=== PATIENT | male | born 1940 | race Caucasian/White ===

== ENCOUNTER 2016-11-25 11:37 | Inpatient (IN) | payer MEDICARE, OTHER ==
[2016-11-25 11:37] VITALS: BMI 35.2
--- NOTE | 2016-11-25 13:35 | ED PDOC ---
Lower Extremity Pain/Injury Time Seen by Provider: 11/25/16 13:25 Chief Complaint (Nursing): Lower Extremity Problem/Injury Chief Complaint (Provider): Bilateral Leg Eccymosis History Per: Patient History/Exam Limitations: no limitations ([employer]metry[employer] Video Administrative Office Manager assisted with communication) Onset/Duration Of Symptoms: Days (x3) Current Symptoms Are (Timing): Still Present Additional Complaint(s): Heber Woodson is a 76 year old male, with a past medical history inclusive of CAD (s/p coronary stent and pacemaker placement), CHF, atrial fibrillation, HTN , hypercholesterolemia and type II diabetes, who presents to the ED on 11/25/16 for the evaluation of black/blue discoloration/bruising which he has noted to his b/l lower extremities. [employer] Video Administrative Office Manager service used to facilitate communication. Patient reports having injured the affected extremities a couple of years ago and, though he does not remember exactly how he had done so, he has experienced increasing pain/discoloration within them over the past 3 days; prompting ED visit. Patient also reports having noted an open sore to his left anterior jacobs, but denies any serosanguinous drainage. Further denies fever, chills, chest pain, shortness of breath, back pain, calf pain, groin pain or paresthesias/numbness with ambulation. PMD: Prem Billings Past Medical History Reviewed: Historical Data, Nursing Documentation, Vital Signs Vital Signs: Last Vital Signs Temp 98.8 F 11/25/16 11:49 Pulse 72 11/25/16 11:49 Resp 18 11/25/16 12:26 BP 130/61 11/25/16 11:49 Pulse Ox 97 11/25/16 11:49 - Medical History PMH: Arthritis, Atrial Fibrillation, CAD, Cardia Arrhythmia, CHF, Depression, Diabetes (type II), HTN, Hypercholesterolemia, Pneumonia Denies: HIV, Chronic Kidney Disease - Surgical History Surgical History: Coronary Stent, Hernia Repair (ventral), Pacemaker - Family History Family History: States: Unknown Family Hx - Social History Ex-Smoker (has not smoked in the last 12 months): Yes Alcohol: None Drugs: Denies - Home Medications Home Medications: Ambulatory Orders Medication Instructions Recorded Sertraline [Zoloft] 50 mg PO DAILY #0 tab 01/17/16 Calcium Carbonate/Vitamin D3 1 tab PO QPM 04/20/16 [Calcium 600 + Vit D Tablet] Multivitamin [One Daily] 1 tab PO DAILY 04/20/16 Nitroglycerin [Nitrostat] 0.4 mg SL Q5MIN PRN 04/20/16 Potassium Chloride [Klor-Con M20] 20 meq PO QPM 04/20/16 Spironolactone [Aldactone] 25 mg PO DAILY 04/20/16 Zolpidem [Ambien] 5 mg PO HS PRN 04/20/16 predniSONE [predniSONE Tab] 10 mg PO DAILY 04/20/16 Risperidone [Risperdal] 2 mg PO HS 08/06/16 Aspirin [Ecotrin] 81 mg PO DAILY 11/25/16 Atorvastatin [Lipitor] 20 mg PO HS 11/25/16 Gabapentin [Neurontin] 300 mg PO TID 11/25/16 Hydroxychloroquine Sulfate 200 mg PO BID 11/25/16 [Plaquenil] Omeprazole [Prilosec] 20 mg PO DAILY 11/25/16 Rivaroxaban [Xarelto] 20 mg PO QPM 11/25/16 Sitagliptin Phosphate [Januvia] 100 mg PO DAILY 11/25/16 glyBURIDE [Micronase] 2.5 mg PO DAILY 11/25/16 - Allergies Allergies/Adverse Reactions: Allergies Allergy/AdvReac Type Severity Reaction Status Date / Time morphine Allergy RASH Verified 01/12/16 03:53 Review of Systems ROS Statement: Except As Marked, All Systems Reviewed And Found Negative Constitutional: Negative for: Fever, Chills Cardiovascular: Negative for: Chest Pain Respiratory: Negative for: Shortness of Breath Musculoskeletal: Positive for: Leg Pain (bilateral; denies groin/calf pain). Negative for: Back Pain Skin: Positive for: Other (skin discoloration of b/l lower extremities w/"open sore" on left jacobs; no discharge) Neurological: Negative for: Numbness (no numbness/paresthesias w/ambulation) Physical Exam - Reviewed Nursing Documentation Reviewed: Yes Vital Signs Reviewed: Yes - Physical Exam Appears: Positive for: Non-toxic, No Acute Distress Head Exam: Positive for: ATRAUMATIC, NORMOCEPHALIC Skin: Positive for: Normal Color, Warm, Dry Eye Exam: Positive for: Normal appearance Neck: Positive for: Normal, Painless ROM, Supple Cardiovascular/Chest: Positive for: Regular Rate, Rhythm. Negative for: Murmur Respiratory: Positive for: Normal Breath Sounds. Negative for: Respiratory Distress Pulses-Dorsalis Pedis (L): 2+ Pulses-Dorsalis Pedis (R): 2+ Pulses-Femoral (L): 2+ Pulses-Femoral (R): 2+ Pulses-Post. Tibialis (L): 2+ Pulses-Post. Tibialis (R): 2+ Gastrointestinal/Abdominal: Positive for: Normal Exam, Soft. Negative for: Tenderness Back: Positive for: Normal Inspection Extremity: Positive for: Normal ROM, Capillary Refill (<2 seconds), Other ( ecchymosis noted to b/l lower extremities w/many varicose veins; old/healing scab noted to left anterior jacobs, no notable drainage). Negative for: Tenderness (groin nontender b/l), Calf Tenderness, Deformity, Swelling Neurologic/Psych: Positive for: Alert, Oriented. Negative for: Motor/Sensory Deficits - Laboratory Results Result Diagrams: 11/25/16 14:10 11/25/16 14:10 - ECG O2 Sat by Pulse Oximetry: 97 (RA) Pulse Ox Interpretation: Normal - CT Scan/US US Other Rad Studies (CT/US): Radiology Report Reviewed (b/l DVT) - Progress ED Course And Treament: Pt will get US to r/o DVT and basic labs to assess coags. pt stable at this time. no SOB, no CP. 17:04. Pt with prolonged ED wait-due to signidicant wait in US. PT made aware and sawmill supervisor made of delay. Medical Decision Making Medical Decision Makin:25 Initial Impression: b/l leg ecchymosis Initial Plan: * Duplex LE Vein, Bilat * Labs * PTT * PT * Reevaluation 18:29 Pt with b/l DVT Pt will be admitted under MD lucía for vascular surgery consult and LMWH, considering pt is currently on blood thinners, pacemaker Scribe Attestation: Documented by Lizzy Harper, acting as a scribe for Janeth Li PA-C. Provider Scribe Attestation: All medical record entries made by the Scribe were at my direction and personally dictated by me. I have reviewed the chart and agree that the record accurately reflects my personal performance of the history, physical exam, medical decision making, and the department course for this patient. I have also personally directed, reviewed, and agree with the discharge instructions and disposition. ED OBSERVATION Date of observation admission: 11/25/16 Time of observation admission: 17:06 - Observation admission statement Patient is being placed in observation because:: US results - Goals of Observation Goals of observation are:: pt will be admitted for b/l DVT Disposition - Clinical Impression Clinical Impression: Deep vein thrombosis (DVT) - Patient ED Disposition Is Patient to be Admitted: Yes - Disposition Disposition Time: 18:31 Condition: FAIR - Pt Status Changed To: Hospital Disposition Of: Inpatient - Admit Certification Admit to Inpatient:: After my assessment, the patient will require hospitalization for at least two midnights. This is because of the severity of symptoms shown, intensity of services needed, and/or the medical risk in this patient being treated as an outpatient. - POA Present On Arrival: Deep Vein Thrombosis / PE
[2016-11-25 14:26] LABS: BASO % 0.3 % (0.0-2.0); EOS # 0.1 K/uL (0.0-0.7); EOS % 0.9 % (0.0-4.0); HEMATOCRIT 38.2 % (35.0-51.0); LYMPH # 0.8 K/uL (1.0-4.3); LYMPH % 6.3 % (20.0-40.0); MEAN CELL VOLUME 86.7 fl (80.0-94.0); MEAN CORPUSCULAR HEMOGLOBIN 28.5 pg (27.0-31.0); MEAN CORPUSCULAR HGB CONC 32.9 g/dL (33.0-37.0); MEAN PLATELET VOLUME 8.1 fl (7.2-11.7); MONO % 7.5 % (0.0-10.0); NEUT # 10.9 K/uL (1.8-7.0); NRBC % 0.1 % (0.0-0.0); PLATELET COUNT 174 K/uL (130-400); RED CELL DISTRIBUTION WIDTH 15.2 % (11.5-14.5); WHITE BLOOD COUNT 12.8 K/uL (4.8-10.8)
[2016-11-25 14:33] LABS: ALB/GLOB RATIO 1.1 (1.0-2.1); ALKALINE PHOSPHATASE 50 U/L (38-126); ALT/SGPT 39 U/L (21-72); AST/SGOT 31 U/L (17-59); BILIRUBIN,TOTAL 0.9 mg/dl (0.2-1.3); BLOOD UREA NITROGEN 25 mg/dl (9-20); CALCIUM 9.3 mg/dL (8.4-10.2); CARBON DIOXIDE 25 mmol/L (22-30); CHLORIDE 106 mmol/L (98-107); GFR AFRICAN-AMERICAN > 60; GLUCOSE,RANDOM 135 mg/dL (75-110); POTASSIUM 4.8 MMOL/L (3.6-5.0); SODIUM 143 mmol/l (132-148); TOTAL PROTEIN 6.5 G/DL (6.3-8.2)
[2016-11-25 14:42] LABS: PARTIAL THROMBOPLASTIN TIME 29.3 SECONDS (23.3-32.5)
[2016-11-25 16:06] LABS: NEUTROPHIL 87 % (42-75); TOTAL CELLS COUNTED 100
[2016-11-25 16:07] LABS: LARGE PLATELETS PRESENT
--- NOTE | 2016-11-25 18:22 | US ---
PROCEDURE: All bilateral lower extremity duplex venous sonography. HISTORY: brusing to LE COMPARISON: 08/06/2016. Summary of findings on the comparison examination: Negative examination left lower extremity for deep vein thrombosis. TECHNIQUE: Real-time ultrasound scan of the veins with color flow, spectral waveform analysis and compression FINDINGS: Right lower extremity: Evidence of extensive deep vein thrombosis extending from the popliteal vein to the common femoral veins. Calf veins are not visualized. Left lower extremity: Focal thrombus confined to the left popliteal vein, finding not seen previously. Compressibility without flow and the left posterior tibial vein IMPRESSION: 1. Right lower extremity: Extensive acute deep vein thrombosis. 2. Left lower extremity: Evidence of focal deep vein thrombosis left popliteal vein.
[2016-11-25] MEDS ORDERED: Dextrose 50% SYRINGE Inj (50 ml) IV PRN (19:31)
[2016-11-25] MEDS ORDERED: Glucagon Recombinant 1 mg Inj IM PRN (19:31)
--- NOTE | 2016-11-25 19:47 | CP.PCM.HP ---
<Sandra Esquivel - Last Filed: 11/25/16 20:31> History of Present Illness - History of Present Illness History of Present Illness: 76yo M nonsmoker with signifcant PMHx DM, HTN, CAD (Stent, pacemaker), HLD, Afib (on xarelto), CHF (01/13/16 ECHO LVEF 30%), CKD, lupus admitted for b/l DVT. c/o RLE pain and swelling x3 days. Denies SOB, h/o DVT. Denies h/o cancer, prolonged sedentary lifestyle, recent flight or surgery. Has been on xarelto x1 year. Has been compliant with medications. Stopped taking plaquenil and has continued taking prednisone. Medications: reviewed Social Hx: denies smoking, EtOH, Drugs Allergies: morphine PMD: Ezekiel ED course: VSS CBC, mild leukocytosis CMP, coags venous duplex-b/l DVT Present on Admission - Present on Admission Any Indicators Present on Admission: No Review of Systems - Constitutional Constitutional: absent: Chills, Fatigue - EENT Eyes: absent: Change in Vision, Other Visual Disturbances - Cardiovascular Cardiovascular: absent: Chest Pain, Dyspnea - Respiratory Respiratory: absent: Cough, Dyspnea - Gastrointestinal Gastrointestinal: absent: Abdominal Pain, Diarrhea, Nausea, Vomiting - Genitourinary Genitourinary: absent: Dysuria, Hematuria Past Patient History - Infectious Disease Hx of Infectious Diseases: None - Past Medical History & Family History Past Medical History?: Yes - Past Social History Alcohol: None Drugs: Denies - CARDIAC Hx Atrial Fibrillation: Yes Hx Cardia Arrhythmia: Yes Hx Congestive Heart Failure: Yes Hx Hypercholesterolemia: Yes Hx Hypertension: Yes Hx Pacemaker: Yes - PULMONARY Hx Pneumonia: Yes - NEUROLOGICAL Hx Neurological Disorder: Yes Other/Comment: Cerebral aneurysm - HEENT Hx HEENT Problems: No - RENAL Hx Chronic Kidney Disease: No - ENDOCRINE/METABOLIC Hx Diabetes Mellitus Type 2: Yes - HEMATOLOGICAL/ONCOLOGICAL Hx Human Immunodeficiency Virus (HIV): No - INTEGUMENTARY Hx Dermatological Problems: Yes Other/Comment: Red rashes on bilateral groin - MUSCULOSKELETAL/RHEUMATOLOGICAL Hx Arthritis: Yes - GASTROINTESTINAL Hx Gastrointestinal Disorders: No - GENITOURINARY/GYNECOLOGICAL Hx Genitourinary Disorders: No - PSYCHIATRIC Hx Depression: Yes - SURGICAL HISTORY Hx Coronary Stent: Yes - ANESTHESIA Hx Anesthesia: Yes Hx Anesthesia Reactions: No Hx Malignant Hyperthermia: No Meds Allergies/Adverse Reactions: Allergies Allergy/AdvReac Type Severity Reaction Status Date / Time morphine Allergy RASH Verified 01/12/16 03:53 Physical Exam - Constitutional Appears: Well, No Acute Distress - Head Exam Head Exam: ATRAUMATIC, NORMOCEPHALIC - Eye Exam Eye Exam: Normal appearance - Neck Exam Neck exam: Positive for: Normal Inspection - Respiratory Exam Respiratory Exam: Clear to Auscultation Bilateral - Cardiovascular Exam Cardiovascular Exam: REGULAR RHYTHM - GI/Abdominal Exam GI & Abdominal Exam: Normal Bowel Sounds, Soft - Extremities Exam Extremities exam: Positive for: normal capillary refill, tenderness, pedal pulses present. Negative for: pedal edema - Neurological Exam Neurological exam: Alert, Oriented x3 - Skin Skin Exam: Dry, Warm Results - Vital Signs Recent Vital Signs: Last Vital Signs Temp 98.8 F 11/25/16 11:49 Pulse 72 11/25/16 11:49 Resp 18 11/25/16 12:26 BP 130/61 11/25/16 11:49 Pulse Ox 97 11/25/16 18:31 - Labs Result Diagrams: 11/25/16 14:10 11/25/16 14:10 Assessment & Plan - Assessment and Plan (Free Text) Assessment: 76yo M nonsmoker with signifcant PMHx DM, HTN, CAD (Stent, pacemaker), HLD, Afib (on xarelto), CHF (01/13/16 ECHO LVEF 30%), CKD, lupus admitted for b/l DVT. b/l DVT -venous duplex: left popliteal DVT, right popliteal to common femoral DVT -therapeautic lovenox 110mg BID -repeat coags in AM -stop xarelto -consider starting coumadin -c/s cardio CHF -01/13/16 ECHO LVEF 30% -c/w spironolactone Afib -pacemaker -stop Xarelto -start lovenox HLD -statin CKD3 -monitor renal fx -CrCl 77 DM -SSI -c/w januvia, glyburide -accuchecks lupus -c/w prednisone -held d/t pt not taking reflux -Protonix DVT ppx -lovenox Decision To Admit - Pt Status Changed To: Hospital Disposition Of: Inpatient - Admit Certification Admit to Inpatient:: After my assessment, the patient will require hospitalization for at least two midnights. This is because of the severity of symptoms shown, intensity of services needed, and/or the medical risk in this patient being treated as an outpatient. - . Bed Request Type: Telemetry Admitting Physician: Prasanth Nye <Prasanth Nye - Last Filed: 11/26/16 06:50> Results - Vital Signs Recent Vital Signs: Last Vital Signs Temp 97.6 F 11/26/16 04:58 Pulse 67 11/26/16 04:58 Resp 20 11/26/16 04:58 BP 147/78 11/26/16 04:58 Pulse Ox 94 L 11/26/16 04:58 - Labs Result Diagrams: 11/26/16 05:40 11/25/16 14:10 Labs: Laboratory Results - last 24 hr 11/25/16 11/26/16 11/26/16 21:58 05:32 05:40 WBC 10.6 RBC 4.54 Hgb 12.9 Hct 39.1 MCV 86.2 MCH 28.5 MCHC 33.0 RDW 15.1 H Plt Count 166 MPV 8.7 Neut % (Auto) 75.5 H Lymph % (Auto) 13.4 L [place] % (Auto) 9.4 Eos % (Auto) 1.3 Baso % (Auto) 0.4 Neut # 8.0 H Lymph # 1.4 [place] # 1.0 H Eos # 0.1 Baso # 0.0 POC Glucose (mg/dL) 148 H 111 H Attending/Attestation - Attestation I have personally seen and examined this patient.: Yes I have fully participated in the care of the patient.: Yes I have reviewed all pertinent clinical information: Yes
[2016-11-25] MEDS: Insulin Regular 100 units/ml SC SCH (22:30)
[2016-11-26] MEDS: Enoxaparin 120 mg Syringe SC SCH ×3 (00:05→21:15)
[2016-11-26 06:42] LABS: BASO % 0.4 % (0.0-2.0); EOS # 0.1 K/uL (0.0-0.7); EOS % 1.3 % (0.0-4.0); HEMATOCRIT 39.1 % (35.0-51.0); LYMPH # 1.4 K/uL (1.0-4.3); LYMPH % 13.4 % (20.0-40.0); MEAN CELL VOLUME 86.2 fl (80.0-94.0); MEAN CORPUSCULAR HEMOGLOBIN 28.5 pg (27.0-31.0); MEAN PLATELET VOLUME 8.7 fl (7.2-11.7); MONO % 9.4 % (0.0-10.0); NEUT % 75.5 % (50.0-75.0); RED CELL DISTRIBUTION WIDTH 15.1 % (11.5-14.5); WHITE BLOOD COUNT 10.6 K/uL (4.8-10.8)
[2016-11-26 06:52] LABS: PARTIAL THROMBOPLASTIN TIME 32.9 SECONDS (23.3-32.5)
[2016-11-26 06:56] LABS: BLOOD UREA NITROGEN 24 mg/dl (9-20); CALCIUM 9.2 mg/dL (8.4-10.2); CARBON DIOXIDE 27 mmol/L (22-30); CHLORIDE 105 mmol/L (98-107); GFR AFRICAN-AMERICAN > 60; GLUCOSE,RANDOM 107 mg/dL (75-110); POTASSIUM 4.2 MMOL/L (3.6-5.0); SODIUM 144 mmol/l (132-148)
--- NOTE | 2016-11-26 07:56 | CP.PCM.PN ---
<Davon Craven - Last Filed: 11/26/16 10:48> Subjective - Date & Time of Evaluation Date of Evaluation: 11/26/16 Time of Evaluation: 07:56 - Subjective Subjective: pt seen and examined at bedside this morning with Dr. Billings. No acute events overnight. Pt lying in bed comfortably, NAD. Complaining of right thigh pain but no other complaints. No new medical complaints. Denies CP/SOB/palpitations, N/V/D/C, numbness/tingling. Objective - Vital Signs/Intake and Output Vital Signs (last 24 hours): Temp Pulse Resp BP Pulse Ox 97.6 F 67 20 147/78 94 L 11/26/16 04:58 11/26/16 04:58 11/26/16 04:58 11/26/16 04:58 11/26/16 04:58 - Medications Medications: Current Medications Aspirin (Ecotrin) 81 mg PO DAILY [facility] Atorvastatin Calcium (Lipitor) 20 mg PO HS [facility] Last Admin: 11/26/16 00:06 Dose: 20 mg Dextrose (Glutose 15) 0 gm PO ONCE PRN; Protocol PRN Reason: Hypoglycemia Protocol Dextrose (Dextrose 50% Inj) 0 ml IV STAT PRN; Protocol PRN Reason: Hyglycemia Protocol Enoxaparin Sodium (Lovenox) 110 mg SC Q12 [facility] PRN Reason: Protocol Last Admin: 11/26/16 00:05 Dose: 110 mg Gabapentin (Neurontin) 300 mg PO TID [facility] Glucagon (Glucagen Diagnostic Kit) 0 mg IM STAT PRN; Protocol PRN Reason: Hypoglycemia Protocol Glyburide (Micronase) 2.5 mg PO DAILY [facility] Home Med (Calcium Carbonate/Vitamin D3 [Calcium 600 + Vit D Tablet]) 1 tab PO QPM [facility] Insulin Human Regular (Humulin R) 0 units SC ACHS [facility] PRN Reason: Protocol Last Admin: 11/25/16 22:30 Dose: Not Given Multivitamins/Minerals (Therapeutic-M Tab) 1 tab PO DAILY [facility] Pantoprazole Sodium (Protonix Ec Tab) 40 mg PO DAILY [facility] Potassium Chloride (K-Dur 20 Meq Er Tab) 20 meq PO QPM [facility] Prednisone (Prednisone Tab) 10 mg PO DAILY [facility] Risperidone (Risperdal Tab) 2 mg PO HS [facility] Last Admin: 11/26/16 00:06 Dose: 2 mg Sertraline HCl (Zoloft) 50 mg PO DAILY [facility] Sitagliptin Phosphate (Januvia) 100 mg PO DAILY [facility] Spironolactone (Aldactone) 25 mg PO DAILY [facility] Zolpidem Tartrate (Ambien) 5 mg PO HS PRN PRN Reason: Insomnia Last Admin: 11/26/16 00:09 Dose: 5 mg - Labs Labs: 11/26/16 05:40 11/26/16 05:40 PT 12.7 SECONDS (9.6-11.2) H 11/26/16 05:40 INR 1.22 (0.92-1.08) H 11/26/16 05:40 APTT 32.9 SECONDS (23.3-32.5) H 11/26/16 05:40 - Constitutional Appears: Non-toxic, No Acute Distress - Eye Exam Eye Exam: EOMI Pupil Exam: PERRL - Respiratory Exam Respiratory Exam: Clear to Ausculation Bilateral, NORMAL BREATHING PATTERN. absent: Rales, Rhonchi, Wheezes - Cardiovascular Exam Cardiovascular Exam: Irregular Rhythm. absent: Tachycardia, Diastolic murmur, JVD, Murmur - Extremities Exam Extremities Exam: Calf Tenderness, Tenderness (mild tenderness around calves as well as right thigh). absent: Normal Inspection (bilateral eccyhmosises around both LEs, no erythema), Pedal Edema - Neurological Exam Neurological Exam: Alert, Awake, Oriented x3 Assessment and Plan (1) Deep vein thrombosis (DVT) Assessment & Plan: Venous Duplex: -RLE: Extensive acute deep vein thrombosis -LLE: evidence of focal deep vein thrombosis in left popliteal vein Therapeutic Lovenox: 110mg BID Held Xarelto Cardiology consult appreciated Heme/Onc consult with Dr. Froylan Farias appreciated: -Cardiolipin AB (IG): pending -Cardiolipin ABS: pending -Lupus Anticoagulant: pending -MTHFR DNA Mutation: pending -Prothrombin: pending -non-contrast Head CT: pending -goal is to decide whether or not to bridge the patient and start Warfarin or is a candidate for IVC filter. Status: c (2) DM type 2 (diabetes mellitus, type 2) Assessment & Plan: accuchecks insulin sliding scale continue with Januvia and Glyburide Status: h (3) DVT prophylaxis Assessment & Plan: therapeutic Lovenox 110mg BID Status: c (4) CKD (chronic kidney disease) stage 3, GFR 30-59 ml/min Assessment & Plan: monitor RFs CrCl: 77 Status: h (5) Systolic CHF, chronic Assessment & Plan: Echo on 01/13/2016 showed LVEF of 30% continue with Spironolactone Status: h (6) A-fib Assessment & Plan: Pacemaker Xarelto held Therapeutic Lovenox 110 mg BID started Status: h (7) Hyperlipemia Assessment & Plan: statin therapy Status: h (8) Lupus Assessment & Plan: continue with Prednisone held d/t as pt is not taking it Status: h <Prem Billings - Last Filed: 12/01/16 07:16> Objective - Vital Signs/Intake and Output Vital Signs (last 24 hours): Temp Pulse Resp BP Pulse Ox 97.6 F 66 20 133/69 97 11/29/16 13:03 11/29/16 13:03 11/29/16 13:03 11/29/16 13:03 11/29/16 13:03 - Labs Labs: 11/29/16 04:30 11/29/16 04:30 PT 28.0 SECONDS (9.6-11.2) H 11/29/16 09:55 INR 2.69 (0.92-1.08) H 11/29/16 09:55 APTT 32.9 SECONDS (23.3-32.5) H 11/26/16 05:40 Attending/Attestation - Attestation I have personally seen and examined this patient.: Yes I have fully participated in the care of the patient.: Yes I have reviewed all pertinent clinical information, including history, physical exam and plan: Yes
[2016-11-26] MEDS: Multivitamin With Minerals Tab PO SCH (08:26)
[2016-11-26] MEDS: Insulin Regular 100 units/ml SC SCH ×4 (08:26→21:35)
[2016-11-26] MEDS: Pantoprazole 40 mg EC Tab PO SCH (08:26)
--- NOTE | 2016-11-26 10:53 | CT ---
PROCEDURE: CT HEAD WITHOUT CONTRAST. HISTORY: ? intracranial hemorrhage COMPARISON: Comparison made with CT scan and MRI of the brain dated 07/31/2015 and 03/01/2012 respectively. TECHNIQUE: Axial computed tomography images were obtained through the head/brain without intravenous contrast. Radiation dose: Total exam DLP = 882.7mGy-cm. This CT exam was performed using one or more of the following dose reduction techniques: Automated exposure control, adjustment of the mA and/or kV according to patient size, and/or use of iterative reconstruction technique. FINDINGS: HEMORRHAGE: No intracranial hemorrhage. BRAIN: Re- demonstrated is a rounded metallic density (representing embolization coils) in the region of previously noted anterior communicating artery aneurysm (seen on prior MRI brain although unchanged in appearance from prior CT scan. The metallic coils resultant significant streak and beam hardening artifact resulting in marked obscuration of surrounding anatomy. Mild chronic periventricular white matter ischemic changes as well as multiple scattered chronic bilateral basal nuclei lacunar type infarcts are present. Dense vascular calcification. Moderate generalized volume loss VENTRICLES: As mentioned above, there is moderate generalized volume loss with enlargement of the ventricles and sulci however no obstructive hydrocephalus. CALVARIUM: No acute calvarial fractures PARANASAL SINUSES: Minimal mucosal thickening seen within several ethmoid air cells MASTOID AIR CELLS: Unremarkable as visualized. No inflammatory changes. OTHER FINDINGS: None. IMPRESSION: No acute intracranial hemorrhage. Re- demonstrated is a rounded metallic density representing embolization coils) in the region of previously noted anterior communicating artery aneurysm (seen on prior MRI brain although unchanged in appearance from prior CT scan. The metallic coils resultant significant streak and beam hardening artifact resulting in marked obscuration of surrounding anatomy. Mild chronic periventricular white matter ischemic changes as well as multiple scattered chronic bilateral basal nuclei lacunar type infarcts are present. Moderate generalized volume loss.
--- NOTE | 2016-11-26 10:54 | CP.PCM.CON ---
History of Present Illness - History of Present Illness History of Present Illness: THE PATIENT IS A 76 YEAR OLD MALE WHO COMPLAINED OF RIGHT LEG PAIN FOR THREE DAYS [employer] AND CAME TO THE ER YESTERDAY AND WAS FOUND TO HAVE BILATERAL LE DVT AND WAS ADMITTED. HE HAS A HISTORY OF SSS WITH A DUAL CHAMBER PACEMAKER, INTERMITTENT ATRIAL FIBRILLATION, HYPERTENSION, HYPERLIPIDEMIA, SLE WITH LUPUS NEPHRITIS, TYPE 2 DM, GERDS AND DEPESSION.. HE ALSO HAD A CEREBRAL VASCULAR ANEURYSM REPAIR. AN ECHOCARDIOGRAM DONE IN 2016 SHOWED A LVEF OF 30%. HE WAS TREATED WITH LOVENOX FOR HIS DVT AND HEMATOLOGY WAS ASKED TO SEE HIM FOR ANTICOAGULATION TREATMENT. CARDIOLOGY WAS ASKED TO SEE HIM AND FOLLOW HIM ON THIS ADMISSION. HE DENIES KNOWN CAD, CHEST PAIN, PALPITATIONS OR SOB. Past Patient History - Infectious Disease Hx of Infectious Diseases: None - Past Medical History & Family History Past Medical History?: Yes - Past Social History Smoking Status: Never Smoked - CARDIAC Hx Atrial Fibrillation: Yes Hx Cardia Arrhythmia: Yes Hx Congestive Heart Failure: Yes Hx Hypercholesterolemia: Yes Hx Hypertension: Yes Hx Pacemaker: Yes - PULMONARY Hx Pneumonia: Yes - NEUROLOGICAL Hx Neurological Disorder: Yes - HEENT Hx HEENT Problems: No - RENAL Hx Chronic Kidney Disease: No - ENDOCRINE/METABOLIC Hx Diabetes Mellitus Type 2: Yes - HEMATOLOGICAL/ONCOLOGICAL Hx Human Immunodeficiency Virus (HIV): No - INTEGUMENTARY Hx Dermatological Problems: Yes - MUSCULOSKELETAL/RHEUMATOLOGICAL Hx Arthritis: Yes Hx Falls: No - GASTROINTESTINAL Hx Gastrointestinal Disorders: No - GENITOURINARY/GYNECOLOGICAL Hx Genitourinary Disorders: No - PSYCHIATRIC Hx Depression: Yes - SURGICAL HISTORY Hx Coronary Stent: Yes - ANESTHESIA Hx Anesthesia: Yes Hx Anesthesia Reactions: No Hx Malignant Hyperthermia: No Meds Allergies/Adverse Reactions: Allergies Allergy/AdvReac Type Severity Reaction Status Date / Time morphine Allergy RASH Verified 01/12/16 03:53 - Medications Medications: Current Medications Aspirin (Ecotrin) 81 mg PO DAILY [facility] Last Admin: 11/26/16 08:27 Dose: 81 mg Atorvastatin Calcium (Lipitor) 20 mg PO HS [facility] Last Admin: 11/26/16 00:06 Dose: 20 mg Dextrose (Glutose 15) 0 gm PO ONCE PRN; Protocol PRN Reason: Hypoglycemia Protocol Dextrose (Dextrose 50% Inj) 0 ml IV STAT PRN; Protocol PRN Reason: Hyglycemia Protocol Enoxaparin Sodium (Lovenox) 110 mg SC Q12 [facility] PRN Reason: Protocol Last Admin: 11/26/16 08:28 Dose: 110 mg Gabapentin (Neurontin) 300 mg PO TID [facility] Last Admin: 11/26/16 08:27 Dose: 300 mg Glucagon (Glucagen Diagnostic Kit) 0 mg IM STAT PRN; Protocol PRN Reason: Hypoglycemia Protocol Glyburide (Micronase) 2.5 mg PO DAILY [facility] Last Admin: 11/26/16 08:27 Dose: 2.5 mg Home Med (Calcium Carbonate/Vitamin D3 [Calcium 600 + Vit D Tablet]) 1 tab PO QPM [facility] Insulin Human Regular (Humulin R) 0 units SC ACHS [facility] PRN Reason: Protocol Last Admin: 11/26/16 08:26 Dose: Not Given Multivitamins/Minerals (Therapeutic-M Tab) 1 tab PO DAILY [facility] Last Admin: 11/26/16 08:26 Dose: 1 tab Pantoprazole Sodium (Protonix Ec Tab) 40 mg PO DAILY [facility] Last Admin: 11/26/16 08:26 Dose: 40 mg Potassium Chloride (K-Dur 20 Meq Er Tab) 20 meq PO QPM [facility] Prednisone (Prednisone Tab) 10 mg PO DAILY [facility] Last Admin: 11/26/16 08:27 Dose: 10 mg Risperidone (Risperdal Tab) 2 mg PO HS [facility] Last Admin: 11/26/16 00:06 Dose: 2 mg Sertraline HCl (Zoloft) 50 mg PO DAILY [facility] Last Admin: 11/26/16 08:27 Dose: 50 mg Sitagliptin Phosphate (Januvia) 100 mg PO DAILY [facility] Last Admin: 11/26/16 08:27 Dose: 100 mg Spironolactone (Aldactone) 25 mg PO DAILY [facility] Last Admin: 11/26/16 08:27 Dose: 25 mg Warfarin Sodium (Coumadin) 7.5 mg PO QD5 [facility] PRN Reason: Protocol Stop: 11/26/16 17:01 Zolpidem Tartrate (Ambien) 5 mg PO HS PRN PRN Reason: Insomnia Last Admin: 11/26/16 00:09 Dose: 5 mg Physical Exam - Respiratory Exam Respiratory Exam: Clear to Auscultation Bilateral - Cardiovascular Exam Cardiovascular Exam: REGULAR RHYTHM, +S1, +S2 - Extremities Exam Additional comments: BILATERAL CALF TENDERNESS AND BILATERAL LEG ECCHYMOSIS AND VV - Additional Findings Additional findings: EKG AV SEQUENTIAL PACING LE VENOUS DOPPLER STUDIES SHOW BILAT LE DVT Results - Vital Signs Recent Vital Signs: Last Vital Signs Temp 97.5 F L 11/26/16 08:00 Pulse 66 11/26/16 09:00 Resp 20 11/26/16 08:00 BP 145/75 11/26/16 08:00 Pulse Ox 98 11/26/16 08:00 - Labs Result Diagrams: 11/26/16 05:40 11/26/16 05:40 Labs: Laboratory Results - last 24 hr 11/25/16 11/26/16 11/26/16 21:58 05:32 05:40 WBC 10.6 RBC 4.54 Hgb 12.9 Hct 39.1 MCV 86.2 MCH 28.5 MCHC 33.0 RDW 15.1 H Plt Count 166 MPV 8.7 Neut % (Auto) 75.5 H Lymph % (Auto) 13.4 L Dade % (Auto) 9.4 Eos % (Auto) 1.3 Baso % (Auto) 0.4 Neut # 8.0 H Lymph # 1.4 Dade # 1.0 H Eos # 0.1 Baso # 0.0 PT 12.7 H INR 1.22 H APTT 32.9 H Sodium 144 Potassium 4.2 Chloride 105 Carbon Dioxide 27 Anion Gap 16 BUN 24 H Creatinine 1.1 Est GFR ( Amer) > 60 Est GFR (Non-Af Amer) > 60 POC Glucose (mg/dL) 148 H 111 H Random Glucose 107 Calcium 9.2 Assessment & Plan - Assessment and Plan (Free Text) Assessment: BILATERAL LE DVT SSS WIDTH DUAL CHAMBER PACEMAKER AND INTERMITTENT ATRIAL FIBRILLATION HYPERTENSION HYPERLIPIDEMIA SLE WITH LUPUS NEPHRITIS TYPE 2 DM GERDS Plan: THE PATIENT HAS ALREADY BEEN STARTED ON LOVENOX PATIENT DISCUSSED WITH HEMATOLOGY AND WILL PROBABLY BE STARTED ON WARFARIN XARELTO DID NOT PREVENT THE DVT CONTINUE ASPIRIN, ATORVASTATIN, GLYBURIDE AND SPIRONOLACTONE
--- NOTE | 2016-11-26 11:46 | CP.PCM.CON ---
History of Present Illness - History of Present Illness History of Present Illness: This is a 76 yrs old male who has a past h/o CAD, with stent placed, atrial fibrillation , DM2, CRD and lupus.. He was on xarelto for the A Fib, He was doing well until 3 days ago when he noticed a swelling on his left jacobs, which looks like a a injury but he does not remember when he got it. There was a fair amount of ecchymosis on both the lower extremities, no other site of bleeding. He was brought to the ER where a venous ultrasound showed focal DVT in the right calf and sveral vessels involved with the DVT on the left lower extremity. He claims he has been very regular with the xarelto which he takes every night.. There was no immobilization, or illness. He also c/o headache since admission, and worried that it may be a bleed. Past Patient History - Infectious Disease Hx of Infectious Diseases: None - Past Medical History & Family History Past Medical History?: Yes - Past Social History Smoking Status: Never Smoked - CARDIAC Hx Atrial Fibrillation: Yes Hx Cardia Arrhythmia: Yes Hx Congestive Heart Failure: Yes Hx Hypercholesterolemia: Yes Hx Hypertension: Yes Hx Pacemaker: Yes - PULMONARY Hx Pneumonia: Yes - NEUROLOGICAL Hx Neurological Disorder: Yes - HEENT Hx HEENT Problems: No - RENAL Hx Chronic Kidney Disease: No - ENDOCRINE/METABOLIC Hx Diabetes Mellitus Type 2: Yes - HEMATOLOGICAL/ONCOLOGICAL Hx Human Immunodeficiency Virus (HIV): No - INTEGUMENTARY Hx Dermatological Problems: Yes - MUSCULOSKELETAL/RHEUMATOLOGICAL Hx Arthritis: Yes Hx Falls: No - GASTROINTESTINAL Hx Gastrointestinal Disorders: No - GENITOURINARY/GYNECOLOGICAL Hx Genitourinary Disorders: No - PSYCHIATRIC Hx Depression: Yes - SURGICAL HISTORY Hx Coronary Stent: Yes - ANESTHESIA Hx Anesthesia: Yes Hx Anesthesia Reactions: No Hx Malignant Hyperthermia: No Meds Allergies/Adverse Reactions: Allergies Allergy/AdvReac Type Severity Reaction Status Date / Time morphine Allergy RASH Verified 01/12/16 03:53 - Medications Medications: Current Medications Aspirin (Ecotrin) 81 mg PO DAILY [facility] Last Admin: 11/26/16 08:27 Dose: 81 mg Atorvastatin Calcium (Lipitor) 20 mg PO HS [facility] Last Admin: 11/26/16 00:06 Dose: 20 mg Dextrose (Glutose 15) 0 gm PO ONCE PRN; Protocol PRN Reason: Hypoglycemia Protocol Dextrose (Dextrose 50% Inj) 0 ml IV STAT PRN; Protocol PRN Reason: Hyglycemia Protocol Enoxaparin Sodium (Lovenox) 110 mg SC Q12 [facility] PRN Reason: Protocol Last Admin: 11/26/16 08:28 Dose: 110 mg Gabapentin (Neurontin) 300 mg PO TID [facility] Last Admin: 11/26/16 08:27 Dose: 300 mg Glucagon (Glucagen Diagnostic Kit) 0 mg IM STAT PRN; Protocol PRN Reason: Hypoglycemia Protocol Glyburide (Micronase) 2.5 mg PO DAILY [facility] Last Admin: 11/26/16 08:27 Dose: 2.5 mg Home Med (Calcium Carbonate/Vitamin D3 [Calcium 600 + Vit D Tablet]) 1 tab PO QPM [facility] Insulin Human Regular (Humulin R) 0 units SC ACHS [facility] PRN Reason: Protocol Last Admin: 11/26/16 08:26 Dose: Not Given Multivitamins/Minerals (Therapeutic-M Tab) 1 tab PO DAILY [facility] Last Admin: 11/26/16 08:26 Dose: 1 tab Pantoprazole Sodium (Protonix Ec Tab) 40 mg PO DAILY [facility] Last Admin: 11/26/16 08:26 Dose: 40 mg Potassium Chloride (K-Dur 20 Meq Er Tab) 20 meq PO QPM [facility] Prednisone (Prednisone Tab) 10 mg PO DAILY [facility] Last Admin: 11/26/16 08:27 Dose: 10 mg Risperidone (Risperdal Tab) 2 mg PO HS [facility] Last Admin: 11/26/16 00:06 Dose: 2 mg Sertraline HCl (Zoloft) 50 mg PO DAILY [facility] Last Admin: 11/26/16 08:27 Dose: 50 mg Sitagliptin Phosphate (Januvia) 100 mg PO DAILY [facility] Last Admin: 11/26/16 08:27 Dose: 100 mg Spironolactone (Aldactone) 25 mg PO DAILY [facility] Last Admin: 11/26/16 08:27 Dose: 25 mg Warfarin Sodium (Coumadin) 7.5 mg PO QD5 [facility] PRN Reason: Protocol Stop: 11/26/16 17:01 Zolpidem Tartrate (Ambien) 5 mg PO HS PRN PRN Reason: Insomnia Last Admin: 11/26/16 00:09 Dose: 5 mg Physical Exam - Additional Findings Additional findings: Physical Exam; alert well oriented in no acute distress neck; Supple, no adenopathy Chest; Clear, no rales or rhonchi Heart; Grade 1/6 systolic murmur Abd; Soft, no ecchymosis , no mass no h/s megaly Extremities; a fair amount of ecchymosis is present on both lower extremity, with an injury on the left jacobs with hematoma formation. Results - Vital Signs Recent Vital Signs: Last Vital Signs Temp 97.5 F L 11/26/16 08:00 Pulse 66 11/26/16 09:00 Resp 20 11/26/16 08:00 BP 145/75 11/26/16 08:00 Pulse Ox 98 11/26/16 08:00 - Labs Result Diagrams: 11/26/16 05:40 11/26/16 05:40 Labs: Laboratory Results - last 24 hr 11/25/16 11/26/16 11/26/16 21:58 05:32 05:40 WBC 10.6 RBC 4.54 Hgb 12.9 Hct 39.1 MCV 86.2 MCH 28.5 MCHC 33.0 RDW 15.1 H Plt Count 166 MPV 8.7 Neut % (Auto) 75.5 H Lymph % (Auto) 13.4 L Barron % (Auto) 9.4 Eos % (Auto) 1.3 Baso % (Auto) 0.4 Neut # 8.0 H Lymph # 1.4 [place]ron # 1.0 H Eos # 0.1 Baso # 0.0 PT 12.7 H INR 1.22 H APTT 32.9 H Sodium 144 Potassium 4.2 Chloride 105 Carbon Dioxide 27 Anion Gap 16 BUN 24 H Creatinine 1.1 Est GFR ( Amer) > 60 Est GFR (Non-Af Amer) > 60 POC Glucose (mg/dL) 148 H 111 H Random Glucose 107 Calcium 9.2 11/26/16 11/26/16 09:45 11:02 WBC RBC Hgb Hct MCV MCH MCHC RDW Plt Count MPV Neut % (Auto) Lymph % (Auto) Barron % (Auto) Eos % (Auto) Baso % (Auto) Neut # Lymph # Barron # Eos # Baso # PT 12.0 H INR 1.15 H APTT Sodium Potassium Chloride Carbon Dioxide Anion Gap BUN Creatinine Est GFR ( Amer) Est GFR (Non-Af Amer) POC Glucose (mg/dL) 203 H Random Glucose Calcium Assessment & Plan - Assessment and Plan (Free Text) Assessment: Impression DVT both lower exttremities while on xarelto. Possible hypercoagulable state secondary to lupus anticoagulant or cardiolipin antibody which responds better to coumadin Plan: Plan; I suggest we start him on coumadin, since he failed Xarelto. Have ordered work up for hypercoagulable state. - Date & Time Date: 11/26/16 Time: 11:57
[2016-11-26] MEDS ORDERED: Potassium Chloride 20 mEq ER Tab PO SCH (18:00)
[2016-11-26] MEDS ORDERED: Patient's Own Med (Calcium Carbonate/Vitamin D3 [Calcium 600 + Vit D Tablet] 1 TAB) PO SCH (18:00)
--- NOTE | 2016-11-26 18:08 | CARD ---
APPROVED REPORT EKG Measurement Heart [id number] MS 170P [id number] <Conclusion> Atrial-paced rhythm Nonspecific intraventricular block Anterolateral infarct, age undetermined Abnormal ECG
[2016-11-27 06:27] LABS: BLOOD UREA NITROGEN 30 mg/dl (9-20); CALCIUM 9.4 mg/dL (8.4-10.2); CARBON DIOXIDE 26 mmol/L (22-30); CHLORIDE 106 mmol/L (98-107); GFR AFRICAN-AMERICAN > 60; GLUCOSE,RANDOM 143 mg/dL (75-110); POTASSIUM 4.1 MMOL/L (3.6-5.0); SODIUM 146 mmol/l (132-148)
[2016-11-27] MEDS: Insulin Regular 100 units/ml SC SCH ×4 (06:44→21:25)
--- NOTE | 2016-11-27 07:31 | CP.PCM.PN ---
Subjective - Date & Time of Evaluation Date of Evaluation: 11/27/16 Time of Evaluation: 07:30 - Subjective Subjective: Pt sleeping upon entering room, multiple times. Easily arousable to verbal stimuli. Pt states he is feeling well, and only c/o right leg pain, decreased from yesterday. Slept well. Denies difficulty with urinating or BM. Denies CP , SOB, N/V. Objective - Vital Signs/Intake and Output Vital Signs (last 24 hours): Temp Pulse Resp BP Pulse Ox 97.9 F 59 L 20 125/66 97 11/27/16 04:53 11/27/16 04:53 11/27/16 04:53 11/27/16 04:53 11/27/16 04:53 - Medications Medications: Current Medications Aspirin (Ecotrin) 81 mg PO DAILY [facility] Last Admin: 11/26/16 08:27 Dose: 81 mg Atorvastatin Calcium (Lipitor) 20 mg PO HS [facility] Last Admin: 11/26/16 21:15 Dose: 20 mg Dextrose (Glutose 15) 0 gm PO ONCE PRN; Protocol PRN Reason: Hypoglycemia Protocol Dextrose (Dextrose 50% Inj) 0 ml IV STAT PRN; Protocol PRN Reason: Hyglycemia Protocol Enoxaparin Sodium (Lovenox) 110 mg SC Q12 [facility] PRN Reason: Protocol Last Admin: 11/26/16 21:15 Dose: 110 mg Gabapentin (Neurontin) 300 mg PO TID [facility] Last Admin: 11/26/16 16:30 Dose: 300 mg Glucagon (Glucagen Diagnostic Kit) 0 mg IM STAT PRN; Protocol PRN Reason: Hypoglycemia Protocol Glyburide (Micronase) 2.5 mg PO DAILY [facility] Last Admin: 11/26/16 08:27 Dose: 2.5 mg Home Med (Calcium Carbonate/Vitamin D3 [Calcium 600 + Vit D Tablet]) 1 tab PO QPM [facility] Insulin Human Regular (Humulin R) 0 units SC ACHS [facility] PRN Reason: Protocol Last Admin: 11/27/16 06:44 Dose: 1 units Multivitamins/Minerals (Therapeutic-M Tab) 1 tab PO DAILY [facility] Last Admin: 11/26/16 08:26 Dose: 1 tab Pantoprazole Sodium (Protonix Ec Tab) 40 mg PO DAILY [facility] Last Admin: 11/26/16 08:26 Dose: 40 mg Potassium Chloride (K-Dur 20 Meq Er Tab) 20 meq PO QPM [facility] Prednisone (Prednisone Tab) 10 mg PO DAILY [facility] Last Admin: 11/26/16 08:27 Dose: 10 mg Risperidone (Risperdal Tab) 2 mg PO HS [facility] Last Admin: 11/26/16 21:16 Dose: 2 mg Sertraline HCl (Zoloft) 50 mg PO DAILY [facility] Last Admin: 11/26/16 08:27 Dose: 50 mg Sitagliptin Phosphate (Januvia) 100 mg PO DAILY [facility] Last Admin: 11/26/16 08:27 Dose: 100 mg Spironolactone (Aldactone) 25 mg PO DAILY [facility] Last Admin: 11/26/16 08:27 Dose: 25 mg Zolpidem Tartrate (Ambien) 5 mg PO HS PRN PRN Reason: Insomnia Last Admin: 11/26/16 00:09 Dose: 5 mg - Labs Labs: 11/26/16 05:40 11/27/16 05:53 PT 11.9 SECONDS (9.6-11.2) H 11/27/16 05:53 INR 1.14 (0.92-1.08) H 11/27/16 05:53 APTT 32.9 SECONDS (23.3-32.5) H 11/26/16 05:40 - Constitutional Appears: Non-toxic, No Acute Distress - Head Exam Head Exam: NORMAL INSPECTION - Eye Exam Eye Exam: Normal appearance - ENT Exam ENT Exam: Mucous Membranes Moist - Respiratory Exam Respiratory Exam: Clear to Ausculation Bilateral, NORMAL BREATHING PATTERN. absent: Rhonchi, Wheezes, Respiratory Distress - Cardiovascular Exam Cardiovascular Exam: Irregular Rhythm (rate controlled) - GI/Abdominal Exam GI & Abdominal Exam: Soft, Normal Bowel Sounds. absent: Tenderness - Extremities Exam Extremities Exam: Tenderness (anterior b/l LE, with ecchymoses b/l). absent: Calf Tenderness - Back Exam Back Exam: NORMAL INSPECTION - Neurological Exam Neurological Exam: Alert, Awake Assessment and Plan - Assessment and Plan (Free Text) Assessment: 1. Deep vein thrombosis (DVT) -Venous Duplex: -RLE: Extensive acute deep vein thrombosis -LLE: evidence of focal deep vein thrombosis in left popliteal vein -Therapeutic Lovenox: 110mg BID -home med xarelto held, as pt reported taking it daily and it failed to prevent DVT -Cardiology consult appreciated -Heme/Onc consult with Dr. 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 -started bridging with warfarin at 7.5mg -INR today 1.14 2. Systolic CHF, chronic -Echo on 01/13/2016 showed LVEF of 30% -continue with Spironolactone 3. A-fib -Pacemaker -Xarelto held -currently on therapeutic lovenox and started warfarin 11/26/16 4. DM type 2 (diabetes mellitus, type 2) -controlled -accuchecks -insulin sliding scale -continue with Januvia and Glyburide 5.CKD (chronic kidney disease) stage 3, GFR 30-59 ml/min -monitor 6. Hyperlipemia -c/w statin therapy 7. Lupus -continue with Prednisone -home med also plaquenil, but pt reports not taking it due to eye irritation
[2016-11-27] MEDS: Enoxaparin 120 mg Syringe SC SCH ×2 (09:09→21:23)
[2016-11-27] MEDS: Pantoprazole 40 mg EC Tab PO SCH (09:09)
[2016-11-27] MEDS: Multivitamin With Minerals Tab PO SCH (09:10)
[2016-11-27] MEDS ORDERED: Alum-Mag Hydrox-Simethicone Susp (30 mL) PO ONE (12:37)
--- NOTE | 2016-11-27 15:18 | CP.PCM.PN ---
Subjective - Date & Time of Evaluation Date of Evaluation: 11/27/16 Time of Evaluation: 14:00 - Subjective Subjective: NO COMPLAINTS TODAY Objective - Vital Signs/Intake and Output Vital Signs (last 24 hours): Temp Pulse Resp BP Pulse Ox 97.9 F 66 20 114/68 95 11/27/16 11:58 11/27/16 11:58 11/27/16 11:58 11/27/16 11:58 11/27/16 11:58 - Medications Medications: Current Medications Aspirin (Ecotrin) 81 mg PO DAILY [facility] Last Admin: 11/27/16 09:09 Dose: 81 mg Atorvastatin Calcium (Lipitor) 20 mg PO HS [facility] Last Admin: 11/26/16 21:15 Dose: 20 mg Dextrose (Glutose 15) 0 gm PO ONCE PRN; Protocol PRN Reason: Hypoglycemia Protocol Dextrose (Dextrose 50% Inj) 0 ml IV STAT PRN; Protocol PRN Reason: Hyglycemia Protocol Enoxaparin Sodium (Lovenox) 110 mg SC Q12 [facility] PRN Reason: Protocol Last Admin: 11/27/16 09:09 Dose: 110 mg Gabapentin (Neurontin) 300 mg PO TID [facility] Last Admin: 11/27/16 09:09 Dose: 300 mg Glucagon (Glucagen Diagnostic Kit) 0 mg IM STAT PRN; Protocol PRN Reason: Hypoglycemia Protocol Glyburide (Micronase) 2.5 mg PO DAILY [facility] Last Admin: 11/27/16 09:10 Dose: 2.5 mg Home Med (Calcium Carbonate/Vitamin D3 [Calcium 600 + Vit D Tablet]) 1 tab PO QPM [facility] Insulin Human Regular (Humulin R) 0 units SC ACHS [facility] PRN Reason: Protocol Last Admin: 11/27/16 11:37 Dose: 2 units Multivitamins/Minerals (Therapeutic-M Tab) 1 tab PO DAILY [facility] Last Admin: 11/27/16 09:10 Dose: 1 tab Pantoprazole Sodium (Protonix Ec Tab) 40 mg PO DAILY [facility] Last Admin: 11/27/16 09:09 Dose: 40 mg Potassium Chloride (K-Dur 20 Meq Er Tab) 20 meq PO QPM [facility] Prednisone (Prednisone Tab) 10 mg PO DAILY [facility] Last Admin: 11/27/16 09:09 Dose: 10 mg Risperidone (Risperdal Tab) 2 mg PO HS [facility] Last Admin: 11/26/16 21:16 Dose: 2 mg Sertraline HCl (Zoloft) 50 mg PO DAILY [facility] Last Admin: 11/27/16 09:09 Dose: 50 mg Sitagliptin Phosphate (Januvia) 100 mg PO DAILY [facility] Last Admin: 11/27/16 09:10 Dose: 100 mg Spironolactone (Aldactone) 25 mg PO DAILY [facility] Last Admin: 11/27/16 09:09 Dose: 25 mg Warfarin Sodium (Coumadin) 7.5 mg PO QD5 [facility] PRN Reason: Protocol Stop: 11/27/16 17:01 Zolpidem Tartrate (Ambien) 5 mg PO PRN PRN Reason: Insomnia Last Admin: 11/26/16 00:09 Dose: 5 mg - Labs Labs: 11/26/16 05:40 11/27/16 05:53 PT 11.9 SECONDS (9.6-11.2) H 11/27/16 05:53 INR 1.14 (0.92-1.08) H 11/27/16 05:53 APTT 32.9 SECONDS (23.3-32.5) H 11/26/16 05:40 - Respiratory Exam Respiratory Exam: Clear to Ausculation Bilateral - Cardiovascular Exam Cardiovascular Exam: REGULAR RHYTHM, +S1, +S2 - Additional Findings Additional findings: FINNISH RUBBER PACED RHYTHM INR 1.14 Assessment and Plan - Assessment and Plan (Free Text) Plan: COUMADIN WAS STARTED YESTERDAY AND LOVENOX WILL CONTINUE UNTIL INR IS THERAPEUTIC CONTINUE ASPIRIN, ATORVASTATIN, SPIRONOLACTONE, ACTONE AND DM MEDS
[2016-11-28] MEDS: Insulin Regular 100 units/ml SC SCH ×4 (06:47→21:38)
[2016-11-28 07:26] LABS: BLOOD UREA NITROGEN 35 mg/dl (9-20); CALCIUM 9.5 mg/dL (8.4-10.2); CARBON DIOXIDE 26 mmol/L (22-30); CHLORIDE 107 mmol/L (98-107); GFR AFRICAN-AMERICAN > 60; GLUCOSE,RANDOM 112 mg/dL (75-110); POTASSIUM 4.4 MMOL/L (3.6-5.0); SODIUM 145 mmol/l (132-148)
[2016-11-28] MEDS: Pantoprazole 40 mg EC Tab PO SCH (08:44)
[2016-11-28] MEDS: Multivitamin With Minerals Tab PO SCH (08:44)
[2016-11-28] MEDS: Enoxaparin 120 mg Syringe SC SCH ×2 (08:45→21:37)
--- NOTE | 2016-11-28 10:10 | CP.PCM.PN ---
Subjective - Date & Time of Evaluation Date of Evaluation: 11/28/16 Time of Evaluation: 10:10 - Subjective Subjective: pt seen and examined at bedside this morning. No acute events overnight. Lying in bed comfortably, NAD. Reports right anterior jacobs pain around area of bruising and scabbing. Reports the pain is improving and denies any calf pain. No new medical complaints. Denies fever/chills, headaches, CP/SOB/Palpitations, N/V/D/C, calf pain. Objective - Vital Signs/Intake and Output Vital Signs (last 24 hours): Temp Pulse Resp BP Pulse Ox 97.5 F L 64 18 120/75 96 11/28/16 08:00 11/28/16 08:00 11/28/16 08:00 11/28/16 08:00 11/28/16 08:00 - Medications Medications: Current Medications Aspirin (Ecotrin) 81 mg PO DAILY [facility] Last Admin: 11/28/16 08:45 Dose: 81 mg Atorvastatin Calcium (Lipitor) 20 mg PO HS [facility] Last Admin: 11/27/16 21:23 Dose: 20 mg Dextrose (Glutose 15) 0 gm PO ONCE PRN; Protocol PRN Reason: Hypoglycemia Protocol Dextrose (Dextrose 50% Inj) 0 ml IV STAT PRN; Protocol PRN Reason: Hyglycemia Protocol Enoxaparin Sodium (Lovenox) 110 mg SC Q12 [facility] PRN Reason: Protocol Last Admin: 11/28/16 08:45 Dose: 110 mg Gabapentin (Neurontin) 300 mg PO TID [facility] Last Admin: 11/28/16 08:44 Dose: 300 mg Glucagon (Glucagen Diagnostic Kit) 0 mg IM STAT PRN; Protocol PRN Reason: Hypoglycemia Protocol Glyburide (Micronase) 2.5 mg PO DAILY [facility] Last Admin: 11/28/16 08:45 Dose: 2.5 mg Home Med (Calcium Carbonate/Vitamin D3 [Calcium 600 + Vit D Tablet]) 1 tab PO QPM [facility] Insulin Human Regular (Humulin R) 0 units SC ACHS [facility] PRN Reason: Protocol Last Admin: 11/28/16 06:47 Dose: Not Given Multivitamins/Minerals (Therapeutic-M Tab) 1 tab PO DAILY [facility] Last Admin: 11/28/16 08:44 Dose: 1 tab Pantoprazole Sodium (Protonix Ec Tab) 40 mg PO DAILY [facility] Last Admin: 11/28/16 08:44 Dose: 40 mg Potassium Chloride (K-Dur 20 Meq Er Tab) 20 meq PO QPM [facility] Prednisone (Prednisone Tab) 10 mg PO DAILY [facility] Last Admin: 11/28/16 08:46 Dose: 10 mg Risperidone (Risperdal Tab) 2 mg PO HS [facility] Last Admin: 11/27/16 21:23 Dose: 2 mg Sertraline HCl (Zoloft) 50 mg PO DAILY [facility] Last Admin: 11/28/16 08:46 Dose: 50 mg Sitagliptin Phosphate (Januvia) 100 mg PO DAILY [facility] Last Admin: 11/28/16 08:45 Dose: 100 mg Spironolactone (Aldactone) 25 mg PO DAILY [facility] Last Admin: 11/28/16 08:45 Dose: 25 mg Zolpidem Tartrate (Ambien) 5 mg PO HS PRN PRN Reason: Insomnia Last Admin: 11/26/16 00:09 Dose: 5 mg - Labs Labs: 11/26/16 05:40 11/28/16 05:50 PT 16.7 SECONDS (9.6-11.2) H 11/28/16 05:50 INR 1.61 (0.92-1.08) H 11/28/16 05:50 APTT 32.9 SECONDS (23.3-32.5) H 11/26/16 05:40 - Constitutional Appears: Non-toxic, No Acute Distress - Eye Exam Eye Exam: EOMI Pupil Exam: PERRL - Respiratory Exam Respiratory Exam: Clear to Ausculation Bilateral, NORMAL BREATHING PATTERN. absent: Rales, Rhonchi, Wheezes - Cardiovascular Exam Cardiovascular Exam: REGULAR RHYTHM, RRR, +S1, +S2. absent: Tachycardia, JVD, Rubs, Murmur - GI/Abdominal Exam GI & Abdominal Exam: Soft, Normal Bowel Sounds. absent: Tenderness - Extremities Exam Extremities Exam: Full ROM, Tenderness (anterior RLE tenderness around ecchymosis and scab, likely secondary to trauma. ). absent: Calf Tenderness, Normal Inspection (b/l ecchymosis in LEs.), Pedal Edema - Neurological Exam Neurological Exam: Alert, Awake, Oriented x3 - Psychiatric Exam Psychiatric exam: Normal Affect, Normal Mood - Skin Skin Exam: Dry, Normal Color, Warm Assessment and Plan (1) Deep vein thrombosis (DVT) Assessment & Plan: -Venous Duplex: -RLE: Extensive acute deep vein thrombosis -LLE: evidence of focal deep vein thrombosis in left popliteal vein -Therapeutic Lovenox: 110mg BID -home med xarelto held, as pt reported taking it daily and it failed to prevent DVT -Cardiology consult appreciated -Heme/Onc consult with Dr. 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 -started bridging with warfarin at 7.5mg -INR today 1.61 Status: Acute (2) Systolic CHF, chronic Assessment & Plan: -Echo on 01/13/2016 showed LVEF of 30% -continue with Spironolactone Status: Chronic (3) A-fib Assessment & Plan: -Pacemaker -Xarelto held -currently on therapeutic lovenox and started warfarin 11/26/16 Status: Chronic (4) DM type 2 (diabetes mellitus, type 2) Assessment & Plan: -controlled -accuchecks -insulin sliding scale -continue with Januvia and Glyburide Status: Chronic (5) CKD (chronic kidney disease) stage 3, GFR 30-59 ml/min Assessment & Plan: monitor BUN/Cr 11/28: 35/1.3 Status: Chronic (6) Hyperlipemia Assessment & Plan: controlled c/w home medications (Lipitor 20mg) Status: Chronic (7) Lupus Assessment & Plan: -continue with Prednisone -home med also plaquenil, but pt reports not taking it due to eye irritation Status: Chronic (8) DVT prophylaxis Assessment & Plan: currently undergoing anticoagulation therapy and bridging Therapeutic Lovenox 110 mg BID Warfarin 7.5 mg Aspirin 81mg Status: Acute
[2016-11-29 07:48] LABS: BASO % 0.3 % (0.0-2.0); EOS # 0.2 K/uL (0.0-0.7); EOS % 1.4 % (0.0-4.0); HEMATOCRIT 40.7 % (35.0-51.0); LYMPH # 1.7 K/uL (1.0-4.3); MEAN CELL VOLUME 86.8 fl (80.0-94.0); MEAN CORPUSCULAR HEMOGLOBIN 28.9 pg (27.0-31.0); MEAN CORPUSCULAR HGB CONC 33.2 g/dL (33.0-37.0); MEAN PLATELET VOLUME 8.6 fl (7.2-11.7); MONO # 1.2 K/uL (0.0-0.8); NEUT # 8.5 K/uL (1.8-7.0); NEUT % 73.3 % (50.0-75.0); RED CELL DISTRIBUTION WIDTH 14.9 % (11.5-14.5); WHITE BLOOD COUNT 11.6 K/uL (4.8-10.8)
[2016-11-29 07:49] LABS: CALCIUM 9.1 mg/dL (8.4-10.2); POTASSIUM 4.4 MMOL/L (3.6-5.0)
[2016-11-29 08:09] VITALS: RESP 20; O2SAT 97
[2016-11-29] MEDS: Multivitamin With Minerals Tab PO SCH (08:48)
[2016-11-29] MEDS: Pantoprazole 40 mg EC Tab PO SCH (08:48)
[2016-11-29] MEDS: Insulin Regular 100 units/ml SC SCH ×2 (08:49→12:54)
--- NOTE | 2016-11-29 09:24 | CP.PCM.PN ---
Subjective - Date & Time of Evaluation Date of Evaluation: 11/29/16 Time of Evaluation: 08:00 - Subjective Subjective: NO COMPLAINTS LESS THIGH PAIN Objective - Vital Signs/Intake and Output Vital Signs (last 24 hours): Temp Pulse Resp BP Pulse Ox 97.5 F L 61 20 141/80 97 11/29/16 08:08 11/29/16 08:08 11/29/16 08:08 11/29/16 08:08 11/29/16 08:08 - Medications Medications: Current Medications Acetaminophen (Tylenol 325mg Tab) 650 mg PO Q4 PRN PRN Reason: Pain, moderate (4-7) Aspirin (Ecotrin) 81 mg PO DAILY [facility] Last Admin: 11/29/16 08:49 Dose: 81 mg Atorvastatin Calcium (Lipitor) 20 mg PO HS [facility] Last Admin: 11/28/16 21:37 Dose: 20 mg Dextrose (Glutose 15) 0 gm PO ONCE PRN; Protocol PRN Reason: Hypoglycemia Protocol Dextrose (Dextrose 50% Inj) 0 ml IV STAT PRN; Protocol PRN Reason: Hyglycemia Protocol Gabapentin (Neurontin) 300 mg PO TID [facility] Last Admin: 11/29/16 08:48 Dose: 300 mg Glucagon (Glucagen Diagnostic Kit) 0 mg IM STAT PRN; Protocol PRN Reason: Hypoglycemia Protocol Glyburide (Micronase) 2.5 mg PO DAILY [facility] Last Admin: 11/29/16 08:47 Dose: 2.5 mg Home Med (Calcium Carbonate/Vitamin D3 [Calcium 600 + Vit D Tablet]) 1 tab PO QPM [facility] Insulin Human Regular (Humulin R) 0 units SC ACHS [facility] PRN Reason: Protocol Last Admin: 11/29/16 08:49 Dose: Not Given Multivitamins/Minerals (Therapeutic-M Tab) 1 tab PO DAILY [facility] Last Admin: 11/29/16 08:48 Dose: 1 tab Pantoprazole Sodium (Protonix Ec Tab) 40 mg PO DAILY [facility] Last Admin: 11/29/16 08:48 Dose: 40 mg Potassium Chloride (K-Dur 20 Meq Er Tab) 20 meq PO QPM [facility] Prednisone (Prednisone Tab) 10 mg PO DAILY [facility] Last Admin: 11/29/16 08:47 Dose: 10 mg Risperidone (Risperdal Tab) 2 mg PO HS [facility] Last Admin: 11/28/16 21:57 Dose: 2 mg Sertraline HCl (Zoloft) 50 mg PO DAILY [facility] Last Admin: 11/29/16 08:47 Dose: 50 mg Sitagliptin Phosphate (Januvia) 100 mg PO DAILY [facility] Last Admin: 11/29/16 08:48 Dose: 100 mg Spironolactone (Aldactone) 25 mg PO DAILY [facility] Last Admin: 11/29/16 08:46 Dose: 25 mg Warfarin Sodium (Coumadin) 7.5 mg PO QD5 [facility] PRN Reason: Protocol Stop: 11/29/16 17:01 Zolpidem Tartrate (Ambien) 5 mg PO PRN PRN Reason: Insomnia Last Admin: 11/28/16 21:37 Dose: 5 mg - Labs Labs: 11/29/16 04:30 11/29/16 04:30 PT 27.7 SECONDS (9.6-11.2) H D 11/29/16 04:30 INR 2.66 (0.92-1.08) H D 11/29/16 04:30 APTT 32.9 SECONDS (23.3-32.5) H 11/26/16 05:40 - Additional Findings Additional findings: INR 1.6 11/28 INR 2.6 TODAY Assessment and Plan - Assessment and Plan (Free Text) Assessment: SSS WITH ATRIAL FIBRILLATION AND DUAL CHAMBER PACEMAKER HYPERTENSION HYPERLIPIDEMIA BILATERAL LE DVT Plan: LOVENOX DISCONTINUED CONTINUE WARFARIN PER INR CONTINUE ASPIRIN, SPIRONOLACTONE AND ATORVASTATIN THE PATIENT IS CLEAR FOR DISCHARGE FROM THE [facility] HE FOLLOWS WITH HIS [facility] [employer]
--- NOTE | 2016-11-29 09:49 | CP.PCM.PN ---
Subjective - Date & Time of Evaluation Date of Evaluation: 11/29/16 Time of Evaluation: 09:49 Objective - Vital Signs/Intake and Output Vital Signs (last 24 hours): Temp Pulse Resp BP Pulse Ox 97.5 F L 61 20 141/80 97 11/29/16 08:08 11/29/16 08:08 11/29/16 08:08 11/29/16 08:08 11/29/16 08:08 - Medications Medications: Current Medications Acetaminophen (Tylenol 325mg Tab) 650 mg PO Q4 PRN PRN Reason: Pain, moderate (4-7) Aspirin (Ecotrin) 81 mg PO DAILY [facility] Last Admin: 11/29/16 08:49 Dose: 81 mg Atorvastatin Calcium (Lipitor) 20 mg PO HS [facility] Last Admin: 11/28/16 21:37 Dose: 20 mg Dextrose (Glutose 15) 0 gm PO ONCE PRN; Protocol PRN Reason: Hypoglycemia Protocol Dextrose (Dextrose 50% Inj) 0 ml IV STAT PRN; Protocol PRN Reason: Hyglycemia Protocol Gabapentin (Neurontin) 300 mg PO TID [facility] Last Admin: 11/29/16 08:48 Dose: 300 mg Glucagon (Glucagen Diagnostic Kit) 0 mg IM STAT PRN; Protocol PRN Reason: Hypoglycemia Protocol Glyburide (Micronase) 2.5 mg PO DAILY [facility] Last Admin: 11/29/16 08:47 Dose: 2.5 mg Home Med (Calcium Carbonate/Vitamin D3 [Calcium 600 + Vit D Tablet]) 1 tab PO QPM [facility] Insulin Human Regular (Humulin R) 0 units SC ACHS [facility] PRN Reason: Protocol Last Admin: 11/29/16 08:49 Dose: Not Given Multivitamins/Minerals (Therapeutic-M Tab) 1 tab PO DAILY [facility] Last Admin: 11/29/16 08:48 Dose: 1 tab Pantoprazole Sodium (Protonix Ec Tab) 40 mg PO DAILY [facility] Last Admin: 11/29/16 08:48 Dose: 40 mg Potassium Chloride (K-Dur 20 Meq Er Tab) 20 meq PO QPM [facility] Prednisone (Prednisone Tab) 10 mg PO DAILY [facility] Last Admin: 11/29/16 08:47 Dose: 10 mg Risperidone (Risperdal Tab) 2 mg PO HS [facility] Last Admin: 11/28/16 21:57 Dose: 2 mg Sertraline HCl (Zoloft) 50 mg PO DAILY [facility] Last Admin: 11/29/16 08:47 Dose: 50 mg Sitagliptin Phosphate (Januvia) 100 mg PO DAILY [facility] Last Admin: 11/29/16 08:48 Dose: 100 mg Spironolactone (Aldactone) 25 mg PO DAILY [facility] Last Admin: 11/29/16 08:46 Dose: 25 mg Warfarin Sodium (Coumadin) 7.5 mg PO QD5 [facility] PRN Reason: Protocol Stop: 11/29/16 17:01 Zolpidem Tartrate (Ambien) 5 mg PO HS PRN PRN Reason: Insomnia Last Admin: 11/28/16 21:37 Dose: 5 mg - Labs Labs: 11/29/16 04:30 11/29/16 04:30 PT 27.7 SECONDS (9.6-11.2) H D 11/29/16 04:30 INR 2.66 (0.92-1.08) H D 11/29/16 04:30 APTT 32.9 SECONDS (23.3-32.5) H 11/26/16 05:40 Assessment and Plan (1) Deep vein thrombosis (DVT) Status: Acute (2) Systolic CHF, chronic Status: Chronic (3) A-fib Status: Chronic (4) DM type 2 (diabetes mellitus, type 2) Status: Chronic (5) CKD (chronic kidney disease) stage 3, GFR 30-59 ml/min Status: Chronic (6) Hyperlipemia Status: Chronic (7) Lupus Status: Chronic (8) DVT prophylaxis Status: Acute
--- NOTE | 2016-11-29 11:19 | CP.PCM.PN ---
Subjective - Date & Time of Evaluation Date of Evaluation: 11/29/16 Time of Evaluation: 11:06 - Subjective Subjective: Pt is feeling better. His ecchymosis is getting better, and he is on the therapeutic dose of coumadin. 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 It is not clear if this is from the pancreas or the kidney. I feel he should have a PET scan as an outpatient to r/o a malignant process which may be making him hypercoagulable. Objective - Vital Signs/Intake and Output Vital Signs (last 24 hours): Temp Pulse Resp BP Pulse Ox 97.5 F L 61 20 141/80 97 11/29/16 09:00 11/29/16 09:00 11/29/16 09:00 11/29/16 09:00 11/29/16 09:00 - Medications Medications: Current Medications Acetaminophen (Tylenol 325mg Tab) 650 mg PO Q4 PRN PRN Reason: Pain, moderate (4-7) Aspirin (Ecotrin) 81 mg PO DAILY [facility] Last Admin: 11/29/16 08:49 Dose: 81 mg Atorvastatin Calcium (Lipitor) 20 mg PO HS [facility] Last Admin: 11/28/16 21:37 Dose: 20 mg Dextrose (Glutose 15) 0 gm PO ONCE PRN; Protocol PRN Reason: Hypoglycemia Protocol Dextrose (Dextrose 50% Inj) 0 ml IV STAT PRN; Protocol PRN Reason: Hyglycemia Protocol Gabapentin (Neurontin) 300 mg PO TID [facility] Last Admin: 11/29/16 08:48 Dose: 300 mg Glucagon (Glucagen Diagnostic Kit) 0 mg IM STAT PRN; Protocol PRN Reason: Hypoglycemia Protocol Glyburide (Micronase) 2.5 mg PO DAILY [facility] Last Admin: 11/29/16 08:47 Dose: 2.5 mg Home Med (Calcium Carbonate/Vitamin D3 [Calcium 600 + Vit D Tablet]) 1 tab PO QPM [facility] Insulin Human Regular (Humulin R) 0 units SC ACHS [facility] PRN Reason: Protocol Last Admin: 11/29/16 08:49 Dose: Not Given Multivitamins/Minerals (Therapeutic-M Tab) 1 tab PO DAILY [facility] Last Admin: 11/29/16 08:48 Dose: 1 tab Pantoprazole Sodium (Protonix Ec Tab) 40 mg PO DAILY [facility] Last Admin: 11/29/16 08:48 Dose: 40 mg Potassium Chloride (K-Dur 20 Meq Er Tab) 20 meq PO QPM [facility] Prednisone (Prednisone Tab) 10 mg PO DAILY [facility] Last Admin: 11/29/16 08:47 Dose: 10 mg Risperidone (Risperdal Tab) 2 mg PO HS [facility] Last Admin: 11/28/16 21:57 Dose: 2 mg Sertraline HCl (Zoloft) 50 mg PO DAILY [facility] Last Admin: 11/29/16 08:47 Dose: 50 mg Sitagliptin Phosphate (Januvia) 100 mg PO DAILY [facility] Last Admin: 11/29/16 08:48 Dose: 100 mg Spironolactone (Aldactone) 25 mg PO DAILY [facility] Last Admin: 11/29/16 08:46 Dose: 25 mg Warfarin Sodium (Coumadin) 7.5 mg PO QD5 [facility] PRN Reason: Protocol Stop: 11/29/16 17:01 Zolpidem Tartrate (Ambien) 5 mg PO HS PRN PRN Reason: Insomnia Last Admin: 11/28/16 21:37 Dose: 5 mg - Labs Labs: 11/29/16 04:30 11/29/16 04:30 PT 28.0 SECONDS (9.6-11.2) H 11/29/16 09:55 INR 2.69 (0.92-1.08) H 11/29/16 09:55 APTT 32.9 SECONDS (23.3-32.5) H 11/26/16 05:40
--- NOTE | 2016-11-29 11:56 | CP.PCM.DIS ---
<Davon Craven - Last Filed: 11/29/16 13:07> Provider - Provider Date of Admission: 11/25/16 17:06 Attending physician: Prem Billings MD Time Spent in preparation of Discharge (in minutes): 35 Diagnosis - Discharge Diagnosis (1) Deep vein thrombosis (DVT) Status: c Comment: given therapeutic lovenox, started on Warfarin 7.5mg, after three doses reached theraputic INR of 2.69. Lovenox stopped, given script for Warfarin 7.5 and f/u INR and hem/onc. Hospital Course - Lab Results Lab Results: Most Recent Lab Values WBC 11.6 K/uL (4.8-10.8) H 11/29/16 04:30 RBC 4.69 Mil/uL (4.40-5.90) 11/29/16 04:30 Hgb 13.5 g/dL (12.0-18.0) 11/29/16 04:30 Hct 40.7 % (35.0-51.0) 11/29/16 04:30 MCV 86.8 fl (80.0-94.0) 11/29/16 04:30 MCH 28.9 pg (27.0-31.0) 11/29/16 04:30 MCHC 33.2 g/dL (33.0-37.0) 11/29/16 04:30 RDW 14.9 % (11.5-14.5) H 11/29/16 04:30 Plt Count 171 K/uL (130-400) 11/29/16 04:30 MPV 8.6 fl (7.2-11.7) 11/29/16 04:30 Neut % (Auto) 73.3 % (50.0-75.0) 11/29/16 04:30 Lymph % (Auto) 15.0 % (20.0-40.0) L 11/29/16 04:30 [place] % (Auto) 10.0 % (0.0-10.0) 11/29/16 04:30 Eos % (Auto) 1.4 % (0.0-4.0) 11/29/16 04:30 Baso % (Auto) 0.3 % (0.0-2.0) 11/29/16 04:30 Neut # 8.5 K/uL (1.8-7.0) H 11/29/16 04:30 Lymph # 1.7 K/uL (1.0-4.3) 11/29/16 04:30 [place] # 1.2 K/uL (0.0-0.8) H 11/29/16 04:30 Eos # 0.2 K/uL (0.0-0.7) 11/29/16 04:30 Baso # 0.0 K/uL (0.0-0.2) 11/29/16 04:30 Neutrophils % (Manual) 87 % (42-75) H 11/25/16 14:10 Lymphocytes % (Manual) 6 % (20-50) L 11/25/16 14:10 Monocytes % (Manual) 7 % (0-10) 11/25/16 14:10 Platelet Estimate Normal (NORMAL) 11/25/16 14:10 Large Platelets Present 11/25/16 14:10 Hypochromasia (manual) Slight 11/25/16 14:10 Poikilocytosis (manual Slight 11/25/16 14:10 Anisocytosis (manual) Slight 11/25/16 14:10 Microcytosis (manual) Slight 11/25/16 14:10 Tear Drop Cells Slight 11/25/16 14:10 Ovalocytes Slight 11/25/16 14:10 PT 28.0 SECONDS (9.6-11.2) H 11/29/16 09:55 INR 2.69 (0.92-1.08) H 11/29/16 09:55 APTT 32.9 SECONDS (23.3-32.5) H 11/26/16 05:40 Sodium 144 mmol/l (132-148) 11/29/16 04:30 Potassium 4.4 MMOL/L (3.6-5.0) 11/29/16 04:30 Chloride 104 mmol/L (98-107) 11/29/16 04:30 Carbon Dioxide 27 mmol/L (22-30) 11/29/16 04:30 Anion Gap 17 (10-20) 11/29/16 04:30 BUN 47 mg/dl (9-20) H 11/29/16 04:30 Creatinine 1.5 mg/dL (0.8-1.5) 11/29/16 04:30 Est GFR ( Amer) 55 11/29/16 04:30 Est GFR (Non-Af Amer) 45 11/29/16 04:30 POC Glucose (mg/dL) 155 mg/dL (65-110) H 11/29/16 11:24 Random Glucose 122 mg/dL (75-110) H 11/29/16 04:30 Calcium 9.1 mg/dL (8.4-10.2) 11/29/16 04:30 Total Bilirubin 0.9 mg/dl (0.2-1.3) 11/25/16 14:10 AST 31 U/L (17-59) 11/25/16 14:10 ALT 39 U/L (21-72) 11/25/16 14:10 Alkaline Phosphatase 50 U/L (38-126) 11/25/16 14:10 Total Protein 6.5 G/DL (6.3-8.2) 11/25/16 14:10 Albumin 3.4 g/dL (3.5-5.0) L 11/25/16 14:10 Globulin 3.2 gm/dL (2.2-3.9) 11/25/16 14:10 Albumin/Globulin Ratio 1.1 (1.0-2.1) 11/25/16 14:10 - Hospital Course Hospital Course: 76yo male with a PMHx remarkable for DM, HTN, CAD (Stent, pacemaker), HLD, Afib (on xarelto), CHF (01/13/16 ECHO LVEF 30%), CKD, lupus was admitted for b/l DVT. He had a venous duplex done which showed a left popliteal DVT as well as a right popliteal to common femoral DVT. He was started on theraputic Lovenox. During his stay, Heme/Onc with Dr. Froylan Farias and Cardiology Dr. Hidalgo was done. They stopped the pt's rivoxaban and started Warfarin 7.5mg daily. He had three doses and on the third day he reached therapeutic INR of 2.69. He was cleared by cardiology and heme/onc. Dr. Froylan Farias recommended continuing 7.5mg Warfarin, with f/u INR in two days as well as PET scan for a possible renal or pancreatic mass. After an uneventful hospital stay, he was discharged in stable condition. Prescriptions: Warfarin 7.5mg F/U INR in 2 days F/U with either Dr. Froylan Farias or Dr. Billings in 2-3 days Discharge Exam - Head Exam Head Exam: ATRAUMATIC, NORMAL INSPECTION - Eye Exam Eye Exam: EOMI Pupil Exam: PERRL - ENT Exam ENT Exam: Mucous Membranes Moist - Respiratory Exam Respiratory Exam: Clear to PA & Lateral, NORMAL BREATHING PATTERN, UNREMARKABLE - Cardiovascular Exam Cardiovascular Exam: REGULAR RHYTHM, RRR, +S1, +S2. absent: Bradycardia, Tachycardia, JVD - GI/Abdominal Exam GI & Abdominal Exam: Normal Bowel Sounds, Unremarkable - Extremities Exam Extremities exam: tenderness (anterior jacobs pain, improving. Ecchymosis resolving ) - Neurological Exam Neurological exam: Alert, CN II-XII Intact, Oriented x3 - Skin Skin Exam: Dry, Intact, Warm Discharge Plan - Discharge Medications Prescriptions: Warfarin [Coumadin] 7.5 mg PO QD5 #5 tab - Follow Up Plan Condition: STABLE Disposition: HOME/ ROUTINE Instructions: Warfarin (By mouth), Deep Venous Thrombosis (DC), Deep Venous Thrombosis (GEN) Additional Instructions: Discontinue Xarelto. New blood thinner is Warfarin (Coumadin), which needs close follow up with frequent blood tests, to make sure the blood level is normal. Need to have bloodwork done to check level in 2 days. Follow up with specialist (enrober), Dr. Clara Farias after repeat bloodwork has been done.for determination of continuing dose of blood thinner follow up with [facility] Cardiology Please call to make your appointment. this was all discussed with the Patient and his son who has agreed to follow the current instruction plans Referrals: Tawanna Farias MD [Staff Provider] - Prem Billings MD [Staff Provider] - <Prem Billings - Last Filed: 12/01/16 07:24> Provider - Provider Date of Admission: 11/25/16 17:06 Attending physician: Prem Billings MD Hospital Course - Lab Results Lab Results: Most Recent Lab Values WBC 11.6 K/uL (4.8-10.8) H 11/29/16 04:30 RBC 4.69 Mil/uL (4.40-5.90) 11/29/16 04:30 Hgb 13.5 g/dL (12.0-18.0) 11/29/16 04:30 Hct 40.7 % (35.0-51.0) 11/29/16 04:30 MCV 86.8 fl (80.0-94.0) 11/29/16 04:30 MCH 28.9 pg (27.0-31.0) 11/29/16 04:30 MCHC 33.2 g/dL (33.0-37.0) 11/29/16 04:30 RDW 14.9 % (11.5-14.5) H 11/29/16 04:30 Plt Count 171 K/uL (130-400) 11/29/16 04:30 MPV 8.6 fl (7.2-11.7) 11/29/16 04:30 Neut % (Auto) 73.3 % (50.0-75.0) 11/29/16 04:30 Lymph % (Auto) 15.0 % (20.0-40.0) L 11/29/16 04:30 [place] % (Auto) 10.0 % (0.0-10.0) 11/29/16 04:30 Eos % (Auto) 1.4 % (0.0-4.0) 11/29/16 04:30 Baso % (Auto) 0.3 % (0.0-2.0) 11/29/16 04:30 Neut # 8.5 K/uL (1.8-7.0) H 11/29/16 04:30 Lymph # 1.7 K/uL (1.0-4.3) 11/29/16 04:30 [place] # 1.2 K/uL (0.0-0.8) H 11/29/16 04:30 Eos # 0.2 K/uL (0.0-0.7) 11/29/16 04:30 Baso # 0.0 K/uL (0.0-0.2) 11/29/16 04:30 Neutrophils % (Manual) 87 % (42-75) H 11/25/16 14:10 Lymphocytes % (Manual) 6 % (20-50) L 11/25/16 14:10 Monocytes % (Manual) 7 % (0-10) 11/25/16 14:10 Platelet Estimate Normal (NORMAL) 11/25/16 14:10 Large Platelets Present 11/25/16 14:10 Hypochromasia (manual) Slight 11/25/16 14:10 Poikilocytosis (manual Slight 11/25/16 14:10 Anisocytosis (manual) Slight 11/25/16 14:10 Microcytosis (manual) Slight 11/25/16 14:10 Tear Drop Cells Slight 11/25/16 14:10 Ovalocytes Slight 11/25/16 14:10 PT 28.0 SECONDS (9.6-11.2) H 11/29/16 09:55 INR 2.69 (0.92-1.08) H 11/29/16 09:55 APTT 32.9 SECONDS (23.3-32.5) H 11/26/16 05:40 Lupus Anticoagulant see note 11/26/16 11:01 LA PTT Screen 52 sec (<=40) H 11/26/16 11:01 dRVVT Mixing Study 41 sec (<=45) 11/26/16 11:01 dRVVT Mix Interpret Not indicated 11/26/16 11:01 Hexagonal Phase Confirm Negative (Negative) 11/26/16 11:01 Factor V see note (()) 11/26/16 05:40 Sodium 144 mmol/l (132-148) 11/29/16 04:30 Potassium 4.4 MMOL/L (3.6-5.0) 11/29/16 04:30 Chloride 104 mmol/L (98-107) 11/29/16 04:30 Carbon Dioxide 27 mmol/L (22-30) 11/29/16 04:30 Anion Gap 17 (10-20) 11/29/16 04:30 BUN 47 mg/dl (9-20) H 11/29/16 04:30 Creatinine 1.5 mg/dL (0.8-1.5) 11/29/16 04:30 Est GFR ( Amer) 55 11/29/16 04:30 Est GFR (Non-Af Amer) 45 11/29/16 04:30 POC Glucose (mg/dL) 155 mg/dL (65-110) H 11/29/16 11:24 Random Glucose 122 mg/dL (75-110) H 11/29/16 04:30 Calcium 9.1 mg/dL (8.4-10.2) 11/29/16 04:30 Total Bilirubin 0.9 mg/dl (0.2-1.3) 11/25/16 14:10 AST 31 U/L (17-59) 11/25/16 14:10 ALT 39 U/L (21-72) 11/25/16 14:10 Alkaline Phosphatase 50 U/L (38-126) 11/25/16 14:10 Total Protein 6.5 G/DL (6.3-8.2) 11/25/16 14:10 Albumin 3.4 g/dL (3.5-5.0) L 11/25/16 14:10 Globulin 3.2 gm/dL (2.2-3.9) 11/25/16 14:10 Albumin/Globulin Ratio 1.1 (1.0-2.1) 11/25/16 14:10 Anti-Cardiolipin IgG Ab <14 GPL (<=14) 11/26/16 11:01 Anti-Cardiolipin IgA Ab <11 APL (<=11) 11/26/16 11:01 Anti-Cardiolipin IgM Ab <12 MPL (<=12) 11/26/16 11:01 Prothrombin Mut Interp see note (()) H 11/26/16 11:01 Prothrombin Gene Mutate see note (()) H 11/26/16 11:01 Prothromb Gene Review see note (()) 11/26/16 11:01 Attending/Attestation - Attestation I have personally seen and examined this patient.: Yes I have fully participated in the care of the patient.: Yes I have reviewed all pertinent clinical information, including history, physical exam and plan: Yes
[2016-11-29 13:04] VITALS: BP 133/69; PULSE 66; TEMP 97.6
[2016-11-29 13:32] LABS: CARDIOLIPIN AB (IGA) <11 APL (<=11)
== END 2016-11-29 13:20 | disposition home or self-care (01) | DRG 300 ==
LOC: H.ER 11:37 → H.EROBSV 17:06 → OBSVTOIN 17:06 → H.ERHOLD 18:45 → H.TEL 21:57
PROVIDERS: ADMIT Family Medicine; ATTEND Family Medicine
DX: I82.433 Acute embolism and thrombosis of popliteal vein, bilateral (principal); I13.0 Hypertensive heart and chronic kidney disease with heart failure and stage 1 through stage 4 chronic kidney disease, or unspecified chronic kidney disease; I82.411 Acute embolism and thrombosis of right femoral vein; M32.14 Glomerular disease in systemic lupus erythematosus; E11.22 Type 2 diabetes mellitus with diabetic chronic kidney disease; N18.3 Chronic kidney disease, stage 3 (moderate); I50.22 Chronic systolic (congestive) heart failure; K21.9 Gastro-esophageal reflux disease without esophagitis; I48.91 Unspecified atrial fibrillation; Z79.01 Long term (current) use of anticoagulants; I25.10 Atherosclerotic heart disease of native coronary artery without angina pectoris; Z95.5 Presence of coronary angioplasty implant and graft; Z95.0 Presence of cardiac pacemaker; E78.00 Pure hypercholesterolemia, unspecified; E78.5 Hyperlipidemia, unspecified; F32.9 Major depressive disorder, single episode, unspecified; Z88.5 Allergy status to narcotic agent

== ENCOUNTER 2017-01-28 14:30 | Emergency (ER) | payer MEDICARE, OTHER ==
[2017-01-28 14:32] VITALS: BMI 35.2
--- NOTE | 2017-01-28 15:20 | ED PDOC ---
Upper Extremity Pain/Injury Time Seen by Provider: 01/28/17 14:57 Chief Complaint (Nursing): Weakness/Neurological Deficit Chief Complaint (Provider): Weakness/Neurological Deficit History Per: Family (patient's son) History/Exam Limitations: no limitations Onset/Duration Of Symptoms: Days (a few days prior to arrival ) Additional Complaint(s): Heber Woodson, 76 year old male presents to the ED on 01/28/17 for numbness in the tips of his third and fourth digits on his left hand. The patient's son states that this has been occurring for a few days prior to arrival. Of note, the patient's son reports that the patient had blood work done in this hospital the morning of arrival. Past Medical History Reviewed: Historical Data, Nursing Documentation, Vital Signs Vital Signs: Last Vital Signs Temp 99.2 F 01/28/17 14:39 Pulse 78 01/28/17 14:39 Resp 18 01/28/17 14:39 BP 142/72 01/28/17 14:39 Pulse Ox 94 L 01/28/17 14:39 - Medical History PMH: Arthritis, Atrial Fibrillation, CAD, Cardia Arrhythmia, CHF, Depression, Diabetes (type II), HTN, Hypercholesterolemia, Pneumonia Denies: HIV, Chronic Kidney Disease - Surgical History Surgical History: Coronary Stent, Hernia Repair (ventral), Pacemaker - Family History Family History: States: Unknown Family Hx - Home Medications Home Medications: Ambulatory Orders Medication Instructions Recorded Sertraline [Zoloft] 50 mg PO DAILY #0 tab 01/17/16 Calcium Carbonate/Vitamin D3 1 tab PO QPM 04/20/16 [Calcium 600 + Vit D Tablet] Multivitamin [One Daily] 1 tab PO DAILY 04/20/16 Nitroglycerin [Nitrostat] 0.4 mg SL Q5MIN PRN 04/20/16 Potassium Chloride [Klor-Con M20] 20 meq PO QPM 04/20/16 Spironolactone [Aldactone] 25 mg PO DAILY 04/20/16 Zolpidem [Ambien] 5 mg PO HS PRN 04/20/16 predniSONE [predniSONE Tab] 10 mg PO DAILY 04/20/16 Risperidone [Risperdal] 2 mg PO HS 08/06/16 Aspirin [Ecotrin] 81 mg PO DAILY 11/25/16 Atorvastatin [Lipitor] 20 mg PO HS 11/25/16 Gabapentin [Neurontin] 300 mg PO TID 11/25/16 Hydroxychloroquine Sulfate 200 mg PO BID 11/25/16 [Plaquenil] Omeprazole [Prilosec] 20 mg PO DAILY 11/25/16 Sitagliptin Phosphate [Januvia] 100 mg PO DAILY 11/25/16 glyBURIDE [Micronase] 2.5 mg PO DAILY 11/25/16 Warfarin [Coumadin] 7.5 mg PO QD5 #5 tab 11/29/16 - Allergies Allergies/Adverse Reactions: Allergies Allergy/AdvReac Type Severity Reaction Status Date / Time morphine Allergy RASH Verified 01/28/17 14:39 Review of Systems ROS Statement: Except As Marked, All Systems Reviewed And Found Negative Neurological: Positive for: Numbness (to the tips of his third and fourth digits on his left hand ) Physical Exam - Reviewed Nursing Documentation Reviewed: Yes Vital Signs Reviewed: Yes - Physical Exam Appears: Positive for: Non-toxic, No Acute Distress Head Exam: Positive for: ATRAUMATIC, NORMOCEPHALIC Extremity: Positive for: Normal ROM (of left hand ), Other (fingers were warm to touch; 5/5 strength) Neurologic/Psych: Positive for: Alert, Oriented (x3). Negative for: Motor/ Sensory Deficits (sensations intact) - Laboratory Results Result Diagrams: 01/28/17 15:33 01/28/17 15:33 - ECG O2 Sat by Pulse Oximetry: 94 (RA) Pulse Ox Interpretation: Normal Medical Decision Making Medical Decision Making: Initial Impression: Numbness to third and fourth digit on left hand Initial Plan: * Blood work evaluation Scribe Attestation: Documented by Carla Vang, acting as a scribe for Gin Patton MD. Provider Scribe Attestation: All medical record entries made by the Scribe were at my direction and personally dictated by me. I have reviewed the chart and agree that the record accurately reflects my personal performance of the history, physical exam, medical decision making, and the department course for this patient. I have also personally directed, reviewed, and agree with the discharge instructions and disposition. 5.00p patient has been without complaints. Will d/c home. x-rays are normal . Disposition - Clinical Impression Clinical Impression: Paresthesia - Patient ED Disposition Is Patient to be Admitted: No Doctor Will See Patient In The: Office Counseled Patient/Family Regarding: Diagnosis, Need For Followup - Disposition Referrals: Prem Billings MD [Family Provider] - Disposition: Routine/Home Disposition Time: 17:30 Condition: STABLE Instructions: Paresthesia (ED) Forms: [employer] [facility] (Turkmen) - POA Present On Arrival: None
[2017-01-28 15:48] LABS: BASO % 0.2 % (0.0-2.0); EOS # 0.1 K/uL (0.0-0.7); EOS % 0.5 % (0.0-4.0); HEMATOCRIT 40.7 % (35.0-51.0); LYMPH # 0.9 K/uL (1.0-4.3); LYMPH % 7.6 % (20.0-40.0); MEAN CELL VOLUME 87.6 fl (80.0-94.0); MEAN CORPUSCULAR HEMOGLOBIN 28.4 pg (27.0-31.0); MEAN CORPUSCULAR HGB CONC 32.5 g/dL (33.0-37.0); MEAN PLATELET VOLUME 8.3 fl (7.2-11.7); MONO # 0.8 K/uL (0.0-0.8); MONO % 6.6 % (0.0-10.0); NEUT # 10.1 K/uL (1.8-7.0); NEUT % 85.1 % (50.0-75.0); PLATELET COUNT 193 K/uL (130-400); RED CELL DISTRIBUTION WIDTH 14.1 % (11.5-14.5); WHITE BLOOD COUNT 11.8 K/uL (4.8-10.8)
[2017-01-28 16:08] LABS: POTASSIUM 4.9 MMOL/L (3.6-5.0)
--- NOTE | 2017-01-28 16:47 | RAD ---
PROCEDURE: Left Hand Radiographs. HISTORY: numbness of the 2nd and 3rd distal phalanx COMPARISON: None. FINDINGS: BONES: There is diffuse bone demineralization. The 2nd distal phalanx is partially obscured by a lead. There is no acute fracture or bone destruction. There is an old fracture deformity in the styloid process of ulna. JOINTS: Normal. No osteoarthritic changes. SOFT TISSUES: Normal. OTHER FINDINGS: Atherosclerotic vascular calcifications are present. IMPRESSION: No acute displaced fracture or dislocation.
[2017-01-28 17:06] LABS: EOSINOPHIL 1 % (0-7); NEUTROPHIL 85 % (42-75); TOTAL CELLS COUNTED 100
[2017-01-28 19:23] VITALS: BP 118/68; PULSE 78; RESP 14; TEMP 98; O2SAT 98
--- NOTE | 2017-01-29 18:31 | RAD ---
PROCEDURE: Radiographs of the chest and abdomen (obstructive series) HISTORY: abdominal pain COMPARISON: Comparison made with chest radiograph 08/06/2016. Comparison also made with prior CT scan abdomen and pelvis 09/07/2015. TECHNIQUE: AP radiograph of the chest, with upright and supine radiographs of the abdomen. FINDINGS: CHEST: Heart remains enlarged. Aorta is ectatic and uncoiled also unchanged. Multi lead pacemaker/defibrillator unchanged. Mild bibasilar atelectasis left greater than right. Vague opacity left CP angle could be related to cardiophrenic fat. Small effusion not completely excluded. ABDOMEN AND PELVIS: No gross free intraperitoneal air seen under the diaphragmatic surfaces. No evidence of acute mechanical bowel obstruction. Multilevel degenerative spondylosis of the thoracic and lumbar spine. Vascular calcifications again noted. IMPRESSION: Cardiomegaly. Mild bibasilar atelectasis. . No evidence acute mechanical bowel obstruction. No gross free intraperitoneal air seen under the diaphragmatic surfaces.
== END 2017-01-28 19:23 | disposition home or self-care (01) ==
LOC: H.ER 14:30
DX: R20.9 Unspecified disturbances of skin sensation (principal); I50.9 Heart failure, unspecified; I48.91 Unspecified atrial fibrillation; E78.00 Pure hypercholesterolemia, unspecified; E11.9 Type 2 diabetes mellitus without complications; I25.10 Atherosclerotic heart disease of native coronary artery without angina pectoris; I10 Essential (primary) hypertension

== ENCOUNTER 2017-03-21 01:26 | Inpatient (IN) | payer MEDICARE, OTHER ==
[2017-03-21 01:39] VITALS: BMI 37.6
[2017-03-21 02:09] LABS: HEMOGLOBIN 12.6 g/dL (12.0-18.0); MEAN CORPUSCULAR HEMOGLOBIN 28.7 pg (27.0-31.0); MEAN CORPUSCULAR HGB CONC 32.9 g/dL (33.0-37.0); RBC 4.4 Mil/uL (4.40-5.90); RED CELL DISTRIBUTION WIDTH 13.9 % (11.5-14.5); WHITE BLOOD COUNT 11.2 K/uL (4.8-10.8)
--- NOTE | 2017-03-21 02:16 | ED PDOC ---
HPI:STROKE - Time Time: 02:00 - Historian Historian: Family (son) - Onset Date: 03/21/17 Time: 01:30 Onset: Just prior to presenting - Notes: Notes:: Heber Woodson is a 76 year old male with previous medical history of hypertension , hypercholesterolemia, atrial fibrillation, coronary artery disease, congestive heart failure and diabetes, who presents to the emergency department accompanied by his son, for stroke evaluation status post mistakenly ingesting his son's Seroquel 2mg instead of Ambien pills at 22:00 tonight. Patient's son noted patient had difficulty speaking with slurred speech associated with weakness. Denied any vomiting, chest pain or abdominal pain. PMD: Prem Billings MD <Jaime Matta Y - Last Filed: 03/22/17 05:02> Supervising Attending Note - Supervising Attending Note The Documented history was done by the: Physician Roller Inspector The documented physical exam was done by the: Physician Roller Inspector The documented procedures were done by the: Physician Roller Inspector EM CAVEAT: Acuity of Condition - Attestation: I have personally seen and examined this patient.: Yes I have fully participated in the care of the patient.: Yes I have reviewed all pertinent clinical information, including history, physical exam and plan: Yes - Notes: Notes:: pt seen and evaluated by myself. pt stroke code with slurring. however also has elevated trop stroke recommends aspirin will await cardiology consult trop mildly elevateed but chronically always slightly elevated <Jaime Matta Y - Last Filed: 03/22/17 05:02> NIHSS Stroke Scale - Date/Time Evaluation Performed Date Performed: 03/21/17 Time Performed: 02:05 When Was NIHSS Performed: Post tPA - How Severe is the Stroke Level of Consciousness: 0=Alert LOC to Questions: 0=Both comments correct LOC to commands: 0=Obeys both correctly Best Gaze: 0=Normal Visual: 0=No visual loss Facial: 1=Minor asymmetry (left) Motor Arm - Left: 0=No drift Motor Arm - Right: 0=No drift Motor Leg - Left: 0=No drift Motor Leg - Right: 0=No drift Limb Ataxia: 0=Absent Sensory: 0=Normal Best Language: 1=Mild to moderate aphasia Dysarthia: 1=Mild to moderate slurring Extinction & Inattention (Neglect): 0=Normal, no object Score: 3 Severity Of Stroke: 1-4 = Minor Stroke <Jaime Matta Y - Last Filed: 03/22/17 05:02> rTPA Inclusion/Exclusion - Refusal of Treatment Patient Refused Treatment: No - Inclusion Criteria for Altepase Patient is 18 years or Older: Yes The Clinical Diagnosis of Ischemic Stroke That is Causing a Potentially Disabling Neurological Deficit: No Time of Onset is Well Established to be Less Than 270 Minute Before Treatment Would Begin: No Risk/Benefit Discussed With Patient/Family Member Present: No - Exclusion Criteria for Altepase Uncontrolled Hypertension at Time of Treatment (Systolic BP above 185 or Diastolic BP above 110 mmHg): No Active Internal Bleeding: No Known Bleeding Diathesis Including but Not Limited to: Platelets Below 100,000/ mm,PTT Above 40 sec After Heparin Use, Current Use of Oral Anitcoagulant With INR Greater Than 1.7 or PT Greater Than 15 secs: No Evidence of an Intracranial Hemorrhage: No Evidence of Major Acute Infarct With Signs Greater Than 1/3 MCA Territory: No Suspicion of Subarachnoid Hemorrhage on Pretreatment Evaluation Even if CT Head Negative For Hemorrhage: No - Warning to TPA With Conditions Following Conditions Weighed Against Anticipated Benefit: No <Jaime Matta Y - Last Filed: 03/22/17 05:02> Past Medical History Vital Signs: Last Vital Signs Temp 98.0 F 03/21/17 01:38 Pulse 60 03/21/17 03:21 Resp 16 03/21/17 03:21 BP 129/66 03/21/17 03:21 Pulse Ox 97 03/21/17 03:21 <Lauren Ellis B - Last Filed: 03/21/17 03:41> Vital Signs: Last Vital Signs Temp 98.0 F 03/21/17 01:38 Pulse 75 03/21/17 01:38 Resp 14 03/21/17 01:38 BP 108/60 03/21/17 01:38 Pulse Ox 98 03/21/17 01:38 - Medical History PMH: Arthritis, Atrial Fibrillation, CAD, Cardia Arrhythmia, CHF, Depression, Diabetes (type II), HTN, Hypercholesterolemia, Pneumonia Denies: HIV, Chronic Kidney Disease - Surgical History Surgical History: Coronary Stent, Hernia Repair (ventral), Pacemaker - Family History Family History: States: Unknown Family Hx <Jaime Matta Y - Last Filed: 03/22/17 05:02> - Home Medications Home Medications: Ambulatory Orders Medication Instructions Recorded Sertraline [Zoloft] 50 mg PO DAILY #0 tab 01/17/16 Calcium Carbonate/Vitamin D3 1 tab PO QPM 04/20/16 [Calcium 600 + Vit D Tablet] Multivitamin [One Daily] 1 tab PO DAILY 04/20/16 Nitroglycerin [Nitrostat] 0.4 mg SL Q5MIN PRN 04/20/16 Potassium Chloride [Klor-Con M20] 20 meq PO QPM 04/20/16 Spironolactone [Aldactone] 25 mg PO DAILY 04/20/16 Zolpidem [Ambien] 5 mg PO HS PRN 04/20/16 predniSONE [predniSONE Tab] 10 mg PO DAILY 04/20/16 Risperidone [Risperdal] 2 mg PO HS 08/06/16 Aspirin [Ecotrin] 81 mg PO DAILY 11/25/16 Atorvastatin [Lipitor] 20 mg PO HS 11/25/16 Gabapentin [Neurontin] 300 mg PO TID 11/25/16 Hydroxychloroquine Sulfate 200 mg PO BID 11/25/16 [Plaquenil] Omeprazole [Prilosec] 20 mg PO DAILY 11/25/16 Sitagliptin Phosphate [Januvia] 100 mg PO DAILY 11/25/16 glyBURIDE [Micronase] 2.5 mg PO DAILY 11/25/16 Rivaroxaban [Xarelto] 20 mg PO DAILY 03/21/17 - Allergies Allergies/Adverse Reactions: Allergies Allergy/AdvReac Type Severity Reaction Status Date / Time morphine Allergy ANAPHYLAXIS Verified 03/21/17 01:38 Review of Systems ROS Statement: Except As Marked, All Systems Reviewed And Found Negative Cardiovascular: Negative for: Chest Pain Gastrointestinal: Negative for: Vomiting, Abdominal Pain Neurological: Positive for: Weakness, Change in Speech (slurred with difficulty speaking) <Jaime Matta Y - Last Filed: 03/22/17 05:02> Physical Exam - Reviewed Nursing Documentation Reviewed: Yes Vital Signs Reviewed: Yes - Physical Exam Appears: Positive for: Non-toxic, No Acute Distress Head Exam: Positive for: ATRAUMATIC, NORMAL INSPECTION, NORMOCEPHALIC Eye Exam: Positive for: EOMI, Normal appearance, PERRL Cardiovascular/Chest: Positive for: Regular Rate, Rhythm Respiratory: Positive for: CNT, Normal Breath Sounds Gastrointestinal/Abdominal: Positive for: Normal Exam, Bowel Sounds, Soft. Negative for: Tenderness, Guarding, Rebound Extremity: Positive for: Normal ROM. Negative for: Other (weakness of upper and lower extremities) Neurologic/Psych: Positive for: Alert, Oriented, Aphasia (with slurred speech), Facial Droop (left; minimally ). Negative for: helper teacher II-XII <Jaime Matta Y - Last Filed: 03/22/17 05:02> - Laboratory Results Result Diagrams: 03/21/17 02:03 03/21/17 02:03 - Progress ED Course And Treament: ekg: Paced rhythm at 62 bpm 02:25 with t wave inversion avF, V5-V6 new compared to old ekg ASA [address]: nad Patient noted to have persistent slurred speech. Case d/w Dr. Vieira neurology who states slurred speech expected in patient with seroquel ingestion (patient is also on risperidol otherwise). As per him, patient can receive Lovenox for elevated troponin (no contraindication at this time) <Lauren Ellis B - Last Filed: 03/21/17 03:41> - Laboratory Results Result Diagrams: 03/21/17 02:03 03/21/17 02:03 - ECG O2 Sat by Pulse Oximetry: 98 (NC) Pulse Ox Interpretation: Normal <Jaime Matta Y - Last Filed: 03/22/17 05:02> Medical Decision Making Medical Decision Making: Initial Impression: Stroke Initial Plan: * CT head without contrast * EKG * Labs * Troponin I * PTT * PT * CXR * Urine culture * Urinalysis Scribe Attestation: Documented by Love Phelps, acting as a scribe for Jaime Matta MD. Provider Scribe Attestation: All medical record entries made by the Scribe were at my direction and personally dictated by me. I have reviewed the chart and agree that the record accurately reflects my personal performance of the history, physical exam, medical decision making, and the department course for this patient. I have also personally directed, reviewed, and agree with the discharge instructions and disposition. <Jaime Matta Y - Last Filed: 03/22/17 05:02> Disposition <Lauren Ellis B - Last Filed: 03/21/17 03:41> - Patient ED Disposition Is Patient to be Admitted: Yes Counseled Patient/Family Regarding: Studies Performed, Diagnosis - Disposition Disposition Time: 03:05 <Jaime Matta Y - Last Filed: 03/22/17 05:02> - Clinical Impression Clinical Impression: Dyspnea, NSTEMI (non-ST elevated myocardial infarction) - Disposition Condition: FAIR
--- NOTE | 2017-03-21 02:25 | CT ---
EXAM: CT Head Without Intravenous Contrast CLINICAL HISTORY: 76 years old, male; Signs and symptoms; Speech disturbance; Slurred speech; Prior surgery; Surgery date: 6+ months; Surgery type: Aneursysm TECHNIQUE: Axial computed tomography images of the head/brain without intravenous contrast. All CT scans at this facility use one or more dose reduction techniques, viz.: automated exposure control; ma/kV adjustment per patient size (including targeted exams where dose is matched to indication; i.e. head); or iterative reconstruction technique. Coronal and sagittal reformatted images were created and reviewed. COMPARISON: CT - HEAD W/O CONTRAST 11/26/2016 10:26:17 AM FINDINGS: Brain: No acute intracranial hemorrhage. A vascular coil is detected to the left of midline, consistent with patient's history of intracranial aneurysm. Age-appropriate periventricular white matter disease. Bilateral lacunar infarcts are identified within the basal nuclei. No edema. Ventricles: Age-appropriate ventriculomegaly. Bones: No acute displaced fracture. Sinuses: Unremarkable as visualized. No acute sinusitis. Mastoid air cells: Unremarkable as visualized. No mastoid effusion. IMPRESSION: No acute intracranial hemorrhage, or suspicious mass effect. Stable CT of the head dating back to 11/26/2016. Acute infarction may be CT occult within first 24 hours. If a focal deficit persists, consider followup CT or MRI for further evaluation.
[2017-03-21 02:29] LABS: PROTHROMBIN TIME 14.3 Seconds (9.8-13.1)
[2017-03-21 02:30] LABS: INR 1.4 (0.9-1.2); PARTIAL THROMBOPLASTIN TIME 27.2 Seconds (25.6-37.1)
[2017-03-21 02:36] LABS: TROPONIN I 0.2 ng/mL (0.00-0.120)
[2017-03-21 02:44] LABS: URINE BILIRUBIN NEGATIVE (NEGATIVE); URINE BLOOD NEGATIVE (NEGATIVE); URINE CLARITY CLEAR (Clear); URINE COLOR YELLOW (YELLOW); URINE GLUCOSE (UA) NEG (Normal); URINE LEUKOCYTE ESTERASE NEG Leu/uL (Negative); URINE NITRATE NEGATIVE (NEGATIVE); URINE PROTEIN 30 mg/dL (NEGATIVE); URINE UROBILINOGEN 0.2-1.0 mg/dL (0.2-1.0)
[2017-03-21] MEDS ORDERED: Enoxaparin 120 mg Syringe SC STA (03:40)
[2017-03-21] MEDS ORDERED: Lactated Ringer's 500 ML IV SCH (04:30)
--- NOTE | 2017-03-21 05:11 | CP.PCM.HP ---
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 Patient took 1 Seroquel 200mg tab( Sons medication) around 10pm last night by mistake, instead of Ambien and around 12 am he asked his son to call 911 because he was not feeling good. At ED he was initially called code stroke and was given Aspirin 300mg stat. It was then noticed that patient was having difficulty swallowing. Son states that his father has mild dysarthria as his baseline but he was noticeable speaking more slowly this time. One order for Lovenox 120mg SQ was placed but not given to patient according to the PA(Caleb) at ED because of elevated creatinine(1.9). CT of the head report: FINDINGS: Brain: No acute intracranial hemorrhage. A vascular coil is detected to the left of midline, consistent with patient's history of intracranial aneurysm. Age-appropriate periventricular white matter disease. Bilateral lacunar infarcts are identified within the basal nuclei. No edema. Ventricles: Age-appropriate ventriculomegaly. Bones: No acute displaced fracture. Sinuses: Unremarkable as visualized. No acute sinusitis. Mastoid air cells: Unremarkable as visualized. No mastoid effusion. IMPRESSION: No acute intracranial hemorrhage, or suspicious mass effect. Stable CT of the head dating back to 11/26/2016. Troponin was found to be 0.2000(Previous troponin 08/07/16, 0.2130). At the time of exam patient was somnolent but easily arousable, speaking slowly , ,denies CP, palpitations, SOB, dizziness, or any other pain. C/O generalized weakness and blurry vision. No episodes of seizures, vomiting, diarrhea or GI bleeding reported. VS stable. Patient has Hx of A.fib and DVT. As per son, patient is not currently on anticoag due to episode of bleeding. Patient was admitted to the hosp in 2016 with coagulopathy while being on warfarin since 11/2016. Xarelto was stopped previous to the start of warfarin. Will verify with PMD anticoag status. Present on Admission - Present on Admission Any Indicators Present on Admission: Yes History of DVT/PE: Yes History of Uncontrolled Diabetes: No Urinary Catheter: No Decubitus Ulcer Present: No Review of Systems - Review of Systems Systems not reviewed;Unavailable: Altered Mental Status All systems: reviewed and no additional remarkable complaints except - Constitutional Constitutional: Lethargy, Weakness - EENT Eyes: Blurred Vision Nose/Mouth/Throat: Dysphagia - Neurological Neurological: Abnormal Speech, Weakness Past Patient History - Infectious Disease Hx of Infectious Diseases: None - Past Medical History & Family History Past Medical History?: Yes - Past Social History Smoking Status: Never Smoked - CARDIAC Hx Atrial Fibrillation: Yes Hx Cardia Arrhythmia: Yes Hx Congestive Heart Failure: Yes Hx Hypercholesterolemia: Yes Hx Hypertension: Yes Hx Pacemaker: Yes - PULMONARY Hx Pneumonia: Yes - NEUROLOGICAL Hx Neurological Disorder: No - HEENT Hx HEENT Problems: No - RENAL Hx Chronic Kidney Disease: Yes - ENDOCRINE/METABOLIC Hx Endocrine Disorders: Yes Hx Diabetes Mellitus Type 2: Yes - HEMATOLOGICAL/ONCOLOGICAL Hx Human Immunodeficiency Virus (HIV): No - INTEGUMENTARY Hx Dermatological Problems: Yes - MUSCULOSKELETAL/RHEUMATOLOGICAL Hx Arthritis: Yes - GASTROINTESTINAL Hx Gastrointestinal Disorders: No - GENITOURINARY/GYNECOLOGICAL Hx Genitourinary Disorders: No - PSYCHIATRIC Hx Depression: Yes - SURGICAL HISTORY Hx Coronary Stent: Yes Other/Comment: Pacemaker - ANESTHESIA Hx Anesthesia: Yes Hx Anesthesia Reactions: No Hx Malignant Hyperthermia: No Meds Allergies/Adverse Reactions: Allergies Allergy/AdvReac Type Severity Reaction Status Date / Time morphine Allergy ANAPHYLAXIS Verified 03/21/17 01:38 Physical Exam - Constitutional Appears: No Acute Distress, Other (Lethargic) - Head Exam Head Exam: ATRAUMATIC, NORMAL INSPECTION - Eye Exam Eye Exam: EOMI, PERRL - ENT Exam ENT Exam: Mucous Membranes Dry - Respiratory Exam Respiratory Exam: Clear to Auscultation Bilateral, NORMAL BREATHING PATTERN. absent: Rales, Wheezes - Cardiovascular Exam Cardiovascular Exam: RRR. absent: Gallop - GI/Abdominal Exam GI & Abdominal Exam: Normal Bowel Sounds, Soft. absent: Rebound, Tenderness - Extremities Exam Extremities exam: Positive for: pedal edema. Negative for: calf tenderness - Neurological Exam Additional comments: Patient lethargic but arousable to voice. Able to follow commands. B/L LE weakness. UE strength seems intact. Slurred speech. Sensation intact Results - Vital Signs Recent Vital Signs: Last Vital Signs Temp 98.0 F 03/21/17 01:38 Pulse 60 03/21/17 03:21 Resp 16 03/21/17 03:21 BP 129/66 03/21/17 03:21 Pulse Ox 97 03/21/17 03:21 - Labs Result Diagrams: 03/21/17 02:03 03/21/17 02:03 Assessment & Plan - Assessment and Plan (Free Text) Assessment: 76 y/o M with PMHx of CAD, HTN, DM type 2, Pacemaker, Hyperlipidemia, Depression and LES presented to ED by EMS c/o sudden onset slurred speech, blurry vision and weakness. New onset neurological impairment Poss neuroleptic overdose Not candidate for activated charcoal since patient was seen by me around 6 hours after ingestion of Seroquel Dysarthria + Dysphagia + vision changes Rule out CVA: CT of the head negative for acute changes (See above) Neurology consult (Dr Spicer) will f/u recs IV fluids 100mls LR 500ml (Low EF last Echo) Hold Risperdal, Zoloft, Prednisone and Zolpidem Neuro checks q4h Swallow eval ordered NPO for now CAD NO CP elevated troponin 0.2000(Previous 0.2130, 08/07/2016) EKG pending report, shows no significant changes compared to previous on 01/2017 F/U troponin x2 c/w Aspirin 81mg daily C/w Nitroglycerin 0.4mg SL if CP Cardiology Consult (Dr Hidalgo) will f/u recs. Pacemaker status F/U repeat EKG AM Acute on chronic kidney injury Bun 39, Creat 1.9, GFR 34 Poss due to dehydration or drug toxicity IV fluids DM type 2 controlled c/w Statins, Januvia and glyburide Accuchecks Systolic CHF c/w spironolactone Pacemaker status last echo 01/12/2017 EF 25-30% Depression, chronic Hold Zoloft and Risperdal for now DVT prophylaxis Heparin 5000mg SQ Q8h <Prem Billings - Last Filed: 03/21/17 07:00> Results - Vital Signs Recent Vital Signs: Last Vital Signs Temp 97.5 F L 03/21/17 05:36 Pulse 62 03/21/17 05:50 Resp 18 03/21/17 05:50 BP 131/75 03/21/17 05:36 Pulse Ox 98 03/21/17 05:51 - Labs Result Diagrams: 03/21/17 02:03 03/21/17 02:03 Attending/Attestation - Attestation I have personally seen and examined this patient.: Yes I have fully participated in the care of the patient.: Yes I have reviewed all pertinent clinical information: Yes
[2017-03-21] MEDS ORDERED: Glucagon Recombinant 1 mg Inj IM PRN (06:13)
[2017-03-21] MEDS ORDERED: Dextrose 50% SYRINGE Inj (50 ml) IVP PRN (06:13)
--- NOTE | 2017-03-21 08:11 | RAD ---
PROCEDURE: CHEST RADIOGRAPH, 1 VIEW HISTORY: code stroke COMPARISON: 08/06/2016. FINDINGS: LUNGS: Clear. PLEURA: No pneumothorax or pleural fluid seen. CARDIOVASCULAR: Cardiomegaly. No evidence of acute, significant cardiovascular disease. Position/ configuration of pacemaker Satisfactory. OSSEOUS STRUCTURES: No significant abnormalities. VISUALIZED UPPER ABDOMEN: Normal. OTHER FINDINGS: None. IMPRESSION: No active disease. No acute/significant interval changes.
--- NOTE | 2017-03-21 10:17 | CARD ---
APPROVED REPORT EKG Measurement Heart [id number] <Conclusion> Pacemaker rhythm
--- NOTE | 2017-03-21 10:19 | CARD ---
APPROVED REPORT EKG Measurement Heart [id number] [place] [id number] [id number] <Conclusion> AV dual-paced rhythm Biventricular pacemaker detected Abnormal ECG
--- NOTE | 2017-03-21 10:41 | CARD ---
APPROVED REPORT EXAM: Two-dimensional and M-mode echocardiogram with Doppler and color Doppler. Other Information Quality : GoodRhythm : Pacemaker INDICATION CVA/TIA Surgery/Intervention Pacemaker: 2D DIMENSIONS IVSd1.65 (0.7-1.1cm)LVDd5.07 (3.9-5.9cm) LVOT Diameter2.51 (1.8-2.4cm)PWd1.54 (0.7-1.1cm) IVSs1.60 (0.8-1.2cm)LVDs4.06 (2.5-4.0cm) FS (%) 19.9 %PWs1.72 (0.8-1.2cm) M-Mode DIMENSIONS Left Atrium (MM)4.96 (2.5-4.0cm)IVSd1.32 (0.7-1.1cm) Aortic Root3.61 (2.2-3.7cm)LVDd6.98 (4.0-5.6cm) Aortic Cusp Exc.1.85 (1.5-2.0cm)PWd1.36 (0.7-1.1cm) IVSs1.72 cmFS (%) 34 % LVDs4.60 (2.0-3.8cm)PWs2.02 cm Aortic Valve AI P 1/2 [id number] Mitral Valve E/A ratio0.0 TDI E/Lateral E'0.0E/Medial E'0.0 Pulmonary Valve PV Peak Yzlslley94.2cm/s Tricuspid Valve TR Peak [id number]/sRAP [id number] Peak Gr.22mmHg [id number] LEFT VENTRICLE The left ventricle is normal size. There is mild concentric left ventricular hypertrophy. The systolic function is moderately to severely impaired. The Ejection Fraction is 20-25%. Significant regional wall motion abnormalities noted. Transmitral Doppler flow pattern is Grade I-abnormal relaxation pattern. No left ventricle thrombus noted on this study. There is no mass noted in the left ventricle. RIGHT VENTRICLE The right ventricle is normal size. There is normal right ventricular wall thickness. The right ventricular systolic function is normal. ATRIA The left atrium size is normal. The right atrium size is normal. The interatrial septum is intact with no evidence for an atrial septal defect. AORTIC VALVE The aortic valve is normal in structure and function. There is mild to moderate aortic regurgitation. There is no aortic valvular stenosis. There is no aortic valvular vegetation. MITRAL VALVE The mitral valve is normal in structure and function. There is no evidence of mitral valve prolapse. There is no mitral valve stenosis. Mitral regurgitation is moderate. TRICUSPID VALVE The tricuspid valve is normal in structure and function. There is no tricuspid valve regurgitation noted. There is no tricuspid valve prolapse or vegetation. There is no tricuspid valve stenosis. PULMONIC VALVE The pulmonary valve is normal in structure and function. There is no pulmonic valvular regurgitation. There is no pulmonic valvular stenosis. GREAT VESSELS The aortic root is normal in size. The IVC is normal in size and collapses >50% with inspiration. PERICARDIAL EFFUSION The pericardium appears normal. There is no pleural effusion. <Conclusion> The left ventricle is normal size. The systolic function is moderately to severely impaired. The Ejection Fraction is 20-25%. Significant regional wall motion abnormalities noted. Transmitral Doppler flow pattern is Grade I-abnormal relaxation pattern. There is mild to moderate aortic regurgitation. Mitral regurgitation is moderate.
--- NOTE | 2017-03-21 11:13 | CP.PCM.CON ---
History of Present Illness - History of Present Illness History of Present Illness: THE PATIENT IS A 76 YEAR OLD MALE WITH A HISTORY OF CARDIOMYOPATHY, PERMANENT PACEMAKER, HYPERTENSION, SLE WITH LUPUS NEPHRITIS, HYPERLIPIDEMIA, AND TYPE 2 DM. HE ALSO HAD CEREBRAL ANEURYSMS WIDTH COIL INSERTIONS. HE APPEARED TO HAVE ACCIDENTALLY TAKEN SEROQEL INSTEAD OF AMBIEN AND THEN DEVELOPED SLURRY SPEECH, DOUBLE VISION AND WEAKNESS. HE WAS BROUGHT TO THE ER WHERE A CODE STROKE WAS CALLED AND THE PATIENT WAS ADMITTED WITH NEUROLOGY TO TREAT. CARDIOLOGY WAS CALLED TO SEE THE PATIENT DUE TO HIS FIRST TROPONON BEING MILDLY ELEVATED AT 2.O. IT SHOULD BE NOTED THAT HIS BASELINE TROPONINS ARE ELEVATED DUE TO HIS LUPUS NEPHRITIS WITH THE LEVELS BEING 2.1 ON HIS LAST ADMISSION. HE DENIES CHEST PAIN OR SOB. Past Patient History - Infectious Disease Hx of Infectious Diseases: None - Past Medical History & Family History Past Medical History?: Yes - Past Social History Smoking Status: Never Smoked - CARDIAC Hx Atrial Fibrillation: Yes Hx Cardia Arrhythmia: Yes Hx Congestive Heart Failure: Yes Hx Hypercholesterolemia: Yes Hx Hypertension: Yes Hx Pacemaker: Yes - PULMONARY Hx Pneumonia: Yes - NEUROLOGICAL Hx Neurological Disorder: No - HEENT Hx HEENT Problems: No - RENAL Hx Chronic Kidney Disease: Yes - ENDOCRINE/METABOLIC Hx Endocrine Disorders: Yes Hx Diabetes Mellitus Type 2: Yes - HEMATOLOGICAL/ONCOLOGICAL Hx Human Immunodeficiency Virus (HIV): No - INTEGUMENTARY Hx Dermatological Problems: Yes - MUSCULOSKELETAL/RHEUMATOLOGICAL Hx Arthritis: Yes - GASTROINTESTINAL Hx Gastrointestinal Disorders: No - GENITOURINARY/GYNECOLOGICAL Hx Genitourinary Disorders: No - PSYCHIATRIC Hx Depression: Yes - SURGICAL HISTORY Hx Coronary Stent: Yes Other/Comment: Pacemaker - ANESTHESIA Hx Anesthesia: Yes Hx Anesthesia Reactions: No Hx Malignant Hyperthermia: No Meds Allergies/Adverse Reactions: Allergies Allergy/AdvReac Type Severity Reaction Status Date / Time morphine Allergy ANAPHYLAXIS Verified 03/21/17 01:38 - Medications Medications: Current Medications Aspirin (Ecotrin) 81 mg PO DAILY [facility] Last Admin: 03/21/17 08:41 Dose: Not Given Atorvastatin Calcium (Lipitor) 20 mg PO HS [facility] Dextrose (Dextrose 50% Inj) 0 ml IVP STAT PRN; Protocol PRN Reason: Hypoglycemia Protocol Glucagon (Glucagen Diagnostic Kit) 0 mg IM STAT PRN; Protocol PRN Reason: Hypoglycemia Protocol Glyburide (Micronase) 2.5 mg PO DAILY [facility] Last Admin: 03/21/17 08:41 Dose: Not Given Heparin Sodium (Porcine) (Heparin) 5,000 units SC Q8 [facility] PRN Reason: Protocol Last Admin: 03/21/17 09:27 Dose: Not Given Lactated Ringer's (Lactated Ringer's 500ml) 500 mls @ 100 mls/hr IV .Q5H [facility] Last Admin: 03/21/17 04:43 Dose: 100 mls/hr Nitroglycerin (Nitrostat Sl Tab) 0.4 mg SL Q5MIN PRN PRN Reason: CHEST PAIN Potassium Chloride (K-Dur 20 Meq Er Tab) 20 meq PO QPM [facility] Sitagliptin Phosphate (Januvia) 100 mg PO DAILY [facility] Last Admin: 03/21/17 08:41 Dose: Not Given Spironolactone (Aldactone) 25 mg PO DAILY [facility] Last Admin: 03/21/17 08:41 Dose: Not Given Physical Exam - Respiratory Exam Respiratory Exam: Clear to Auscultation Bilateral - Cardiovascular Exam Cardiovascular Exam: Irregular Rhythm, +S1, +S2 - Extremities Exam Additional comments: NO SIGNIFICANT LE EDEMA - Additional Findings Additional findings: TROPONIN 2.0 BUN/CR 39/1.9 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 Results - Vital Signs Recent Vital Signs: Last Vital Signs Temp 98.1 F 03/21/17 08:00 Pulse 63 03/21/17 08:00 Resp 20 03/21/17 08:00 BP 118/70 03/21/17 08:00 Pulse Ox 95 03/21/17 08:00 - Labs Result Diagrams: 03/21/17 02:03 03/21/17 02:03 Labs: Laboratory Results - last 24 hr 03/21/17 07:00 POC Glucose (mg/dL) 116 H Assessment & Plan - Assessment and Plan (Free Text) Assessment: NEW NEUROLOGICAL SYMPTOMS, POSSIBLY FROM MEDICATIONS BUT ALSO NEED TO RULE OUT CVA CARDIOMYOPATHY SSS WIT ATRIAL FIBRILLATION AND PACEMAKER RHYTHM HYPERTENSION LUPUS NEPHRITIS WITH CHRONICALLY MILDLY ELEVATED TROPONINS Plan: PATIENT ADMITTED TO ON TELEMETRY SERIAL EKGS, TROPONINS, ECHOCARDIOGRAM THE PATIENT IS ON ASPIRIN, HEPARIN, ALDACTONE AND ATORVASTATIN NEUROLOGY TO EVALUATE
[2017-03-21] MEDS ORDERED: Potassium Chloride 20 mEq ER Tab PO SCH (18:00)
[2017-03-21] MEDS ORDERED: Acetaminophen 325 MG/10.15 ML PO PRN (21:30)
--- NOTE | 2017-03-22 07:07 | EEG ---
DATE: 03/21/2017 This is a 16-channel electroencephalogram of awake and drowsy adult. During the study, photic stimulation was performed, hyperventilation was not performed. The resting electroencephalogram consists of 20 to 30 mV; 6 to 7 Hz high theta activity is noted at parietal and occipital leads. Some movement artifact contaminated by the background rhythm. Later, this background activity shows normal alpha activity symmetrically attenuated with eye opening. The photic stimulation did not evoke driving response noted at 2 to 25 Hz. IMPRESSION: This is a normal electroencephalogram of awake and drowsy adult. During the study, neither electroencephalographic paroxysmal activities nor focal slowing noted. Eric Spicer MD
[2017-03-22 08:06] VITALS: RESP 18; TEMP 97.9
--- NOTE | 2017-03-22 09:14 | CP.PCM.PN ---
Subjective - Date & Time of Evaluation Date of Evaluation: 03/22/17 Time of Evaluation: 07:15 - Subjective Subjective: No acute overnight events. Patient seen with Dr. Nye. Patient is alert this AM. Feels well, no complaints offered. Awaiting Neurology recommendations. Swallow eval done: nectar thick liquids, finely chopped textures due to impaired swallowing. PT/OT: eval Objective - Vital Signs/Intake and Output Vital Signs (last 24 hours): Temp Pulse Resp BP Pulse Ox 97.9 F 65 18 142/55 L 98 03/22/17 08:00 03/22/17 08:00 03/22/17 08:00 03/22/17 08:00 03/22/17 08:00 - Medications Medications: Current Medications Acetaminophen (Tylenol 325mg/10.15ml Ud) 325 mg PO Q6 PRN PRN Reason: Pain, Mild (1-3) Acetaminophen (Tylenol 325mg Tab) 650 mg PO Q6 PRN PRN Reason: Headache Last Admin: 03/21/17 21:56 Dose: 650 mg Aspirin (Ecotrin) 81 mg PO DAILY [facility] Last Admin: 03/21/17 08:41 Dose: Not Given Atorvastatin Calcium (Lipitor) 20 mg PO HS [facility] Last Admin: 03/21/17 21:18 Dose: 20 mg Dextrose (Dextrose 50% Inj) 0 ml IVP STAT PRN; Protocol PRN Reason: Hypoglycemia Protocol Glucagon (Glucagen Diagnostic Kit) 0 mg IM STAT PRN; Protocol PRN Reason: Hypoglycemia Protocol Glyburide (Micronase) 2.5 mg PO DAILY [facility] Last Admin: 03/21/17 08:41 Dose: Not Given Heparin Sodium (Porcine) (Heparin) 5,000 units SC Q8 [facility] PRN Reason: Protocol Last Admin: 03/22/17 01:23 Dose: 5,000 units Lactated Ringer's (Lactated Ringer's 500ml) 500 mls @ 100 mls/hr IV .Q5H [facility] Last Admin: 03/21/17 04:43 Dose: 100 mls/hr Nitroglycerin (Nitrostat Sl Tab) 0.4 mg SL Q5MIN PRN PRN Reason: CHEST PAIN Potassium Chloride (K-Dur 20 Meq Er Tab) 20 meq PO QPM [facility] Last Admin: 03/21/17 21:15 Dose: 20 meq Sitagliptin Phosphate (Januvia) 100 mg PO DAILY [facility] Last Admin: 03/21/17 08:41 Dose: Not Given Spironolactone (Aldactone) 25 mg PO DAILY [facility] Last Admin: 03/21/17 08:41 Dose: Not Given - Labs Labs: PT 14.3 Seconds (9.8-13.1) H 03/21/17 02:03 INR 1.4 (0.9-1.2) H 03/21/17 02:03 APTT 27.2 Seconds (25.6-37.1) 03/21/17 02:03 - Constitutional Appears: No Acute Distress - Head Exam Head Exam: NORMAL INSPECTION - Eye Exam Eye Exam: Normal appearance - ENT Exam ENT Exam: Mucous Membranes Moist - Respiratory Exam Respiratory Exam: NORMAL BREATHING PATTERN - Cardiovascular Exam Cardiovascular Exam: REGULAR RHYTHM (paced rhythm) - GI/Abdominal Exam GI & Abdominal Exam: Soft. absent: Tenderness - Neurological Exam Neurological Exam: Alert, Awake, CN II-XII Intact Additional comments: gait not assessed - Skin Skin Exam: Dry, Intact, Normal Color Assessment and Plan - Assessment and Plan (Free Text) Assessment: 76 y/o M with PMHx of CAD, HTN, DM type 2, Pacemaker, Hyperlipidemia, Depression and LES presented to ED by EMS c/o sudden onset slurred speech, blurry vision and weakness. As per Dr. Falcon, patients baseline is somewhat slurred, however intelligible. Patient has 2 sons, stays with both. Symptoms likely secondary to Seroquel overdose. Feels better today. PT/OT eval and AMS likely due to accidental seroquel No CVA. Neurology consult (Dr Spicer) awaiting recommendations IV fluids 100mls LR 500ml until able to eat -Risperdal, Zoloft, Prednisone and Zolpidem held. Resume with dysphagia resolves CAD chronically elevated troponins, likely secondary to nephropathy. Discussed with Cardiology not cardiac in nature. c/w Aspirin 81mg daily C/w Nitroglycerin 0.4mg SL if CP Cardiology : Dr Hidalgo ,is following Acute on chronic kidney injury improving, monitor Poss due to dehydration or drug toxicity lower IVF DM type 2 controlled c/w Statins, Januvia and glyburide Accuchecks Systolic CHF c/w spironolactone Pacemaker last echo 01/12/2017 EF 25-30% Depression, chronic Hold Zoloft and Risperdal for now DVT prophylaxis Heparin 5000mg SQ Q8h
[2017-03-22 09:32] LABS: HEMOGLOBIN 13.3 g/dL (12.0-18.0); MEAN CELL VOLUME 87.8 fl (80.0-94.0); MEAN CORPUSCULAR HEMOGLOBIN 28.7 pg (27.0-31.0); MEAN CORPUSCULAR HGB CONC 32.8 g/dL (33.0-37.0); RBC 4.63 Mil/uL (4.40-5.90); RED CELL DISTRIBUTION WIDTH 14.2 % (11.5-14.5); WHITE BLOOD COUNT 8.9 K/uL (4.8-10.8)
[2017-03-22 09:54] LABS: BLOOD UREA NITROGEN 30 mg/dl (9-20); CALCIUM 8.9 mg/dL (8.4-10.2); GFR AFRICAN-AMERICAN > 60; GFR NON-AFRICAN AMERICAN 59
--- NOTE | 2017-03-22 10:39 | CP.PCM.PN ---
Subjective - Date & Time of Evaluation Date of Evaluation: 03/22/17 Time of Evaluation: 08:00 - Subjective Subjective: NO COMPLAINTS OF CHEST PAIN OR SOB FEELS A LITTLE BETTER TODAY Objective - Vital Signs/Intake and Output Vital Signs (last 24 hours): Temp Pulse Resp BP Pulse Ox 97.9 F 65 18 142/55 L 98 03/22/17 08:00 03/22/17 08:00 03/22/17 08:00 03/22/17 08:00 03/22/17 08:00 - Medications Medications: Current Medications Acetaminophen (Tylenol 325mg/10.15ml Ud) 325 mg PO Q6 PRN PRN Reason: Pain, Mild (1-3) Acetaminophen (Tylenol 325mg Tab) 650 mg PO Q6 PRN PRN Reason: Headache Last Admin: 03/21/17 21:56 Dose: 650 mg Aspirin (Ecotrin) 81 mg PO DAILY [facility] Last Admin: 03/22/17 09:59 Dose: 81 mg Atorvastatin Calcium (Lipitor) 20 mg PO HS [facility] Last Admin: 03/21/17 21:18 Dose: 20 mg Dextrose (Dextrose 50% Inj) 0 ml IVP STAT PRN; Protocol PRN Reason: Hypoglycemia Protocol Glucagon (Glucagen Diagnostic Kit) 0 mg IM STAT PRN; Protocol PRN Reason: Hypoglycemia Protocol Glyburide (Micronase) 2.5 mg PO DAILY [facility] Last Admin: 03/22/17 09:59 Dose: 2.5 mg Heparin Sodium (Porcine) (Heparin) 5,000 units SC Q8 [facility] PRN Reason: Protocol Last Admin: 03/22/17 10:00 Dose: 5,000 units Lactated Ringer's (Lactated Ringer's 500ml) 500 mls @ 100 mls/hr IV .Q5H [facility] Last Admin: 03/21/17 04:43 Dose: 100 mls/hr Nitroglycerin (Nitrostat Sl Tab) 0.4 mg SL Q5MIN PRN PRN Reason: CHEST PAIN Potassium Chloride (K-Dur 20 Meq Er Tab) 20 meq PO QPM [facility] Last Admin: 03/21/17 21:15 Dose: 20 meq Sitagliptin Phosphate (Januvia) 100 mg PO DAILY [facility] Last Admin: 03/22/17 09:59 Dose: 100 mg Spironolactone (Aldactone) 25 mg PO DAILY [facility] Last Admin: 03/22/17 09:59 Dose: 25 mg - Labs Labs: 03/22/17 09:00 03/22/17 09:00 PT 14.3 Seconds (9.8-13.1) H 03/21/17 02:03 INR 1.4 (0.9-1.2) H 03/21/17 02:03 APTT 27.2 Seconds (25.6-37.1) 03/21/17 02:03 - Respiratory Exam Respiratory Exam: Clear to Ausculation Bilateral - Cardiovascular Exam Cardiovascular Exam: REGULAR RHYTHM, +S1, +S2 - Additional Findings Additional findings: 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 NEW NEUROLOGICAL EVENT? SSS WITH PACEMAKER CARDIOMYOPATHY HYPERTENSION Plan: CONTINUE SPIRONOLACTONE, ASPIRIN, HEPARIN AND ATORVASTATIN NEUROLOGY TO SEE
[2017-03-22 12:48] VITALS: BP 109/66; PULSE 61; O2SAT 98
--- NOTE | 2017-03-22 12:53 | CON ---
DATE: 03/21/2017 ATTENDING PHYSICIAN: Prem Billings MD LOCATION: The patient's room number 416, bed 1. REASON FOR THE CONSULTATION: Change in mental status. CHIEF COMPLAINT: The patient was brought into [facility] with a history of slurred speech. Form the neurologic point of view, I was called to evaluate him for further management. HISTORY OF PRESENT ILLNESS: Mr. Heber Woodson is a 76-year-old right-handed [place] male presenting with slurred speech, which was noted by the family members. The patient was mistakenly taken Seroquel instead of Ambien. This change in mental status is associated with the slurred speech and weakness. This lasted for about 3 hours and he back to his baseline activities. PERSONAL HISTORY: Denies smoking, alcohol use. However, his history is all gathered from the chart. After following admission in the ED, the patient was called in for stroke and NIHS score was 3 because of the language impairment and dysarthria. PAST MEDICAL HISTORY: Arthritis, atrial fibrillation, pacemaker, coronary artery disease, cardiac arrhythmia, depression, hypertension, high cholesterolemia, and pneumonia. SURGICAL HISTORY: He had a hernia repair and pacemaker placement. MEDICATIONS: Spironolactone, Ecotrin, Glucagon, Heparin, Januvia, potassium supplement, Lipitor. PHYSICAL EXAMINATION: VITAL SIGNS: Blood pressure 96/52, with mean arterial pressure of 69, respiratory rate 16, temperature afebrile. NECK: Supple. No carotid bruit.. HEART: Sounds are regular. EXTREMITIES: 1+ pitting edema. NEUROLOGICAL EXAMINATION: The patient is awake, alert, with good social smiling. He moves all 4 extremities against the gravity. He talked in his language. Good visual contact. CRANIAL NERVE EXAMINATION: Respond to visual threat. Pupils reactive to light. Extraocular movement normal. No nystagmus. No facial asymmetry. Hearing seems to be intact. He moves all 4 extremities against the gravity. Deep tendon reflexes are absent. Plantars are downgoing. SENSORY EXAMINATION: Distal sensorimotor neuropathy, respond to pain, it is decreased in both lower extremities. COORDINATION: Xxfsgh-[id number]-[id number] test is intact. GAIT: Deferred at this time. WORKUP: CT of the head reviewed, basal ganglia infarct and there is no coil artifact noted close to midline on his left side. Blood workup: WBC 11.2, hemoglobin 12.6, hematocrit 38.3, and platelet 177. PT 14.3, INR 1.4. Sodium 140, potassium 4.9, chloride 109, BUN 39. Troponin level is 0.1770. Urinalysis negative. CONCLUSION: Mr. Heber Belcheru been presenting with possible change in mental status and slurred speech related to his medication that he was taken by mistake. However, the current examination does not show any lateralizing signs. The patient also had evidence of bilateral neuropathy, bilateral distal symmetric sensorimotor neuropathy. The patient also having abnormal troponin level. His electroencephalogram been reviewed, which is in normal for his age. We will continue the present management. The patient should be get out of the bed. A Cardiology followup is recommended. We will follow up carotid Doppler result and the patient can be treated as recommended. Eric Spicer MD
--- NOTE | 2017-03-22 13:22 | US ---
PROCEDURE: Duplex ultrasound of the carotid and vertebral arteries. HISTORY: r/o CVA COMPARISON: None available. TECHNIQUE: Grayscale and duplex Doppler evaluation of the cervical carotid and vertebral arteries were performed. The common carotid, carotid bifurcations and cervical ICA and proximal ECA were evaluated. The vertebral arteries were evaluated for gross patency and direction. FINDINGS: There are calcified atherosclerotic plaques in the carotid bulbs and proximal internal and external carotid arteries. RIGHT CAROTID ARTERIES: Common Carotid Artery: Normal flow. Maximal flow velocity of 122.1 cm/s. Carotid Bifurcation: Normal. Internal Carotid Artery:Normal flow. Maximal flow velocity of 71.6 cm/s. External Carotid Artery (proximal branches): Normal. Maximal flow velocity of 75.5 cm/s. ICA/CCA Ratio: LEFT CAROTID ARTERIES: Common Carotid Artery: Normal flow. Maximal flow velocity of 155.4 cm/s. Carotid Bifurcation: Normal. Internal Carotid Artery:Normal flow. Maximal flow velocity of 85.3 cm/s. External Carotid Artery (proximal branches): Normal. Maximal flow velocity of 90.5 cm/s. ICA/CCA Ratio: VERTEBRAL ARTERIES: Right Vertebral Artery: Patent. Antegrade flow. Left Vertebral Artery: Patent. Antegrade flow. OTHER FINDINGS: Incidental note is made of a 6 mm hyperechoic nodule in the lower pole of the right thyroid lobe. IMPRESSION: 1. No evidence of hemodynamically significant stenosis by peak systolic velocity criteria. 2. Subcentimeter solid nodule in the lower pole of the right thyroid lobe. A dedicated thyroid ultrasound is recommended for complete evaluation of the thyroid gland and further characterization.
--- NOTE | 2017-03-22 14:00 | PQF GENQUE ---
Dr. Billings, NSTEMI ruled out? OR: Other explanation of clinical finding ER MD: Impression: Clinical Impression: Dyspnea, NSTEMI (non-ST elevated myocardial infarction) Cardiology note:ALTERED MENTAL STATIS- SECONDARY TO MEDICATIONS? NEW NEUROLOGICAL EVENT? SSS WITH PACEMAKER CARDIOMYOPATHY HYPERTENSION Plan CONTINUE SPIRONOLACTONE, ASPIRIN, HEPARIN AND ATORVASTATIN 03/22:Resident note: CAD chronically elevated troponins, likely secondary to nephropathy. Discussed with Cardiology not cardiac in nature. c/w Aspirin 81mg daily C/w Nitroglycerin 0.4mg SL if CP Cardiology : Dr Hidalgo ,is following This form is a permanent part of the medical record Clarification of your documentation is requested to better reflect the severity of illness and intensity of treatment of your patient. Indicators present [] Specify: [] [] Specify: [] [] Specify: [] [] Specify: [] Location in the medical record that reflects the above clinical findings: [] Treatment Provided: [] PHYSICIAN'S RESPONSE Based on your medical judgment of the clinical indicators outlined above please clarify the following: [] Practitioner response no Cardiac etiology for increased troponin level no [facility] [] If unable to determine, please check the box, sign and date. Present On Admission (POA) Indicator: [] Present at the time of admission [] Not present at the time of admission [] Clinically Undetermined In responding to this query, please exercise your independent professional judgment. The fact that a question is asked does not imply that any particular answer is desired or expected. Thank you for your clarification on this documentation. If you have any questions please call. * Thank you, Laura Dos Santos RN BSN ext. #[phone] MTDD
--- NOTE | 2017-03-22 14:09 | PQF GENQUE ---
Dr. Billings, Please specify the acuity of heart failure in your progress notes: Acute Chronic Acute on chronic Other (please specify) Clinically unable to determine Unknown 03/22 Resident progress note: Systolic CHF c/w spironolactone Pacemaker last echo 01/12/2017 EF 25-30% This form is a permanent part of the medical record Clarification of your documentation is requested to better reflect the severity of illness and intensity of treatment of your patient. Indicators present [] Specify: [] [] Specify: [] [] Specify: [] [] Specify: [] Location in the medical record that reflects the above clinical findings: [] Treatment Provided: [] PHYSICIAN'S RESPONSE Based on your medical judgment of the clinical indicators outlined above please clarify the following: [] Practitioner response chronic Systolic [] If unable to determine, please check the box, sign and date. Present On Admission (POA) Indicator: [] Present at the time of admission [] Not present at the time of admission [] Clinically Undetermined In responding to this query, please exercise your independent professional judgment. The fact that a question is asked does not imply that any particular answer is desired or expected. Thank you for your clarification on this documentation. If you have any questions please call. * Thank you, Laura Dos Santos RN BSN ext. #[phone] MTDD
== END 2017-03-22 16:13 | disposition left against medical advice (07) | DRG 918 ==
LOC: H.ER 01:26 → H.ERHOLD 04:00 → H.TEL 05:21
PROVIDERS: ADMIT Family Medicine; ATTEND Family Medicine
DX: T43.591A Poisoning by other antipsychotics and neuroleptics, accidental (unintentional), initial encounter (principal); N17.9 Acute kidney failure, unspecified; I42.9 Cardiomyopathy, unspecified; I13.0 Hypertensive heart and chronic kidney disease with heart failure and stage 1 through stage 4 chronic kidney disease, or unspecified chronic kidney disease; I50.20 Unspecified systolic (congestive) heart failure; E11.22 Type 2 diabetes mellitus with diabetic chronic kidney disease; M32.14 Glomerular disease in systemic lupus erythematosus; F32.9 Major depressive disorder, single episode, unspecified; H53.8 Other visual disturbances; R53.1 Weakness; R47.81 Slurred speech; I25.10 Atherosclerotic heart disease of native coronary artery without angina pectoris; N18.9 Chronic kidney disease, unspecified; Z95.0 Presence of cardiac pacemaker; E78.5 Hyperlipidemia, unspecified

== ENCOUNTER 2017-09-05 02:15 | Inpatient (IN) | payer MEDICARE, OTHER ==
[2017-09-05 02:21] VITALS: BMI 36.0
[2017-09-05] MEDS ORDERED: Sodium Chloride 0.9% 1,000 ML IV STA (02:40)
--- NOTE | 2017-09-05 02:40 | ED PDOC ---
HPI: CCC, URI, Sore Throat <Charles Celaya - Last Filed: 09/05/17 04:33> Chief Complaint (Provider): epistaxis History Per: Patient, EMS, Email Specialist (Alethea Email Specialist Trang Nieves) <Federica Elizabeth - Last Filed: 09/05/17 05:49> Time Seen by Provider: 09/05/17 02:39 Chief Complaint (Nursing): ENT Problem Additional Complaint(s): 76-year-old male presents to emergency department with epistaxis from right nares that started earlier this evening. Patient woke up to walk to the bathroom and started noticing bleeding. He states bleeding was intermittent for about one hour and then he called ambulance. He arrives with no active bleeding noted. Patient denies any acute pain. He currently takes aspirin and Coumadin daily PMD: Dr. Billings (ClaraFederica) Past Medical History <Charles Celaya - Last Filed: 09/05/17 04:33> Reviewed: Historical Data, Nursing Documentation, Vital Signs - Medical History PMH: Arthritis, Atrial Fibrillation, CAD, Cardia Arrhythmia, CHF, Depression, Diabetes (type II), HTN, Hypercholesterolemia, Pneumonia - Surgical History Surgical History: Appendectomy, Coronary Stent, Hernia Repair (ventral), Pacemaker - Family History Family History: States: No Known Family Hx - Living Arrangements Living Arrangements: With Family - Social History Current smoker - smoking cessation education provided: No Alcohol: None Drugs: Denies <Federica Elizabeth - Last Filed: 09/05/17 05:49> Vital Signs: Last Vital Signs Temp 99.0 F 09/05/17 02:21 Pulse 61 09/05/17 05:21 Resp 18 09/05/17 05:21 BP 152/75 H 09/05/17 05:21 Pulse Ox 97 09/05/17 05:21 - Allergies Allergies/Adverse Reactions: Allergies Allergy/AdvReac Type Severity Reaction Status Date / Time morphine Allergy ANAPHYLAXIS Verified 09/05/17 02:20 Curb-65 Severity Score - CURB-65 Severity Score Confusion: No Respiratory Rate greater than/equal to 30: No Systolic BP <90 or Diastolic BP less than/equal 60mmHg: No Age >64: Yes Curb-65 Score: 1 Percentage 30-day mortality: 2.7% <Federica Elizabeth - Last Filed: 09/05/17 05:49> Review of Systems ROS Statement: Except As Marked, All Systems Reviewed And Found Negative Constitutional: Negative for: Fever ENT: Positive for: Other (epistaxis from right nares) Cardiovascular: Negative for: Chest Pain Respiratory: Negative for: Cough Gastrointestinal: Negative for: Nausea, Vomiting Neurological: Negative for: Altered Mental Status, Headache, Dizziness <Federica Elizabeth - Last Filed: 09/05/17 05:49> Physical Exam - Reviewed Nursing Documentation Reviewed: Yes Vital Signs Reviewed: Yes - Physical Exam Appears: Positive for: Well, Non-toxic, No Acute Distress Head Exam: Negative for: ATRAUMATIC Skin: Positive for: Normal Color. Negative for: Rash Eye Exam: Positive for: Normal appearance ENT: Positive for: Other (Minimal amount of bleeding noted from right nares, mild amount of blood noted to posterior pharynx, airways patent) Cardiovascular/Chest: Positive for: Regular Rate, Rhythm Respiratory: Positive for: Normal Breath Sounds. Negative for: Wheezing, Respiratory Distress Gastrointestinal/Abdominal: Positive for: Soft, Other (obese, nontender abdomen) . Negative for: Tenderness Extremity: Positive for: Normal ROM Neurologic/Psych: Positive for: Alert, Oriented <Federica Elizabeth - Last Filed: 09/05/17 05:49> - Laboratory Results Result Diagrams: 09/05/17 03:22 09/05/17 03:22 - Critical Care Total Time (In Min): 60 <Charles Celaya - Last Filed: 09/05/17 04:33> - Laboratory Results Result Diagrams: 09/05/17 03:22 09/05/17 03:22 - ECG O2 Sat by Pulse Oximetry: 98 Pulse Ox Interpretation: Normal - Other Rad Bedside chest X-Ray: Interpreted by Me, Viewed By Me <Federica Elizabeth - Last Filed: 09/05/17 05:49> - ECG Interpretation Of ECG: Atrial paced rhythm at 61 bpm, reviewed by PA and ED attending (Federica Elizabeth ) Medical Decision Making <Charles Celaya - Last Filed: 09/05/17 04:33> <Federica Elizabeth - Last Filed: 09/05/17 05:49> Medical Decision Makin-year-old male with right nares epistaxis, now resolved Plan: CBC CMP PT PTT EKG CXR IVF INR is 9.7 - case was d/w Dr. Celaya, Vitamin K and Kcentra ordered. Bleeding started again from right nares - 4.5 cm rhinorocket placed, good bleeding control achieved. Troponin is also elevated, patient denies chest pain or SOB. PMD is Dr. Billings, [facility], Dr. Warren to admit patient to ICU, Dr. Marco tobar. (Federica Elizabeth) Disposition <Charles Celaya - Last Filed: 09/05/17 04:33> - Patient ED Disposition Is Patient to be Admitted: Yes - Disposition Disposition Time: 05:49 - Pt Status Changed To: Hospital Disposition Of: Inpatient - Admit Certification Admit to Inpatient:: After my assessment, the patient will require hospitalization for at least two midnights. This is because of the severity of symptoms shown, intensity of services needed, and/or the medical risk in this patient being treated as an outpatient. <KayliephilFederica - Last Filed: 09/05/17 05:49> - Clinical Impression Clinical Impression: Epistaxis, Coumadin toxicity, Coagulopathy, NSTEMI (non-ST elevated myocardial infarction), CHF (congestive heart failure) - Disposition Condition: CRITICAL Results <Federica Elizabeth - Last Filed: 09/05/17 05:49> - Lab Results Lab Results: 09/05/17 09/05/17 09/05/17 03:47 03:22 03:22 WBC RBC Hgb Hct MCV MCH MCHC RDW Plt Count MPV Neut % (Auto) Lymph % (Auto) [place] % (Auto) Eos % (Auto) Baso % (Auto) Neut # Lymph # [place] # Eos # Baso # PT 112.3 H* INR 9.7 H APTT 59.4 H Sodium 142 Potassium 4.7 Chloride 110 H Carbon Dioxide 21 L Anion Gap 16 BUN 25 H Creatinine 1.2 Est GFR ( Amer) > 60 Est GFR (Non-Af Amer) 59 Random Glucose 98 Calcium 8.6 Total Bilirubin 0.7 AST 26 ALT 31 Alkaline Phosphatase 37 L NT-Pro-B Natriuret Pep 1760 H Total Protein 6.4 Albumin 3.4 L Globulin 3.0 Albumin/Globulin Ratio 1.1 09/05/17 03:22 WBC 9.8 RBC 3.94 L Hgb 11.5 L Hct 34.3 L MCV 87.1 MCH 29.1 MCHC 33.5 RDW 14.3 Plt Count 164 MPV 7.9 Neut % (Auto) 75.7 H Lymph % (Auto) 12.2 L [place] % (Auto) 11.1 H Eos % (Auto) 0.8 Baso % (Auto) 0.2 Neut # 7.4 H Lymph # 1.2 [place] # 1.1 H Eos # 0.1 Baso # 0.0 PT INR APTT Sodium Potassium Chloride Carbon Dioxide Anion Gap BUN Creatinine Est GFR ( Amer) Est GFR (Non-Af Amer) Random Glucose Calcium Total Bilirubin AST ALT Alkaline Phosphatase NT-Pro-B Natriuret Pep Total Protein Albumin Globulin Albumin/Globulin Ratio
[2017-09-05 03:24] LABS: BASO % 0.2 % (0.0-2.0); EOS # 0.1 K/uL (0.0-0.7); EOS % 0.8 % (0.0-4.0); HEMOGLOBIN 11.5 g/dL (12.0-18.0); LYMPH # 1.2 K/uL (1.0-4.3); LYMPH % 12.2 % (20.0-40.0); MEAN CELL VOLUME 87.1 fl (80.0-94.0); MEAN CORPUSCULAR HEMOGLOBIN 29.1 pg (27.0-31.0); MEAN CORPUSCULAR HGB CONC 33.5 g/dL (33.0-37.0); MEAN PLATELET VOLUME 7.9 fl (7.2-11.7); MONO # 1.1 K/uL (0.0-0.8); MONO % 11.1 % (0.0-10.0); NEUT # 7.4 K/uL (1.8-7.0); NEUT % 75.7 % (50.0-75.0); RBC 3.94 Mil/uL (4.40-5.90); RED CELL DISTRIBUTION WIDTH 14.3 % (11.5-14.5); WHITE BLOOD COUNT 9.8 K/uL (4.8-10.8)
[2017-09-05 03:35] LABS: ALB/GLOB RATIO 1.1 (1.0-2.1); ALBUMIN 3.4 g/dL (3.5-5.0); ALT/SGPT 31 U/L (21-72); AST/SGOT 26 U/L (17-59); BLOOD UREA NITROGEN 25 mg/dl (9-20); CALCIUM 8.6 mg/dL (8.4-10.2); GFR AFRICAN-AMERICAN > 60; GFR NON-AFRICAN AMERICAN 59
[2017-09-05 03:53] LABS: INR 9.7 (0.9-1.2); PROTHROMBIN TIME 112.3 Seconds (9.8-13.1)
[2017-09-05 03:54] LABS: PARTIAL THROMBOPLASTIN TIME 59.4 Seconds (25.6-37.1)
[2017-09-05] MEDS ORDERED: Phytonadione 10 mg/ml Inj (Adult) IM ONE (03:58)
[2017-09-05] MEDS ORDERED: Hum Prothrombin CPLX(PCC)4FACT 1 Unit Inj IV STA ×2 (04:03)
[2017-09-05] MEDS ORDERED: Phytonadione 10 mg/ml Inj (Adult) ONE (04:25)
[2017-09-05] MEDS ORDERED: Phytonadione 10 mg/ml Inj (Adult) IV ONE (04:29)
[2017-09-05] MEDS ORDERED: Phytonadione 10 MG in Sodium Chloride 0.9% 50 ML IV ONE (04:45)
[2017-09-05] MEDS ORDERED: Nitroglycerin 2% 15 INCH/30 GM TUBE TOP STA (04:53)
--- NOTE | 2017-09-05 05:00 | CP.PCM.CON ---
History of Present Illness - History of Present Illness History of Present Illness: CC: uncontrolled epistaxis; reason for ICU: elevated troponin/NSTEMI HPI: This is a 76 y/o male with MHx significant for DM2, HTN, HLD/CAD (w/stents) , A fib on coumadin, CHF (EF 30%), CKD, and SLE who presented to ED with R nare epistaxis in setting of what appears to be coumadin toxicity (INR 9+) in combination with ASA. He received Vit K and is pending administration of Kcentra. On labs it was noted that patient's Troponin is elevated, and patient is being moved to ICU for closer observation. Patient denies CP/SOB at this time. History is otherwise limited as patient is Belgian speaking and there is no inventory control/shipping receiving available. PCP: Ezekiel ROS: limited given language barrier MHx: DM2, HTN, HLD/CAD (w/stents), A fib on coumadin, CHF (EF 30%), CKD, and SLE SHx: Stents, PPM Allergies: Morphine Medications: As per med rec Family Hx: Cannot obtain 2/2 language barrier Social Hx: Lives with family, no tobacco, no EtOH Past Patient History - Infectious Disease Hx of Infectious Diseases: None - Past Medical History & Family History Past Medical History?: Yes - Past Social History Alcohol: None Drugs: Denies - CARDIAC Hx Atrial Fibrillation: Yes Hx Cardia Arrhythmia: Yes Hx Congestive Heart Failure: Yes Hx Hypercholesterolemia: Yes Hx Hypertension: Yes Hx Pacemaker: Yes - PULMONARY Hx Pneumonia: Yes - NEUROLOGICAL Hx Neurological Disorder: No - HEENT Hx HEENT Problems: No - RENAL Hx Chronic Kidney Disease: No - ENDOCRINE/METABOLIC Hx Diabetes Mellitus Type 2: Yes - HEMATOLOGICAL/ONCOLOGICAL Hx Human Immunodeficiency Virus (HIV): No - INTEGUMENTARY Hx Dermatological Problems: Yes - MUSCULOSKELETAL/RHEUMATOLOGICAL Hx Arthritis: Yes - GASTROINTESTINAL Hx Gastrointestinal Disorders: No - GENITOURINARY/GYNECOLOGICAL Hx Genitourinary Disorders: No - PSYCHIATRIC Hx Depression: Yes - SURGICAL HISTORY Hx Appendectomy: Yes Hx Coronary Stent: Yes - ANESTHESIA Hx Anesthesia: Yes Hx Anesthesia Reactions: No Hx Malignant Hyperthermia: No Meds Allergies/Adverse Reactions: Allergies Allergy/AdvReac Type Severity Reaction Status Date / Time morphine Allergy ANAPHYLAXIS Verified 09/05/17 02:20 - Medications Medications: Current Medications Sodium Chloride (Sodium Chloride 0.9%) 1,000 mls @ 100 mls/hr IV .Q10H STA Stop: 09/05/17 12:39 Last Admin: 09/05/17 03:19 Dose: 100 mls/hr Phytonadione 10 mg/ Sodium (Chloride) 51 mls @ 102 mls/hr IV ONCE ONE Stop: 09/05/17 05:14 Last Admin: 09/05/17 04:57 Dose: Not Given Physical Exam - Constitutional Appears: No Acute Distress - Head Exam Head Exam: ATRAUMATIC, NORMOCEPHALIC - Eye Exam Eye Exam: EOMI, PERRL - ENT Exam Additional comments: rhino rocket in R nare; evidence of prior bleeding - Neck Exam Neck exam: Positive for: Full Rom - Respiratory Exam Respiratory Exam: Clear to Auscultation Bilateral, NORMAL BREATHING PATTERN - Cardiovascular Exam Cardiovascular Exam: REGULAR RHYTHM, +S1, +S2 - GI/Abdominal Exam GI & Abdominal Exam: Normal Bowel Sounds, Soft - Extremities Exam Extremities exam: Positive for: full ROM, normal inspection - Neurological Exam Neurological exam: Alert, CN II-XII Intact, Oriented x3 - Psychiatric Exam Psychiatric exam: Normal Affect, Normal Mood - Skin Skin Exam: Dry, Warm Results - Vital Signs Recent Vital Signs: Last Vital Signs Temp 99.0 F 09/05/17 02:21 Pulse 61 09/05/17 03:33 Resp 18 09/05/17 03:33 BP 140/76 09/05/17 03:33 Pulse Ox 96 09/05/17 03:33 - Labs Result Diagrams: 09/05/17 03:22 09/05/17 03:22 Labs: Laboratory Results - last 24 hr 09/05/17 09/05/17 09/05/17 03:22 03:22 03:22 WBC 9.8 RBC 3.94 L Hgb 11.5 L Hct 34.3 L MCV 87.1 MCH 29.1 MCHC 33.5 RDW 14.3 Plt Count 164 MPV 7.9 Neut % (Auto) 75.7 H Lymph % (Auto) 12.2 L [place] % (Auto) 11.1 H Eos % (Auto) 0.8 Baso % (Auto) 0.2 Neut # 7.4 H Lymph # 1.2 [place] # 1.1 H Eos # 0.1 Baso # 0.0 PT 112.3 H* INR 9.7 H APTT 59.4 H Sodium 142 Potassium 4.7 Chloride 110 H Carbon Dioxide 21 L Anion Gap 16 BUN 25 H Creatinine 1.2 Est GFR ( Amer) > 60 Est GFR (Non-Af Amer) 59 Random Glucose 98 Calcium 8.6 Total Bilirubin 0.7 AST 26 ALT 31 Alkaline Phosphatase 37 L Troponin I NT-Pro-B Natriuret Pep Total Protein 6.4 Albumin 3.4 L Globulin 3.0 Albumin/Globulin Ratio 1.1 09/05/17 09/05/17 03:47 04:18 WBC RBC Hgb Hct MCV MCH MCHC RDW Plt Count MPV Neut % (Auto) Lymph % (Auto) [place] % (Auto) Eos % (Auto) Baso % (Auto) Neut # Lymph # [place] # Eos # Baso # PT INR APTT Sodium Potassium Chloride Carbon Dioxide Anion Gap BUN Creatinine Est GFR ( Amer) Est GFR (Non-Af Amer) Random Glucose Calcium Total Bilirubin AST ALT Alkaline Phosphatase Troponin I 0.1930 H* NT-Pro-B Natriuret Pep 1760 H Total Protein Albumin Globulin Albumin/Globulin Ratio - EKG Data EKG Interpreted by: Myself - EKG Data EKG comments: appears to be an atrial-paced and there is a IV block with a LBBB pattern - Imaging and Cardiology Chest x-ray Status: Image reviewed by me (poor insp effort, PM in place left chest, likely some vascular congestion) Assessment & Plan (1) Coumadin toxicity Assessment and Plan: 76 y/o male with multiple medical conditions mainly being admitted to ICU for NSTEMI in setting of coumadin toxicity and persistent epistaxis. -Admit ICU -Serial trops -Echo in AM -Will start metoprolol and statin PO -No asa or blood thinners now, given active epistaxis -Pending Kcentra administration -Cardiology consult per primary team -Mgmt of DM2, CHF, and other chronic issues per primary team Status: Acute (2) NSTEMI (non-ST elevated myocardial infarction) Status: Acute
--- NOTE | 2017-09-05 05:03 | CP.PCM.HP ---
<Melvi Warren - Last Filed: 09/05/17 06:15> History of Present Illness - History of Present Illness History of Present Illness: This is a 76 yo M nonsmoker with significant PMHx DM, HTN, CAD (Stent, pacemaker), HLD, Afib (on coumadin), CHF (01/13/16 ECHO LVEF 30%), CKD, lupus presents to emergency department with epistaxis from right nares that started earlier this evening. Patient woke up to walk to the bathroom and started noticing bleeding. He states bleeding was intermittent for about one hour and then he called ambulance. He arrives with no active bleeding noted. Patient denies any acute pain. He currently takes aspirin and Coumadin daily. History was obtained from ER documentation. Italian shipfitters supervisor was called, after waiting, corrugator machine operator reported that not hungarian shipfitters supervisor available at this time. Medications: pt has a list of his medications: prednisone 10 mg , prilosec 20 mg , hydroxyxhloroquine 200 mg BID, januvia 100 mg , glyburide 2.5 mg, neurontin 300 mg tid, spirinolactone 25 mg, nitrostat 0.4 mg prn, aspirin 81 mg, zoloft 50 mg, multivitamin , magnesium 500 mg as needed, potassium 20 , risperdal 2 mg , lipitor 20 mg, coumadin 5 mg, calcium 600 Social Hx: denies smoking, EtOH, Drugs( as per records). Patient lives with his , but his is currently with their daughter Allergies: morphine (as per records) PMD: Dr. Falcon Present on Admission - Present on Admission Any Indicators Present on Admission: No History of DVT/PE: No History of Uncontrolled Diabetes: No Urinary Catheter: No Decubitus Ulcer Present: No Review of Systems - Review of Systems All systems: reviewed and no additional remarkable complaints except (as per HPI ) Past Patient History - Infectious Disease Hx of Infectious Diseases: None - Past Medical History & Family History Past Medical History?: Yes - Past Social History Alcohol: None Drugs: Denies - CARDIAC Hx Atrial Fibrillation: Yes Hx Cardia Arrhythmia: Yes Hx Congestive Heart Failure: Yes Hx Hypercholesterolemia: Yes Hx Hypertension: Yes Hx Pacemaker: Yes - PULMONARY Hx Pneumonia: Yes - NEUROLOGICAL Hx Neurological Disorder: No - HEENT Hx HEENT Problems: No - RENAL Hx Chronic Kidney Disease: No - ENDOCRINE/METABOLIC Hx Diabetes Mellitus Type 2: Yes - HEMATOLOGICAL/ONCOLOGICAL Hx Human Immunodeficiency Virus (HIV): No - INTEGUMENTARY Hx Dermatological Problems: Yes - MUSCULOSKELETAL/RHEUMATOLOGICAL Hx Arthritis: Yes - GASTROINTESTINAL Hx Gastrointestinal Disorders: No - GENITOURINARY/GYNECOLOGICAL Hx Genitourinary Disorders: No - PSYCHIATRIC Hx Depression: Yes - SURGICAL HISTORY Hx Appendectomy: Yes Hx Coronary Stent: Yes - ANESTHESIA Hx Anesthesia: Yes Hx Anesthesia Reactions: No Hx Malignant Hyperthermia: No Meds Allergies/Adverse Reactions: Allergies Allergy/AdvReac Type Severity Reaction Status Date / Time morphine Allergy ANAPHYLAXIS Verified 09/05/17 02:20 Results - Vital Signs Recent Vital Signs: Last Vital Signs Temp 99.0 F 09/05/17 02:21 Pulse 61 09/05/17 03:33 Resp 18 09/05/17 03:33 BP 140/76 09/05/17 03:33 Pulse Ox 96 09/05/17 03:33 - Labs Result Diagrams: 09/05/17 03:22 09/05/17 03:22 Labs: Laboratory Results - last 24 hr 09/05/17 09/05/17 09/05/17 03:22 03:22 03:22 WBC 9.8 RBC 3.94 L Hgb 11.5 L Hct 34.3 L MCV 87.1 MCH 29.1 MCHC 33.5 RDW 14.3 Plt Count 164 MPV 7.9 Neut % (Auto) 75.7 H Lymph % (Auto) 12.2 L [place] % (Auto) 11.1 H Eos % (Auto) 0.8 Baso % (Auto) 0.2 Neut # 7.4 H Lymph # 1.2 [place] # 1.1 H Eos # 0.1 Baso # 0.0 PT 112.3 H* INR 9.7 H APTT 59.4 H Sodium 142 Potassium 4.7 Chloride 110 H Carbon Dioxide 21 L Anion Gap 16 BUN 25 H Creatinine 1.2 Est GFR ( Amer) > 60 Est GFR (Non-Af Amer) 59 Random Glucose 98 Calcium 8.6 Total Bilirubin 0.7 AST 26 ALT 31 Alkaline Phosphatase 37 L Troponin I NT-Pro-B Natriuret Pep Total Protein 6.4 Albumin 3.4 L Globulin 3.0 Albumin/Globulin Ratio 1.1 09/05/17 09/05/17 03:47 04:18 WBC RBC Hgb Hct MCV MCH MCHC RDW Plt Count MPV Neut % (Auto) Lymph % (Auto) [place] % (Auto) Eos % (Auto) Baso % (Auto) Neut # Lymph # [place] # Eos # Baso # PT INR APTT Sodium Potassium Chloride Carbon Dioxide Anion Gap BUN Creatinine Est GFR ( Amer) Est GFR (Non-Af Amer) Random Glucose Calcium Total Bilirubin AST ALT Alkaline Phosphatase Troponin I 0.1930 H* NT-Pro-B Natriuret Pep 1760 H Total Protein Albumin Globulin Albumin/Globulin Ratio Assessment & Plan - Assessment and Plan (Free Text) Assessment: 76 y/o [place] male with extensive PMHx including Afib on coumadin anticoagulation admitted with active persistent nosebleed and elevated INR. Plan: Supratherapeutic INR on Coumadin -ICU -INR: 9.7 -h/o A fib on anticoagulation with coumadin -Hold aspirin and coumadin for now -active persistent nose bleeds -s/p Vitamin K 10 mg IV once -awaiting for Kcentra 50 unit IV. Special treatment coming from another hospital -type and screen done in ED -H/H: 11.5/34.3 Elevated Troponin I -0.1930 -r/o ACS -f/u troponin -Cardiology consult recommended Right nosebleed -likely 2/2 supratherapeutic INR -controlled with nasal packing -management of supratherapeutic INR -VS stable -f/u VS Afib -controlled -hold all anticoagulants med due to supratherapeutic INR DM type 2 -accucheck ABK resume home meds Systolic CHF -no in exacerbation -Echo on 03/21/17 reported as LV function moderate to severe impared. EF 20-25 % resume home meds H/O SLE -resume home meds DVT prophylaxis SCDs hold all anticoagulants med due to supratherapeutic INR - Date & Time Date: 09/05/17 Time: 05:05 <Prem Falcon - Last Filed: 09/07/17 06:54> Results - Vital Signs Recent Vital Signs: Last Vital Signs Temp 98.2 F 09/07/17 05:00 Pulse 60 09/07/17 05:00 Resp 18 09/07/17 05:00 BP 111/65 09/07/17 05:00 Pulse Ox 95 09/07/17 05:00 - Labs Result Diagrams: 09/06/17 10:30 09/06/17 10:30 Labs: Laboratory Results - last 24 hr 09/05/17 09/06/17 09/06/17 05:03 10:30 10:30 WBC 9.1 RBC 3.18 L Hgb 9.2 L Hct 27.7 L MCV 87.3 MCH 28.9 MCHC 33.1 RDW 14.4 Plt Count 156 Sodium 143 Potassium 4.3 Chloride 110 H Carbon Dioxide 25 Anion Gap 12 BUN 42 H Creatinine 1.4 Est GFR ( Amer) 59 Est GFR (Non-Af Amer) 49 POC Glucose (mg/dL) Random Glucose 187 H Calcium 8.5 Total Bilirubin 1.1 AST 24 ALT 33 Alkaline Phosphatase 28 L D Total Protein 5.7 L Albumin 2.8 L Globulin 2.9 Albumin/Globulin Ratio 1.0 Blood Type B POSITIVE Antibody Screen Negative Crossmatch See Detail BBK History Checked Patient has bt 09/06/17 09/06/17 09/06/17 10:58 16:04 21:36 WBC RBC Hgb Hct MCV MCH MCHC RDW Plt Count Sodium Potassium Chloride Carbon Dioxide Anion Gap BUN Creatinine Est GFR ( Amer) Est GFR (Non-Af Amer) POC Glucose (mg/dL) 166 H 91 117 H Random Glucose Calcium Total Bilirubin AST ALT Alkaline Phosphatase Total Protein Albumin Globulin Albumin/Globulin Ratio Blood Type Antibody Screen Crossmatch BBK History Checked 09/07/17 06:10 WBC RBC Hgb Hct MCV MCH MCHC RDW Plt Count Sodium Potassium Chloride Carbon Dioxide Anion Gap BUN Creatinine Est GFR ( Amer) Est GFR (Non-Af Amer) POC Glucose (mg/dL) 134 H Random Glucose Calcium Total Bilirubin AST ALT Alkaline Phosphatase Total Protein Albumin Globulin Albumin/Globulin Ratio Blood Type Antibody Screen Crossmatch BBK History Checked Attending/Attestation - Attestation I have personally seen and examined this patient.: Yes I have fully participated in the care of the patient.: Yes I have reviewed all pertinent clinical information: Yes
[2017-09-05] MEDS ORDERED: Nitroglycerin 2% Ointment Foilpak UD TOP ONE (05:09)
[2017-09-05] MEDS ORDERED: Nitroglycerin 2% Ointment Foilpak UD TOP STA (05:21)
--- NOTE | 2017-09-05 07:42 | CARD ---
APPROVED REPORT EKG Measurement Heart [id number] <Conclusion> Atrial and Ventricular-paced rhythm Abnormal ECG
[2017-09-05] MEDS ORDERED: VITAMIN D3 PO SCH (09:00)
[2017-09-05] MEDS ORDERED: CALCIUM CARBONATE PO SCH (09:00)
--- NOTE | 2017-09-05 09:13 | CP.PCM.CON ---
History of Present Illness - History of Present Illness History of Present Illness: THE PATIENT IS A 76 YEAR OLD MALE WITH A HISTORY OF CAD, SSS WITH ATRIAL FIBRILLATION AND A PACEMAKER, LUPUS WITH CKD, HYPERTENSION, HYPERLIPIDEMIA AND DM. HE IS ON COUMADIN 5 MGS DAILY AND HE WAS ADMITTED VIA THE ER FOR EPISTAXIS THIS MORNING AND HIS INR WAS 9.7 AND HE RECEIVED VITAMIN K AND KCENTRA. HE ALSO HAD HIS NOSE PACKED. HIS TROPONINS WERE ELEVATED SO CARDIOLOGY WAS ASKED TO SEE HIM. HE HAS CHRONICALLY ELEVATED TROPONINS DUE TO HIS CKD AND ON 08/06/16 HE WAS ADMITTED AND HIS TROPONINS WERE IN THE O.2 RANGE. HE SENIES CHEST PAIN OR SOB. IT IS OF NOTE THAT IS 2015 AND RECENTLY MARCH OF 2018 HE WAS ON XARELTO AND WAS CHANGED TO 5 MGS OF WARFARIN DAILY AT THE PRESENT TIME. Past Patient History - Infectious Disease Hx of Infectious Diseases: None - Past Medical History & Family History Past Medical History?: Yes - Past Social History Alcohol: None Drugs: Denies - CARDIAC Hx Atrial Fibrillation: Yes Hx Cardia Arrhythmia: Yes Hx Congestive Heart Failure: Yes Hx Hypercholesterolemia: Yes Hx Hypertension: Yes Hx Pacemaker: Yes - PULMONARY Hx Pneumonia: Yes - NEUROLOGICAL Hx Neurological Disorder: No - HEENT Hx HEENT Problems: No - RENAL Hx Chronic Kidney Disease: No - ENDOCRINE/METABOLIC Hx Diabetes Mellitus Type 2: Yes - HEMATOLOGICAL/ONCOLOGICAL Hx Human Immunodeficiency Virus (HIV): No - INTEGUMENTARY Hx Dermatological Problems: Yes - MUSCULOSKELETAL/RHEUMATOLOGICAL Hx Arthritis: Yes - GASTROINTESTINAL Hx Gastrointestinal Disorders: No - GENITOURINARY/GYNECOLOGICAL Hx Genitourinary Disorders: No - PSYCHIATRIC Hx Depression: Yes - SURGICAL HISTORY Hx Appendectomy: Yes Hx Coronary Stent: Yes - ANESTHESIA Hx Anesthesia: Yes Hx Anesthesia Reactions: No Hx Malignant Hyperthermia: No Meds Allergies/Adverse Reactions: Allergies Allergy/AdvReac Type Severity Reaction Status Date / Time morphine Allergy ANAPHYLAXIS Verified 09/05/17 02:20 - Medications Medications: Current Medications Atorvastatin Calcium (Lipitor) 40 mg PO DAILY [facility] Furosemide (Lasix) 40 mg PO DAILY [facility] Gabapentin (Neurontin) 300 mg PO TID [facility] Glyburide (Micronase) 2.5 mg PO DAILY [facility] Home Med (Calcium Carbonate/Vitamin D3 [Calcium 600+D Softgel]) 1 tab PO DAILY [facility] Hydroxychloroquine Sulfate (Plaquenil) 200 mg PO BID [facility] Sodium Chloride (Sodium Chloride 0.9%) 1,000 mls @ 100 mls/hr IV .Q10H STA Stop: 09/05/17 12:39 Last Admin: 09/05/17 03:19 Dose: 100 mls/hr Metoprolol Tartrate (Lopressor) 25 mg PO Q12 [facility] Last Admin: 09/05/17 05:23 Dose: Not Given Nitroglycerin (Nitrostat Sl Tab) 0.4 mg SL PRN PRN PRN Reason: Pain, moderate (4-7) Pantoprazole Sodium (Protonix Ec Tab) 20 mg PO DAILY [facility] Potassium Chloride (K-Dur 20 Meq Er Tab) 20 meq PO DAILY [facility] Risperidone (Risperdal Tab) 2,000 mg PO HS [facility] Sertraline HCl (Zoloft) 50 mg PO DAILY [facility] Sitagliptin Phosphate (Januvia) 100 mg PO DAILY [facility] Spironolactone (Aldactone) 25 mg PO DAILY [facility] Physical Exam - Respiratory Exam Respiratory Exam: Clear to Auscultation Bilateral - Cardiovascular Exam Cardiovascular Exam: REGULAR RHYTHM, +S1, +S2 - Extremities Exam Extremities exam: Positive for: pedal edema - Additional Findings Additional findings: EKG AV PACING INR 9.7 H/H PLT CT 164K TROPONIN 0.19 Results - Vital Signs Recent Vital Signs: Last Vital Signs Temp 99.0 F 09/05/17 02:21 Pulse 65 09/05/17 06:43 Resp 18 09/05/17 06:43 BP 132/68 09/05/17 06:43 Pulse Ox 97 09/05/17 06:43 - Labs Result Diagrams: 09/05/17 10:50 09/05/17 03:22 Labs: Laboratory Results - last 24 hr 09/05/17 09/05/17 09/05/17 03:22 03:22 03:22 WBC 9.8 RBC 3.94 L Hgb 11.5 L Hct 34.3 L MCV 87.1 MCH 29.1 MCHC 33.5 RDW 14.3 Plt Count 164 MPV 7.9 Neut % (Auto) 75.7 H Lymph % (Auto) 12.2 L [place] % (Auto) 11.1 H Eos % (Auto) 0.8 Baso % (Auto) 0.2 Neut # 7.4 H Lymph # 1.2 [place] # 1.1 H Eos # 0.1 Baso # 0.0 PT 112.3 H* INR 9.7 H APTT 59.4 H Sodium 142 Potassium 4.7 Chloride 110 H Carbon Dioxide 21 L Anion Gap 16 BUN 25 H Creatinine 1.2 Est GFR ( Amer) > 60 Est GFR (Non-Af Amer) 59 POC Glucose (mg/dL) Random Glucose 98 Calcium 8.6 Total Bilirubin 0.7 AST 26 ALT 31 Alkaline Phosphatase 37 L Troponin I NT-Pro-B Natriuret Pep Total Protein 6.4 Albumin 3.4 L Globulin 3.0 Albumin/Globulin Ratio 1.1 Blood Type Antibody Screen BBK History Checked 09/05/17 09/05/17 09/05/17 03:47 04:18 05:03 WBC RBC Hgb Hct MCV MCH MCHC RDW Plt Count MPV Neut % (Auto) Lymph % (Auto) [place] % (Auto) Eos % (Auto) Baso % (Auto) Neut # Lymph # [place] # Eos # Baso # PT INR APTT Sodium Potassium Chloride Carbon Dioxide Anion Gap BUN Creatinine Est GFR ( Amer) Est GFR (Non-Af Amer) POC Glucose (mg/dL) Random Glucose Calcium Total Bilirubin AST ALT Alkaline Phosphatase Troponin I 0.1930 H* NT-Pro-B Natriuret Pep 1760 H Total Protein Albumin Globulin Albumin/Globulin Ratio Blood Type B POSITIVE Antibody Screen Negative BBK History Checked Patient has bt 09/05/17 07:16 WBC RBC Hgb Hct MCV MCH MCHC RDW Plt Count MPV Neut % (Auto) Lymph % (Auto) [place] % (Auto) Eos % (Auto) Baso % (Auto) Neut # Lymph # [place] # Eos # Baso # PT INR APTT Sodium Potassium Chloride Carbon Dioxide Anion Gap BUN Creatinine Est GFR ( Amer) Est GFR (Non-Af Amer) POC Glucose (mg/dL) 102 Random Glucose Calcium Total Bilirubin AST ALT Alkaline Phosphatase Troponin I NT-Pro-B Natriuret Pep Total Protein Albumin Globulin Albumin/Globulin Ratio Blood Type Antibody Screen BBK History Checked Assessment & Plan - Assessment and Plan (Free Text) Assessment: WARFARIN TOXICITY WITH EPISTAXIS AND INR OF 9.7 CAD SSS WITH HISTORY OF ATRIAL FIBRILLATION AND DUAL CHAMBER PACEMAKER CKD WITH CHRONICALLY ELEVATED TROPONINS HYPERTENSION HYPERLIPIDEMIA Plan: THE PATIENT ALREADY RECEIVED VITAMIN K AND KCENTRA HOLD ASPIRIN AND WARFARIN FOR NOW CONTINUE METOPROLOL, ATORVASTATIN, ALDACTONE AND FUROSEMIDE THE PATIENT WAS ADMITTED TO ON TELEMETRY THE TROPONINS ARE CHRONICALLY ELEVATED DUE TO HIS CKD CALL MADE TO SON TO DISCUSS THE PATIENT AND ALSO TO FIND OUT WHY XARELTO WAS CHANGED TO WARFARIN AND WHO IS MONITORING IT
--- NOTE | 2017-09-05 09:37 | CARD ---
APPROVED REPORT EXAM: Two-dimensional and M-mode echocardiogram with Doppler and color Doppler. Other Information Quality : GoodRhythm : Pacemaker INDICATION Non STEMI 2D DIMENSIONS IVSd1.55 (0.7-1.1cm)LVDd5.87 (3.9-5.9cm) LVOT Diameter2.66 (1.8-2.4cm)PWd1.06 (0.7-1.1cm) IVSs1.94 (0.8-1.2cm)LVDs3.95 (2.5-4.0cm) FS (%) 32.7 %PWs1.81 (0.8-1.2cm) M-Mode DIMENSIONS Left Atrium (MM)5.89 (2.5-4.0cm)IVSd1.65 (0.7-1.1cm) Aortic Root3.84 (2.2-3.7cm)LVDd6.19 (4.0-5.6cm) Aortic Cusp Exc.2.15 (1.5-2.0cm)PWd1.32 (0.7-1.1cm) IVSs1.99 cmFS (%) 29 % LVDs4.40 (2.0-3.8cm)PWs1.85 cm Aortic Valve AI P 1/2 [id number] Mitral Valve E/A ratio0.0 TDI E/Lateral E'0.0E/Medial E'0.0 Pulmonary Valve PV Peak Mpktvagh13.8cm/s Tricuspid Valve TR Peak [id number] [id number] Peak Gr.29mmHg [id number] LEFT VENTRICLE The Left Ventricle is mildly dilated. There is normal left ventricular wall thickness. Left ventricle systolic function is moderately impaired. The Ejection Fraction is 25-30%. Septal motion was particularly abnormal and hypokinetic possibly due to v-paced rhythm Remaining LV wall segments were moderately hypokinetic. Transmitral Doppler flow pattern is Grade II-pseudonormal filling dynamics. RIGHT VENTRICLE The right ventricle is mildly dilated. There is normal right ventricular wall thickness. The right ventricular systolic function is normal. ATRIA The left atrium is moderately dilated. The right atrium is mildly dilated. AORTIC VALVE The aortic valve is mildly sclerotic. There is moderate to severe aortic regurgitation. There is no aortic valvular stenosis. MITRAL VALVE The mitral valve is normal in structure. There is no evidence of mitral valve prolapse. There is no mitral valve stenosis. Mitral regurgitation is mild to moderate. TRICUSPID VALVE The tricuspid valve is normal in structure. Pacing leads were seen traversing the tricuspid valve. There is severe tricuspid regurgitation. Right ventricular systolic pressure is estimated at 40 mmHg. There is mild-moderate pulmonary hypertension. PULMONIC VALVE The pulmonary valve is normal in structure. There is trace pulmonic valvular regurgitation. GREAT VESSELS The aortic root is mildly enlarged. Due to poor image quality, the IVC could not be assessed. PERICARDIAL EFFUSION The pericardium appears normal. <Conclusion> The Left Ventricle is mildly dilated. There is normal left ventricular wall thickness. Septal motion was particularly abnormal and hypokinetic possibly due to v-paced rhythm Remaining LV wall segments were moderately hypokinetic. Left ventricle systolic function is moderately impaired. The Ejection Fraction is 25-30%. Transmitral Doppler flow pattern is Grade II-pseudonormal filling dynamics. The right ventricle is mildly dilated. The left atrium is moderately dilated. The right atrium is mildly dilated. The aortic valve is mildly sclerotic. There is moderate to severe aortic regurgitation. Mitral regurgitation is mild to moderate. There is severe tricuspid regurgitation. Right ventricular systolic pressure is estimated at 40 mmHg. There is mild-moderate pulmonary hypertension.
--- NOTE | 2017-09-05 10:06 | CP.PCM.PN ---
<Hans Cardenasdanisha - Last Filed: 09/05/17 15:14> Subjective - Date & Time of Evaluation Date of Evaluation: 09/05/17 Time of Evaluation: 07:15 - Subjective Subjective: Patient seen and examined bedside in telemetry, admitted for anterior epistaxis and supratherapeutic INR while on Warfarin 5mg /daily. Patient reports headache , noticed with small active bleeding by right nostril and posterior pharynx, AAO x3 and spitting red blood. 11: 05 am Im notified that patient took out the packing from his nostril. Patient evaluated again and was explained the importance of keep the packing inside to prevent active bleeding. patient verbalized understanding and is agree to have a new ant nose packing placed. Patient tolerated the procedure well w/o complication. patient pleasant, tylenol given for headache, CBC, INR stat done, INR normalized after Kcentra and vit K in ED Objective - Vital Signs/Intake and Output Vital Signs (last 24 hours): Temp Pulse Resp BP Pulse Ox 97.5 F L 62 18 151/77 H 97 09/05/17 09:42 09/05/17 09:42 09/05/17 09:42 09/05/17 09:42 09/05/17 09:42 - Medications Medications: Current Medications Atorvastatin Calcium (Lipitor) 40 mg PO DAILY [facility] Furosemide (Lasix) 40 mg PO DAILY [facility] Gabapentin (Neurontin) 300 mg PO TID [facility] Glyburide (Micronase) 2.5 mg PO DAILY [facility] Home Med (Calcium Carbonate/Vitamin D3 [Calcium 600+D Softgel]) 1 tab PO DAILY [facility] Hydroxychloroquine Sulfate (Plaquenil) 200 mg PO BID [facility] Sodium Chloride (Sodium Chloride 0.9%) 1,000 mls @ 100 mls/hr IV .Q10H STA Stop: 09/05/17 12:39 Last Admin: 09/05/17 03:19 Dose: 100 mls/hr Metoprolol Tartrate (Lopressor) 25 mg PO Q12 [facility] Last Admin: 09/05/17 05:23 Dose: Not Given Nitroglycerin (Nitrostat Sl Tab) 0.4 mg SL PRN PRN PRN Reason: Pain, moderate (4-7) Pantoprazole Sodium (Protonix Ec Tab) 20 mg PO DAILY [facility] Potassium Chloride (K-Dur 20 Meq Er Tab) 20 meq PO DAILY [facility] Risperidone (Risperdal Tab) 2,000 mg PO HS [facility] Sertraline HCl (Zoloft) 50 mg PO DAILY [facility] Sitagliptin Phosphate (Januvia) 100 mg PO DAILY [facility] Spironolactone (Aldactone) 25 mg PO DAILY [facility] - Labs Labs: 09/05/17 03:22 09/05/17 03:22 PT 112.3 Seconds (9.8-13.1) H* 09/05/17 03:22 INR 9.7 (0.9-1.2) H 09/05/17 03:22 APTT 59.4 Seconds (25.6-37.1) H 09/05/17 03:22 - Constitutional Appears: Non-toxic, No Acute Distress - Head Exam Head Exam: ATRAUMATIC, NORMOCEPHALIC - Eye Exam Eye Exam: Normal appearance - ENT Exam Additional comments: right side nostril with anterior nasal pack with mild active bleeding and mild active bleeding seen on the posterior pharynx coming down from nasopharynx - Neck Exam Neck Exam: Full ROM - Respiratory Exam Respiratory Exam: Clear to Ausculation Bilateral. absent: Rales, Wheezes - Cardiovascular Exam Cardiovascular Exam: Irregular Rhythm, +S1 - GI/Abdominal Exam GI & Abdominal Exam: Soft, Normal Bowel Sounds. absent: Tenderness Additional comments: multiples hematoma seen over right side abd 9 flank, RLQ) 4 of them aprox 3 cm - Extremities Exam Extremities Exam: Full ROM. absent: Calf Tenderness, Pedal Edema, Tenderness Additional comments: right leg multiples hematoma in different states, some very clear (old hematomas ) - Neurological Exam Neurological Exam: Alert, Awake, Oriented x3 - Skin Skin Exam: absent: Erythema, Petechiae, Vesicles Additional comments: right leg multiples hematoma in different states, some very clear (old hematomas ) multiples hematoma seen over right side abd 9 flank, RLQ) 4 of them aprox 3 cm Assessment and Plan - Assessment and Plan (Free Text) Plan: 76 y/o [place] m, DM, HTN, CAD (Stent, pacemaker), HLD, Afib (on coumadin), CHF (01/13/16 ECHO LVEF 30%), CKD, lupus admitted with active persistent epistaxis and elevated supratherapeutic INR. Assessment/Plan 1) Epistaxis right nostril -controlled -secondary to supratherapeutic INR:9.7 -s/p nasal anterior packing in ED, repacked in Telemetry after pt took it out. -s/p Kcentra and Vit K in ED -VS stable -f/u VS 2) Supratherapeutic INR -on Coumadin 5mg/day -INR: 9.7 -Hx/o A fib on anticoagulation with coumadin -Hold aspirin and coumadin for now -s/p Vitamin K 10 mg IV once -s/p Kcentra 50 unit IV. -H/H: 11.5/34.3 -repeated INR after treatment 1.2 3) Elevated Troponin -secondary to Afib, CHF, CKD -trop 10.1930 -f/u troponin -Cardiology consult appreciated: hold aspirin, warfarin, troponin chronically elevated x CKD 4) Chronic Afib -controlled, pacemaker, paced rhytm -hold all anticoagulants med due to supratherapeutic INR -Cardilogist consult appreciated -c/w Metoprolol 5) DM type 2 -accucheck ABK resume home meds -Hga1c 6.9 12/22/117 6) Systolic CHF -controlled -Echo on 03/21/17 reported as LV function moderate to severe impared. EF 20-25 % -pt has pacemaker resume home meds 7) Hx/o SLE -resume home meds 8) DVT prophylaxis -SCDs -hold all anticoagulants med due to supratherapeutic INR <Prem Billings - Last Filed: 09/07/17 06:56> Objective - Vital Signs/Intake and Output Vital Signs (last 24 hours): Temp Pulse Resp BP Pulse Ox 98.2 F 60 18 111/65 95 09/07/17 05:00 09/07/17 05:00 09/07/17 05:00 09/07/17 05:00 09/07/17 05:00 Intake and Output: 09/06/17 09/07/17 18:59 06:59 Intake Total 1400 Balance 1400 - Medications Medications: Current Medications Acetaminophen (Tylenol 325mg Tab) 650 mg PO Q6 PRN PRN Reason: Pain, moderate (4-7) Last Admin: 09/05/17 14:09 Dose: 650 mg Atorvastatin Calcium (Lipitor) 40 mg PO DAILY [facility] Last Admin: 09/06/17 10:24 Dose: 40 mg Dextrose (Dextrose 50% Inj) 0 ml IV STAT PRN; Protocol PRN Reason: Hypoglycemia Protocol Dextrose (Glutose 15) 0 gm PO ONCE PRN; Protocol PRN Reason: Hypoglycemia Protocol Furosemide (Lasix) 40 mg PO DAILY [facility] Last Admin: 09/06/17 10:23 Dose: 40 mg Gabapentin (Neurontin) 300 mg PO TID [facility] Last Admin: 09/06/17 17:33 Dose: 300 mg Glucagon (Glucagen Diagnostic Kit) 0 mg IM STAT PRN; Protocol PRN Reason: Hypoglycemia Protocol Glyburide (Micronase) 2.5 mg PO DAILY [facility] Last Admin: 09/06/17 10:25 Dose: 2.5 mg Hydroxychloroquine Sulfate (Plaquenil) 200 mg PO BID [facility] Last Admin: 09/06/17 18:16 Dose: 200 mg Metoprolol Tartrate (Lopressor) 25 mg PO Q12 [facility] Last Admin: 09/06/17 21:05 Dose: 25 mg Nitroglycerin (Nitrostat Sl Tab) 0.4 mg SL PRN PRN PRN Reason: Pain, moderate (4-7) Pantoprazole Sodium (Protonix Ec Tab) 20 mg PO DAILY [facility] Last Admin: 09/06/17 10:26 Dose: 20 mg Potassium Chloride (K-Dur 20 Meq Er Tab) 20 meq PO DAILY [facility] Last Admin: 09/06/17 10:22 Dose: 20 meq Risperidone (Risperdal Tab) 2 mg PO HS [facility] Last Admin: 09/06/17 21:05 Dose: 2 mg Sertraline HCl (Zoloft) 50 mg PO DAILY [facility] Last Admin: 09/06/17 10:27 Dose: 50 mg Sitagliptin Phosphate (Januvia) 100 mg PO DAILY [facility] Last Admin: 09/06/17 10:22 Dose: 100 mg Spironolactone (Aldactone) 25 mg PO DAILY [facility] Last Admin: 09/06/17 10:22 Dose: 25 mg - Labs Labs: 09/06/17 10:30 09/06/17 10:30 PT 13.9 Seconds (9.8-13.1) H 09/06/17 04:25 INR 1.3 (0.9-1.2) H 09/06/17 04:25 APTT 27.2 Seconds (25.6-37.1) 09/06/17 04:25 Attending/Attestation - Attestation I have personally seen and examined this patient.: Yes I have fully participated in the care of the patient.: Yes I have reviewed all pertinent clinical information, including history, physical exam and plan: Yes
--- NOTE | 2017-09-05 10:46 | RAD ---
HISTORY: Medical clearance. COMPARISON: 07/22/2017 FINDINGS: LUNGS: No active pulmonary disease. PLEURA: No significant pleural effusion identified, no pneumothorax apparent. CARDIOVASCULAR: Cardiomegaly, pulmonary vascular congestion. Position/ configuration of pacemaker OSSEOUS STRUCTURES: No significant abnormalities. VISUALIZED UPPER ABDOMEN: Normal. OTHER FINDINGS: None. IMPRESSION: Cardiomegaly/mild CHF progressive compared to the prior study.
[2017-09-05 11:09] LABS: HEMOGLOBIN 10.4 g/dL (12.0-18.0); MEAN CORPUSCULAR HEMOGLOBIN 29.9 pg (27.0-31.0); MEAN CORPUSCULAR HGB CONC 34.4 g/dL (33.0-37.0); RBC 3.48 Mil/uL (4.40-5.90); RED CELL DISTRIBUTION WIDTH 14.1 % (11.5-14.5)
[2017-09-05 12:00] LABS: INR 1.2 (0.9-1.2); PARTIAL THROMBOPLASTIN TIME 28.2 Seconds (25.6-37.1); PROTHROMBIN TIME 13.5 Seconds (9.8-13.1)
[2017-09-05] MEDS: Pantoprazole 20 mg EC Tab PO SCH (14:11)
[2017-09-05] MEDS: Potassium Chloride 20 mEq ER Tab PO SCH (14:15)
[2017-09-05] MEDS ORDERED: Glucagon Recombinant 1 mg Inj IM PRN (17:11)
[2017-09-05] MEDS ORDERED: Dextrose 50% SYRINGE Inj (50 ml) IV PRN (17:11)
[2017-09-06 05:50] LABS: HEMOGLOBIN 9.1 g/dL (12.0-18.0); MEAN CELL VOLUME 87.4 fl (80.0-94.0); MEAN CORPUSCULAR HGB CONC 33.2 g/dL (33.0-37.0); RBC 3.12 Mil/uL (4.40-5.90); RED CELL DISTRIBUTION WIDTH 14.2 % (11.5-14.5); WHITE BLOOD COUNT 9.8 K/uL (4.8-10.8)
[2017-09-06 06:05] LABS: BLOOD UREA NITROGEN 43 mg/dl (9-20); CALCIUM 8.1 mg/dL (8.4-10.2); GFR AFRICAN-AMERICAN > 60; GFR NON-AFRICAN AMERICAN 53
[2017-09-06 06:20] LABS: INR 1.3 (0.9-1.2); PARTIAL THROMBOPLASTIN TIME 27.2 Seconds (25.6-37.1); PROTHROMBIN TIME 13.9 Seconds (9.8-13.1)
[2017-09-06] MEDS: Potassium Chloride 20 mEq ER Tab PO SCH (10:22)
[2017-09-06] MEDS: Pantoprazole 20 mg EC Tab PO SCH (10:26)
[2017-09-06 10:45] LABS: HEMOGLOBIN 9.2 g/dL (12.0-18.0); MEAN CELL VOLUME 87.3 fl (80.0-94.0); MEAN CORPUSCULAR HEMOGLOBIN 28.9 pg (27.0-31.0); MEAN CORPUSCULAR HGB CONC 33.1 g/dL (33.0-37.0); RBC 3.18 Mil/uL (4.40-5.90); RED CELL DISTRIBUTION WIDTH 14.4 % (11.5-14.5); WHITE BLOOD COUNT 9.1 K/uL (4.8-10.8)
[2017-09-06 11:05] LABS: ALBUMIN 2.8 g/dL (3.5-5.0); CALCIUM 8.5 mg/dL (8.4-10.2)
--- NOTE | 2017-09-06 11:06 | CP.PCM.PN ---
Subjective - Date & Time of Evaluation Date of Evaluation: 09/06/17 Time of Evaluation: 09:30 - Subjective Subjective: NO NEW COMPLAINTS Objective - Vital Signs/Intake and Output Vital Signs (last 24 hours): Temp Pulse Resp BP Pulse Ox 97.5 F L 60 18 103/57 L 95 09/06/17 08:25 09/06/17 10:24 09/06/17 08:25 09/06/17 10:24 09/06/17 08:25 - Medications Medications: Current Medications Acetaminophen (Tylenol 325mg Tab) 650 mg PO Q6 PRN PRN Reason: Pain, moderate (4-7) Last Admin: 09/05/17 14:09 Dose: 650 mg Atorvastatin Calcium (Lipitor) 40 mg PO DAILY [facility] Last Admin: 09/06/17 10:24 Dose: 40 mg Dextrose (Dextrose 50% Inj) 0 ml IV STAT PRN; Protocol PRN Reason: Hypoglycemia Protocol Dextrose (Glutose 15) 0 gm PO ONCE PRN; Protocol PRN Reason: Hypoglycemia Protocol Furosemide (Lasix) 40 mg PO DAILY [facility] Last Admin: 09/06/17 10:23 Dose: 40 mg Gabapentin (Neurontin) 300 mg PO TID [facility] Last Admin: 09/06/17 10:25 Dose: 300 mg Glucagon (Glucagen Diagnostic Kit) 0 mg IM STAT PRN; Protocol PRN Reason: Hypoglycemia Protocol Glyburide (Micronase) 2.5 mg PO DAILY [facility] Last Admin: 09/06/17 10:25 Dose: 2.5 mg Hydroxychloroquine Sulfate (Plaquenil) 200 mg PO BID [facility] Last Admin: 09/06/17 10:26 Dose: 200 mg Metoprolol Tartrate (Lopressor) 25 mg PO Q12 [facility] Last Admin: 09/06/17 10:24 Dose: 25 mg Nitroglycerin (Nitrostat Sl Tab) 0.4 mg SL PRN PRN PRN Reason: Pain, moderate (4-7) Pantoprazole Sodium (Protonix Ec Tab) 20 mg PO DAILY [facility] Last Admin: 09/06/17 10:26 Dose: 20 mg Potassium Chloride (K-Dur 20 Meq Er Tab) 20 meq PO DAILY [facility] Last Admin: 09/06/17 10:22 Dose: 20 meq Risperidone (Risperdal Tab) 2 mg PO HS [facility] Last Admin: 09/05/17 22:12 Dose: 2 mg Sertraline HCl (Zoloft) 50 mg PO DAILY [facility] Last Admin: 09/06/17 10:27 Dose: 50 mg Sitagliptin Phosphate (Januvia) 100 mg PO DAILY [facility] Last Admin: 09/06/17 10:22 Dose: 100 mg Spironolactone (Aldactone) 25 mg PO DAILY [facility] Last Admin: 09/06/17 10:22 Dose: 25 mg - Labs Labs: 09/06/17 10:30 09/06/17 04:25 PT 13.9 Seconds (9.8-13.1) H 09/06/17 04:25 INR 1.3 (0.9-1.2) H 09/06/17 04:25 APTT 27.2 Seconds (25.6-37.1) 09/06/17 04:25 - Respiratory Exam Respiratory Exam: Clear to Ausculation Bilateral - Cardiovascular Exam Cardiovascular Exam: REGULAR RHYTHM, +S1, +S2 - Extremities Exam Extremities Exam: Normal Inspection - Additional Findings Additional findings: H/H 05/04 AND INR 1.3 THIS AM THE SON WAS SPOKEN TO AND HE STATES THAT THE PATIENT IS BECOMING FORGETFUL AND MISTAKENLY INCREASED HIS WARFARIN FROM 2.5 TO 5 MGS DAILY AND ALSO MAY BE TAKING EVEN MORE WARFARIN BY MISTAKE. THE PATIENT STATES THAT THE FATHER LIVES WITH HIM BUT THAT HE IS AWAY OFTEN ON BUSINESS AND THEREFORE NOBODY IS HOME TO WATCH HIM WHEN HE TAKES HIS MEDICATION Assessment and Plan - Assessment and Plan (Free Text) Assessment: CAD-STABLE SSS WITH PERMANENT PACEMAKER AND ATRIAL FIBRILLATION HYPERTENSION LUPUS WITH LUPUS NEPHRITIS IMPROPER DOSING OF WARFARIN WITH ACCIDENTAL TOXICITY Plan: WOULD STILL HOLD WARFARIN AND ASPIRIN FOR NOW RECOMMEND CALLING DR Froylan SANCHEZ SHE HAS BEEN FOLLOWING HIM
--- NOTE | 2017-09-06 12:06 | CP.PCM.PN ---
<Zhanna Cardenas - Last Filed: 09/06/17 20:30> Subjective - Date & Time of Evaluation Date of Evaluation: 09/06/17 Time of Evaluation: 07:20 - Subjective Subjective: Patient seen and examined bedside, reports feeling better today and denies epistaxis. Reports he had breakfast in the morning . He denies chest pain, SOB, f, n, v, abd pain. Rhinorocket tube removed from right nare yesterday 10:45am Im notified by my senior to see patient. patient had a black stool (melena). Patient evaluated and is asymptomatic, VS stable. Melena may be related to epistaxis and blood swallowed yesterday. patient denies rectal bleeding at home or coffee ground stools at home. Objective - Vital Signs/Intake and Output Vital Signs (last 24 hours): Temp Pulse Resp BP Pulse Ox 97.5 F L 60 18 103/57 L 95 09/06/17 08:25 09/06/17 10:24 09/06/17 08:25 09/06/17 10:24 09/06/17 08:25 - Medications Medications: Current Medications Acetaminophen (Tylenol 325mg Tab) 650 mg PO Q6 PRN PRN Reason: Pain, moderate (4-7) Last Admin: 09/05/17 14:09 Dose: 650 mg Atorvastatin Calcium (Lipitor) 40 mg PO DAILY [facility] Last Admin: 09/06/17 10:24 Dose: 40 mg Dextrose (Dextrose 50% Inj) 0 ml IV STAT PRN; Protocol PRN Reason: Hypoglycemia Protocol Dextrose (Glutose 15) 0 gm PO ONCE PRN; Protocol PRN Reason: Hypoglycemia Protocol Furosemide (Lasix) 40 mg PO DAILY [facility] Last Admin: 09/06/17 10:23 Dose: 40 mg Gabapentin (Neurontin) 300 mg PO TID [facility] Last Admin: 09/06/17 10:25 Dose: 300 mg Glucagon (Glucagen Diagnostic Kit) 0 mg IM STAT PRN; Protocol PRN Reason: Hypoglycemia Protocol Glyburide (Micronase) 2.5 mg PO DAILY [facility] Last Admin: 09/06/17 10:25 Dose: 2.5 mg Hydroxychloroquine Sulfate (Plaquenil) 200 mg PO BID [facility] Last Admin: 09/06/17 10:26 Dose: 200 mg Metoprolol Tartrate (Lopressor) 25 mg PO Q12 [facility] Last Admin: 09/06/17 10:24 Dose: 25 mg Nitroglycerin (Nitrostat Sl Tab) 0.4 mg SL PRN PRN PRN Reason: Pain, moderate (4-7) Pantoprazole Sodium (Protonix Ec Tab) 20 mg PO DAILY [facility] Last Admin: 09/06/17 10:26 Dose: 20 mg Potassium Chloride (K-Dur 20 Meq Er Tab) 20 meq PO DAILY [facility] Last Admin: 09/06/17 10:22 Dose: 20 meq Risperidone (Risperdal Tab) 2 mg PO HS [facility] Last Admin: 09/05/17 22:12 Dose: 2 mg Sertraline HCl (Zoloft) 50 mg PO DAILY [facility] Last Admin: 09/06/17 10:27 Dose: 50 mg Sitagliptin Phosphate (Januvia) 100 mg PO DAILY [facility] Last Admin: 09/06/17 10:22 Dose: 100 mg Spironolactone (Aldactone) 25 mg PO DAILY [facility] Last Admin: 09/06/17 10:22 Dose: 25 mg - Labs Labs: 09/06/17 10:30 09/06/17 10:30 PT 13.9 Seconds (9.8-13.1) H 09/06/17 04:25 INR 1.3 (0.9-1.2) H 09/06/17 04:25 APTT 27.2 Seconds (25.6-37.1) 09/06/17 04:25 - Constitutional Appears: Non-toxic, No Acute Distress - Head Exam Head Exam: ATRAUMATIC, NORMOCEPHALIC - Eye Exam Eye Exam: Normal appearance - ENT Exam ENT Exam: Mucous Membranes Moist - Neck Exam Neck Exam: Normal Inspection - Respiratory Exam Respiratory Exam: Clear to Ausculation Bilateral. absent: Rales, Rhonchi, Wheezes - Cardiovascular Exam Cardiovascular Exam: REGULAR RHYTHM, +S1, +S2 - GI/Abdominal Exam GI & Abdominal Exam: Soft, Normal Bowel Sounds. absent: Tenderness - Extremities Exam Extremities Exam: Normal Capillary Refill. absent: Calf Tenderness, Pedal Edema - Neurological Exam Neurological Exam: Alert, Awake, Oriented x3 - Psychiatric Exam Psychiatric exam: Normal Affect, Normal Mood - Skin Skin Exam: absent: Petechiae Additional comments: right leg multiples hematoma in different states, some very clear (old hematomas ) multiples hematoma seen over right side abd 9 flank, RLQ) 4 of them aprox 3 cm Assessment and Plan - Assessment and Plan (Free Text) Plan: 76 y/o Bl[place] m, DM, HTN, CAD (Stent, pacemaker), HLD, Afib (on coumadin), CHF (01/13/16 ECHO LVEF 30%), CKD, lupus admitted with active persistent epistaxis and elevated supratherapeutic INR. Assessment/Plan 1) Epistaxis right nostril -resolved -secondary to supratherapeutic INR:9.7 -s/p Kcentra and Vit K in ED -VS stable but BP borderline low -will transfuse 1 U pRBC -f/u CBC -Hem-Onc consult suggested 2) Supratherapeutic INR -resolved -INR: 9.7 -Hx/o A fib on anticoagulation with coumadin 5 mg daily -Hold aspirin and coumadin for now -s/p Vitamin K 10 mg IV once -s/p Kcentra 50 unit IV. -repeated INR after treatment 1.2 3) Melena -resolved -secondary to epistaxis -only one occasion 4) Elevated Troponin -secondary to Afib, CHF, CKD -chronically elevated -Cardiology consult appreciated: hold aspirin, warfarin, troponin chronically elevated x CKD 5) Chronic Afib -controlled, pacemaker, paced rhytm -hold all anticoagulants med due to supratherapeutic INR -Cardilogist consult appreciated -c/w Metoprolol 6) DM type 2 resume home meds -Hga1c 6.9 12/22/16 7) Systolic CHF -controlled -Echo 09/05/17: EF on 03/21/17 reported as LV function moderate to severe impared. EF 25-30%. dilated cardiomyopathy.Mod-Sev Ao regurg.Mild-Mod Mitral regurg. Sev Tricusp regurg. Mild-mod Pulmonar HTN -pt has pacemaker resume home meds 8) Hx/o SLE -resume home meds -Hem-ONc Consult appreciated 9) CKD stage 3A GFR 49 BUN/Cr 42/1.4 10) DVT prophylaxis -SCDs -hold all anticoagulants med due to supratherapeutic INR <Prasanth Nye - Last Filed: 09/08/17 06:46> Objective - Vital Signs/Intake and Output Vital Signs (last 24 hours): Temp Pulse Resp BP Pulse Ox 98.3 F 60 20 106/68 95 02/01/18 05:00 09/08/17 05:00 09/08/17 05:00 09/08/17 05:00 09/08/17 05:00 Intake and Output: 09/07/17 09/08/17 18:59 06:59 Intake Total 1200 Balance 1200 - Medications Medications: Current Medications Acetaminophen (Tylenol 325mg Tab) 650 mg PO Q6 PRN PRN Reason: Pain, moderate (4-7) Last Admin: 09/05/17 14:09 Dose: 650 mg Atorvastatin Calcium (Lipitor) 40 mg PO DAILY [facility] Last Admin: 09/07/17 09:03 Dose: 40 mg Dextrose (Dextrose 50% Inj) 0 ml IV STAT PRN; Protocol PRN Reason: Hypoglycemia Protocol Dextrose (Glutose 15) 0 gm PO ONCE PRN; Protocol PRN Reason: Hypoglycemia Protocol Furosemide (Lasix) 40 mg PO DAILY [facility] Last Admin: 09/07/17 09:03 Dose: 40 mg Gabapentin (Neurontin) 300 mg PO TID [facility] Last Admin: 09/07/17 17:31 Dose: 300 mg Glucagon (Glucagen Diagnostic Kit) 0 mg IM STAT PRN; Protocol PRN Reason: Hypoglycemia Protocol Glyburide (Micronase) 2.5 mg PO DAILY [facility] Last Admin: 09/07/17 08:50 Dose: 2.5 mg Hydroxychloroquine Sulfate (Plaquenil) 200 mg PO BID [facility] Last Admin: 09/07/17 17:32 Dose: 200 mg Metoprolol Tartrate (Lopressor) 25 mg PO Q12 [facility] Last Admin: 09/07/17 21:02 Dose: 25 mg Nitroglycerin (Nitrostat Sl Tab) 0.4 mg SL PRN PRN PRN Reason: Pain, moderate (4-7) Pantoprazole Sodium (Protonix Ec Tab) 20 mg PO DAILY [facility] Last Admin: 09/07/17 08:49 Dose: 20 mg Potassium Chloride (K-Dur 20 Meq Er Tab) 20 meq PO DAILY [facility] Last Admin: 09/07/17 09:01 Dose: 20 meq Risperidone (Risperdal Tab) 2 mg PO HS [facility] Last Admin: 09/07/17 21:02 Dose: 2 mg Sertraline HCl (Zoloft) 50 mg PO DAILY [facility] Last Admin: 09/07/17 08:51 Dose: 50 mg Sitagliptin Phosphate (Januvia) 100 mg PO DAILY [facility] Last Admin: 09/07/17 09:00 Dose: 100 mg Spironolactone (Aldactone) 25 mg PO DAILY [facility] Last Admin: 09/07/17 09:02 Dose: 25 mg - Labs Labs: 09/08/17 05:30 09/07/17 04:45 PT 13.9 Seconds (9.8-13.1) H 09/06/17 04:25 INR 1.3 (0.9-1.2) H 09/06/17 04:25 APTT 27.2 Seconds (25.6-37.1) 09/06/17 04:25 Attending/Attestation - Attestation I have personally seen and examined this patient.: Yes I have fully participated in the care of the patient.: Yes I have reviewed all pertinent clinical information, including history, physical exam and plan: Yes
--- NOTE | 2017-09-06 13:16 | PQF GENQUE ---
Dr. Muñiz, Please clarify the stage of the chronic kidney disease: if known Stage 1 Stage 2 (mild) Stage 3 (moderate) Stage 4 (severe) Stage 5 Other (please specify) Clinically unable to determine Unknown BUN:25->43->42 Creatinine:1.2->.1.3->1.4 Est GFR (Af Am/Non Af Am):>60/59----->60/53----->59/49 This form is a permanent part of the medical record Clarification of your documentation is requested to better reflect the severity of illness and intensity of treatment of your patient. Indicators present [] Specify: [] [] Specify: [] [] Specify: [] [] Specify: [] Location in the medical record that reflects the above clinical findings: [] Treatment Provided: [] PHYSICIAN'S RESPONSE Based on your medical judgment of the clinical indicators outlined above please clarify the following: [] Practitioner response [] If unable to determine, please check the box, sign and date. Present On Admission (POA) Indicator: [] Present at the time of admission [] Not present at the time of admission [] Clinically Undetermined In responding to this query, please exercise your independent professional judgment. The fact that a question is asked does not imply that any particular answer is desired or expected. Thank you for your clarification on this documentation. If you have any questions please call. * Thank you, Laura Dos Santos RN ext. #[phone] MTDD
--- NOTE | 2017-09-06 13:44 | CP.PCM.CON ---
History of Present Illness - History of Present Illness History of Present Illness: Brianna is a 76 yrs old chela whom I have seen in the past . He has multiple medical problems including, CAD, DM, A fib, ,HTN, CHF, and lupus. He has been on coumadin for more than 1 yr and his INR was stable. I had chosen not to give him xarelto because it is difficult to reverse in case of bleeding. He however himself increased his dose to 5 mg about 1 wk ago. He started having epistaxis which would not stop, so he was brought to the ER where he was given Vit K alond with 2 units of Kcerna. He also had his nose packed . The INR which was 9.7 on admission, came down to 1.2, and the bleeding stopped. He however pulled out the packing and started bleeding again. Because of the swallowed blood his stools were black and he was worried about it. His hgb which was 11.4 on admission dropped to 9.2gms but today is 9.6gms. Will repeat cbc in am. Past Patient History - Infectious Disease Hx of Infectious Diseases: None - Past Medical History & Family History Past Medical History?: Yes - Past Social History Smoking Status: Never Smoked - CARDIAC Hx Atrial Fibrillation: Yes Hx Cardia Arrhythmia: Yes Hx Congestive Heart Failure: Yes Hx Hypercholesterolemia: Yes Hx Hypertension: Yes Hx Pacemaker: Yes - PULMONARY Hx Pneumonia: Yes - NEUROLOGICAL Hx Neurological Disorder: No - HEENT Hx HEENT Problems: No Hx Epistaxis: Yes - RENAL Hx Chronic Kidney Disease: No - ENDOCRINE/METABOLIC Hx Diabetes Mellitus Type 2: Yes - HEMATOLOGICAL/ONCOLOGICAL Hx Human Immunodeficiency Virus (HIV): No - INTEGUMENTARY Hx Dermatological Problems: Yes - MUSCULOSKELETAL/RHEUMATOLOGICAL Hx Arthritis: Yes Hx Falls: No - GASTROINTESTINAL Hx Gastrointestinal Disorders: No - GENITOURINARY/GYNECOLOGICAL Hx Genitourinary Disorders: No - PSYCHIATRIC Hx Depression: Yes Hx Substance Use: No - SURGICAL HISTORY Hx Appendectomy: Yes Hx Coronary Stent: Yes Hx Herniorrhaphy: Yes - ANESTHESIA Hx Anesthesia: Yes Hx Anesthesia Reactions: No Hx Malignant Hyperthermia: No Has any member of the family had a problem w/ anesthesia?: No Meds Allergies/Adverse Reactions: Allergies Allergy/AdvReac Type Severity Reaction Status Date / Time morphine Allergy ANAPHYLAXIS Verified 09/05/17 02:20 - Medications Medications: Current Medications Acetaminophen (Tylenol 325mg Tab) 650 mg PO Q6 PRN PRN Reason: Pain, moderate (4-7) Last Admin: 09/05/17 14:09 Dose: 650 mg Atorvastatin Calcium (Lipitor) 40 mg PO DAILY [facility] Last Admin: 09/06/17 10:24 Dose: 40 mg Dextrose (Dextrose 50% Inj) 0 ml IV STAT PRN; Protocol PRN Reason: Hypoglycemia Protocol Dextrose (Glutose 15) 0 gm PO ONCE PRN; Protocol PRN Reason: Hypoglycemia Protocol Furosemide (Lasix) 40 mg PO DAILY [facility] Last Admin: 09/06/17 10:23 Dose: 40 mg Gabapentin (Neurontin) 300 mg PO TID [facility] Last Admin: 09/06/17 10:25 Dose: 300 mg Glucagon (Glucagen Diagnostic Kit) 0 mg IM STAT PRN; Protocol PRN Reason: Hypoglycemia Protocol Glyburide (Micronase) 2.5 mg PO DAILY [facility] Last Admin: 09/06/17 10:25 Dose: 2.5 mg Hydroxychloroquine Sulfate (Plaquenil) 200 mg PO BID [facility] Last Admin: 09/06/17 10:26 Dose: 200 mg Metoprolol Tartrate (Lopressor) 25 mg PO Q12 [facility] Last Admin: 09/06/17 10:24 Dose: 25 mg Nitroglycerin (Nitrostat Sl Tab) 0.4 mg SL PRN PRN PRN Reason: Pain, moderate (4-7) Pantoprazole Sodium (Protonix Ec Tab) 20 mg PO DAILY [facility] Last Admin: 09/06/17 10:26 Dose: 20 mg Potassium Chloride (K-Dur 20 Meq Er Tab) 20 meq PO DAILY [facility] Last Admin: 09/06/17 10:22 Dose: 20 meq Risperidone (Risperdal Tab) 2 mg PO HS [facility] Last Admin: 09/05/17 22:12 Dose: 2 mg Sertraline HCl (Zoloft) 50 mg PO DAILY [facility] Last Admin: 09/06/17 10:27 Dose: 50 mg Sitagliptin Phosphate (Januvia) 100 mg PO DAILY [facility] Last Admin: 09/06/17 10:22 Dose: 100 mg Spironolactone (Aldactone) 25 mg PO DAILY [facility] Last Admin: 09/06/17 10:22 Dose: 25 mg Physical Exam - Additional Findings Additional findings: Physical exam; Alert, well oriented, in no acute distress. neck; supple, no adenopathy Chest; Air entry good, no rales or rhonci Heart; RSR, no murmur Abd; Soft, no mass, no h/s megaly. At this time there is no epistaxis seen. Results - Vital Signs Recent Vital Signs: Last Vital Signs Temp 97.6 F 09/06/17 12:36 Pulse 66 09/06/17 12:36 Resp 18 09/06/17 12:36 BP 119/56 L 09/06/17 12:36 Pulse Ox 98 09/06/17 12:36 - Labs Result Diagrams: 09/06/17 10:30 09/06/17 10:30 Labs: Laboratory Results - last 24 hr 09/05/17 09/05/17 09/05/17 13:00 21:00 21:21 WBC RBC Hgb Hct MCV MCH MCHC RDW Plt Count PT INR APTT Sodium Potassium Chloride Carbon Dioxide Anion Gap BUN Creatinine Est GFR ( Amer) Est GFR (Non-Af Amer) POC Glucose (mg/dL) 138 H Random Glucose Calcium Total Bilirubin AST ALT Alkaline Phosphatase Troponin I 0.2000 H* 0.2200 H* Total Protein Albumin Globulin Albumin/Globulin Ratio 09/06/17 09/06/17 09/06/17 04:25 04:25 04:25 WBC 9.8 RBC 3.12 L Hgb 9.1 L Hct 27.2 L MCV 87.4 MCH 29.0 MCHC 33.2 RDW 14.2 Plt Count 138 PT 13.9 H INR 1.3 H APTT 27.2 Sodium 143 Potassium 4.4 Chloride 112 H Carbon Dioxide 21 L Anion Gap 14 BUN 43 H Creatinine 1.3 Est GFR ( Amer) > 60 Est GFR (Non-Af Amer) 53 POC Glucose (mg/dL) Random Glucose 87 Calcium 8.1 L Total Bilirubin AST ALT Alkaline Phosphatase Troponin I Total Protein Albumin Globulin Albumin/Globulin Ratio 09/06/17 09/06/17 09/06/17 05:44 10:30 10:30 WBC 9.1 RBC 3.18 L Hgb 9.2 L Hct 27.7 L MCV 87.3 MCH 28.9 MCHC 33.1 RDW 14.4 Plt Count 156 PT INR APTT Sodium 143 Potassium 4.3 Chloride 110 H Carbon Dioxide 25 Anion Gap 12 BUN 42 H Creatinine 1.4 Est GFR ( Amer) 59 Est GFR (Non-Af Amer) 49 POC Glucose (mg/dL) 84 Random Glucose 187 H Calcium 8.5 Total Bilirubin 1.1 AST 24 ALT 33 Alkaline Phosphatase 28 L D Troponin I Total Protein 5.7 L Albumin 2.8 L Globulin 2.9 Albumin/Globulin Ratio 1.0 Assessment & Plan - Assessment and Plan (Free Text) Assessment: Impression; Coumadin overdose, with eristaxis, corrected with vit K and Kcerna, Plan: Plan; after the epistaxis is not there for at least 48 hrs I would put him back on the coumadin at 2.5 mg . I feel that his dose of coumadin should be monitored by who he is at home with him. For 1 month he should have PT/INR twice weekly, then once a month and doses adjusted accordingly. - Date & Time Date: 09/06/17 Time: 14:08
[2017-09-07 06:57] LABS: HEMOGLOBIN 9.7 g/dL (12.0-18.0); MEAN CELL VOLUME 87.2 fl (80.0-94.0); MEAN CORPUSCULAR HEMOGLOBIN 29.5 pg (27.0-31.0); MEAN CORPUSCULAR HGB CONC 33.9 g/dL (33.0-37.0); RBC 3.29 Mil/uL (4.40-5.90); RED CELL DISTRIBUTION WIDTH 14.2 % (11.5-14.5); WHITE BLOOD COUNT 10.3 K/uL (4.8-10.8)
[2017-09-07 07:11] LABS: CALCIUM 8.3 mg/dL (8.4-10.2)
--- NOTE | 2017-09-07 08:20 | CP.PCM.PN ---
Subjective - Date & Time of Evaluation Date of Evaluation: 09/07/17 Time of Evaluation: 08:17 - Subjective Subjective: Pt is afebrile, and has no more epistaxis. His INR is 1.3. If no bleedng today, will start coumadin tomorrow at 2.5 mg daily Objective - Vital Signs/Intake and Output Vital Signs (last 24 hours): Temp Pulse Resp BP Pulse Ox 98.8 F 63 20 95/55 L 95 09/07/17 08:00 09/07/17 08:00 09/07/17 08:00 09/07/17 08:00 09/07/17 08:00 - Medications Medications: Current Medications Acetaminophen (Tylenol 325mg Tab) 650 mg PO Q6 PRN PRN Reason: Pain, moderate (4-7) Last Admin: 09/05/17 14:09 Dose: 650 mg Atorvastatin Calcium (Lipitor) 40 mg PO DAILY [facility] Last Admin: 09/06/17 10:24 Dose: 40 mg Dextrose (Dextrose 50% Inj) 0 ml IV STAT PRN; Protocol PRN Reason: Hypoglycemia Protocol Dextrose (Glutose 15) 0 gm PO ONCE PRN; Protocol PRN Reason: Hypoglycemia Protocol Furosemide (Lasix) 40 mg PO DAILY [facility] Last Admin: 09/06/17 10:23 Dose: 40 mg Gabapentin (Neurontin) 300 mg PO TID [facility] Last Admin: 09/06/17 17:33 Dose: 300 mg Glucagon (Glucagen Diagnostic Kit) 0 mg IM STAT PRN; Protocol PRN Reason: Hypoglycemia Protocol Glyburide (Micronase) 2.5 mg PO DAILY [facility] Last Admin: 09/06/17 10:25 Dose: 2.5 mg Hydroxychloroquine Sulfate (Plaquenil) 200 mg PO BID [facility] Last Admin: 09/06/17 18:16 Dose: 200 mg Metoprolol Tartrate (Lopressor) 25 mg PO Q12 [facility] Last Admin: 09/06/17 21:05 Dose: 25 mg Nitroglycerin (Nitrostat Sl Tab) 0.4 mg SL PRN PRN PRN Reason: Pain, moderate (4-7) Pantoprazole Sodium (Protonix Ec Tab) 20 mg PO DAILY [facility] Last Admin: 09/06/17 10:26 Dose: 20 mg Potassium Chloride (K-Dur 20 Meq Er Tab) 20 meq PO DAILY [facility] Last Admin: 09/06/17 10:22 Dose: 20 meq Risperidone (Risperdal Tab) 2 mg PO HS [facility] Last Admin: 09/06/17 21:05 Dose: 2 mg Sertraline HCl (Zoloft) 50 mg PO DAILY [facility] Last Admin: 09/06/17 10:27 Dose: 50 mg Sitagliptin Phosphate (Januvia) 100 mg PO DAILY [facility] Last Admin: 09/06/17 10:22 Dose: 100 mg Spironolactone (Aldactone) 25 mg PO DAILY [facility] Last Admin: 09/06/17 10:22 Dose: 25 mg - Labs Labs: 09/07/17 04:45 09/07/17 04:45 PT 13.9 Seconds (9.8-13.1) H 09/06/17 04:25 INR 1.3 (0.9-1.2) H 09/06/17 04:25 APTT 27.2 Seconds (25.6-37.1) 09/06/17 04:25
[2017-09-07] MEDS: Pantoprazole 20 mg EC Tab PO SCH (08:49)
[2017-09-07] MEDS: Potassium Chloride 20 mEq ER Tab PO SCH (09:01)
--- NOTE | 2017-09-07 09:55 | CP.PCM.PN ---
Subjective - Date & Time of Evaluation Date of Evaluation: 09/07/17 Time of Evaluation: 09:00 - Subjective Subjective: NO CHEST PAIN OR SOB Objective - Vital Signs/Intake and Output Vital Signs (last 24 hours): Temp Pulse Resp BP Pulse Ox 98.8 F 63 20 120/55 L 95 09/07/17 08:00 09/07/17 09:03 09/07/17 08:00 09/07/17 09:03 09/07/17 08:00 - Medications Medications: Current Medications Acetaminophen (Tylenol 325mg Tab) 650 mg PO Q6 PRN PRN Reason: Pain, moderate (4-7) Last Admin: 09/05/17 14:09 Dose: 650 mg Atorvastatin Calcium (Lipitor) 40 mg PO DAILY [facility] Last Admin: 09/07/17 09:03 Dose: 40 mg Dextrose (Dextrose 50% Inj) 0 ml IV STAT PRN; Protocol PRN Reason: Hypoglycemia Protocol Dextrose (Glutose 15) 0 gm PO ONCE PRN; Protocol PRN Reason: Hypoglycemia Protocol Furosemide (Lasix) 40 mg PO DAILY [facility] Last Admin: 09/07/17 09:03 Dose: 40 mg Gabapentin (Neurontin) 300 mg PO TID [facility] Last Admin: 09/07/17 08:49 Dose: 300 mg Glucagon (Glucagen Diagnostic Kit) 0 mg IM STAT PRN; Protocol PRN Reason: Hypoglycemia Protocol Glyburide (Micronase) 2.5 mg PO DAILY [facility] Last Admin: 09/07/17 08:50 Dose: 2.5 mg Hydroxychloroquine Sulfate (Plaquenil) 200 mg PO BID [facility] Last Admin: 09/07/17 08:50 Dose: 200 mg Metoprolol Tartrate (Lopressor) 25 mg PO Q12 [facility] Last Admin: 09/07/17 09:03 Dose: 25 mg Nitroglycerin (Nitrostat Sl Tab) 0.4 mg SL PRN PRN PRN Reason: Pain, moderate (4-7) Pantoprazole Sodium (Protonix Ec Tab) 20 mg PO DAILY [facility] Last Admin: 09/07/17 08:49 Dose: 20 mg Potassium Chloride (K-Dur 20 Meq Er Tab) 20 meq PO DAILY [facility] Last Admin: 09/07/17 09:01 Dose: 20 meq Risperidone (Risperdal Tab) 2 mg PO HS [facility] Last Admin: 09/06/17 21:05 Dose: 2 mg Sertraline HCl (Zoloft) 50 mg PO DAILY [facility] Last Admin: 09/07/17 08:51 Dose: 50 mg Sitagliptin Phosphate (Januvia) 100 mg PO DAILY [facility] Last Admin: 09/07/17 09:00 Dose: 100 mg Spironolactone (Aldactone) 25 mg PO DAILY [facility] Last Admin: 09/07/17 09:02 Dose: 25 mg - Labs Labs: 09/07/17 04:45 09/07/17 04:45 PT 13.9 Seconds (9.8-13.1) H 09/06/17 04:25 INR 1.3 (0.9-1.2) H 09/06/17 04:25 APTT 27.2 Seconds (25.6-37.1) 09/06/17 04:25 - Respiratory Exam Respiratory Exam: Clear to Ausculation Bilateral - Cardiovascular Exam Cardiovascular Exam: REGULAR RHYTHM, +S1, +S2 - Additional Findings Additional findings: 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
--- NOTE | 2017-09-07 10:57 | CP.PCM.PN ---
<Zhanna Cardenas - Last Filed: 09/07/17 11:21> Subjective - Date & Time of Evaluation Date of Evaluation: 09/07/17 Time of Evaluation: 07:20 - Subjective Subjective: Patient seen and examined bedside. Reports feeling better. He denies chest pain , SOB, nasal bleeding, black stool, hematuria, gingivorrhagia, new hematoma. No overnight events. Will start Warfarin 2.5 mg tomorrow. Objective - Vital Signs/Intake and Output Vital Signs (last 24 hours): Temp Pulse Resp BP Pulse Ox 98.8 F 63 20 120/55 L 95 09/07/17 08:00 09/07/17 09:03 09/07/17 08:00 09/07/17 09:03 09/07/17 08:00 - Medications Medications: Current Medications Acetaminophen (Tylenol 325mg Tab) 650 mg PO Q6 PRN PRN Reason: Pain, moderate (4-7) Last Admin: 09/05/17 14:09 Dose: 650 mg Atorvastatin Calcium (Lipitor) 40 mg PO DAILY [facility] Last Admin: 09/07/17 09:03 Dose: 40 mg Dextrose (Dextrose 50% Inj) 0 ml IV STAT PRN; Protocol PRN Reason: Hypoglycemia Protocol Dextrose (Glutose 15) 0 gm PO ONCE PRN; Protocol PRN Reason: Hypoglycemia Protocol Furosemide (Lasix) 40 mg PO DAILY [facility] Last Admin: 09/07/17 09:03 Dose: 40 mg Gabapentin (Neurontin) 300 mg PO TID [facility] Last Admin: 09/07/17 08:49 Dose: 300 mg Glucagon (Glucagen Diagnostic Kit) 0 mg IM STAT PRN; Protocol PRN Reason: Hypoglycemia Protocol Glyburide (Micronase) 2.5 mg PO DAILY [facility] Last Admin: 09/07/17 08:50 Dose: 2.5 mg Hydroxychloroquine Sulfate (Plaquenil) 200 mg PO BID [facility] Last Admin: 09/07/17 08:50 Dose: 200 mg Metoprolol Tartrate (Lopressor) 25 mg PO Q12 [facility] Last Admin: 09/07/17 09:03 Dose: 25 mg Nitroglycerin (Nitrostat Sl Tab) 0.4 mg SL PRN PRN PRN Reason: Pain, moderate (4-7) Pantoprazole Sodium (Protonix Ec Tab) 20 mg PO DAILY [facility] Last Admin: 09/07/17 08:49 Dose: 20 mg Potassium Chloride (K-Dur 20 Meq Er Tab) 20 meq PO DAILY [facility] Last Admin: 09/07/17 09:01 Dose: 20 meq Risperidone (Risperdal Tab) 2 mg PO HS [facility] Last Admin: 09/06/17 21:05 Dose: 2 mg Sertraline HCl (Zoloft) 50 mg PO DAILY [facility] Last Admin: 09/07/17 08:51 Dose: 50 mg Sitagliptin Phosphate (Januvia) 100 mg PO DAILY [facility] Last Admin: 09/07/17 09:00 Dose: 100 mg Spironolactone (Aldactone) 25 mg PO DAILY [facility] Last Admin: 09/07/17 09:02 Dose: 25 mg - Labs Labs: 09/07/17 04:45 09/07/17 04:45 PT 13.9 Seconds (9.8-13.1) H 09/06/17 04:25 INR 1.3 (0.9-1.2) H 09/06/17 04:25 APTT 27.2 Seconds (25.6-37.1) 09/06/17 04:25 - Constitutional Appears: Non-toxic, No Acute Distress - Head Exam Head Exam: ATRAUMATIC, NORMOCEPHALIC - Eye Exam Eye Exam: Normal appearance - ENT Exam ENT Exam: Mucous Membranes Moist - Neck Exam Neck Exam: Normal Inspection - Respiratory Exam Respiratory Exam: Clear to Ausculation Bilateral. absent: Rales, Rhonchi, Wheezes - Cardiovascular Exam Cardiovascular Exam: REGULAR RHYTHM, +S1, +S2 - GI/Abdominal Exam GI & Abdominal Exam: Soft, Normal Bowel Sounds. absent: Tenderness - Extremities Exam Extremities Exam: Normal Inspection. absent: Pedal Edema - Neurological Exam Neurological Exam: Alert, Awake, Oriented x3 - Skin Skin Exam: Intact - Additional Findings Additional findings: right leg multiples hematoma in different states, some very clear (old hematomas ) multiples hematoma seen over right side abd 9 flank, RLQ) 4 of them aprox 3 cm Assessment and Plan - Assessment and Plan (Free Text) Plan: 76 y/o [place] m, DM, HTN, CAD (Stent, pacemaker), HLD, Afib (on coumadin), CHF (01/13/16 ECHO LVEF 30%), CKD, lupus admitted with active persistent epistaxis secondary to elevated supratherapeutic INR. Assessment/Plan 1) Epistaxis right nostril -resolved -secondary to supratherapeutic INR:9.7 -s/p Kcentra and Vit K in ED -s/p 1 U pRBC. Hgb today 9.7 (no improvement after transfusion) -Hem-Onc consult appreciated: To resume Warfarin 2.5 mg tomorrow.Corporate Training Manager agree. Family aware 2) Supratherapeutic INR -resolved -INR: 9.7 - 3 episodes of supratherapeutic INR in the past. Pt failed Xarelto treatment ( DVT 11/2016) -Hx/o A fib on anticoagulation. On coumadin 5 mg daily -Hold aspirin and coumadin for now -s/p Vitamin K 10 mg IV once -s/p Kcentra 50 unit IV. -repeated INR after treatment 1.2 3) Elevated Troponin -secondary to Afib, CHF, CKD -chronically elevated -Cardiology consult appreciated: hold aspirin, warfarin, troponin chronically elevated x CKD 4) Chronic Afib -controlled, pacemaker, paced rhytm -hold all anticoagulants med due to supratherapeutic INR -Cardilogist consult appreciated: Agree to restart Warfarin 2.5 mg tomorrow -c/w Metoprolol 5) DM type 2 resume home meds -Hga1c 6.9 12/22/16 6) Systolic CHF -controlled -Echo 09/05/17: EF on 03/21/17 reported as LV function moderate to severe impared. EF 25-30%. dilated cardiomyopathy.Mod-Sev Ao regurg.Mild-Mod Mitral regurg. Sev Tricusp regurg. Mild-mod Pulmonar HTN -pt has pacemaker resume home meds 7) Hx/o SLE -resume home meds -Hem-ONc Consult appreciated 8) CKD stage 3A GFR 49 BUN/Cr 42/1.4 9) DVT prophylaxis -SCDs -hold all anticoagulants med due to supratherapeutic INR <Prem Billings - Last Filed: 09/09/17 06:43> Objective - Vital Signs/Intake and Output Vital Signs (last 24 hours): Temp Pulse Resp BP Pulse Ox 97.8 F 60 18 102/68 95 09/09/17 05:00 09/09/17 05:00 09/09/17 05:00 09/09/17 05:00 09/09/17 05:00 Intake and Output: 09/08/17 09/09/17 18:59 06:59 Intake Total 10 Balance 10 - Medications Medications: Current Medications Acetaminophen (Tylenol 325mg Tab) 650 mg PO Q6 PRN PRN Reason: Pain, moderate (4-7) Last Admin: 09/05/17 14:09 Dose: 650 mg Atorvastatin Calcium (Lipitor) 40 mg PO DAILY [facility] Last Admin: 09/08/17 08:29 Dose: 40 mg Dextrose (Dextrose 50% Inj) 0 ml IV STAT PRN; Protocol PRN Reason: Hypoglycemia Protocol Dextrose (Glutose 15) 0 gm PO ONCE PRN; Protocol PRN Reason: Hypoglycemia Protocol Furosemide (Lasix) 40 mg PO DAILY [facility] Last Admin: 09/08/17 08:28 Dose: 40 mg Gabapentin (Neurontin) 300 mg PO TID [facility] Last Admin: 09/08/17 17:05 Dose: 300 mg Glucagon (Glucagen Diagnostic Kit) 0 mg IM STAT PRN; Protocol PRN Reason: Hypoglycemia Protocol Glyburide (Micronase) 2.5 mg PO DAILY [facility] Last Admin: 09/08/17 08:28 Dose: 2.5 mg Hydroxychloroquine Sulfate (Plaquenil) 200 mg PO BID [facility] Last Admin: 09/08/17 17:05 Dose: 200 mg Metoprolol Tartrate (Lopressor) 25 mg PO Q12 [facility] Last Admin: 09/08/17 21:42 Dose: 25 mg Nitroglycerin (Nitrostat Sl Tab) 0.4 mg SL PRN PRN PRN Reason: Pain, moderate (4-7) Pantoprazole Sodium (Protonix Ec Tab) 20 mg PO DAILY [facility] Last Admin: 09/08/17 08:29 Dose: 20 mg Potassium Chloride (K-Dur 20 Meq Er Tab) 20 meq PO DAILY [facility] Last Admin: 09/08/17 08:27 Dose: 20 meq Risperidone (Risperdal Tab) 2 mg PO HS [facility] Last Admin: 09/08/17 21:42 Dose: 2 mg Sertraline HCl (Zoloft) 50 mg PO DAILY [facility] Last Admin: 09/08/17 08:28 Dose: 50 mg Sitagliptin Phosphate (Januvia) 100 mg PO DAILY [facility] Last Admin: 09/08/17 08:29 Dose: 100 mg Spironolactone (Aldactone) 25 mg PO DAILY [facility] Last Admin: 09/08/17 08:27 Dose: 25 mg Warfarin Sodium (Coumadin) 2.5 mg PO QD5 [facility] PRN Reason: Protocol Stop: 09/09/17 17:01 - Labs Labs: 09/09/17 05:25 09/09/17 05:25 PT 13.9 Seconds (9.8-13.1) H 09/06/17 04:25 INR 1.3 (0.9-1.2) H 09/06/17 04:25 APTT 27.2 Seconds (25.6-37.1) 09/06/17 04:25 Attending/Attestation - Attestation I have personally seen and examined this patient.: Yes I have fully participated in the care of the patient.: Yes I have reviewed all pertinent clinical information, including history, physical exam and plan: Yes
[2017-09-08 05:57] LABS: HEMOGLOBIN 9.6 g/dL (12.0-18.0); MEAN CELL VOLUME 87.7 fl (80.0-94.0); MEAN CORPUSCULAR HEMOGLOBIN 28.8 pg (27.0-31.0); MEAN CORPUSCULAR HGB CONC 32.9 g/dL (33.0-37.0); RBC 3.35 Mil/uL (4.40-5.90); RED CELL DISTRIBUTION WIDTH 14.3 % (11.5-14.5); WHITE BLOOD COUNT 10.9 K/uL (4.8-10.8)
[2017-09-08 07:24] LABS: CALCIUM 8.2 mg/dL (8.4-10.2)
--- NOTE | 2017-09-08 07:38 | CP.PCM.PN ---
<Maurilio Marie - Last Filed: 09/08/17 09:28> Subjective - Date & Time of Evaluation Date of Evaluation: 09/08/17 Time of Evaluation: 07:35 - Subjective Subjective: Patient seen and examined bedside this morning. No events overnight. Patient laying comfortably in bed, NAD. Patient denies chest pain, SOB, nasal bleeding , black stool, hematuria, gingivorrhagia, new hematoma. Objective - Vital Signs/Intake and Output Vital Signs (last 24 hours): Temp Pulse Resp BP Pulse Ox 98.3 F 60 20 106/68 95 09/08/17 05:00 09/08/17 05:00 09/08/17 05:00 09/08/17 05:00 09/08/17 05:00 - Medications Medications: Current Medications Acetaminophen (Tylenol 325mg Tab) 650 mg PO Q6 PRN PRN Reason: Pain, moderate (4-7) Last Admin: 09/05/17 14:09 Dose: 650 mg Atorvastatin Calcium (Lipitor) 40 mg PO DAILY [facility] Last Admin: 09/07/17 09:03 Dose: 40 mg Dextrose (Dextrose 50% Inj) 0 ml IV STAT PRN; Protocol PRN Reason: Hypoglycemia Protocol Dextrose (Glutose 15) 0 gm PO ONCE PRN; Protocol PRN Reason: Hypoglycemia Protocol Furosemide (Lasix) 40 mg PO DAILY [facility] Last Admin: 09/07/17 09:03 Dose: 40 mg Gabapentin (Neurontin) 300 mg PO TID [facility] Last Admin: 09/07/17 17:31 Dose: 300 mg Glucagon (Glucagen Diagnostic Kit) 0 mg IM STAT PRN; Protocol PRN Reason: Hypoglycemia Protocol Glyburide (Micronase) 2.5 mg PO DAILY [facility] Last Admin: 09/07/17 08:50 Dose: 2.5 mg Hydroxychloroquine Sulfate (Plaquenil) 200 mg PO BID [facility] Last Admin: 09/07/17 17:32 Dose: 200 mg Metoprolol Tartrate (Lopressor) 25 mg PO Q12 [facility] Last Admin: 09/07/17 21:02 Dose: 25 mg Nitroglycerin (Nitrostat Sl Tab) 0.4 mg SL PRN PRN PRN Reason: Pain, moderate (4-7) Pantoprazole Sodium (Protonix Ec Tab) 20 mg PO DAILY [facility] Last Admin: 01/31/18 08:49 Dose: 20 mg Potassium Chloride (K-Dur 20 Meq Er Tab) 20 meq PO DAILY [facility] Last Admin: 09/07/17 09:01 Dose: 20 meq Risperidone (Risperdal Tab) 2 mg PO HS [facility] Last Admin: 09/07/17 21:02 Dose: 2 mg Sertraline HCl (Zoloft) 50 mg PO DAILY [facility] Last Admin: 09/07/17 08:51 Dose: 50 mg Sitagliptin Phosphate (Januvia) 100 mg PO DAILY [facility] Last Admin: 09/07/17 09:00 Dose: 100 mg Spironolactone (Aldactone) 25 mg PO DAILY [facility] Last Admin: 09/07/17 09:02 Dose: 25 mg - Labs Labs: 09/08/17 05:30 09/08/17 05:30 PT 13.9 Seconds (9.8-13.1) H 09/06/17 04:25 INR 1.3 (0.9-1.2) H 09/06/17 04:25 APTT 27.2 Seconds (25.6-37.1) 09/06/17 04:25 - Constitutional Appears: No Acute Distress - Head Exam Head Exam: ATRAUMATIC, NORMAL INSPECTION, NORMOCEPHALIC - Eye Exam Eye Exam: Normal appearance - ENT Exam ENT Exam: Mucous Membranes Moist - Neck Exam Neck Exam: Normal Inspection. absent: Tenderness - Respiratory Exam Respiratory Exam: Clear to Ausculation Bilateral. absent: Rales, Rhonchi, Wheezes, Respiratory Distress - Cardiovascular Exam Cardiovascular Exam: REGULAR RHYTHM. absent: Tachycardia - GI/Abdominal Exam GI & Abdominal Exam: Soft, Normal Bowel Sounds. absent: Distended, Tenderness - Extremities Exam Extremities Exam: absent: Calf Tenderness, Pedal Edema - Neurological Exam Neurological Exam: Alert, Awake, Oriented x3 - Skin Skin Exam: Dry, Intact. absent: Rash Assessment and Plan - Assessment and Plan (Free Text) Assessment: 76 y/o [place] man w/ pmh DM, HTN, CAD (Stent, pacemaker), HLD, Afib (on coumadin), CHF (01/13/16 ECHO LVEF 30%), CKD, lupus admitted with active persistent epistaxis secondary to elevated supratherapeutic INR. Plan: 1) Epistaxis right nostril -resolved -secondary to supratherapeutic INR:9.7 -s/p Kcentra and Vit K in ED -s/p 1 U pRBC 09/06/2017. Hgb today 9.6 (no improvement after transfusion) -Hem-Onc consult appreciated: resume Warfarin 2.5 mg. Merchandising Team Lead agree. Family aware 2) Supratherapeutic INR -resolved -INR: 9.7 -3 episodes of supratherapeutic INR in the past. Pt failed Xarelto treatment ( DVT 11/2016) -Hx/o A fib on anticoagulation. On coumadin 5 mg daily -Hold aspirin and coumadin for now -s/p Vitamin K 10 mg IV once -s/p Kcentra 50 unit IV. -repeated INR after treatment 1.2 3) Elevated Troponin -secondary to Afib, CHF, CKD -chronically elevated -Cardiology consult appreciated: hold aspirin, warfarin, troponin chronically elevated x CKD 4) Chronic Afib -controlled, pacemaker, paced rhytm -hold all anticoagulants med due to supratherapeutic INR -Cardilogist consult appreciated: Agree to restart Warfarin 2.5 mg tomorrow -c/w Metoprolol 5) DM type 2 -resume home meds -Hga1c 6.9 12/22/16 6) Systolic CHF -controlled -Echo 09/05/17: EF on 03/21/17 reported as LV function moderate to severe impared. EF 25-30%. dilated cardiomyopathy.Mod-Sev Ao regurg.Mild-Mod Mitral regurg. Sev Tricusp regurg. Mild-mod Pulmonar HTN -pt has pacemaker -resume home meds 7) Hx/o SLE -resume home meds -Hem-ONc Consult appreciated 8) CKD stage 3A -GFR 37 BUN/Cr 43/1.8 9) DVT prophylaxis -SCDs -restarting warfarin 2.5 mg PO daily <Prasanth Nye - Last Filed: 09/12/17 06:46> Objective - Vital Signs/Intake and Output Vital Signs (last 24 hours): Temp Pulse Resp BP Pulse Ox 98.4 F 62 20 97/54 L 94 L 09/09/17 15:48 09/09/17 15:48 09/09/17 15:48 09/09/17 15:48 09/09/17 15:48 - Labs Labs: 09/09/17 05:25 09/09/17 05:25 PT 17.7 Seconds (9.8-13.1) H 09/09/17 11:00 INR 1.6 (0.9-1.2) H 09/09/17 11:00 APTT 27.2 Seconds (25.6-37.1) 09/06/17 04:25 Attending/Attestation - Attestation I have personally seen and examined this patient.: Yes I have fully participated in the care of the patient.: Yes I have reviewed all pertinent clinical information, including history, physical exam and plan: Yes
[2017-09-08] MEDS: Potassium Chloride 20 mEq ER Tab PO SCH (08:27)
[2017-09-08] MEDS: Pantoprazole 20 mg EC Tab PO SCH (08:29)
--- NOTE | 2017-09-08 09:57 | CP.PCM.PN ---
Subjective - Date & Time of Evaluation Date of Evaluation: 09/08/17 Time of Evaluation: 09:52 - Subjective Subjective: Pt seems much more comfortable now. No more Objective - Vital Signs/Intake and Output Vital Signs (last 24 hours): Temp Pulse Resp BP Pulse Ox 98.2 F 61 18 124/55 L 97 09/08/17 08:00 09/08/17 08:29 09/08/17 08:00 09/08/17 08:29 09/08/17 08:00 - Medications Medications: Current Medications Acetaminophen (Tylenol 325mg Tab) 650 mg PO Q6 PRN PRN Reason: Pain, moderate (4-7) Last Admin: 09/05/17 14:09 Dose: 650 mg Atorvastatin Calcium (Lipitor) 40 mg PO DAILY [facility] Last Admin: 09/08/17 08:29 Dose: 40 mg Dextrose (Dextrose 50% Inj) 0 ml IV STAT PRN; Protocol PRN Reason: Hypoglycemia Protocol Dextrose (Glutose 15) 0 gm PO ONCE PRN; Protocol PRN Reason: Hypoglycemia Protocol Furosemide (Lasix) 40 mg PO DAILY [facility] Last Admin: 09/08/17 08:28 Dose: 40 mg Gabapentin (Neurontin) 300 mg PO TID [facility] Last Admin: 09/08/17 08:28 Dose: 300 mg Glucagon (Glucagen Diagnostic Kit) 0 mg IM STAT PRN; Protocol PRN Reason: Hypoglycemia Protocol Glyburide (Micronase) 2.5 mg PO DAILY [facility] Last Admin: 09/08/17 08:28 Dose: 2.5 mg Hydroxychloroquine Sulfate (Plaquenil) 200 mg PO BID [facility] Last Admin: 09/08/17 08:27 Dose: 200 mg Metoprolol Tartrate (Lopressor) 25 mg PO Q12 [facility] Last Admin: 09/08/17 08:29 Dose: 25 mg Nitroglycerin (Nitrostat Sl Tab) 0.4 mg SL PRN PRN PRN Reason: Pain, moderate (4-7) Pantoprazole Sodium (Protonix Ec Tab) 20 mg PO DAILY [facility] Last Admin: 09/08/17 08:29 Dose: 20 mg Potassium Chloride (K-Dur 20 Meq Er Tab) 20 meq PO DAILY [facility] Last Admin: 09/08/17 08:27 Dose: 20 meq Risperidone (Risperdal Tab) 2 mg PO HS [facility] Last Admin: 01/31/18 21:02 Dose: 2 mg Sertraline HCl (Zoloft) 50 mg PO DAILY [facility] Last Admin: 09/08/17 08:28 Dose: 50 mg Sitagliptin Phosphate (Januvia) 100 mg PO DAILY [facility] Last Admin: 09/08/17 08:29 Dose: 100 mg Spironolactone (Aldactone) 25 mg PO DAILY [facility] Last Admin: 09/08/17 08:27 Dose: 25 mg Warfarin Sodium (Coumadin) 2.5 mg PO QD5 [facility] PRN Reason: Protocol Stop: 09/08/17 17:01 - Labs Labs: 09/08/17 05:30 09/08/17 05:30 PT 13.9 Seconds (9.8-13.1) H 09/06/17 04:25 INR 1.3 (0.9-1.2) H 09/06/17 04:25 APTT 27.2 Seconds (25.6-37.1) 09/06/17 04:25
--- NOTE | 2017-09-08 10:06 | CP.PCM.PN ---
Subjective - Date & Time of Evaluation Date of Evaluation: 09/08/17 Time of Evaluation: 10:07 - Subjective Subjective: Pt looks a lot more comfortable today.No more epistaxis, no bleeding from any other site. Will start him back on coumadin 2.5 mg. At home he should have PT/ INR twice weekly for 2 weeks , then once a month so doses can be adjusted as needed. Objective - Vital Signs/Intake and Output Vital Signs (last 24 hours): Temp Pulse Resp BP Pulse Ox 98.2 F 61 18 124/55 L 97 09/08/17 08:00 09/08/17 08:29 09/08/17 08:00 09/08/17 08:29 09/08/17 08:00 - Medications Medications: Current Medications Acetaminophen (Tylenol 325mg Tab) 650 mg PO Q6 PRN PRN Reason: Pain, moderate (4-7) Last Admin: 09/05/17 14:09 Dose: 650 mg Atorvastatin Calcium (Lipitor) 40 mg PO DAILY [facility] Last Admin: 09/08/17 08:29 Dose: 40 mg Dextrose (Dextrose 50% Inj) 0 ml IV STAT PRN; Protocol PRN Reason: Hypoglycemia Protocol Dextrose (Glutose 15) 0 gm PO ONCE PRN; Protocol PRN Reason: Hypoglycemia Protocol Furosemide (Lasix) 40 mg PO DAILY [facility] Last Admin: 09/08/17 08:28 Dose: 40 mg Gabapentin (Neurontin) 300 mg PO TID [facility] Last Admin: 09/08/17 08:28 Dose: 300 mg Glucagon (Glucagen Diagnostic Kit) 0 mg IM STAT PRN; Protocol PRN Reason: Hypoglycemia Protocol Glyburide (Micronase) 2.5 mg PO DAILY [facility] Last Admin: 09/08/17 08:28 Dose: 2.5 mg Hydroxychloroquine Sulfate (Plaquenil) 200 mg PO BID [facility] Last Admin: 09/08/17 08:27 Dose: 200 mg Metoprolol Tartrate (Lopressor) 25 mg PO Q12 [facility] Last Admin: 09/08/17 08:29 Dose: 25 mg Nitroglycerin (Nitrostat Sl Tab) 0.4 mg SL PRN PRN PRN Reason: Pain, moderate (4-7) Pantoprazole Sodium (Protonix Ec Tab) 20 mg PO DAILY [facility] Last Admin: 09/08/17 08:29 Dose: 20 mg Potassium Chloride (K-Dur 20 Meq Er Tab) 20 meq PO DAILY [facility] Last Admin: 09/08/17 08:27 Dose: 20 meq Risperidone (Risperdal Tab) 2 mg PO HS [facility] Last Admin: 09/07/17 21:02 Dose: 2 mg Sertraline HCl (Zoloft) 50 mg PO DAILY [facility] Last Admin: 09/08/17 08:28 Dose: 50 mg Sitagliptin Phosphate (Januvia) 100 mg PO DAILY [facility] Last Admin: 09/08/17 08:29 Dose: 100 mg Spironolactone (Aldactone) 25 mg PO DAILY [facility] Last Admin: 09/08/17 08:27 Dose: 25 mg Warfarin Sodium (Coumadin) 2.5 mg PO QD5 [facility] PRN Reason: Protocol Stop: 09/08/17 17:01 - Labs Labs: 09/08/17 05:30 09/08/17 05:30 PT 13.9 Seconds (9.8-13.1) H 09/06/17 04:25 INR 1.3 (0.9-1.2) H 09/06/17 04:25 APTT 27.2 Seconds (25.6-37.1) 09/06/17 04:25
--- NOTE | 2017-09-08 10:15 | CP.PCM.PN ---
Subjective - Date & Time of Evaluation Date of Evaluation: 09/08/17 Time of Evaluation: 08:30 - Subjective Subjective: NO CHEST PAIN OR SOB NO FURTHER BLEEDING Objective - Vital Signs/Intake and Output Vital Signs (last 24 hours): Temp Pulse Resp BP Pulse Ox 98.2 F 61 18 124/55 L 97 09/08/17 08:00 09/08/17 08:29 09/08/17 08:00 09/08/17 08:29 09/08/17 08:00 - Medications Medications: Current Medications Acetaminophen (Tylenol 325mg Tab) 650 mg PO Q6 PRN PRN Reason: Pain, moderate (4-7) Last Admin: 09/05/17 14:09 Dose: 650 mg Atorvastatin Calcium (Lipitor) 40 mg PO DAILY [facility] Last Admin: 09/08/17 08:29 Dose: 40 mg Dextrose (Dextrose 50% Inj) 0 ml IV STAT PRN; Protocol PRN Reason: Hypoglycemia Protocol Dextrose (Glutose 15) 0 gm PO ONCE PRN; Protocol PRN Reason: Hypoglycemia Protocol Furosemide (Lasix) 40 mg PO DAILY [facility] Last Admin: 09/08/17 08:28 Dose: 40 mg Gabapentin (Neurontin) 300 mg PO TID [facility] Last Admin: 09/08/17 08:28 Dose: 300 mg Glucagon (Glucagen Diagnostic Kit) 0 mg IM STAT PRN; Protocol PRN Reason: Hypoglycemia Protocol Glyburide (Micronase) 2.5 mg PO DAILY [facility] Last Admin: 09/08/17 08:28 Dose: 2.5 mg Hydroxychloroquine Sulfate (Plaquenil) 200 mg PO BID [facility] Last Admin: 09/08/17 08:27 Dose: 200 mg Metoprolol Tartrate (Lopressor) 25 mg PO Q12 [facility] Last Admin: 09/08/17 08:29 Dose: 25 mg Nitroglycerin (Nitrostat Sl Tab) 0.4 mg SL PRN PRN PRN Reason: Pain, moderate (4-7) Pantoprazole Sodium (Protonix Ec Tab) 20 mg PO DAILY [facility] Last Admin: 09/08/17 08:29 Dose: 20 mg Potassium Chloride (K-Dur 20 Meq Er Tab) 20 meq PO DAILY [facility] Last Admin: 09/08/17 08:27 Dose: 20 meq Risperidone (Risperdal Tab) 2 mg PO HS [facility] Last Admin: 09/07/17 21:02 Dose: 2 mg Sertraline HCl (Zoloft) 50 mg PO DAILY [facility] Last Admin: 09/08/17 08:28 Dose: 50 mg Sitagliptin Phosphate (Januvia) 100 mg PO DAILY [facility] Last Admin: 09/08/17 08:29 Dose: 100 mg Spironolactone (Aldactone) 25 mg PO DAILY [facility] Last Admin: 09/08/17 08:27 Dose: 25 mg Warfarin Sodium (Coumadin) 2.5 mg PO QD5 [facility] PRN Reason: Protocol Stop: 09/08/17 17:01 - Labs Labs: 09/08/17 05:30 09/08/17 05:30 PT 13.9 Seconds (9.8-13.1) H 09/06/17 04:25 INR 1.3 (0.9-1.2) H 09/06/17 04:25 APTT 27.2 Seconds (25.6-37.1) 09/06/17 04:25 - Respiratory Exam Respiratory Exam: Clear to Ausculation Bilateral - Cardiovascular Exam Cardiovascular Exam: REGULAR RHYTHM, +S1, +S2 - Extremities Exam Additional comments: NO SIGNIFICANT EDEMA - Additional Findings Additional findings: INR 1.3 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
[2017-09-09 06:19] LABS: MEAN CELL VOLUME 87.1 fl (80.0-94.0); MEAN CORPUSCULAR HEMOGLOBIN 29.2 pg (27.0-31.0); MEAN CORPUSCULAR HGB CONC 33.6 g/dL (33.0-37.0); RBC 3.08 Mil/uL (4.40-5.90); RED CELL DISTRIBUTION WIDTH 14.4 % (11.5-14.5); WHITE BLOOD COUNT 9.1 K/uL (4.8-10.8)
[2017-09-09 06:27] LABS: CALCIUM 7.8 mg/dL (8.4-10.2)
--- NOTE | 2017-09-09 08:04 | CP.PCM.PN ---
Subjective - Date & Time of Evaluation Date of Evaluation: 09/09/17 Time of Evaluation: 07:00 - Subjective Subjective: Patient seen and examined bedside this morning. No acute events overnight. Patient laying comfortably in bed, NAD. Patient denies chest pain, SOB, nasal bleeding, black stool, hematuria, gingivorrhagia, new hematoma. Objective - Vital Signs/Intake and Output Vital Signs (last 24 hours): Temp Pulse Resp BP Pulse Ox 97.8 F 60 18 102/68 95 09/09/17 05:00 09/09/17 05:00 09/09/17 05:00 09/09/17 05:00 09/09/17 05:00 Intake and Output: 09/09/17 09/09/17 06:59 18:59 Intake Total 10 Balance 10 - Medications Medications: Current Medications Acetaminophen (Tylenol 325mg Tab) 650 mg PO Q6 PRN PRN Reason: Pain, moderate (4-7) Last Admin: 09/05/17 14:09 Dose: 650 mg Atorvastatin Calcium (Lipitor) 40 mg PO DAILY [facility] Last Admin: 09/08/17 08:29 Dose: 40 mg Dextrose (Dextrose 50% Inj) 0 ml IV STAT PRN; Protocol PRN Reason: Hypoglycemia Protocol Dextrose (Glutose 15) 0 gm PO ONCE PRN; Protocol PRN Reason: Hypoglycemia Protocol Furosemide (Lasix) 40 mg PO DAILY [facility] Last Admin: 09/08/17 08:28 Dose: 40 mg Gabapentin (Neurontin) 300 mg PO TID [facility] Last Admin: 09/08/17 17:05 Dose: 300 mg Glucagon (Glucagen Diagnostic Kit) 0 mg IM STAT PRN; Protocol PRN Reason: Hypoglycemia Protocol Glyburide (Micronase) 2.5 mg PO DAILY [facility] Last Admin: 09/08/17 08:28 Dose: 2.5 mg Hydroxychloroquine Sulfate (Plaquenil) 200 mg PO BID [facility] Last Admin: 09/08/17 17:05 Dose: 200 mg Metoprolol Tartrate (Lopressor) 25 mg PO Q12 [facility] Last Admin: 09/08/17 21:42 Dose: 25 mg Nitroglycerin (Nitrostat Sl Tab) 0.4 mg SL PRN PRN PRN Reason: Pain, moderate (4-7) Pantoprazole Sodium (Protonix Ec Tab) 20 mg PO DAILY [facility] Last Admin: 09/08/17 08:29 Dose: 20 mg Potassium Chloride (K-Dur 20 Meq Er Tab) 20 meq PO DAILY [facility] Last Admin: 09/08/17 08:27 Dose: 20 meq Risperidone (Risperdal Tab) 2 mg PO HS [facility] Last Admin: 09/08/17 21:42 Dose: 2 mg Sertraline HCl (Zoloft) 50 mg PO DAILY [facility] Last Admin: 09/08/17 08:28 Dose: 50 mg Sitagliptin Phosphate (Januvia) 100 mg PO DAILY [facility] Last Admin: 09/08/17 08:29 Dose: 100 mg Spironolactone (Aldactone) 25 mg PO DAILY [facility] Last Admin: 09/08/17 08:27 Dose: 25 mg Warfarin Sodium (Coumadin) 2.5 mg PO QD5 ONE PRN Reason: Protocol Stop: 09/09/17 17:01 - Labs Labs: 09/09/17 05:25 09/09/17 05:25 PT 13.9 Seconds (9.8-13.1) H 09/06/17 04:25 INR 1.3 (0.9-1.2) H 09/06/17 04:25 APTT 27.2 Seconds (25.6-37.1) 09/06/17 04:25 - Constitutional Appears: No Acute Distress - Head Exam Head Exam: ATRAUMATIC, NORMAL INSPECTION, NORMOCEPHALIC - Eye Exam Eye Exam: Normal appearance - ENT Exam ENT Exam: Mucous Membranes Moist - Respiratory Exam Respiratory Exam: Clear to Ausculation Bilateral. absent: Rales, Rhonchi, Wheezes, Respiratory Distress - Cardiovascular Exam Cardiovascular Exam: REGULAR RHYTHM. absent: Tachycardia - GI/Abdominal Exam GI & Abdominal Exam: Soft, Normal Bowel Sounds. absent: Distended, Tenderness - Extremities Exam Extremities Exam: absent: Calf Tenderness, Pedal Edema, Tenderness - Neurological Exam Neurological Exam: Alert, Awake, Oriented x3 - Skin Skin Exam: Dry, Intact. absent: Rash Assessment and Plan - Assessment and Plan (Free Text) Assessment: 76 y/o [place] man w/ pmh DM, HTN, CAD (Stent, pacemaker), HLD, Afib (on coumadin), CHF (01/13/16 ECHO LVEF 30%), CKD, lupus admitted with active persistent epistaxis secondary to elevated supratherapeutic INR. Plan: 1) Epistaxis right nostril -resolved -secondary to supratherapeutic INR:9.7 -s/p Kcentra and Vit K in ED -s/p 1 U pRBC 09/06/2017. Hgb today 9.6 (no improvement after transfusion) -Hem-Onc consult appreciated: resume Warfarin 2.5 mg. Depalletizer Operator agree. Family aware 2) Supratherapeutic INR -resolved -INR: 9.7 -3 episodes of supratherapeutic INR in the past. Pt failed Xarelto treatment ( DVT 11/2016) -Hx/o A fib on anticoagulation. On coumadin 5 mg daily -s/p Vitamin K 10 mg IV once -s/p Kcentra 50 unit IV. -repeated INR after treatment 1.2 3) Elevated Troponin -secondary to Afib, CHF, CKD -chronically elevated -Cardiology consult, recommendations appreciated 4) Chronic Afib -controlled, pacemaker, paced rhytm -hold all anticoagulants med due to supratherapeutic INR -Cardilogist consult, recommendations appreciated: Agree to restart Warfarin 2.5 mg 5) DM type 2 -resume home meds -Hga1c 6.9 12/22/16 6) Chronic Systolic CHF -controlled -Echo 09/05/17: EF on 03/21/17 reported as LV function moderate to severe impared. EF 25-30%. dilated cardiomyopathy.Mod-Sev Ao regurg.Mild-Mod Mitral regurg. Sev Tricusp regurg. Mild-mod Pulmonar HTN -pt has pacemaker -resume home meds 7) Hx/o SLE -resume home meds -Hem-Onc Consult, recommendations appreciated 8) CKD stage 3A -GFR 37 BUN/Cr 45/1.8 9) DVT prophylaxis -SCDs -restarted warfarin 2.5 mg PO daily Dispo: pending transfer to Med-Surg
[2017-09-09] MEDS: Potassium Chloride 20 mEq ER Tab PO SCH (08:38)
[2017-09-09] MEDS: Pantoprazole 20 mg EC Tab PO SCH (08:43)
--- NOTE | 2017-09-09 09:34 | CP.PCM.PN ---
Subjective - Date & Time of Evaluation Date of Evaluation: 08/09/17 Time of Evaluation: 08:00 - Subjective Subjective: NO NEW COMPLAINTS NO CHEST PAIN OR SOB Objective - Vital Signs/Intake and Output Vital Signs (last 24 hours): Temp Pulse Resp BP Pulse Ox 99.4 F 66 20 90/48 L 95 09/09/17 08:00 09/09/17 08:41 09/09/17 08:00 09/09/17 08:41 09/09/17 08:00 Intake and Output: 09/09/17 09/09/17 06:59 18:59 Intake Total 10 Balance 10 - Medications Medications: Current Medications Acetaminophen (Tylenol 325mg Tab) 650 mg PO Q6 PRN PRN Reason: Pain, moderate (4-7) Last Admin: 09/05/17 14:09 Dose: 650 mg Atorvastatin Calcium (Lipitor) 40 mg PO DAILY [facility] Last Admin: 09/09/17 08:41 Dose: 40 mg Dextrose (Dextrose 50% Inj) 0 ml IV STAT PRN; Protocol PRN Reason: Hypoglycemia Protocol Dextrose (Glutose 15) 0 gm PO ONCE PRN; Protocol PRN Reason: Hypoglycemia Protocol Furosemide (Lasix) 40 mg PO DAILY [facility] Last Admin: 09/09/17 08:41 Dose: Not Given Gabapentin (Neurontin) 300 mg PO TID [facility] Last Admin: 09/09/17 08:30 Dose: 300 mg Glucagon (Glucagen Diagnostic Kit) 0 mg IM STAT PRN; Protocol PRN Reason: Hypoglycemia Protocol Glyburide (Micronase) 2.5 mg PO DAILY [facility] Last Admin: 09/09/17 08:38 Dose: 2.5 mg Hydroxychloroquine Sulfate (Plaquenil) 200 mg PO BID [facility] Last Admin: 09/09/17 08:42 Dose: 200 mg Metoprolol Tartrate (Lopressor) 25 mg PO Q12 [facility] Last Admin: 09/09/17 08:41 Dose: Not Given Nitroglycerin (Nitrostat Sl Tab) 0.4 mg SL PRN PRN PRN Reason: Pain, moderate (4-7) Pantoprazole Sodium (Protonix Ec Tab) 20 mg PO DAILY [facility] Last Admin: 09/09/17 08:43 Dose: 20 mg Potassium Chloride (K-Dur 20 Meq Er Tab) 20 meq PO DAILY [facility] Last Admin: 09/09/17 08:38 Dose: 20 meq Risperidone (Risperdal Tab) 2 mg PO HS [facility] Last Admin: 09/08/17 21:42 Dose: 2 mg Sertraline HCl (Zoloft) 50 mg PO DAILY [facility] Last Admin: 09/09/17 08:37 Dose: 50 mg Sitagliptin Phosphate (Januvia) 100 mg PO DAILY [facility] Last Admin: 09/09/17 08:37 Dose: 100 mg Spironolactone (Aldactone) 25 mg PO DAILY [facility] Last Admin: 09/09/17 08:41 Dose: 25 mg Warfarin Sodium (Coumadin) 2.5 mg PO QD5 ONE PRN Reason: Protocol Stop: 09/09/17 17:01 - Labs Labs: 09/09/17 05:25 09/09/17 05:25 PT 13.9 Seconds (9.8-13.1) H 09/06/17 04:25 INR 1.3 (0.9-1.2) H 09/06/17 04:25 APTT 27.2 Seconds (25.6-37.1) 09/06/17 04:25 - Respiratory Exam Respiratory Exam: Clear to Ausculation Bilateral - Cardiovascular Exam Cardiovascular Exam: REGULAR RHYTHM, +S1, +S2 - Extremities Exam Additional comments: NO SIGNIFICANT LE EDEMA - Additional Findings Additional findings: 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
--- NOTE | 2017-09-09 10:27 | CP.PCM.PN ---
Subjective - Date & Time of Evaluation Date of Evaluation: 09/09/17 Time of Evaluation: 10:25 - Subjective Subjective: Pt is afebrile, no epistaxis or ursula. He was started on coumadin yesterday. His INR today is 1.3. Will continue 2.5mg coumadin for now. Objective - Vital Signs/Intake and Output Vital Signs (last 24 hours): Temp Pulse Resp BP Pulse Ox 99.4 F 66 20 90/48 L 95 09/09/17 08:00 09/09/17 08:41 09/09/17 08:00 09/09/17 08:41 09/09/17 08:00 Intake and Output: 09/09/17 09/09/17 06:59 18:59 Intake Total 10 Balance 10 - Medications Medications: Current Medications Acetaminophen (Tylenol 325mg Tab) 650 mg PO Q6 PRN PRN Reason: Pain, moderate (4-7) Last Admin: 09/05/17 14:09 Dose: 650 mg Atorvastatin Calcium (Lipitor) 40 mg PO DAILY [facility] Last Admin: 09/09/17 08:41 Dose: 40 mg Dextrose (Dextrose 50% Inj) 0 ml IV STAT PRN; Protocol PRN Reason: Hypoglycemia Protocol Dextrose (Glutose 15) 0 gm PO ONCE PRN; Protocol PRN Reason: Hypoglycemia Protocol Furosemide (Lasix) 40 mg PO DAILY [facility] Last Admin: 09/09/17 08:41 Dose: Not Given Gabapentin (Neurontin) 300 mg PO TID [facility] Last Admin: 09/09/17 08:30 Dose: 300 mg Glucagon (Glucagen Diagnostic Kit) 0 mg IM STAT PRN; Protocol PRN Reason: Hypoglycemia Protocol Glyburide (Micronase) 2.5 mg PO DAILY [facility] Last Admin: 09/09/17 08:38 Dose: 2.5 mg Hydroxychloroquine Sulfate (Plaquenil) 200 mg PO BID [facility] Last Admin: 09/09/17 08:42 Dose: 200 mg Metoprolol Tartrate (Lopressor) 25 mg PO Q12 [facility] Last Admin: 09/09/17 08:41 Dose: Not Given Nitroglycerin (Nitrostat Sl Tab) 0.4 mg SL PRN PRN PRN Reason: Pain, moderate (4-7) Pantoprazole Sodium (Protonix Ec Tab) 20 mg PO DAILY [facility] Last Admin: 02/02/18 08:43 Dose: 20 mg Potassium Chloride (K-Dur 20 Meq Er Tab) 20 meq PO DAILY [facility] Last Admin: 09/09/17 08:38 Dose: 20 meq Risperidone (Risperdal Tab) 2 mg PO HS [facility] Last Admin: 09/08/17 21:42 Dose: 2 mg Sertraline HCl (Zoloft) 50 mg PO DAILY [facility] Last Admin: 09/09/17 08:37 Dose: 50 mg Sitagliptin Phosphate (Januvia) 100 mg PO DAILY [facility] Last Admin: 09/09/17 08:37 Dose: 100 mg Spironolactone (Aldactone) 25 mg PO DAILY [facility] Last Admin: 09/09/17 08:41 Dose: 25 mg Warfarin Sodium (Coumadin) 2.5 mg PO QD5 ONE PRN Reason: Protocol Stop: 09/09/17 17:01 Warfarin Sodium (Coumadin) 2.5 mg PO QD5 [place] PRN Reason: Protocol Stop: 09/09/17 17:01 - Labs Labs: 09/09/17 05:25 09/09/17 05:25 PT 13.9 Seconds (9.8-13.1) H 09/06/17 04:25 INR 1.3 (0.9-1.2) H 09/06/17 04:25 APTT 27.2 Seconds (25.6-37.1) 09/06/17 04:25
[2017-09-09 11:29] LABS: PROTHROMBIN TIME 17.7 Seconds (9.8-13.1)
[2017-09-09 11:30] LABS: INR 1.6 (0.9-1.2)
[2017-09-09 12:04] VITALS: O2SAT 94
--- NOTE | 2017-09-09 14:30 | CP.PCM.DIS ---
<Maurilio Marie - Last Filed: 09/09/17 14:33> Provider - Provider Date of Admission: 09/05/17 04:04 Attending physician: Prem Billings MD Primary care physician: Prem Billings MD Time Spent in preparation of Discharge (in minutes): 30 Diagnosis - Discharge Diagnosis (1) Coumadin toxicity Status: Resolved (2) Epistaxis Status: Resolved Hospital Course - Lab Results Lab Results: Most Recent Lab Values WBC 9.1 K/uL (4.8-10.8) 09/09/17 05:25 RBC 3.08 Mil/uL (4.40-5.90) L 09/09/17 05:25 Hgb 9.0 g/dL (12.0-18.0) L 09/09/17 05:25 Hct 26.8 % (35.0-51.0) L 09/09/17 05:25 MCV 87.1 fl (80.0-94.0) 09/09/17 05:25 MCH 29.2 pg (27.0-31.0) 09/09/17 05:25 MCHC 33.6 g/dL (33.0-37.0) 09/09/17 05:25 RDW 14.4 % (11.5-14.5) 09/09/17 05:25 Plt Count 151 K/uL (130-400) 09/09/17 05:25 MPV 7.9 fl (7.2-11.7) 09/05/17 03:22 Neut % (Auto) 75.7 % (50.0-75.0) H 09/05/17 03:22 Lymph % (Auto) 12.2 % (20.0-40.0) L 09/05/17 03:22 [place] % (Auto) 11.1 % (0.0-10.0) H 09/05/17 03:22 Eos % (Auto) 0.8 % (0.0-4.0) 09/05/17 03:22 Baso % (Auto) 0.2 % (0.0-2.0) 09/05/17 03:22 Neut # 7.4 K/uL (1.8-7.0) H 09/05/17 03:22 Lymph # 1.2 K/uL (1.0-4.3) 09/05/17 03:22 [place] # 1.1 K/uL (0.0-0.8) H 09/05/17 03:22 Eos # 0.1 K/uL (0.0-0.7) 09/05/17 03:22 Baso # 0.0 K/uL (0.0-0.2) 09/05/17 03:22 PT 17.7 Seconds (9.8-13.1) H 09/09/17 11:00 INR 1.6 (0.9-1.2) H 09/09/17 11:00 APTT 27.2 Seconds (25.6-37.1) 09/06/17 04:25 Sodium 141 mmol/l (132-148) 09/09/17 05:25 Potassium 4.1 MMOL/L (3.6-5.0) 09/09/17 05:25 Chloride 106 mmol/L (98-107) 09/09/17 05:25 Carbon Dioxide 25 mmol/L (22-30) 09/09/17 05:25 Anion Gap 14 (10-20) 09/09/17 05:25 BUN 45 mg/dl (9-20) H 09/09/17 05:25 Creatinine 1.8 mg/dl (0.8-1.5) H 09/09/17 05:25 Est GFR ( Amer) 44 09/09/17 05:25 Est GFR (Non-Af Amer) 37 09/09/17 05:25 POC Glucose (mg/dL) 120 mg/dL (65-110) H 09/09/17 10:55 Random Glucose 73 mg/dL (75-110) L 09/09/17 05:25 Calcium 7.8 mg/dL (8.4-10.2) L 09/09/17 05:25 Total Bilirubin 1.1 mg/dl (0.2-1.3) 09/06/17 10:30 AST 24 U/L (17-59) 09/06/17 10:30 ALT 33 U/L (21-72) 09/06/17 10:30 Alkaline Phosphatase 28 U/L (38-126) L D 09/06/17 10:30 Troponin I 0.2200 ng/mL (0.00-0.120) H* 09/05/17 21:00 NT-Pro-B Natriuret Pep 1760 pg/ml (0-900) H 09/05/17 03:47 Total Protein 5.7 G/DL (6.3-8.2) L 09/06/17 10:30 Albumin 2.8 g/dL (3.5-5.0) L 09/06/17 10:30 Globulin 2.9 gm/dL (2.2-3.9) 09/06/17 10:30 Albumin/Globulin Ratio 1.0 (1.0-2.1) 09/06/17 10:30 Blood Type B POSITIVE 09/05/17 05:03 Antibody Screen Negative 09/05/17 05:03 Crossmatch See Detail 09/05/17 05:03 BBK History Checked Patient has bt 09/05/17 05:03 - Hospital Course Hospital Course: 76 y/o man nonsmoker with significant PMHx DM, HTN, CAD (Stent, pacemaker), HLD , Afib (on coumadin), CHF (01/13/16 ECHO LVEF 30%), CKD, lupus presents to emergency department with epistaxis from right nares that started 09/05/2017. Patient nares were packed. Patient seen by cardiology and heme/onc. Patient initially had anticoagulants held. PT/INR normalized and then was restarted on warfarin 2.5 mg PO daily. Recommendations include x2/week PT/INR for 2 weeks and then x1/month to adjust medication accordingly. Patient will be discharged to [facility] facility, [facility]. Discharge Exam - Head Exam Head Exam: ATRAUMATIC, NORMAL INSPECTION, NORMOCEPHALIC - Eye Exam Eye Exam: Normal appearance - ENT Exam ENT Exam: Mucous Membranes Moist - Respiratory Exam Respiratory Exam: Clear to PA & Lateral, NORMAL BREATHING PATTERN. absent: Rales, Rhonchi, Wheezes, Respiratory Distress - Cardiovascular Exam Cardiovascular Exam: REGULAR RHYTHM. absent: Tachycardia - GI/Abdominal Exam GI & Abdominal Exam: Normal Bowel Sounds, Soft. absent: Distended, Tenderness - Extremities Exam Extremities exam: normal inspection - Neurological Exam Neurological exam: Alert, Oriented x3 - Skin Skin Exam: Dry, Intact, Normal Color, Warm Discharge Plan - Discharge Medications Prescriptions: Warfarin [Coumadin] 2.5 mg PO DAILY #30 tab Warfarin [Coumadin] 2.5 mg PO DAILY #30 tab - Follow Up Plan Condition: CRITICAL Disposition: REHAB FACILITY/REHAB UNIT Instructions: Heart Failure (DC) Referrals: Prem Billings MD [Primary Care Provider] - <Prem Billings - Last Filed: 09/12/17 07:06> Provider - Provider Date of Admission: 09/05/17 04:04 Attending physician: Prem Billings MD Primary care physician: Prem Billings MD Hospital Course - Lab Results Lab Results: Most Recent Lab Values WBC 9.1 K/uL (4.8-10.8) 09/09/17 05:25 RBC 3.08 Mil/uL (4.40-5.90) L 09/09/17 05:25 Hgb 9.0 g/dL (12.0-18.0) L 09/09/17 05:25 Hct 26.8 % (35.0-51.0) L 09/09/17 05:25 MCV 87.1 fl (80.0-94.0) 09/09/17 05:25 MCH 29.2 pg (27.0-31.0) 09/09/17 05:25 MCHC 33.6 g/dL (33.0-37.0) 09/09/17 05:25 RDW 14.4 % (11.5-14.5) 09/09/17 05:25 Plt Count 151 K/uL (130-400) 09/09/17 05:25 MPV 7.9 fl (7.2-11.7) 09/05/17 03:22 Neut % (Auto) 75.7 % (50.0-75.0) H 09/05/17 03:22 Lymph % (Auto) 12.2 % (20.0-40.0) L 09/05/17 03:22 [place] % (Auto) 11.1 % (0.0-10.0) H 09/05/17 03:22 Eos % (Auto) 0.8 % (0.0-4.0) 09/05/17 03:22 Baso % (Auto) 0.2 % (0.0-2.0) 09/05/17 03:22 Neut # 7.4 K/uL (1.8-7.0) H 09/05/17 03:22 Lymph # 1.2 K/uL (1.0-4.3) 09/05/17 03:22 [place] # 1.1 K/uL (0.0-0.8) H 09/05/17 03:22 Eos # 0.1 K/uL (0.0-0.7) 09/05/17 03:22 Baso # 0.0 K/uL (0.0-0.2) 09/05/17 03:22 PT 17.7 Seconds (9.8-13.1) H 09/09/17 11:00 INR 1.6 (0.9-1.2) H 09/09/17 11:00 APTT 27.2 Seconds (25.6-37.1) 09/06/17 04:25 Sodium 141 mmol/l (132-148) 09/09/17 05:25 Potassium 4.1 MMOL/L (3.6-5.0) 09/09/17 05:25 Chloride 106 mmol/L (98-107) 09/09/17 05:25 Carbon Dioxide 25 mmol/L (22-30) 09/09/17 05:25 Anion Gap 14 (10-20) 09/09/17 05:25 BUN 45 mg/dl (9-20) H 09/09/17 05:25 Creatinine 1.8 mg/dl (0.8-1.5) H 09/09/17 05:25 Est GFR ( Amer) 44 09/09/17 05:25 Est GFR (Non-Af Amer) 37 09/09/17 05:25 POC Glucose (mg/dL) 91 mg/dL (65-110) 09/09/17 15:57 Random Glucose 73 mg/dL (75-110) L 09/09/17 05:25 Calcium 7.8 mg/dL (8.4-10.2) L 09/09/17 05:25 Total Bilirubin 1.1 mg/dl (0.2-1.3) 09/06/17 10:30 AST 24 U/L (17-59) 09/06/17 10:30 ALT 33 U/L (21-72) 09/06/17 10:30 Alkaline Phosphatase 28 U/L (38-126) L D 09/06/17 10:30 Troponin I 0.2200 ng/mL (0.00-0.120) H* 09/05/17 21:00 NT-Pro-B Natriuret Pep 1760 pg/ml (0-900) H 09/05/17 03:47 Total Protein 5.7 G/DL (6.3-8.2) L 09/06/17 10:30 Albumin 2.8 g/dL (3.5-5.0) L 09/06/17 10:30 Globulin 2.9 gm/dL (2.2-3.9) 09/06/17 10:30 Albumin/Globulin Ratio 1.0 (1.0-2.1) 09/06/17 10:30 Blood Type B POSITIVE 09/05/17 05:03 Antibody Screen Negative 09/05/17 05:03 Crossmatch See Detail 09/05/17 05:03 BBK History Checked Patient has bt 09/05/17 05:03 Attending/Attestation - Attestation I have personally seen and examined this patient.: Yes I have fully participated in the care of the patient.: Yes I have reviewed all pertinent clinical information, including history, physical exam and plan: Yes
[2017-09-09 15:48] VITALS: BP 97/54; PULSE 62; RESP 20; TEMP 98.4
== END 2017-09-09 17:30 | DRG 918 ==
LOC: H.ER 02:15 → H.ERHOLD 04:04 → UNDOADMIN 04:04 → H.TEL 09:29
PROVIDERS: ADMIT Family Medicine; ATTEND Family Medicine
PROC: 2Y41X5Z Packing of Nasal Region using Packing Material (ICD-10-PCS; principal; 2017-09-05)
DX: T45.511A Poisoning by anticoagulants, accidental (unintentional), initial encounter (principal); E11.22 Type 2 diabetes mellitus with diabetic chronic kidney disease; M32.14 Glomerular disease in systemic lupus erythematosus; I42.0 Dilated cardiomyopathy; N18.3 Chronic kidney disease, stage 3 (moderate); I08.3 Combined rheumatic disorders of mitral, aortic and tricuspid valves; I13.0 Hypertensive heart and chronic kidney disease with heart failure and stage 1 through stage 4 chronic kidney disease, or unspecified chronic kidney disease; I50.22 Chronic systolic (congestive) heart failure; K92.1 Melena; R04.0 Epistaxis; I25.10 Atherosclerotic heart disease of native coronary artery without angina pectoris; Z95.0 Presence of cardiac pacemaker; E78.5 Hyperlipidemia, unspecified; Z88.5 Allergy status to narcotic agent; M19.90 Unspecified osteoarthritis, unspecified site; Z95.5 Presence of coronary angioplasty implant and graft; F32.9 Major depressive disorder, single episode, unspecified; E78.00 Pure hypercholesterolemia, unspecified; I48.2 Chronic atrial fibrillation; Z79.01 Long term (current) use of anticoagulants

== ENCOUNTER 2017-10-15 14:45 | Inpatient (IN) | payer MEDICARE, OTHER ==
[2017-10-15 14:46] VITALS: BMI 36.0
--- NOTE | 2017-10-15 15:29 | ED PDOC ---
HPI: CCC, URI, Sore Throat Time Seen by Provider: 10/15/17 14:58 Chief Complaint (Nursing): Chest Pain Chief Complaint (Provider): Chills and Cough History Per: Patient History/Exam Limitations: no limitations Onset/Duration Of Symptoms: Days (x 2 ) Current Symptoms Are (Timing): Still Present Additional Complaint(s): 77 year old male, with a past medical history of CHF, pneumonia and CAD, was brought in to the ED via EMS complaining of chills and dry cough, onset 2 days ago. Patient denies chest pain and fever. PMD: Dr. Ollie Billings Past Medical History Reviewed: Historical Data, Nursing Documentation, Vital Signs Vital Signs: Last Vital Signs Temp 99.6 F 10/15/17 17:03 Pulse 69 10/15/17 17:03 Resp 18 10/15/17 17:03 BP 116/59 L 10/15/17 17:03 Pulse Ox 94 L 10/15/17 16:57 - Medical History PMH: Arthritis, Atrial Fibrillation, CAD, Cardia Arrhythmia, CHF, Depression, Diabetes (type II), HTN, Hypercholesterolemia, Pneumonia Denies: HIV, Chronic Kidney Disease - Surgical History Surgical History: Appendectomy, Coronary Stent, Hernia Repair (ventral), Pacemaker - Family History Family History: States: Unknown Family Hx - Social History Current smoker - smoking cessation education provided: No Alcohol: None Drugs: Denies - Home Medications Home Medications: Ambulatory Orders Medication Instructions Recorded Aspirin [Ecotrin] 81 mg PO DAILY 09/05/17 Atorvastatin [Lipitor] 20 mg PO HS 09/05/17 Calcium Carbonate/Vitamin D3 1 tab PO HS 09/05/17 [Calcium 600+D Softgel] Gabapentin [Neurontin] 300 mg PO TID 09/05/17 Hydroxychloroquine Sulfate 200 mg PO BID 09/05/17 [Plaquenil] Magnesium Oxide [Magnesium] 500 mg PO DAILY PRN 09/05/17 Multivitamin [Daily Lulu] 1 tab PO DAILY 09/05/17 Omeprazole Magnesium [Prilosec Otc] 20 mg PO DAILY 09/05/17 Potassium Chloride [K-Dur 20 mEq 20 meq PO DAILY 09/05/17 ER Tab] SITagliptin [Januvia] 100 mg PO DAILY 09/05/17 Sertraline [Zoloft] 50 mg PO DAILY 09/05/17 Spironolactone [Aldactone] 25 mg PO DAILY 09/05/17 glyBURIDE [Micronase] 2.5 mg PO DAILY 09/05/17 predniSONE [predniSONE Tab] 10 mg PO DAILY 09/05/17 Nitroglycerin [Nitrostat] 0.4 mg PO DAILY PRN 10/15/17 Risperidone [Risperdal] 1 mg PO HS 10/15/17 Warfarin [Coumadin] 2.5 mg PO HS 10/15/17 - Allergies Allergies/Adverse Reactions: Allergies Allergy/AdvReac Type Severity Reaction Status Date / Time morphine Allergy ANAPHYLAXIS Verified 10/15/17 14:48 Review of Systems ROS Statement: Except As Marked, All Systems Reviewed And Found Negative Constitutional: Positive for: Chills. Negative for: Fever Cardiovascular: Negative for: Chest Pain Respiratory: Positive for: Cough Physical Exam - Reviewed Nursing Documentation Reviewed: Yes Vital Signs Reviewed: Yes - Physical Exam Appears: Positive for: Non-toxic, No Acute Distress Head Exam: Positive for: ATRAUMATIC, NORMOCEPHALIC Skin: Positive for: Normal Color, Warm, Dry Eye Exam: Positive for: EOMI, Normal appearance, PERRL Neck: Positive for: Normal, Painless ROM, Supple Cardiovascular/Chest: Positive for: Regular Rate, Rhythm. Negative for: Murmur Respiratory: Positive for: Normal Breath Sounds. Negative for: Respiratory Distress Extremity: Positive for: Normal ROM. Negative for: Deformity Neurologic/Psych: Positive for: Alert, Oriented. Negative for: Motor/Sensory Deficits - Laboratory Results Result Diagrams: 10/15/17 15:39 10/15/17 15:39 - ECG Interpretation Of ECG: Paced @ 75. O2 Sat by Pulse Oximetry: 94 (RA) Pulse Ox Interpretation: Abnormal - Radiology X-Ray: Interpreted by Mt X-Ray Interpretation: Infiltrates (Bilateral) - Core Measure Core Measure Indicators: Pneumonia Medical Decision Making Medical Decision Making: Time: 15:21 Impression: differentials include pneumonia, bronchitis, influenza Initial Plan: --VBG --CMP --Troponin --CBC with differentials --PTT --Prothrombin time --Chest x-ray --Blood cx --Urine cx --Influenza AB --Urinalysis Influenza AB --results are negative. Time: 16:26 Plan: --Tylenol 650 mg PO --Duoneb 3 ml INH --Aspirin 325 mg PO --Rocephin 1 gm/ 100 ml NS IV --Zithromax 500 mg / 250 ml NS Noted elevated Troponin 0.2260, upon review of old notes pt with chronically elevated troponin (secondary to CKD as per Dr. Hidalgo note). Time: 16:41 Patient will be admitted to Dr. Prem Billings in inpatient hospital routine due to pneumonia and elevated Troponin levels. Scribe Attestation: Documented by Nadine Garcia, acting as a scribe for Noy Merlos MD. Provider Scribe Attestation: All medical record entries made by the Scribe were at my direction and personally dictated by me. I have reviewed the chart and agree that the record accurately reflects my personal performance of the history, physical exam, medical decision making, and the department course for this patient. I have also personally directed, reviewed, and agree with the discharge instructions and disposition. Disposition - Clinical Impression Clinical Impression: Pneumonia, Elevated troponin - Patient ED Disposition Is Patient to be Admitted: Yes - Disposition Disposition Time: 16:41 Condition: GUARDED - Pt Status Changed To: Hospital Disposition Of: Inpatient - Admit Certification Admit to Inpatient:: After my assessment, the patient will require hospitalization for at least two midnights. This is because of the severity of symptoms shown, intensity of services needed, and/or the medical risk in this patient being treated as an outpatient.
[2017-10-15] MEDS ORDERED: Sodium Chloride 0.9% 1,000 ML IV STA (15:42)
[2017-10-15 15:43] LABS: VENOUS BLOOD GAS BASE EXCESS -2.1 mmol/L (0.0-2.0); VENOUS BLOOD GAS PCO2 47 mmHg (40-60); VENOUS BLOOD GAS PO2 23 mm/Hg (30-55); VENOUS BLOOD PH 7.32 (7.32-7.43)
[2017-10-15 15:49] LABS: BASO % 0.1 % (0.0-2.0); EOS % 0.3 % (0.0-4.0); HEMOGLOBIN 10.6 g/dL (12.0-18.0); LYMPH # 0.3 K/uL (1.0-4.3); LYMPH % 1.8 % (20.0-40.0); MEAN CELL VOLUME 86.2 fl (80.0-94.0); MEAN CORPUSCULAR HEMOGLOBIN 28.2 pg (27.0-31.0); MEAN CORPUSCULAR HGB CONC 32.8 g/dL (33.0-37.0); MONO % 6.3 % (0.0-10.0); NEUT # 14.1 K/uL (1.8-7.0); NEUT % 91.5 % (50.0-75.0); PLATELET COUNT 175 K/uL (130-400); RBC 3.75 Mil/uL (4.40-5.90); RED CELL DISTRIBUTION WIDTH 14.8 % (11.5-14.5); WHITE BLOOD COUNT 15.4 K/uL (4.8-10.8)
[2017-10-15 16:08] LABS: PROTHROMBIN TIME 22.9 Seconds (9.8-13.1)
[2017-10-15 16:14] LABS: ALB/GLOB RATIO 1.1 (1.0-2.1); ALBUMIN 3.3 g/dL (3.5-5.0); CALCIUM 8.4 mg/dL (8.4-10.2)
[2017-10-15] MEDS ORDERED: Azithromycin 500 MG in Sodium Chloride 0.9% 250 ML IV STA (16:26)
[2017-10-15] MEDS ORDERED: Albuterol-Ipratrop 3 mg / 0.5 (3 ml) UD INH STA (16:27)
[2017-10-15] MEDS ORDERED: cefTRIAXone (Rocephin) 1 gm Inj ONE (16:30)
[2017-10-15 16:32] LABS: TROPONIN I 0.226 ng/mL (0.00-0.120)
--- NOTE | 2017-10-15 17:19 | CP.PCM.HP ---
History of Present Illness - History of Present Illness History of Present Illness: [facility] [place] [id number] Hx taken from patient and previous records Healthcare Proxy. Son. (Orville Woodson [phone]) PMD: Dr Billings 76 y/o M with PMHx of CAD, HTN, DM type 2, Pacemaker, Hyperlipidemia, Depression and Lupus erythematosus presented to ED c/o chills and cough for the past 2 days. Patient states that symptoms improved afte4r he took 2 Advil Yesterday. He feels now better than Yesterday but c/o back pain when he coughs and was feeling "warm" at home. Also patient c/p chronic CP, intermittent, located to left precordial area, does not radiate, last only few seconds and resolves spontaneously. He has it almost every day but right now he denies CP, SOB, vomiting, nausea, abd pain, headache. Admits constipation. ED course VS: Max temp 100.1. O2sat 94-97 with NC. BP, RR, HR all stable CXR: R/lung infiltrates: Pending official report EKG: Pace rhythm, no acute ischemic changes CBC: WBC 15.4 with left shift hgb 10,6 INR=2.0 CMP: BUN/Creat 22/1.4 GFR 49 Trops: .2260 Patient received Zithromax and Rocephin IV 1 dose, Nebs, IV fluids, Tylenol, ASA Allergies: Morphine PMHx: See HPI SHx: Denies tobacco, etoh or drugs SxHx: Cardiac Stent, Pacemaker, Appendectomy Present on Admission - Present on Admission Any Indicators Present on Admission: No Review of Systems - Review of Systems All systems: reviewed and no additional remarkable complaints except - Constitutional Constitutional: Chills, Fever - Cardiovascular Cardiovascular: Chest Pain - Respiratory Respiratory: Cough Past Patient History - Infectious Disease Hx of Infectious Diseases: None - Past Medical History & Family History Past Medical History?: Yes - Past Social History Alcohol: None Drugs: Denies - CARDIAC Hx Cardiac Disorders: Yes (CHF, AFIB, CAD, HIGH CHOLESTEROL) - PULMONARY Hx Respiratory Disorders: Yes (PNEUMONIA) - NEUROLOGICAL Hx Neurological Disorder: No - HEENT Hx HEENT Problems: Yes Hx Epistaxis: Yes - RENAL Hx Chronic Kidney Disease: No - ENDOCRINE/METABOLIC Hx Endocrine Disorders: Yes (DM) - HEMATOLOGICAL/ONCOLOGICAL Hx Human Immunodeficiency Virus (HIV): No - INTEGUMENTARY Hx Dermatological Problems: Yes - MUSCULOSKELETAL/RHEUMATOLOGICAL Hx Musculoskeletal Disorders: Yes (ARTHRITIS) - GASTROINTESTINAL Hx Gastrointestinal Disorders: No - GENITOURINARY/GYNECOLOGICAL Hx Genitourinary Disorders: No - PSYCHIATRIC Hx Depression: Yes - SURGICAL HISTORY Hx Surgeries: Yes Hx Appendectomy: Yes Hx Coronary Stent: Yes - ANESTHESIA Hx Anesthesia: Yes Hx Anesthesia Reactions: No Hx Malignant Hyperthermia: No Meds Allergies/Adverse Reactions: Allergies Allergy/AdvReac Type Severity Reaction Status Date / Time morphine Allergy ANAPHYLAXIS Verified 10/15/17 14:48 Physical Exam - Constitutional Appears: Non-toxic - Eye Exam Eye Exam: PERRL - ENT Exam ENT Exam: Mucous Membranes Moist - Respiratory Exam Respiratory Exam: Rales (R/lung base). absent: Decreased Breath Sounds, Wheezes , Respiratory Distress - Cardiovascular Exam Cardiovascular Exam: +S1, +S2. absent: Gallop - GI/Abdominal Exam GI & Abdominal Exam: Normal Bowel Sounds, Soft, Tenderness (Diffuse, mild). absent: Distended, Guarding, Rigid - Extremities Exam Extremities exam: Positive for: pedal edema (+1). Negative for: calf tenderness , normal inspection (Varicous veins), tenderness - Neurological Exam Neurological exam: Alert, Oriented x3 - Psychiatric Exam Psychiatric exam: Normal Affect, Normal Mood - Skin Skin Exam: Normal Color, Warm Results - Vital Signs Recent Vital Signs: Last Vital Signs Temp 99.6 F 10/15/17 17:03 Pulse 69 10/15/17 17:03 Resp 18 10/15/17 17:03 BP 116/59 L 10/15/17 17:03 Pulse Ox 94 L 10/15/17 16:57 - Labs Result Diagrams: 10/15/17 15:39 10/15/17 15:39 Labs: Laboratory Results - last 24 hr 10/15/17 10/15/17 10/15/17 15:01 15:22 15:39 WBC 15.4 H D RBC 3.75 L Hgb 10.6 L Hct 32.3 L MCV 86.2 MCH 28.2 MCHC 32.8 L RDW 14.8 H Plt Count 175 MPV 8.0 Neut % (Auto) 91.5 H Lymph % (Auto) 1.8 L [place] % (Auto) 6.3 Eos % (Auto) 0.3 Baso % (Auto) 0.1 Neut # (Auto) 14.1 H Lymph # (Auto) 0.3 L [place] # (Auto) 1.0 H Eos # (Auto) 0.0 Baso # (Auto) 0.0 PT INR APTT pO2 23 L VBG pH 7.32 VBG pCO2 47 VBG HCO3 22.0 VBG Total CO2 25.6 VBG O2 Sat (Calc) 43.5 VBG Base Excess -2.1 L VBG Potassium 4.6 Sodium 139.0 Chloride 107.0 Glucose 228 H Lactate 3.1 H FiO2 21.0 Potassium Carbon Dioxide Anion Gap BUN Creatinine Est GFR ( Amer) Est GFR (Non-Af Amer) POC Glucose (mg/dL) 204 H Random Glucose Calcium Total Bilirubin AST ALT Alkaline Phosphatase Troponin I Total Protein Albumin Globulin Albumin/Globulin Ratio Venous Blood Potassium 4.6 Influenza Typ A,B (EIA) 10/15/17 10/15/17 10/15/17 15:39 15:39 15:39 WBC RBC Hgb Hct MCV MCH MCHC RDW Plt Count MPV Neut % (Auto) Lymph % (Auto) [place] % (Auto) Eos % (Auto) Baso % (Auto) Neut # (Auto) Lymph # (Auto) [place] # (Auto) Eos # (Auto) Baso # (Auto) PT 22.9 H INR 2.0 H APTT 28.0 pO2 VBG pH VBG pCO2 VBG HCO3 VBG Total CO2 VBG O2 Sat (Calc) VBG Base Excess VBG Potassium Sodium 143 Chloride 106 Glucose Lactate FiO2 Potassium 4.6 Carbon Dioxide 21 L Anion Gap 21 H BUN 22 H Creatinine 1.4 Est GFR ( Amer) 59 Est GFR (Non-Af Amer) 49 POC Glucose (mg/dL) Random Glucose 206 H Calcium 8.4 Total Bilirubin 0.7 AST 23 ALT 35 Alkaline Phosphatase 55 Troponin I 0.2260 H* Total Protein 6.4 Albumin 3.3 L Globulin 3.1 Albumin/Globulin Ratio 1.1 Venous Blood Potassium Influenza Typ A,B (EIA) Negative for flu a/b Assessment & Plan - Assessment and Plan (Free Text) Assessment: -CAP Suspected, acute No SIRS criteria at the time of admission CURB-65= 2(6.8 % 30 day mortality) CXR: Acute infiltrates, pending official report WBC 15.4 Cough, chills C/W Ceftriaxone 1g daily and Zithromax 500mg daily IV F/U Procalcitonin -CHF, chronic, mixed with valvulopathy NYHA class III AHA Stage C Last Echo 09/05/17 EF 25-30% with valvulopathy LE edema Lasix 20 mg IV once C/W Aldactone daily Consider adding daily Lasix, BB, ACEi F/U PRoBnp, Mg -CKD St 2 GFR 49 BUN/Creat stable F/U BMP AM -CAD Chronic, Hx of stents Intermittent CP Trops elevated: Chronic(Please review previous records) EKG no acute ischemic changes Cardio consulted. Will f/u recs F/U TRops Q8h F/U repeat EKG AM C/W Aspirin 81 mg daily Patient not on BB -Type 2 DM Chronic, controlled -Last HGbA1c 6.9. 12/2016 -F/U HgbA1c -C/W Januvia/Glipizide for now -ACHS ISS -Hx of A.fib/Pacemaker Chronic Stable C/w Coumadin 2.5mg HS. F/U Cardio recs INR=2 -Chronic normocitic anemia Unknown, poss due to LES? F/U Iron studies, VIt b12 and Folate -Hx of LES C/W Plaquenil and low dose Prednisone for now F/U ESR No immunologic studies on chart other than normal anticardiolipins -Prophylactic measures DVT: Patient on coumadin Abx associated diarrhea: Florastor
[2017-10-15 19:24] LABS: BANDS 3 % (0-2); EOSINOPHIL 1 % (0-7); LYMPHOCYTE 3 % (20-50); METAMYELOCYTE 4 % (0-0); MONOCYTE 2 % (0-10); MYELOCYTE 3 % (0-0); NEUTROPHIL 84 % (42-75); PLATELET ESTIMATE NORMAL (NORMAL); TOTAL CELLS COUNTED 100
[2017-10-15 19:25] LABS: ANISOCYTOSIS SLIGHT; HYPOCHROMIC SLIGHT
[2017-10-15] MEDS ORDERED: Dextrose 50% SYRINGE Inj (50 ml) IV PRN (19:28)
[2017-10-15] MEDS ORDERED: Glucagon Recombinant 1 mg Inj IM PRN (19:28)
[2017-10-15 21:07] LABS: B-TYPE NATRIURETIC PEPTIDE 2950 pg/ml (0-900)
[2017-10-15] MEDS: Azithromycin 500 MG in Sodium Chloride 0.9% 250 ML IVPB SCH (21:16)
[2017-10-15] MEDS: Calcium-Vit D 500 mg-200 Units Tab UD PO SCH (21:23)
[2017-10-15] MEDS: Insulin Regular 100 units/ml SC SCH (21:24)
[2017-10-15 21:33] LABS: FERRITIN 26.5 ng/Ml (17.9-464)
[2017-10-15 21:49] LABS: % IRON SATURATION 4 % (20-55); IRON 11 ug/dL (49-181); TOTAL IRON BINDING CAPACITY 303 ug/dL (250-450)
[2017-10-16] MEDS: Insulin Regular 100 units/ml SC SCH ×4 (06:43→21:46)
[2017-10-16 07:20] LABS: BASO % 0.2 % (0.0-2.0); EOS # 0.1 K/uL (0.0-0.7); EOS % 0.6 % (0.0-4.0); HEMOGLOBIN 9.8 g/dL (12.0-18.0); LYMPH # 1.1 K/uL (1.0-4.3); MEAN CELL VOLUME 85.7 fl (80.0-94.0); MEAN CORPUSCULAR HEMOGLOBIN 27.5 pg (27.0-31.0); MEAN CORPUSCULAR HGB CONC 32.1 g/dL (33.0-37.0); MEAN PLATELET VOLUME 8.4 fl (7.2-11.7); MONO # 1.1 K/uL (0.0-0.8); MONO % 8.8 % (0.0-10.0); NEUT # 10.3 K/uL (1.8-7.0); NEUT % 81.4 % (50.0-75.0); RBC 3.58 Mil/uL (4.40-5.90); RED CELL DISTRIBUTION WIDTH 14.8 % (11.5-14.5); WHITE BLOOD COUNT 12.7 K/uL (4.8-10.8)
[2017-10-16 07:27] LABS: INR 2.6 (0.9-1.2); PROTHROMBIN TIME 29.1 Seconds (9.8-13.1)
[2017-10-16] MEDS: Saccharomyces Boulardi 250 mg Cap PO SCH ×2 (09:24→17:14)
[2017-10-16] MEDS: Pantoprazole 40 mg EC Tab PO SCH (09:25)
--- NOTE | 2017-10-16 09:39 | RAD ---
HISTORY: Cough COMPARISON: 09/05/2017 FINDINGS: LUNGS: Diffuse bilateral interstitial infiltrates, worsened since prior exam. PLEURA: Bilateral pleural effusions. CARDIOVASCULAR: Normal. OSSEOUS STRUCTURES: No significant abnormalities. VISUALIZED UPPER ABDOMEN: Normal. OTHER FINDINGS: None. IMPRESSION: Diffuse bilateral interstitial infiltrates and effusions.
--- NOTE | 2017-10-16 11:12 | CP.PCM.PN ---
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 States that he feels better, and that the cough is still present but improving. No specific complaints of pain at this time. Objective - Vital Signs/Intake and Output Vital Signs (last 24 hours): Temp Pulse Resp BP Pulse Ox 97.6 F 62 18 96/56 L 97 10/16/17 07:59 10/16/17 07:59 10/16/17 07:59 10/16/17 07:59 10/16/17 07:59 - Medications Medications: Current Medications Aspirin (Ecotrin) 81 mg PO DAILY [facility] Last Admin: 10/16/17 09:24 Dose: 81 mg Atorvastatin Calcium (Lipitor) 20 mg PO HS [facility] Last Admin: 10/15/17 21:23 Dose: 20 mg Calcium/Vitamin D (Oyster Shell Calcium/Vitamin D 500 Mg-200 Iu) 1 tab PO [facility] Last Admin: 10/15/17 21:23 Dose: 1 tab Dextrose (Dextrose 50% Inj) 0 ml IV STAT PRN; Protocol PRN Reason: Hypoglycemia Protocol Dextrose (Glutose 15) 0 gm PO ONCE PRN; Protocol PRN Reason: Hypoglycemia Protocol Docusate Sodium (Colace) 100 mg PO BID PRN PRN Reason: Constipation Ferrous Sulfate (Feosol) 325 mg PO BID [facility] Last Admin: 10/16/17 09:23 Dose: 325 mg Glucagon (Glucagen Diagnostic Kit) 0 mg IM STAT PRN; Protocol PRN Reason: Hypoglycemia Protocol Glyburide (Micronase) 2.5 mg PO DAILY [facility] Last Admin: 10/16/17 09:26 Dose: 2.5 mg Hydroxychloroquine Sulfate (Plaquenil) 200 mg PO BID [facility] PRN Reason: Protocol Last Admin: 10/16/17 09:25 Dose: 200 mg Ceftriaxone Sodium 1 gm/ (Sodium Chloride) 100 mls @ 100 mls/hr IVPB DAILY [facility] PRN Reason: Protocol Last Admin: 10/16/17 09:26 Dose: 100 mls/hr Azithromycin 500 mg/ Sodium (Chloride) 250 mls @ 250 mls/hr IVPB DAILY [facility] PRN Reason: Protocol Last Admin: 10/15/17 21:16 Dose: 250 mls/hr Insulin Human Regular (Humulin R) 0 units SC ACHS [facility] PRN Reason: Protocol Last Admin: 10/16/17 06:43 Dose: Not Given Nitroglycerin (Nitrostat Sl Tab) 0.4 mg SL Q5M PRN PRN Reason: chest pain Pantoprazole Sodium (Protonix Ec Tab) 40 mg PO DAILY [facility] Last Admin: 10/16/17 09:25 Dose: 40 mg Prednisone (Prednisone Tab) 10 mg PO DAILY [facility] Last Admin: 10/16/17 09:24 Dose: 10 mg Risperidone (Risperdal Tab) 1 mg PO HS [facility] Last Admin: 10/15/17 21:23 Dose: 1 mg Saccharomyces Boulardii (Florastor) 250 mg PO BID [facility] Last Admin: 10/16/17 09:24 Dose: 250 mg Sertraline HCl (Zoloft) 50 mg PO DAILY [facility] Last Admin: 10/16/17 09:24 Dose: 50 mg Sitagliptin Phosphate (Januvia) 100 mg PO DAILY [facility] Last Admin: 10/16/17 09:24 Dose: 100 mg Spironolactone (Aldactone) 25 mg PO DAILY [facility] Last Admin: 10/16/17 09:27 Dose: Not Given - Labs Labs: 10/16/17 05:30 10/16/17 05:30 PT 29.1 Seconds (9.8-13.1) H D 10/16/17 05:30 INR 2.6 (0.9-1.2) H D 10/16/17 05:30 APTT 28.0 Seconds (25.6-37.1) 10/15/17 15:39 - Constitutional Appears: Non-toxic, No Acute Distress, Younger Than Stated Age, Other (lying comfortably in bed, sleeping and was woken up for interview and exam) - Eye Exam Eye Exam: Normal appearance - ENT Exam ENT Exam: Mucous Membranes Moist - Neck Exam Neck Exam: Full ROM - Respiratory Exam Respiratory Exam: Clear to Ausculation Bilateral, NORMAL BREATHING PATTERN. absent: Wheezes, Respiratory Distress - Cardiovascular Exam Cardiovascular Exam: REGULAR RHYTHM, +S1, +S2 - GI/Abdominal Exam GI & Abdominal Exam: Soft, Normal Bowel Sounds - Extremities Exam Extremities Exam: Pedal Edema - Back Exam Back Exam: NORMAL INSPECTION - Neurological Exam Neurological Exam: Alert, Awake - Skin Skin Exam: Dry, Intact, Normal Color, Warm Assessment and Plan - Assessment and Plan (Free Text) Assessment: 77 yo M with hx SLE, HTN, DM2, CAD, pacemaker admitted for likely hospital acquired pneumonia. Clinically improving. Plan: # Hospital Aquired Pneumonia - Recent admission Aug 2017 - CXR Acute infiltrates- diffuse bilateral interstitial infiltrates - WBC 12.7 today, trending down from 15.4 on admission - Zosyn started today, 1st dose 5 pm today - Ceftriaxone 1g daily and Zithromax 500mg daily IV - discontinued - Procalcitonin pending - No SIRS criteria at the time of admission - CURB-65= 2(6.8 % 30 day mortality) - Cough and chills; influenza negative # CHF, chronic, mixed with valvulopathy - Last Echo 09/05/17 EF 25-30% with valvulopathy - Continue with home dose spirinolactone daily - Restart home med sofinopril 20 mg daily - formulary lisinopril equivalent - ProBNP - 2950 - Cardiology consulted Dr. Hidalgo # CKD, Stage 2 - GFR 49 - BUN 29, Cr 1.6 - CrCl 54 - repeat BMP in am # CAD - Chronic, hx of stents - Elevated troponins (chronic) - No acute changes on EKG - Cardiology consult - Continue w/ Aspirin 81 mg daily # Type 2 DM - Chronic, controlled - HbA1c 6.7 on this admission; down from 6.9 in 12/2016 - Continue with home medications Januvia and glipizide - Accuchecks - Insulin coverage scale and hypoglycemia protocol # Hx of A.fib/Pacemaker - Chronic, stable - Home dose coumadin 2.5mg HS. - INR this am 2.6 - INR ordered for tomorrow am # Chronic normocitic anemia - Iron studies: iron 11 (L), TIBC 303 (wnl), % saturation 4 (L), ferritin 26.5 ( wnl) - VIt b12 581 wnl, folate (pending) # Hx of SLE - Continue with home meds plaquenil and prednisone - ESR- elevated at 23 # Prophylactic measures - DVT: pt on coumadin - Florastor
[2017-10-16 11:57] LABS: SQUAMOUS EPITHIAL 1 /hpf (0-5); URINE BILIRUBIN NEGATIVE (NEGATIVE); URINE BLOOD NEGATIVE (NEGATIVE); URINE CLARITY CLEAR (Clear); URINE COLOR YELLOW (YELLOW); URINE GLUCOSE (UA) NEG (Normal); URINE HYALINE CAST 0-2 /hpf (0-2); URINE LEUKOCYTE ESTERASE NEG Leu/uL (Negative); URINE PROTEIN NEGATIVE (NEGATIVE); URINE UROBILINOGEN 0.2-1.0 mg/dL (0.2-1.0)
[2017-10-16] MEDS: Azithromycin 500 MG in Sodium Chloride 0.9% 250 ML IVPB SCH (13:04)
[2017-10-16] MEDS: Piperacillin/Tazobact 3.375 GM in Sodium Chloride 0.9% 100 ML IVPB SCH (18:01)
[2017-10-16] MEDS: Calcium-Vit D 500 mg-200 Units Tab UD PO SCH (21:44)
[2017-10-17] MEDS: Piperacillin/Tazobact 3.375 GM in Sodium Chloride 0.9% 100 ML IVPB SCH ×3 (00:52→16:11)
[2017-10-17 06:08] LABS: INR 2.3 (0.9-1.2); PROTHROMBIN TIME 25.9 Seconds (9.8-13.1)
[2017-10-17 06:10] LABS: BASO % 0.2 % (0.0-2.0); EOS # 0.1 K/uL (0.0-0.7); EOS % 1.2 % (0.0-4.0); LYMPH # 1.5 K/uL (1.0-4.3); LYMPH % 13.5 % (20.0-40.0); MEAN CELL VOLUME 84.8 fl (80.0-94.0); MEAN PLATELET VOLUME 8.4 fl (7.2-11.7); MONO % 8.6 % (0.0-10.0); NEUT # 8.8 K/uL (1.8-7.0); NEUT % 76.5 % (50.0-75.0); RBC 3.57 Mil/uL (4.40-5.90); RED CELL DISTRIBUTION WIDTH 14.7 % (11.5-14.5); WHITE BLOOD COUNT 11.5 K/uL (4.8-10.8)
[2017-10-17 06:17] LABS: ALT/SGPT 39 U/L (21-72); AST/SGOT 30 U/L (17-59); BLOOD UREA NITROGEN 30 mg/dl (9-20); GFR AFRICAN-AMERICAN > 60; GFR NON-AFRICAN AMERICAN 53
[2017-10-17] MEDS: Insulin Regular 100 units/ml SC SCH ×4 (06:49→22:03)
--- NOTE | 2017-10-17 09:02 | CARD ---
APPROVED REPORT EKG Measurement Heart [id number] IN 188P [id number] <Conclusion> AV dual-paced rhythm Biventricular pacemaker detected Abnormal ECG
--- NOTE | 2017-10-17 09:23 | CP.PCM.CON ---
History of Present Illness - History of Present Illness History of Present Illness: THE PATIENT IS A 77 YEAR OLD MALE KNOWN TO ME FROM [facility] ADMISSIONS. HE HAS A HISTORY OF CAD WITH PRIOR STENT INSERTIONS, SSS WITH ATRIAL FIBRILLATION AND A PACEMAKER, HYPERTENSION, CKD FROM LUPUS NEPHRITIS, HYPERLIPIDEMIA AND DM. HE WAS ADMITTED TO [facility] LAST MONTH WITH COUMADIN TOXICITY AND TREATED FOR THAT. HE IS NOW ADMITTED TO [facility] FOR PNEUMONIA. CARDIOLOGY WAS ASKED TO SEE HIM FOR ELEVATED TROPONINS. IT SHOULD BE STATED THAT HE HAS CHRONICALLY ELEVATED TROPONINS FROM HIS CKD AND THAT HE HAD A CARDIAC CATH WITHIN THE PAST TWO YEARS THAT WAS GOOD IN [facility] WHERE HE IS FOLLOWED BY CARDIOLOGISTS THERE. HE DENIES ANY TYPICAL CHEST PAIN. Past Patient History - Infectious Disease Hx of Infectious Diseases: None - Past Medical History & Family History Past Medical History?: Yes - Past Social History Smoking Status: Never Smoked - CARDIAC Hx Cardiac Disorders: Yes (CHF, AFIB, CAD, HIGH CHOLESTEROL) Hx Atrial Fibrillation: Yes Hx Congestive Heart Failure: Yes Hx Hypercholesterolemia: Yes Hx Hypertension: Yes - PULMONARY Hx Respiratory Disorders: Yes (PNEUMONIA) Hx Pneumonia: Yes - NEUROLOGICAL Hx Neurological Disorder: No - HEENT Hx HEENT Problems: Yes Hx Epistaxis: Yes - RENAL Hx Chronic Kidney Disease: No - ENDOCRINE/METABOLIC Hx Endocrine Disorders: Yes (DM) Hx Diabetes Mellitus Type 2: Yes Hx Systemic Lupus Erythematosus: Yes - HEMATOLOGICAL/ONCOLOGICAL Hx AIDS: No Hx Human Immunodeficiency Virus (HIV): No - INTEGUMENTARY Hx Dermatological Problems: Yes - MUSCULOSKELETAL/RHEUMATOLOGICAL Hx Musculoskeletal Disorders: Yes (ARTHRITIS) Hx Arthritis: Yes Hx Falls: No - GASTROINTESTINAL Hx Gastrointestinal Disorders: No - GENITOURINARY/GYNECOLOGICAL Hx Genitourinary Disorders: No - PSYCHIATRIC Hx Depression: Yes Hx Substance Use: No - SURGICAL HISTORY Hx Surgeries: Yes Hx Appendectomy: Yes Hx Coronary Stent: Yes Hx Herniorrhaphy: Yes (ventral hernia repair) Other/Comment: pacemaker insertion - ANESTHESIA Hx Anesthesia: Yes Hx Anesthesia Reactions: No Hx Malignant Hyperthermia: No Meds Allergies/Adverse Reactions: Allergies Allergy/AdvReac Type Severity Reaction Status Date / Time morphine Allergy ANAPHYLAXIS Verified 10/15/17 14:48 - Medications Medications: Current Medications Aspirin (Ecotrin) 81 mg PO DAILY [facility] Last Admin: 10/16/17 09:24 Dose: 81 mg Atorvastatin Calcium (Lipitor) 20 mg PO HS [facility] Last Admin: 10/16/17 21:44 Dose: 20 mg Calcium/Vitamin D (Oyster Shell Calcium/Vitamin D 500 Mg-200 Iu) 1 tab PO HS [facility] Last Admin: 10/16/17 21:44 Dose: 1 tab Dextrose (Dextrose 50% Inj) 0 ml IV STAT PRN; Protocol PRN Reason: Hypoglycemia Protocol Dextrose (Glutose 15) 0 gm PO ONCE PRN; Protocol PRN Reason: Hypoglycemia Protocol Docusate Sodium (Colace) 100 mg PO BID PRN PRN Reason: Constipation Last Admin: 10/16/17 12:18 Dose: 100 mg Ferrous Sulfate (Feosol) 325 mg PO BID [facility] Last Admin: 10/16/17 17:14 Dose: 325 mg Glucagon (Glucagen Diagnostic Kit) 0 mg IM STAT PRN; Protocol PRN Reason: Hypoglycemia Protocol Glyburide (Micronase) 2.5 mg PO DAILY [facility] Last Admin: 10/16/17 09:26 Dose: 2.5 mg Hydroxychloroquine Sulfate (Plaquenil) 200 mg PO BID [facility] PRN Reason: Protocol Last Admin: 10/16/17 17:14 Dose: 200 mg Piperacillin Sod/Tazobactam (Sod 3.375 gm/ Sodium Chloride) 100 mls @ 100 mls/ hr IVPB Q8 [facility] PRN Reason: Protocol Last Admin: 10/17/17 00:52 Dose: 100 mls/hr Insulin Human Regular (Humulin R) 0 units SC ACHS [facility] PRN Reason: Protocol Last Admin: 10/17/17 06:49 Dose: Not Given Lisinopril (Zestril) 20 mg PO DAILY [facility] Nitroglycerin (Nitrostat Sl Tab) 0.4 mg SL Q5M PRN PRN Reason: chest pain Pantoprazole Sodium (Protonix Ec Tab) 40 mg PO DAILY [facility] Last Admin: 10/16/17 09:25 Dose: 40 mg Prednisone (Prednisone Tab) 10 mg PO DAILY [facility] Last Admin: 10/16/17 09:24 Dose: 10 mg Risperidone (Risperdal Tab) 1 mg PO HS [facility] Last Admin: 10/16/17 21:43 Dose: 1 mg Saccharomyces Boulardii (Florastor) 250 mg PO BID [facility] Last Admin: 10/16/17 17:14 Dose: 250 mg Sertraline HCl (Zoloft) 50 mg PO DAILY [facility] Last Admin: 10/16/17 09:24 Dose: 50 mg Sitagliptin Phosphate (Januvia) 100 mg PO DAILY [facility] Last Admin: 10/16/17 09:24 Dose: 100 mg Spironolactone (Aldactone) 25 mg PO DAILY [facility] Last Admin: 10/16/17 09:27 Dose: Not Given Physical Exam - Respiratory Exam Respiratory Exam: Rales - Cardiovascular Exam Cardiovascular Exam: Irregular Rhythm, +S1, +S2 - Additional Findings Additional findings: EKG AV SEQUENTIAL PACEMAKER RHYTHM TROPONINS 0.22 TO 0.26 CXR WITH PNEUMONIA WBC 15K INR 2.0 Results - Vital Signs Recent Vital Signs: Last Vital Signs Temp 98.3 F 10/17/17 08:00 Pulse 60 10/17/17 08:00 Resp 18 10/17/17 08:00 BP 105/66 10/17/17 08:00 Pulse Ox 99 10/17/17 08:00 - Labs Result Diagrams: 10/17/17 04:20 10/17/17 04:20 Labs: Laboratory Results - last 24 hr 10/15/17 10/16/17 10/16/17 20:30 05:45 06:40 WBC RBC Hgb Hct MCV MCH MCHC RDW Plt Count MPV Neut % (Auto) Lymph % (Auto) [place] % (Auto) Eos % (Auto) Baso % (Auto) Neut # (Auto) Lymph # (Auto) [place] # (Auto) Eos # (Auto) Baso # (Auto) PT INR Sodium Potassium Chloride Carbon Dioxide Anion Gap BUN Creatinine Est GFR ( Amer) Est GFR (Non-Af Amer) POC Glucose (mg/dL) 71 83 Random Glucose Hemoglobin A1c 6.7 H Calcium Total Bilirubin AST ALT Alkaline Phosphatase Total Protein Albumin Globulin Albumin/Globulin Ratio Urine Color Urine Clarity Urine pH Ur Specific [place] Urine Protein Urine Glucose (UA) Urine Ketones Urine Blood Urine Nitrate Urine Bilirubin Urine Urobilinogen Ur Leukocyte Esterase Urine RBC (Auto) Urine Microscopic WBC Ur Squamous Epith Cells Hyaline Casts 10/16/17 10/16/17 10/16/17 10:40 11:21 16:50 WBC RBC Hgb Hct MCV MCH MCHC RDW Plt Count MPV Neut % (Auto) Lymph % (Auto) [place] % (Auto) Eos % (Auto) Baso % (Auto) Neut # (Auto) Lymph # (Auto) [place] # (Auto) Eos # (Auto) Baso # (Auto) PT INR Sodium Potassium Chloride Carbon Dioxide Anion Gap BUN Creatinine Est GFR ( Amer) Est GFR (Non-Af Amer) POC Glucose (mg/dL) 160 H 169 H Random Glucose Hemoglobin A1c Calcium Total Bilirubin AST ALT Alkaline Phosphatase Total Protein Albumin Globulin Albumin/Globulin Ratio Urine Color Yellow Urine Clarity Clear Urine pH 5.0 Ur Specific [place] 1.011 Urine Protein Negative Urine Glucose (UA) Neg Urine Ketones Negative Urine Blood Negative Urine Nitrate Negative Urine Bilirubin Negative Urine Urobilinogen 0.2-1.0 Ur Leukocyte Esterase Neg Urine RBC (Auto) < 1 Urine Microscopic WBC < 1 Ur Squamous Epith Cells 1 Hyaline Casts 0-2 10/16/17 10/17/17 10/17/17 20:59 04:20 04:20 WBC 11.5 H RBC 3.57 L Hgb 10.0 L Hct 30.3 L MCV 84.8 MCH 28.0 MCHC 33.0 RDW 14.7 H Plt Count 160 MPV 8.4 Neut % (Auto) 76.5 H Lymph % (Auto) 13.5 L [place] % (Auto) 8.6 Eos % (Auto) 1.2 Baso % (Auto) 0.2 Neut # (Auto) 8.8 H Lymph # (Auto) 1.5 [place] # (Auto) 1.0 H Eos # (Auto) 0.1 Baso # (Auto) 0.0 PT 25.9 H INR 2.3 H Sodium Potassium Chloride Carbon Dioxide Anion Gap BUN Creatinine Est GFR ( Amer) Est GFR (Non-Af Amer) POC Glucose (mg/dL) 112 H Random Glucose Hemoglobin A1c Calcium Total Bilirubin AST ALT Alkaline Phosphatase Total Protein Albumin Globulin Albumin/Globulin Ratio Urine Color Urine Clarity Urine pH Ur Specific [place] Urine Protein Urine Glucose (UA) Urine Ketones Urine Blood Urine Nitrate Urine Bilirubin Urine Urobilinogen Ur Leukocyte Esterase Urine RBC (Auto) Urine Microscopic WBC Ur Squamous Epith Cells Hyaline Casts 10/17/17 04:20 WBC RBC Hgb Hct MCV MCH MCHC RDW Plt Count MPV Neut % (Auto) Lymph % (Auto) [place] % (Auto) Eos % (Auto) Baso % (Auto) Neut # (Auto) Lymph # (Auto) [place] # (Auto) Eos # (Auto) Baso # (Auto) PT INR Sodium 141 Potassium 4.1 Chloride 104 Carbon Dioxide 24 Anion Gap 17 BUN 30 H Creatinine 1.3 Est GFR ( Amer) > 60 Est GFR (Non-Af Amer) 53 POC Glucose (mg/dL) Random Glucose 62 L Hemoglobin A1c Calcium 8.0 L Total Bilirubin 0.7 AST 30 ALT 39 Alkaline Phosphatase 40 Total Protein 6.0 L Albumin 3.0 L Globulin 3.0 Albumin/Globulin Ratio 1.0 Urine Color Urine Clarity Urine pH Ur Specific [place] Urine Protein Urine Glucose (UA) Urine Ketones Urine Blood Urine Nitrate Urine Bilirubin Urine Urobilinogen Ur Leukocyte Esterase Urine RBC (Auto) Urine Microscopic WBC Ur Squamous Epith Cells Hyaline Casts Assessment & Plan - Assessment and Plan (Free Text) Assessment: PNEUMONIA CAD-STABLE ELEVATED TROPONINS FROM CKD HYPERTENSION SSS WITH HISTORY OF ATRIAL FIBRILLATION AND PACEMAKER Plan: CONTINUE ANTIBIOTICS, ASPIRIN, LISINOPRIL, ATORVASTATIN WARFARIN PER INR
[2017-10-17] MEDS: Saccharomyces Boulardi 250 mg Cap PO SCH ×2 (09:37→16:05)
[2017-10-17] MEDS: Pantoprazole 40 mg EC Tab PO SCH (09:38)
--- NOTE | 2017-10-17 10:02 | CP.PCM.CON ---
History of Present Illness - History of Present Illness History of Present Illness: This 76-year-old male presented to the emergency room with a complaint of chills and productive cough. He was complaining of feeling warm but did not take his temperature at home. On presentation to the emergency department his temperature was 100.1 with an SPO2 of 95% on nasal cannula oxygen at 3 L. He was not tachycardic. A chest x-ray did reveal patchy infiltrates in the right lung. He did have leukocytosis of 15.4 and was begun empirically on antibiotic therapy to cover for healthcare associated pneumonia since he had been hospitalized just last month. He is a former cigarette smoker and he has multiple comorbidities which includes lupus erythematosus for which she is on chronic prednisone therapy. He also has extensive DVT in both lower extremities and has been on chronic anticoagulation in the form of warfarin. He also has a prior history of pneumonia. Past Patient History - Infectious Disease Hx of Infectious Diseases: None - Past Medical History & Family History Past Medical History?: Yes Pertinent Family History: Brother has respiratory problem. - Past Social History Smoking Status: Former Smoker Chewing Tobacco Use: No Cigar Use: No Alcohol: Social Drugs: Denies Home Situation {Lives}: With Family - CARDIAC Hx Atrial Fibrillation: Yes Hx Congestive Heart Failure: Yes Hx Hypercholesterolemia: Yes Hx Hypertension: Yes Hx Pacemaker: Yes - PULMONARY Hx Pneumonia: Yes - NEUROLOGICAL Hx Neurological Disorder: No - HEENT Hx Epistaxis: Yes - RENAL Hx Chronic Kidney Disease: Yes - ENDOCRINE/METABOLIC Hx Diabetes Mellitus Type 2: Yes Hx Systemic Lupus Erythematosus: Yes - HEMATOLOGICAL/ONCOLOGICAL Hx Human Immunodeficiency Virus (HIV): No Other/Comment: DVT both lower extremities - INTEGUMENTARY Hx Dermatological Problems: No - MUSCULOSKELETAL/RHEUMATOLOGICAL Hx Arthritis: Yes Hx Falls: No Other/Comment: lupus erythematosus. - GASTROINTESTINAL Hx Gastrointestinal Disorders: No - GENITOURINARY/GYNECOLOGICAL Hx Genitourinary Disorders: No - PSYCHIATRIC Hx Depression: Yes Hx Substance Use: No - SURGICAL HISTORY Hx Appendectomy: Yes Hx Coronary Stent: Yes Hx Herniorrhaphy: Yes (ventral hernia repair) Other/Comment: pacemaker insertion - ANESTHESIA Hx Anesthesia: Yes Hx Anesthesia Reactions: No Hx Malignant Hyperthermia: No Meds Home Medications: Home Medication List Medication Instructions Recorded Confirmed Type Docusate [Colace] 100 mg PO BID PRN cap 10/18/17 Rx Ferrous Sulfate [Feosol] 325 mg PO BID tab 10/18/17 Rx Saccharomyces Boulardi [Florastor] 250 mg PO BID cap 10/18/17 Rx Allergies/Adverse Reactions: Allergies Allergy/AdvReac Type Severity Reaction Status Date / Time morphine Allergy ANAPHYLAXIS Verified 10/18/17 17:24 - Medications Medications: Current Medications Aspirin (Ecotrin) 81 mg PO DAILY [facility] Last Admin: 10/17/17 09:37 Dose: 81 mg Atorvastatin Calcium (Lipitor) 20 mg PO HS [facility] Last Admin: 10/16/17 21:44 Dose: 20 mg Calcium/Vitamin D (Oyster Shell Calcium/Vitamin D 500 Mg-200 Iu) 1 tab PO HS [facility] Last Admin: 10/16/17 21:44 Dose: 1 tab Dextrose (Dextrose 50% Inj) 0 ml IV STAT PRN; Protocol PRN Reason: Hypoglycemia Protocol Dextrose (Glutose 15) 0 gm PO ONCE PRN; Protocol PRN Reason: Hypoglycemia Protocol Docusate Sodium (Colace) 100 mg PO BID PRN PRN Reason: Constipation Last Admin: 10/16/17 12:18 Dose: 100 mg Ferrous Sulfate (Feosol) 325 mg PO BID [facility] Last Admin: 10/17/17 09:37 Dose: 325 mg Glucagon (Glucagen Diagnostic Kit) 0 mg IM STAT PRN; Protocol PRN Reason: Hypoglycemia Protocol Glyburide (Micronase) 2.5 mg PO DAILY [facility] Last Admin: 10/17/17 09:37 Dose: 2.5 mg Hydroxychloroquine Sulfate (Plaquenil) 200 mg PO BID [facility] PRN Reason: Protocol Last Admin: 10/17/17 09:38 Dose: 200 mg Piperacillin Sod/Tazobactam (Sod 3.375 gm/ Sodium Chloride) 100 mls @ 100 mls/ hr IVPB Q8 [facility] PRN Reason: Protocol Last Admin: 10/17/17 09:40 Dose: 100 mls/hr Insulin Human Regular (Humulin R) 0 units SC ACHS [facility] PRN Reason: Protocol Last Admin: 10/17/17 06:49 Dose: Not Given Lisinopril (Zestril) 20 mg PO DAILY [facility] Last Admin: 10/17/17 09:38 Dose: 20 mg Nitroglycerin (Nitrostat Sl Tab) 0.4 mg SL Q5M PRN PRN Reason: chest pain Pantoprazole Sodium (Protonix Ec Tab) 40 mg PO DAILY [facility] Last Admin: 10/17/17 09:38 Dose: 40 mg Prednisone (Prednisone Tab) 10 mg PO DAILY [facility] Last Admin: 10/17/17 09:38 Dose: 10 mg Risperidone (Risperdal Tab) 1 mg PO HS [facility] Last Admin: 10/16/17 21:43 Dose: 1 mg Saccharomyces Boulardii (Florastor) 250 mg PO BID [facility] Last Admin: 10/17/17 09:37 Dose: 250 mg Sertraline HCl (Zoloft) 50 mg PO DAILY [facility] Last Admin: 10/17/17 09:38 Dose: 50 mg Sitagliptin Phosphate (Januvia) 100 mg PO DAILY [facility] Last Admin: 10/17/17 09:37 Dose: 100 mg Spironolactone (Aldactone) 25 mg PO DAILY [facility] Last Admin: 10/17/17 09:36 Dose: 25 mg Physical Exam - Additional Findings Additional findings: Elderly male, well-developed and well-nourished, lying in bed asleep but easily awakened. Not in acute distress. Pharynx is pink and there is no scleral icterus. Nasal passages are patent bilaterally. Neck is supple and trachea is midline. No dullness on chest percussion. Equal expansion. Medium rales are heard in the right lower lobe. No audible wheezing or bronchial breathing. No rales are heard on the left. No rub. Heart sounds are slightly distant and rhythm is regular. The abdomen is soft, fleshy and nontender with normal bowel sounds. 1+ dependent edema is noted of both lower extremities. No calf tenderness. No cyanosis. Results - Vital Signs Recent Vital Signs: Last Vital Signs Temp 98.3 F 10/17/17 08:00 Pulse 60 10/17/17 09:38 Resp 18 10/17/17 08:00 BP 105/66 10/17/17 09:38 Pulse Ox 99 10/17/17 08:00 - Labs Result Diagrams: 10/18/17 04:25 10/18/17 04:25 Labs: Laboratory Results - last 24 hr 10/15/17 10/16/17 10/16/17 20:30 05:45 06:40 WBC RBC Hgb Hct MCV MCH MCHC RDW Plt Count MPV Neut % (Auto) Lymph % (Auto) [place] % (Auto) Eos % (Auto) Baso % (Auto) Neut # (Auto) Lymph # (Auto) [place] # (Auto) Eos # (Auto) Baso # (Auto) PT INR Sodium Potassium Chloride Carbon Dioxide Anion Gap BUN Creatinine Est GFR ( Amer) Est GFR (Non-Af Amer) POC Glucose (mg/dL) 71 83 Random Glucose Hemoglobin A1c 6.7 H Calcium Total Bilirubin AST ALT Alkaline Phosphatase Total Protein Albumin Globulin Albumin/Globulin Ratio Urine Color Urine Clarity Urine pH Ur Specific [place] Urine Protein Urine Glucose (UA) Urine Ketones Urine Blood Urine Nitrate Urine Bilirubin Urine Urobilinogen Ur Leukocyte Esterase Urine RBC (Auto) Urine Microscopic WBC Ur Squamous Epith Cells Hyaline Casts 10/16/17 10/16/17 10/16/17 10:40 11:21 16:50 WBC RBC Hgb Hct MCV MCH MCHC RDW Plt Count MPV Neut % (Auto) Lymph % (Auto) [place] % (Auto) Eos % (Auto) Baso % (Auto) Neut # (Auto) Lymph # (Auto) [place] # (Auto) Eos # (Auto) Baso # (Auto) PT INR Sodium Potassium Chloride Carbon Dioxide Anion Gap BUN Creatinine Est GFR ( Amer) Est GFR (Non-Af Amer) POC Glucose (mg/dL) 160 H 169 H Random Glucose Hemoglobin A1c Calcium Total Bilirubin AST ALT Alkaline Phosphatase Total Protein Albumin Globulin Albumin/Globulin Ratio Urine Color Yellow Urine Clarity Clear Urine pH 5.0 Ur Specific [place] 1.011 Urine Protein Negative Urine Glucose (UA) Neg Urine Ketones Negative Urine Blood Negative Urine Nitrate Negative Urine Bilirubin Negative Urine Urobilinogen 0.2-1.0 Ur Leukocyte Esterase Neg Urine RBC (Auto) < 1 Urine Microscopic WBC < 1 Ur Squamous Epith Cells 1 Hyaline Casts 0-2 10/16/17 10/17/17 10/17/17 20:59 04:20 04:20 WBC 11.5 H RBC 3.57 L Hgb 10.0 L Hct 30.3 L MCV 84.8 MCH 28.0 MCHC 33.0 RDW 14.7 H Plt Count 160 MPV 8.4 Neut % (Auto) 76.5 H Lymph % (Auto) 13.5 L [place] % (Auto) 8.6 Eos % (Auto) 1.2 Baso % (Auto) 0.2 Neut # (Auto) 8.8 H Lymph # (Auto) 1.5 [place] # (Auto) 1.0 H Eos # (Auto) 0.1 Baso # (Auto) 0.0 PT 25.9 H INR 2.3 H Sodium Potassium Chloride Carbon Dioxide Anion Gap BUN Creatinine Est GFR ( Amer) Est GFR (Non-Af Amer) POC Glucose (mg/dL) 112 H Random Glucose Hemoglobin A1c Calcium Total Bilirubin AST ALT Alkaline Phosphatase Total Protein Albumin Globulin Albumin/Globulin Ratio Urine Color Urine Clarity Urine pH Ur Specific [place] Urine Protein Urine Glucose (UA) Urine Ketones Urine Blood Urine Nitrate Urine Bilirubin Urine Urobilinogen Ur Leukocyte Esterase Urine RBC (Auto) Urine Microscopic WBC Ur Squamous Epith Cells Hyaline Casts 10/17/17 04:20 WBC RBC Hgb Hct MCV MCH MCHC RDW Plt Count MPV Neut % (Auto) Lymph % (Auto) [place] % (Auto) Eos % (Auto) Baso % (Auto) Neut # (Auto) Lymph # (Auto) [place] # (Auto) Eos # (Auto) Baso # (Auto) PT INR Sodium 141 Potassium 4.1 Chloride 104 Carbon Dioxide 24 Anion Gap 17 BUN 30 H Creatinine 1.3 Est GFR ( Amer) > 60 Est GFR (Non-Af Amer) 53 POC Glucose (mg/dL) Random Glucose 62 L Hemoglobin A1c Calcium 8.0 L Total Bilirubin 0.7 AST 30 ALT 39 Alkaline Phosphatase 40 Total Protein 6.0 L Albumin 3.0 L Globulin 3.0 Albumin/Globulin Ratio 1.0 Urine Color Urine Clarity Urine pH Ur Specific [place] Urine Protein Urine Glucose (UA) Urine Ketones Urine Blood Urine Nitrate Urine Bilirubin Urine Urobilinogen Ur Leukocyte Esterase Urine RBC (Auto) Urine Microscopic WBC Ur Squamous Epith Cells Hyaline Casts Assessment & Plan (1) CAP (community acquired pneumonia) Status: Acute Priority: High Comment: Leukocytosis has improved steadily on current drug regimen. Follow up chest x-ray requested. (2) Pacemaker Status: Chronic Priority: High (3) Deep vein thrombosis (DVT) Status: Chronic Priority: High Comment: Both lower extremities. On warfarin daily (therapeutic INR on presentation). (4) A-fib Status: Chronic Priority: High (5) Lupus Status: Chronic Priority: High Comment: On plaquenil and prednisone. - Date & Time Date: 10/17/17 Time: 10:02
--- NOTE | 2017-10-17 10:26 | CP.PCM.PN ---
<Cesar Patricka - Last Filed: 10/17/17 13:52> Subjective - Date & Time of Evaluation Date of Evaluation: 10/17/17 Time of Evaluation: 07:10 - Subjective Subjective: Pt seen and evaluated at bedside this am with attending; was resting comfortably in bed. No acute events overnight; reports improvement in cough and overall symptoms. Objective - Vital Signs/Intake and Output Vital Signs (last 24 hours): Temp Pulse Resp BP Pulse Ox 98.3 F 60 18 105/66 99 10/17/17 08:00 10/17/17 09:38 10/17/17 08:00 10/17/17 09:38 10/17/17 08:00 - Medications Medications: Current Medications Aspirin (Ecotrin) 81 mg PO DAILY [facility] Last Admin: 10/17/17 09:37 Dose: 81 mg Atorvastatin Calcium (Lipitor) 20 mg PO HS [facility] Last Admin: 10/16/17 21:44 Dose: 20 mg Calcium/Vitamin D (Oyster Shell Calcium/Vitamin D 500 Mg-200 Iu) 1 tab PO HS [facility] Last Admin: 10/16/17 21:44 Dose: 1 tab Dextrose (Dextrose 50% Inj) 0 ml IV STAT PRN; Protocol PRN Reason: Hypoglycemia Protocol Dextrose (Glutose 15) 0 gm PO ONCE PRN; Protocol PRN Reason: Hypoglycemia Protocol Docusate Sodium (Colace) 100 mg PO BID PRN PRN Reason: Constipation Last Admin: 10/16/17 12:18 Dose: 100 mg Ferrous Sulfate (Feosol) 325 mg PO BID [facility] Last Admin: 10/17/17 09:37 Dose: 325 mg Glucagon (Glucagen Diagnostic Kit) 0 mg IM STAT PRN; Protocol PRN Reason: Hypoglycemia Protocol Glyburide (Micronase) 2.5 mg PO DAILY [facility] Last Admin: 10/17/17 09:37 Dose: 2.5 mg Hydroxychloroquine Sulfate (Plaquenil) 200 mg PO BID [facility] PRN Reason: Protocol Last Admin: 10/17/17 09:38 Dose: 200 mg Piperacillin Sod/Tazobactam (Sod 3.375 gm/ Sodium Chloride) 100 mls @ 100 mls/ hr IVPB Q8 [facility] PRN Reason: Protocol Last Admin: 10/17/17 09:40 Dose: 100 mls/hr Insulin Human Regular (Humulin R) 0 units SC ACHS [facility] PRN Reason: Protocol Last Admin: 10/17/17 06:49 Dose: Not Given Lisinopril (Zestril) 20 mg PO DAILY [facility] Last Admin: 10/17/17 09:38 Dose: 20 mg Nitroglycerin (Nitrostat Sl Tab) 0.4 mg SL Q5M PRN PRN Reason: chest pain Pantoprazole Sodium (Protonix Ec Tab) 40 mg PO DAILY [facility] Last Admin: 10/17/17 09:38 Dose: 40 mg Prednisone (Prednisone Tab) 10 mg PO DAILY [facility] Last Admin: 10/17/17 09:38 Dose: 10 mg Risperidone (Risperdal Tab) 1 mg PO HS [facility] Last Admin: 10/16/17 21:43 Dose: 1 mg Saccharomyces Boulardii (Florastor) 250 mg PO BID [facility] Last Admin: 10/17/17 09:37 Dose: 250 mg Sertraline HCl (Zoloft) 50 mg PO DAILY [facility] Last Admin: 10/17/17 09:38 Dose: 50 mg Sitagliptin Phosphate (Januvia) 100 mg PO DAILY [facility] Last Admin: 10/17/17 09:37 Dose: 100 mg Spironolactone (Aldactone) 25 mg PO DAILY [facility] Last Admin: 10/17/17 09:36 Dose: 25 mg - Labs Labs: 10/17/17 04:20 10/17/17 04:20 PT 25.9 Seconds (9.8-13.1) H 10/17/17 04:20 INR 2.3 (0.9-1.2) H 10/17/17 04:20 APTT 28.0 Seconds (25.6-37.1) 10/15/17 15:39 - Constitutional Appears: Non-toxic, No Acute Distress - Head Exam Head Exam: NORMAL INSPECTION - Eye Exam Eye Exam: Normal appearance - ENT Exam ENT Exam: Mucous Membranes Moist - Respiratory Exam Respiratory Exam: Clear to Ausculation Bilateral, NORMAL BREATHING PATTERN - Cardiovascular Exam Cardiovascular Exam: REGULAR RHYTHM, +S1, +S2 - GI/Abdominal Exam GI & Abdominal Exam: Soft, Normal Bowel Sounds - Extremities Exam Extremities Exam: Pedal Edema (chronic). absent: Calf Tenderness - Back Exam Back Exam: NORMAL INSPECTION - Neurological Exam Neurological Exam: Alert, Awake - Psychiatric Exam Psychiatric exam: Normal Mood - Skin Skin Exam: Normal Color, Warm Assessment and Plan - Assessment and Plan (Free Text) Assessment: 77 yo M with hx SLE, HTN, DM2, CAD, pacemaker admitted for likely hospital acquired pneumonia. Clinically improving. Plan: # Hospital Aquired Pneumonia - Recent admission Aug 2017 - CXR Acute infiltrates- diffuse bilateral interstitial infiltrates - WBC trending down, 11.5 today; 15.4-->12.7--11.5 today; f/u CBC in am - Zosyn IVPB Q8; day 2 - Pulmonology consult- Dr. Cuadra - repeat CXR, also ordered legionella urine antigen, mycoplasma IgM, strep pneumoniae antigen - Repeat CXR pending - Procalcitonin pending - No SIRS criteria at the time of admission - CURB-65= 2(6.8 % 30 day mortality) - Cough and chills; influenza negative # CHF, chronic, mixed with valvulopathy - Last Echo 09/05/17 EF 25-30% with valvulopathy - Continue with home dose spirinolactone daily - Restart home med sofinopril 20 mg daily - formulary lisinopril equivalent - ProBNP - 2950 - Cardiology consulted Dr. Hidalgo - chronic elevated troponins, chronic # CKD - GFR 53, stage 3A - BUN 30, Cr 1.3 - CrCl 54 - repeat BMP in am # CAD - Chronic, hx of stents - Elevated troponins (chronic) - No acute changes on EKG - Cardiology consult, seen by Dr. Hidalgo, pt had cath last year which was good - Continue w/ Aspirin 81 mg daily # Type 2 DM - Chronic, controlled - HbA1c 6.7 on this admission; down from 6.9 in 12/2016 - Continue with home medications Januvia and glipizide - Accuchecks - Insulin coverage scale and hypoglycemia protocol # Hx of A.fib/Pacemaker - Chronic, stable - Home dose coumadin 2.5mg HS - INR this am 2.3 - INR ordered for tomorrow am # Chronic normocitic anemia - Iron studies: iron 11 (L), TIBC 303 (wnl), % saturation 4 (L), ferritin 26.5 ( wnl) - VIt b12 581 wnl, folate (pending) # Hx of SLE - Continue with home meds plaquenil and prednisone - ESR- elevated at 23 # Prophylactic measures - DVT: pt on coumadin - Florastor <Awa,Prem A - Last Filed: 10/19/17 06:57> Objective - Vital Signs/Intake and Output Vital Signs (last 24 hours): Temp Pulse Resp BP Pulse Ox 97.2 F L 61 20 122/63 99 10/18/17 17:00 10/18/17 17:00 10/18/17 17:00 10/18/17 17:00 10/18/17 17:00 - Labs Labs: 10/18/17 04:25 10/18/17 04:25 PT 21.9 Seconds (9.8-13.1) H 10/18/17 04:25 INR 2.0 (0.9-1.2) H 10/18/17 04:25 APTT 28.0 Seconds (25.6-37.1) 10/15/17 15:39 Attending/Attestation - Attestation I have personally seen and examined this patient.: Yes I have fully participated in the care of the patient.: Yes I have reviewed all pertinent clinical information, including history, physical exam and plan: Yes
--- NOTE | 2017-10-17 14:11 | PQF GENQUE ---
Dr. Billings, 1. Please specify type of pneumonia or possible type of pneumonia in the progress notes: (Note: CAP, HAP, and HCAP indicate where the pneumonia was acquired, not a specific type.) i.e. Aspiration pneumonia Please document specific aspirate (food, liquids, etc.) Please indicate if this is postprocedural Bacterial (specify organism) Bronchopneumonia (specify organism) Interstitual pneumonia Organizing pneumonia/BOOP Pneumonia with influenza, mayra flu, or H1N1 flu RSV pneumonia Tuberculosis, pulmonary Viral pneumonia Other pneumonia (specify organism or type) Clinically unable to determine Unknown 2. . Please specify the organism causing the pneumonia: if known after he work up is completed 10/17 Resident progress note: Hospital Aquired Pneumonia - Recent admission Aug 2017 - CXR Acute infiltrates- diffuse bilateral interstitial infiltrates - WBC trending down, 11.5 today; 15.4-->12.7--11.5 today - Zosyn IVPB Q8; day 2 - Pulmonology consult- Dr. Cuadra - Procalcitonin pending - No SIRS criteria at the time of admission - CURB-65= 2(6.8 % 30 day mortality ) - Cough and chills; influenza negative This form is a permanent part of the medical record Clarification of your documentation is requested to better reflect the severity of illness and intensity of treatment of your patient. Indicators present [] Specify: [] [] Specify: [] [] Specify: [] [] Specify: [] Location in the medical record that reflects the above clinical findings: [] Treatment Provided: [] PHYSICIAN'S RESPONSE Based on your medical judgment of the clinical indicators outlined above please clarify the following: [] Practitioner response [] If unable to determine, please check the box, sign and date. Present On Admission (POA) Indicator: [] Present at the time of admission [] Not present at the time of admission [] Clinically Undetermined In responding to this query, please exercise your independent professional judgment. The fact that a question is asked does not imply that any particular answer is desired or expected. Thank you for your clarification on this documentation. If you have any questions please call. * Thank you, Laura Dos Santos RN ext. #[phone] MTDD
--- NOTE | 2017-10-17 14:52 | PQF GENQUE ---
Dr. Billings, 2 queries: 1. Please provide a nutritional diagnosis, if known, related to the information below: The following clinical indicators are present in the medical record: BMI:BMI: 59.9 Obesity III>40 (A) listed in RD consult: Nutrition Education ; Will monitor PO intake, weight status, all pertinent labs, skin 2. If in agreement please include the BMI in your progress note This form is a permanent part of the medical record Clarification of your documentation is requested to better reflect the severity of illness and intensity of treatment of your patient. Indicators present [] Specify: [] [] Specify: [] [] Specify: [] [] Specify: [] Location in the medical record that reflects the above clinical findings: [] Treatment Provided: [] PHYSICIAN'S RESPONSE Based on your medical judgment of the clinical indicators outlined above please clarify the following: [] Practitioner response [] If unable to determine, please check the box, sign and date. Present On Admission (POA) Indicator: [] Present at the time of admission [] Not present at the time of admission [] Clinically Undetermined In responding to this query, please exercise your independent professional judgment. The fact that a question is asked does not imply that any particular answer is desired or expected. Thank you for your clarification on this documentation. If you have any questions please call. * Thank you, Laura Dos Santos RN ext. #[phone] MTDD
--- NOTE | 2017-10-17 15:25 | RAD ---
HISTORY: Repeat chest x-ray common pneumonia. COMPARISON: 10/15/2017 TECHNIQUE: Chest PA and lateral FINDINGS: LUNGS: Interval improvement in infiltrates/pulmonary vascular congestion. PLEURA: No significant pleural effusion identified. No pneumothorax apparent. CARDIOVASCULAR: Cardiomegaly. No evidence of acute, significant cardiovascular disease. Satisfactory and stable position of pacemaker device. . OSSEOUS STRUCTURES: No significant abnormalities. VISUALIZED UPPER ABDOMEN: Normal. OTHER FINDINGS: None. IMPRESSION: No active disease. Resolved infiltrates/pulmonary vascular congestion.
[2017-10-17 17:41] LABS: FOLATE > 20.0 ng/mL
[2017-10-17] MEDS: Calcium-Vit D 500 mg-200 Units Tab UD PO SCH (21:16)
[2017-10-18] MEDS: Piperacillin/Tazobact 3.375 GM in Sodium Chloride 0.9% 100 ML IVPB SCH ×2 (00:23→08:56)
[2017-10-18 05:58] LABS: BASO % 0.3 % (0.0-2.0); EOS # 0.1 K/uL (0.0-0.7); EOS % 1.2 % (0.0-4.0); HEMOGLOBIN 10.1 g/dL (12.0-18.0); LYMPH # 1.3 K/uL (1.0-4.3); LYMPH % 12.6 % (20.0-40.0); MEAN CELL VOLUME 85.2 fl (80.0-94.0); MEAN CORPUSCULAR HEMOGLOBIN 28.3 pg (27.0-31.0); MEAN CORPUSCULAR HGB CONC 33.2 g/dL (33.0-37.0); MEAN PLATELET VOLUME 8.5 fl (7.2-11.7); MONO # 0.8 K/uL (0.0-0.8); MONO % 7.7 % (0.0-10.0); NEUT # 8.1 K/uL (1.8-7.0); NEUT % 78.2 % (50.0-75.0); RBC 3.58 Mil/uL (4.40-5.90); RED CELL DISTRIBUTION WIDTH 14.6 % (11.5-14.5); WHITE BLOOD COUNT 10.4 K/uL (4.8-10.8)
[2017-10-18 06:01] LABS: CALCIUM 8.5 mg/dL (8.4-10.2)
[2017-10-18 06:19] LABS: PROTHROMBIN TIME 21.9 Seconds (9.8-13.1)
[2017-10-18] MEDS: Insulin Regular 100 units/ml SC SCH ×3 (06:41→16:38)
--- NOTE | 2017-10-18 07:38 | CP.PCM.PN ---
Addendum entered and electronically signed by Gala Patrick MD 10/19/17 16:23 : HCAP- likely bacterial Obesity (III) BMI > 40. Pt's BMI is 41.6. Height entered at [address] consult , pt is 6 ft. Original Note: <Gala Patrick - Last Filed: 10/18/17 12:12> Subjective - Date & Time of Evaluation Date of Evaluation: 10/18/17 Time of Evaluation: 07:30 - Subjective Subjective: Pt seen and evaluated this morning; no acute events overnight. Reports breathing better, no complaints. Objective - Vital Signs/Intake and Output Vital Signs (last 24 hours): Temp Pulse Resp BP Pulse Ox 98.5 F 59 L 16 116/66 96 10/18/17 05:33 10/18/17 05:33 10/18/17 05:33 10/18/17 05:33 10/18/17 05:33 - Medications Medications: Current Medications Aspirin (Ecotrin) 81 mg PO DAILY [facility] Last Admin: 10/17/17 09:37 Dose: 81 mg Atorvastatin Calcium (Lipitor) 20 mg PO HS [facility] Last Admin: 10/17/17 21:16 Dose: 20 mg Calcium/Vitamin D (Oyster Shell Calcium/Vitamin D 500 Mg-200 Iu) 1 tab PO HS [facility] Last Admin: 10/17/17 21:16 Dose: 1 tab Dextrose (Dextrose 50% Inj) 0 ml IV STAT PRN; Protocol PRN Reason: Hypoglycemia Protocol Dextrose (Glutose 15) 0 gm PO ONCE PRN; Protocol PRN Reason: Hypoglycemia Protocol Docusate Sodium (Colace) 100 mg PO BID PRN PRN Reason: Constipation Last Admin: 10/16/17 12:18 Dose: 100 mg Ferrous Sulfate (Feosol) 325 mg PO BID [facility] Last Admin: 10/17/17 16:05 Dose: 325 mg Glucagon (Glucagen Diagnostic Kit) 0 mg IM STAT PRN; Protocol PRN Reason: Hypoglycemia Protocol Glyburide (Micronase) 2.5 mg PO DAILY [facility] Last Admin: 10/17/17 09:37 Dose: 2.5 mg Hydroxychloroquine Sulfate (Plaquenil) 200 mg PO BID [facility] PRN Reason: Protocol Last Admin: 10/17/17 16:06 Dose: 200 mg Piperacillin Sod/Tazobactam (Sod 3.375 gm/ Sodium Chloride) 100 mls @ 100 mls/ hr IVPB Q8 [facility] PRN Reason: Protocol Last Admin: 10/18/17 00:23 Dose: 100 mls/hr Insulin Human Regular (Humulin R) 0 units SC ACHS [facility] PRN Reason: Protocol Last Admin: 10/18/17 06:41 Dose: Not Given Lisinopril (Zestril) 20 mg PO DAILY [facility] Last Admin: 10/17/17 09:38 Dose: 20 mg Nitroglycerin (Nitrostat Sl Tab) 0.4 mg SL Q5M PRN PRN Reason: chest pain Pantoprazole Sodium (Protonix Ec Tab) 40 mg PO DAILY [facility] Last Admin: 10/17/17 09:38 Dose: 40 mg Prednisone (Prednisone Tab) 10 mg PO DAILY [facility] Last Admin: 10/17/17 09:38 Dose: 10 mg Risperidone (Risperdal Tab) 1 mg PO HS [facility] Last Admin: 10/17/17 21:16 Dose: 1 mg Saccharomyces Boulardii (Florastor) 250 mg PO BID [facility] Last Admin: 10/17/17 16:05 Dose: 250 mg Sertraline HCl (Zoloft) 50 mg PO DAILY [facility] Last Admin: 10/17/17 09:38 Dose: 50 mg Sitagliptin Phosphate (Januvia) 100 mg PO DAILY [facility] Last Admin: 10/17/17 09:37 Dose: 100 mg Spironolactone (Aldactone) 25 mg PO DAILY [facility] Last Admin: 10/17/17 09:36 Dose: 25 mg - Labs Labs: 10/18/17 04:25 10/18/17 04:25 PT 21.9 Seconds (9.8-13.1) H 10/18/17 04:25 INR 2.0 (0.9-1.2) H 10/18/17 04:25 APTT 28.0 Seconds (25.6-37.1) 10/15/17 15:39 - Constitutional Appears: Non-toxic, No Acute Distress - Head Exam Head Exam: NORMAL INSPECTION - Eye Exam Eye Exam: Normal appearance - ENT Exam ENT Exam: Mucous Membranes Moist - Respiratory Exam Respiratory Exam: Clear to Ausculation Bilateral, NORMAL BREATHING PATTERN. absent: Respiratory Distress - Cardiovascular Exam Cardiovascular Exam: REGULAR RHYTHM, +S1, +S2 - GI/Abdominal Exam GI & Abdominal Exam: Soft, Normal Bowel Sounds - Extremities Exam Additional comments: chronic edema - Neurological Exam Neurological Exam: Alert, Awake - Skin Skin Exam: Dry, Intact, Warm Assessment and Plan - Assessment and Plan (Free Text) Assessment: 77 yo M with hx SLE, HTN, DM2, CAD, pacemaker admitted for possible hospital acquired pneumonia. Clinically improving. Plan: # Hospital Aquired Pneumonia - Recent admission Aug 2017 - CXR Acute infiltrates- diffuse bilateral interstitial infiltrates - Repeat CXR - interval improvement in infiltrates/pulmonary congestion - WBC trending down, leukocytosis resolved. 10.4 today. 15.4-->12.7-->11.5--> 10.4, f/u CBC in am - Zosyn IVPB Q8; day 3 - Pulmonology consult- Dr. Cuadra- legionella urine antigen NEG. Mycoplasma IgM, strep pneumoniae antigen pending; continue abx - Procalcitonin 0.24 - No SIRS criteria at the time of admission - CURB-65= 2(6.8 % 30 day mortality) - Cough and chills; influenza negative # CHF, chronic, mixed with valvulopathy - Last Echo 09/05/17 EF 25-30% with valvulopathy - Continue with home dose spirinolactone daily - Restart home med sofinopril 20 mg daily - formulary lisinopril equivalent - ProBNP - 2950 - Cardiology consulted Dr. Hidalgo - chronic elevated troponins, stable # CKD - GFR 45, stage 3 - BUN 29, Cr 1.5 - monitor on BMP in am # CAD - Chronic, hx of stents - Elevated troponins (chronic) - No acute changes on EKG - Cardiology consult, seen by Dr. Hidalgo, pt had cath last year which was good - Continue w/ Aspirin 81 mg daily # Type 2 DM - Chronic, controlled - HbA1c 6.7 on this admission; down from 6.9 in 12/2016 - Continue with home medications Januvia - Hold glipizide - Accuchecks - Insulin coverage scale and hypoglycemia protocol # Hx of A.fib/Pacemaker - Chronic, stable - Home dose coumadin 2.5mg HS - INR this am 2.3 - INR ordered for tomorrow am # Chronic normocitic anemia - Iron studies: iron 11 (L), TIBC 303 (wnl), % saturation 4 (L), ferritin 26.5 ( wnl) - VIt b12 581 wnl, folate (pending) # Hx of SLE - Continue with home meds plaquenil and prednisone - ESR- elevated at 23 # Prophylactic measures - DVT: pt on coumadin - Florastor <Prasanth Nye - Last Filed: 10/20/17 06:52> Objective - Vital Signs/Intake and Output Vital Signs (last 24 hours): Temp Pulse Resp BP Pulse Ox 97.2 F L 61 20 122/63 99 10/18/17 17:00 10/18/17 17:00 10/18/17 17:00 10/18/17 17:00 10/18/17 17:00 - Labs Labs: 10/18/17 04:25 10/18/17 04:25 PT 21.9 Seconds (9.8-13.1) H 10/18/17 04:25 INR 2.0 (0.9-1.2) H 10/18/17 04:25 APTT 28.0 Seconds (25.6-37.1) 10/15/17 15:39 Attending/Attestation - Attestation I have personally seen and examined this patient.: Yes I have fully participated in the care of the patient.: Yes I have reviewed all pertinent clinical information, including history, physical exam and plan: Yes
[2017-10-18] MEDS: Saccharomyces Boulardi 250 mg Cap PO SCH ×2 (08:53→16:36)
[2017-10-18] MEDS: Pantoprazole 40 mg EC Tab PO SCH (08:55)
--- NOTE | 2017-10-18 10:53 | CP.PCM.PN ---
Subjective - Date & Time of Evaluation Date of Evaluation: 10/18/17 Time of Evaluation: 10:48 - Subjective Subjective: The patient is resting comfortably in bed at this time. He is using nasal oxygen at 2 L/m with SPO2 between 95 and 100%. He remains afebrile. Lab data showed resolution of the leukocytosis and a stable hemoglobin at 10.1. INR remained stable at 2.0. A.m. chemistries are normal with exception of BUN and creatinine, 29/1.5 respectively. Chest x-ray performed yesterday afternoon shows significant improvement in the infiltrates/pulmonary vascular congestion. No evidence of pleural effusion. Telemetry shows 100% paced rhythm. Significantly improved respiratory status. Pneumonic infiltrates are significantly improved. Considering the possibility of HCAP, he will require somewhat longer antibiotic therapy. He may be transferred to a regular medical floor from a respiratory standpoint. Objective - Vital Signs/Intake and Output Vital Signs (last 24 hours): Temp Pulse Resp BP Pulse Ox 98.4 F 60 18 98/58 L 95 10/18/17 07:55 10/18/17 08:55 10/18/17 07:55 10/18/17 08:55 10/18/17 07:55 - Medications Medications: Current Medications Aspirin (Ecotrin) 81 mg PO DAILY [facility] Last Admin: 10/18/17 08:53 Dose: 81 mg Atorvastatin Calcium (Lipitor) 20 mg PO HS [facility] Last Admin: 10/17/17 21:16 Dose: 20 mg Calcium/Vitamin D (Oyster Shell Calcium/Vitamin D 500 Mg-200 Iu) 1 tab PO HS [facility] Last Admin: 10/17/17 21:16 Dose: 1 tab Dextrose (Dextrose 50% Inj) 0 ml IV STAT PRN; Protocol PRN Reason: Hypoglycemia Protocol Dextrose (Glutose 15) 0 gm PO ONCE PRN; Protocol PRN Reason: Hypoglycemia Protocol Docusate Sodium (Colace) 100 mg PO BID PRN PRN Reason: Constipation Last Admin: 10/16/17 12:18 Dose: 100 mg Ferrous Sulfate (Feosol) 325 mg PO BID [facility] Last Admin: 10/18/17 08:54 Dose: 325 mg Glucagon (Glucagen Diagnostic Kit) 0 mg IM STAT PRN; Protocol PRN Reason: Hypoglycemia Protocol Glyburide (Micronase) 2.5 mg PO DAILY [facility] Last Admin: 10/17/17 09:37 Dose: 2.5 mg Hydroxychloroquine Sulfate (Plaquenil) 200 mg PO BID [facility] PRN Reason: Protocol Last Admin: 10/18/17 08:53 Dose: 200 mg Piperacillin Sod/Tazobactam (Sod 3.375 gm/ Sodium Chloride) 100 mls @ 100 mls/ hr IVPB Q8 [facility] PRN Reason: Protocol Last Admin: 10/18/17 08:56 Dose: 100 mls/hr Insulin Human Regular (Humulin R) 0 units SC ACHS [facility] PRN Reason: Protocol Last Admin: 10/18/17 06:41 Dose: Not Given Lisinopril (Zestril) 20 mg PO DAILY [facility] Last Admin: 10/18/17 08:55 Dose: Not Given Nitroglycerin (Nitrostat Sl Tab) 0.4 mg SL Q5M PRN PRN Reason: chest pain Pantoprazole Sodium (Protonix Ec Tab) 40 mg PO DAILY [facility] Last Admin: 10/18/17 08:55 Dose: 40 mg Prednisone (Prednisone Tab) 10 mg PO DAILY [facility] Last Admin: 10/18/17 08:54 Dose: 10 mg Risperidone (Risperdal Tab) 1 mg PO HS [facility] Last Admin: 10/17/17 21:16 Dose: 1 mg Saccharomyces Boulardii (Florastor) 250 mg PO BID [facility] Last Admin: 10/18/17 08:53 Dose: 250 mg Sertraline HCl (Zoloft) 50 mg PO DAILY [facility] Last Admin: 10/18/17 08:55 Dose: 50 mg Sitagliptin Phosphate (Januvia) 100 mg PO DAILY [facility] Last Admin: 10/18/17 08:53 Dose: 100 mg Spironolactone (Aldactone) 25 mg PO DAILY [facility] Last Admin: 10/18/17 08:57 Dose: Not Given - Labs Labs: 10/18/17 04:25 10/18/17 04:25 PT 21.9 Seconds (9.8-13.1) H 10/18/17 04:25 INR 2.0 (0.9-1.2) H 10/18/17 04:25 APTT 28.0 Seconds (25.6-37.1) 10/15/17 15:39 Assessment and Plan (1) CAP (community acquired pneumonia) Status: Acute (2) Pacemaker Status: Chronic (3) Deep vein thrombosis (DVT) Status: Chronic (4) A-fib Status: Chronic (5) Lupus Status: Chronic
--- NOTE | 2017-10-18 10:57 | CP.PCM.PN ---
Subjective - Date & Time of Evaluation Date of Evaluation: 10/18/17 Time of Evaluation: 10:30 - Subjective Subjective: NO CHEST PAIN BREATHING MUCH BETTER Objective - Vital Signs/Intake and Output Vital Signs (last 24 hours): Temp Pulse Resp BP Pulse Ox 98.4 F 60 18 98/58 L 95 10/18/17 07:55 10/18/17 08:55 10/18/17 07:55 10/18/17 08:55 10/18/17 07:55 - Medications Medications: Current Medications Aspirin (Ecotrin) 81 mg PO DAILY [facility] Last Admin: 10/18/17 08:53 Dose: 81 mg Atorvastatin Calcium (Lipitor) 20 mg PO HS [facility] Last Admin: 10/17/17 21:16 Dose: 20 mg Calcium/Vitamin D (Oyster Shell Calcium/Vitamin D 500 Mg-200 Iu) 1 tab PO HS [facility] Last Admin: 10/17/17 21:16 Dose: 1 tab Dextrose (Dextrose 50% Inj) 0 ml IV STAT PRN; Protocol PRN Reason: Hypoglycemia Protocol Dextrose (Glutose 15) 0 gm PO ONCE PRN; Protocol PRN Reason: Hypoglycemia Protocol Docusate Sodium (Colace) 100 mg PO BID PRN PRN Reason: Constipation Last Admin: 10/16/17 12:18 Dose: 100 mg Ferrous Sulfate (Feosol) 325 mg PO BID [facility] Last Admin: 10/18/17 08:54 Dose: 325 mg Glucagon (Glucagen Diagnostic Kit) 0 mg IM STAT PRN; Protocol PRN Reason: Hypoglycemia Protocol Glyburide (Micronase) 2.5 mg PO DAILY [facility] Last Admin: 10/17/17 09:37 Dose: 2.5 mg Hydroxychloroquine Sulfate (Plaquenil) 200 mg PO BID [facility] PRN Reason: Protocol Last Admin: 10/18/17 08:53 Dose: 200 mg Piperacillin Sod/Tazobactam (Sod 3.375 gm/ Sodium Chloride) 100 mls @ 100 mls/ hr IVPB Q8 [facility] PRN Reason: Protocol Last Admin: 10/18/17 08:56 Dose: 100 mls/hr Insulin Human Regular (Humulin R) 0 units SC ACHS [facility] PRN Reason: Protocol Last Admin: 10/18/17 06:41 Dose: Not Given Lisinopril (Zestril) 20 mg PO DAILY [facility] Last Admin: 10/18/17 08:55 Dose: Not Given Nitroglycerin (Nitrostat Sl Tab) 0.4 mg SL Q5M PRN PRN Reason: chest pain Pantoprazole Sodium (Protonix Ec Tab) 40 mg PO DAILY [facility] Last Admin: 10/18/17 08:55 Dose: 40 mg Prednisone (Prednisone Tab) 10 mg PO DAILY [facility] Last Admin: 10/18/17 08:54 Dose: 10 mg Risperidone (Risperdal Tab) 1 mg PO HS [facility] Last Admin: 10/17/17 21:16 Dose: 1 mg Saccharomyces Boulardii (Florastor) 250 mg PO BID [facility] Last Admin: 10/18/17 08:53 Dose: 250 mg Sertraline HCl (Zoloft) 50 mg PO DAILY [facility] Last Admin: 10/18/17 08:55 Dose: 50 mg Sitagliptin Phosphate (Januvia) 100 mg PO DAILY [facility] Last Admin: 10/18/17 08:53 Dose: 100 mg Spironolactone (Aldactone) 25 mg PO DAILY [facility] Last Admin: 10/18/17 08:57 Dose: Not Given - Labs Labs: 10/18/17 04:25 10/18/17 04:25 PT 21.9 Seconds (9.8-13.1) H 10/18/17 04:25 INR 2.0 (0.9-1.2) H 10/18/17 04:25 APTT 28.0 Seconds (25.6-37.1) 10/15/17 15:39 - Respiratory Exam Additional comments: CLEARER BILAT - Cardiovascular Exam Cardiovascular Exam: REGULAR RHYTHM, +S1, +S2 Assessment and Plan - Assessment and Plan (Free Text) Assessment: PNEUMONIA-IMPROVING CAD-STABLE SSS WITH ATRIAL FIBRILLATION HISTORY AND PACEMAKER HYPERTENSION LUPUS NEPHRITIS Plan: CONTINUE O2, ANTIBIOTICS, ASPIRIN, WARFAIN PER INR, LISINOPRIL, SPIRONOLACTONE AND ATORVASTATIN PATIENT CAN BE TRANSFERRED TO A REGULAR FLOOR
[2017-10-18 11:48] VITALS: PULSE 61; O2SAT 99
[2017-10-18 15:52] VITALS: BP 122/63; RESP 20; TEMP 97.2
[2017-10-18] MEDS ORDERED: Piperacillin/Tazobact 3.375 GM in Sodium Chloride 0.9% 100 ML IVPB SCH (16:00)
--- NOTE | 2017-10-19 06:53 | CP.PCM.DIS ---
<Gala Patrick - Last Filed: 10/19/17 17:05> Provider - Provider Date of Admission: 10/15/17 16:41 Attending physician: Prem Billings MD Consults: Pulmonology- Cardiology- Dr. Hidalgo Time Spent in preparation of Discharge (in minutes): 45 Diagnosis - Discharge Diagnosis (1) HCAP (healthcare-associated pneumonia) Status: Acute Comment: Pt had recent admission to hospital in Aug 2017; receiving IV zosyn. Evaluated by cytopathologist Dr. Cuadra; will require longer antibiotic course. Ok to transfer from [facility]. (2) CHF (congestive heart failure) Status: Acute Comment: Possible that infiltrates due to CHF; on CL[place] and spirinolactone. (3) Atrial fibrillation Status: Acute Comment: Has pacemaker. On coumadin 2.5 mg daily. (4) Elevated troponin Status: Acute Comment: Evaluated by beauty culture teacher Dr. Hidalgo: elevated troponins are chronic and due to CKD. Hospital Course - Lab Results Lab Results: Micro Results 10/16/17 10:40 Urine,Random Urine Culture - Final 10-50,000 CFU/ML. MULTIPLE SPECIES. PROBABLE CONTAMINATION. 10/15/17 16:15 Blood Blood Culture - Preliminary NO GROWTH AFTER 3 DAYS 10/15/17 15:39 Blood Blood Culture - Preliminary NO GROWTH AFTER 3 DAYS Most Recent Lab Values WBC 10.4 K/uL (4.8-10.8) 10/18/17 04:25 RBC 3.58 Mil/uL (4.40-5.90) L 10/18/17 04:25 Hgb 10.1 g/dL (12.0-18.0) L 10/18/17 04:25 Hct 30.5 % (35.0-51.0) L 10/18/17 04:25 MCV 85.2 fl (80.0-94.0) 10/18/17 04:25 MCH 28.3 pg (27.0-31.0) 10/18/17 04:25 MCHC 33.2 g/dL (33.0-37.0) 10/18/17 04:25 RDW 14.6 % (11.5-14.5) H 10/18/17 04:25 Plt Count 179 K/uL (130-400) 10/18/17 04:25 MPV 8.5 fl (7.2-11.7) 10/18/17 04:25 Neut % (Auto) 78.2 % (50.0-75.0) H 10/18/17 04:25 Lymph % (Auto) 12.6 % (20.0-40.0) L 10/18/17 04:25 Elk % (Auto) 7.7 % (0.0-10.0) 10/18/17 04:25 Eos % (Auto) 1.2 % (0.0-4.0) 10/18/17 04:25 Baso % (Auto) 0.3 % (0.0-2.0) 10/18/17 04:25 Neut # (Auto) 8.1 K/uL (1.8-7.0) H 10/18/17 04:25 Lymph # (Auto) 1.3 K/uL (1.0-4.3) 10/18/17 04:25 Elk # (Auto) 0.8 K/uL (0.0-0.8) 10/18/17 04:25 Eos # (Auto) 0.1 K/uL (0.0-0.7) 10/18/17 04:25 Baso # (Auto) 0.0 K/uL (0.0-0.2) 10/18/17 04:25 Neutrophils % (Manual) 84 % (42-75) H 10/15/17 15:39 Band Neutrophils % 3 % (0-2) H 10/15/17 15:39 Lymphocytes % (Manual) 3 % (20-50) L 10/15/17 15:39 Monocytes % (Manual) 2 % (0-10) 10/15/17 15:39 Eosinophils % (Manual) 1 % (0-7) 10/15/17 15:39 Metamyelocytes % 4 % (0-0) H 10/15/17 15:39 Myelocytes % 3 % (0-0) H 10/15/17 15:39 Platelet Estimate Normal (NORMAL) 10/15/17 15:39 Hypochromasia (manual) Slight 10/15/17 15:39 Anisocytosis (manual) Slight 10/15/17 15:39 ESR 23 mm/hr (0-20) H 10/15/17 20:30 PT 21.9 Seconds (9.8-13.1) H 10/18/17 04:25 INR 2.0 (0.9-1.2) H 10/18/17 04:25 APTT 28.0 Seconds (25.6-37.1) 10/15/17 15:39 pO2 23 mm/Hg (30-55) L 10/15/17 15:22 VBG pH 7.32 (7.32-7.43) 10/15/17 15:22 VBG pCO2 47 mmHg (40-60) 10/15/17 15:22 VBG HCO3 22.0 mmol/L 10/15/17 15:22 VBG Total CO2 25.6 mmol/L (22-28) 10/15/17 15:22 VBG O2 Sat (Calc) 43.5 % (40-65) 10/15/17 15:22 VBG Base Excess -2.1 mmol/L (0.0-2.0) L 10/15/17 15:22 VBG Potassium 4.6 mmol/L (3.6-5.2) 10/15/17 15:22 Sodium 139.0 mmol/L (132-148) 10/15/17 15:22 Chloride 107.0 mmol/L (98-107) 10/15/17 15:22 Glucose 228 mg/dL (75-110) H 10/15/17 15:22 Lactate 3.1 mmol/L (0.7-2.1) H 10/15/17 15:22 FiO2 21.0 % 10/15/17 15:22 Sodium 143 mmol/l (132-148) 10/18/17 04:25 Potassium 3.9 MMOL/L (3.6-5.0) 10/18/17 04:25 Chloride 104 mmol/L (98-107) 10/18/17 04:25 Carbon Dioxide 27 mmol/L (22-30) 10/18/17 04:25 Anion Gap 16 (10-20) 10/18/17 04:25 BUN 29 mg/dl (9-20) H 10/18/17 04:25 Creatinine 1.5 mg/dl (0.8-1.5) 10/18/17 04:25 Est GFR ( Amer) 55 10/18/17 04:25 Est GFR (Non-Af Amer) 45 10/18/17 04:25 POC Glucose (mg/dL) 210 mg/dL (65-110) H 10/18/17 15:50 Random Glucose 69 mg/dL (75-110) L 10/18/17 04:25 Hemoglobin A1c 6.7 % (4.2-6.5) H 10/15/17 20:30 Calcium 8.5 mg/dL (8.4-10.2) 10/18/17 04:25 Phosphorus 5.0 mg/dl (2.5-4.5) H 10/15/17 20:30 Magnesium 1.5 MG/DL (1.6-2.3) L 10/15/17 20:30 Iron 11 ug/dL (49-181) L 10/15/17 20:30 TIBC 303 ug/dL (250-450) 10/15/17 20:30 % Saturation 4 % (20-55) L 10/15/17 20:30 Ferritin 26.5 ng/Ml (17.9-464) 10/15/17 20:30 Total Bilirubin 0.7 mg/dl (0.2-1.3) 10/17/17 04:20 AST 30 U/L (17-59) 10/17/17 04:20 ALT 39 U/L (21-72) 10/17/17 04:20 Alkaline Phosphatase 40 U/L (38-126) 10/17/17 04:20 Troponin I 0.2460 ng/mL (0.00-0.120) H* 10/16/17 07:00 NT-Pro-B Natriuret Pep 2950 pg/ml (0-900) H 10/15/17 20:30 Total Protein 6.0 G/DL (6.3-8.2) L 10/17/17 04:20 Albumin 3.0 g/dL (3.5-5.0) L 10/17/17 04:20 Globulin 3.0 gm/dL (2.2-3.9) 10/17/17 04:20 Albumin/Globulin Ratio 1.0 (1.0-2.1) 10/17/17 04:20 Vitamin B12 581 pg/mL (239-931) 10/15/17 20:30 Folate > 20.0 ng/mL 10/15/17 20:30 Procalcitonin 0.24 NG/ML (0.19-0.49) 10/15/17 20:30 TSH 3rd Generation 0.63 mIU/ML (0.46-4.68) 10/15/17 20:30 Venous Blood Potassium 4.6 mmol/L (3.6-5.2) 10/15/17 15:22 Urine Color Yellow (YELLOW) 10/16/17 10:40 Urine Clarity Clear (Clear) 10/16/17 10:40 Urine pH 5.0 (5.0-8.0) 10/16/17 10:40 Ur Specific Earle 1.011 (1.003-1.030) 10/16/17 10:40 Urine Protein Negative mg/dL (NEGATIVE) 10/16/17 10:40 Urine Glucose (UA) Neg mg/dL (Normal) 10/16/17 10:40 Urine Ketones Negative mg/dL (NEGATIVE) 10/16/17 10:40 Urine Blood Negative (NEGATIVE) 10/16/17 10:40 Urine Nitrate Negative (NEGATIVE) 10/16/17 10:40 Urine Bilirubin Negative (NEGATIVE) 10/16/17 10:40 Urine Urobilinogen 0.2-1.0 mg/dL (0.2-1.0) 10/16/17 10:40 Ur Leukocyte Esterase Neg [place]/uL (Negative) 10/16/17 10:40 Urine RBC (Auto) < 1 /hpf (0-3) 10/16/17 10:40 Urine Microscopic WBC < 1 /hpf (0-5) 10/16/17 10:40 Ur Squamous Epith Cells 1 /hpf (0-5) 10/16/17 10:40 Hyaline Casts 0-2 /hpf (0-2) 10/16/17 10:40 Influenza Typ A,B (EIA) Negative for flu a/b (NEGATIVE) 10/15/17 15:39 Ur L.pneumophila Ag Negative (NEGATIVE) 10/17/17 11:18 - Hospital Course Hospital Course: Pt with PMHx CAD, HTN, DM type 2, Pacemaker, Hyperlipidemia, Depression and Lupus erythematosus admitted to tele floor after presenting with chills and cough for 2 days. CXR showed diffuse infiltrates, and pt had elevated WBC; pneumonia was suspected and he was started on emperic IV antibiotics. On review of chart on admission, pt had recent admission in Aug 2017, so HCAP was suspected and pt was started on appropriate antibiotic for HCAP. WBC trended down appropriately and findings on CXR appeared to improve. Credit Underwriter Dr. Cuadra also consulted - because HCAP is possible, pt will require IV antibiotics , but also stated he is stable for transfer off tele floor. He had elevated troponins, which are chronic for him. Electrical Maintenance Mechanic Dr. Hidalgo consulted, and on the case; states troponins are chronic for this pt , and pt is stable to transfer off tele floor. Pt was seen and evaluated at bedside the am he was discharged; no acute findings. Pt was receiving his home medications, including coumadin 2.5 mg, and INR checked daily. Stable for transfer to TCU; pt transferred 10/18/17. Discharge Exam - Head Exam Head Exam: NORMAL INSPECTION - Eye Exam Eye Exam: EOMI, Normal appearance - ENT Exam ENT Exam: Mucous Membranes Moist - Respiratory Exam Respiratory Exam: Clear to PA & Lateral, NORMAL BREATHING PATTERN - Cardiovascular Exam Cardiovascular Exam: REGULAR RHYTHM, +S1, +S2 - GI/Abdominal Exam GI & Abdominal Exam: Normal Bowel Sounds, Soft. absent: Tenderness - Extremities Exam Extremities exam: normal capillary refill Additional comments: trace edema - Back Exam Back exam: NORMAL INSPECTION - Neurological Exam Neurological exam: Alert - Psychiatric Exam Psychiatric exam: Normal Mood - Skin Skin Exam: Dry, Warm Discharge Plan - Follow Up Plan Condition: STABLE Disposition: REHAB FACILITY/REHAB UNIT Instructions: Pneumonia, Adult (DC), Community-Acquired Pneumonia in Adults Additional Instructions: Follow up with PMD 1 week after TCU discharge. Referrals: Prem Billings MD [Staff Provider] - Jason Cuadra MD [Staff Provider] - Howard Hidalgo MD [Staff Provider] - <Prem Billings - Last Filed: 10/21/17 07:02> Provider - Provider Date of Admission: 10/15/17 16:41 Attending physician: Prem Billings MD Hospital Course - Lab Results Lab Results: Micro Results 10/15/17 16:15 Blood Blood Culture - Final NO GROWTH AFTER 5 DAYS 10/15/17 16:15 Blood Gram Stain - Final TEST NOT PERFORMED 10/15/17 15:39 Blood Blood Culture - Final NO GROWTH AFTER 5 DAYS 10/15/17 15:39 Blood Gram Stain - Final TEST NOT PERFORMED 10/16/17 10:40 Urine,Random Urine Culture - Final 10-50,000 CFU/ML. MULTIPLE SPECIES. PROBABLE CONTAMINATION. Most Recent Lab Values WBC 10.4 K/uL (4.8-10.8) 10/18/17 04:25 RBC 3.58 Mil/uL (4.40-5.90) L 10/18/17 04:25 Hgb 10.1 g/dL (12.0-18.0) L 10/18/17 04:25 Hct 30.5 % (35.0-51.0) L 10/18/17 04:25 MCV 85.2 fl (80.0-94.0) 10/18/17 04:25 MCH 28.3 pg (27.0-31.0) 10/18/17 04:25 MCHC 33.2 g/dL (33.0-37.0) 10/18/17 04:25 RDW 14.6 % (11.5-14.5) H 10/18/17 04:25 Plt Count 179 K/uL (130-400) 10/18/17 04:25 MPV 8.5 fl (7.2-11.7) 10/18/17 04:25 Neut % (Auto) 78.2 % (50.0-75.0) H 10/18/17 04:25 Lymph % (Auto) 12.6 % (20.0-40.0) L 10/18/17 04:25 Elk % (Auto) 7.7 % (0.0-10.0) 10/18/17 04:25 Eos % (Auto) 1.2 % (0.0-4.0) 10/18/17 04:25 Baso % (Auto) 0.3 % (0.0-2.0) 10/18/17 04:25 Neut # (Auto) 8.1 K/uL (1.8-7.0) H 10/18/17 04:25 Lymph # (Auto) 1.3 K/uL (1.0-4.3) 10/18/17 04:25 Elk # (Auto) 0.8 K/uL (0.0-0.8) 10/18/17 04:25 Eos # (Auto) 0.1 K/uL (0.0-0.7) 10/18/17 04:25 Baso # (Auto) 0.0 K/uL (0.0-0.2) 10/18/17 04:25 Neutrophils % (Manual) 84 % (42-75) H 10/15/17 15:39 Band Neutrophils % 3 % (0-2) H 10/15/17 15:39 Lymphocytes % (Manual) 3 % (20-50) L 10/15/17 15:39 Monocytes % (Manual) 2 % (0-10) 10/15/17 15:39 Eosinophils % (Manual) 1 % (0-7) 10/15/17 15:39 Metamyelocytes % 4 % (0-0) H 10/15/17 15:39 Myelocytes % 3 % (0-0) H 10/15/17 15:39 Platelet Estimate Normal (NORMAL) 10/15/17 15:39 Hypochromasia (manual) Slight 10/15/17 15:39 Anisocytosis (manual) Slight 10/15/17 15:39 ESR 23 mm/hr (0-20) H 10/15/17 20:30 PT 21.9 Seconds (9.8-13.1) H 10/18/17 04:25 INR 2.0 (0.9-1.2) H 10/18/17 04:25 APTT 28.0 Seconds (25.6-37.1) 10/15/17 15:39 pO2 23 mm/Hg (30-55) L 10/15/17 15:22 VBG pH 7.32 (7.32-7.43) 10/15/17 15:22 VBG pCO2 47 mmHg (40-60) 10/15/17 15:22 VBG HCO3 22.0 mmol/L 10/15/17 15:22 VBG Total CO2 25.6 mmol/L (22-28) 10/15/17 15:22 VBG O2 Sat (Calc) 43.5 % (40-65) 10/15/17 15:22 VBG Base Excess -2.1 mmol/L (0.0-2.0) L 10/15/17 15:22 VBG Potassium 4.6 mmol/L (3.6-5.2) 10/15/17 15:22 Sodium 139.0 mmol/L (132-148) 10/15/17 15:22 Chloride 107.0 mmol/L (98-107) 10/15/17 15:22 Glucose 228 mg/dL (75-110) H 10/15/17 15:22 Lactate 3.1 mmol/L (0.7-2.1) H 10/15/17 15:22 FiO2 21.0 % 10/15/17 15:22 Sodium 143 mmol/l (132-148) 10/18/17 04:25 Potassium 3.9 MMOL/L (3.6-5.0) 10/18/17 04:25 Chloride 104 mmol/L (98-107) 10/18/17 04:25 Carbon Dioxide 27 mmol/L (22-30) 10/18/17 04:25 Anion Gap 16 (10-20) 10/18/17 04:25 BUN 29 mg/dl (9-20) H 10/18/17 04:25 Creatinine 1.5 mg/dl (0.8-1.5) 10/18/17 04:25 Est GFR ( Amer) 55 10/18/17 04:25 Est GFR (Non-Af Amer) 45 10/18/17 04:25 POC Glucose (mg/dL) 210 mg/dL (65-110) H 10/18/17 15:50 Random Glucose 69 mg/dL (75-110) L 10/18/17 04:25 Hemoglobin A1c 6.7 % (4.2-6.5) H 10/15/17 20:30 Calcium 8.5 mg/dL (8.4-10.2) 10/18/17 04:25 Phosphorus 5.0 mg/dl (2.5-4.5) H 10/15/17 20:30 Magnesium 1.5 MG/DL (1.6-2.3) L 10/15/17 20:30 Iron 11 ug/dL (49-181) L 10/15/17 20:30 TIBC 303 ug/dL (250-450) 10/15/17 20:30 % Saturation 4 % (20-55) L 10/15/17 20:30 Ferritin 26.5 ng/Ml (17.9-464) 10/15/17 20:30 Total Bilirubin 0.7 mg/dl (0.2-1.3) 10/17/17 04:20 AST 30 U/L (17-59) 10/17/17 04:20 ALT 39 U/L (21-72) 10/17/17 04:20 Alkaline Phosphatase 40 U/L (38-126) 10/17/17 04:20 Troponin I 0.2460 ng/mL (0.00-0.120) H* 10/16/17 07:00 NT-Pro-B Natriuret Pep 2950 pg/ml (0-900) H 10/15/17 20:30 Total Protein 6.0 G/DL (6.3-8.2) L 10/17/17 04:20 Albumin 3.0 g/dL (3.5-5.0) L 10/17/17 04:20 Globulin 3.0 gm/dL (2.2-3.9) 10/17/17 04:20 Albumin/Globulin Ratio 1.0 (1.0-2.1) 10/17/17 04:20 Vitamin B12 581 pg/mL (239-931) 10/15/17 20:30 Folate > 20.0 ng/mL 10/15/17 20:30 Procalcitonin 0.24 NG/ML (0.19-0.49) 10/15/17 20:30 TSH 3rd Generation 0.63 mIU/ML (0.46-4.68) 10/15/17 20:30 Venous Blood Potassium 4.6 mmol/L (3.6-5.2) 10/15/17 15:22 Urine Color Yellow (YELLOW) 10/16/17 10:40 Urine Clarity Clear (Clear) 10/16/17 10:40 Urine pH 5.0 (5.0-8.0) 10/16/17 10:40 Ur Specific Earle 1.011 (1.003-1.030) 10/16/17 10:40 Urine Protein Negative mg/dL (NEGATIVE) 10/16/17 10:40 Urine Glucose (UA) Neg mg/dL (Normal) 10/16/17 10:40 Urine Ketones Negative mg/dL (NEGATIVE) 10/16/17 10:40 Urine Blood Negative (NEGATIVE) 10/16/17 10:40 Urine Nitrate Negative (NEGATIVE) 10/16/17 10:40 Urine Bilirubin Negative (NEGATIVE) 10/16/17 10:40 Urine Urobilinogen 0.2-1.0 mg/dL (0.2-1.0) 10/16/17 10:40 Ur Leukocyte Esterase Neg [place]/uL (Negative) 10/16/17 10:40 Urine RBC (Auto) < 1 /hpf (0-3) 10/16/17 10:40 Urine Microscopic WBC < 1 /hpf (0-5) 10/16/17 10:40 Ur Squamous Epith Cells 1 /hpf (0-5) 10/16/17 10:40 Hyaline Casts 0-2 /hpf (0-2) 10/16/17 10:40 Influenza Typ A,B (EIA) Negative for flu a/b (NEGATIVE) 10/15/17 15:39 Ur L.pneumophila Ag Negative (NEGATIVE) 10/17/17 11:18 Mycoplasma pneumon IgG 4.40 (<=0.90) H 10/17/17 10:18 Mycoplasma pneumon IgM 37 U/mL (<770) 10/17/17 10:18 Attending/Attestation - Attestation I have personally seen and examined this patient.: Yes I have fully participated in the care of the patient.: Yes I have reviewed all pertinent clinical information, including history, physical exam and plan: Yes
--- NOTE | 2017-10-20 07:37 | PQF GENQUE ---
Dr. Nye Please clarify the type and acuity of heart failure as an addendum to your D/ C Summary: 1. TYPE: Combined systolic and diastolic Heart failure with reduced ejection fraction and diastolic dysfunction Diastolic HFpEF Systolic HFrEF Left heart failure Right heart failure Right heart failure due to left heart failure High Output failure End stage heart failure Other (please specify) Clinically unable to determine Unknown 2. ACUITY: Acute Chronic Acute on chronic Other (please specify) Clinically unable to determine Unknown 10/15: ProBNP:2950 10/16 CXR: Impression: Diffuse bilateral interstitial infiltrates and effusions. 10/17 CXR: Impression: No active disease. Resolved infiltrates/pulmonary vascular H and P: -CHF, Chronic , mixed with valvulopathy NYHA class III AHA Stage C Last Echo 09/05/17 EF 25-30% with valvulopathy LE edema Lasix 20 mg IV once C/W Aldactone daily Consider adding daily Lasix, BB, ACEi F/U PRoBnp, Mg D/C Summary; CHF: Status; Acute; Comment: Possible that infiltrates due to CHF; on CLIFTON and spirinolactone. This form is a permanent part of the medical record Clarification of your documentation is requested to better reflect the severity of illness and intensity of treatment of your patient. Indicators present [] Specify: []inflitrate vs other on admission resolved with treatment in several days therefore not a infiltrate but congestion [] Specify: [] acute on chronic [] Specify: [] [] Specify: [] Location in the medical record that reflects the above clinical findings: [] xray on admission ? pneumonia was treated fpor chf and ?infiltrate and resolved quickly so therefore CHF Treatment Provided: [] see chart for treatment PHYSICIAN'S RESPONSE Based on your medical judgment of the clinical indicators outlined above please clarify the following: [] Practitioner response see above swee above [] If unable to determine, please check the box, sign and date. Present On Admission (POA) Indicator: [] Present at the time of admission POA [] Not present at the time of admission [] Clinically Undetermined In responding to this query, please exercise your independent professional judgment. The fact that a question is asked does not imply that any particular answer is desired or expected. Thank you for your clarification on this documentation. If you have any questions please call. * Thank you, Laura Dos Santos RN ext. #[phone] MTDD
== END 2017-10-18 17:40 | DRG 194 ==
LOC: H.ER 14:45 → H.ERHOLD 16:41 → H.TEL 18:22
PROVIDERS: ADMIT Family Medicine; ATTEND Family Medicine
DX: J15.9 Unspecified bacterial pneumonia (principal); I82.503 Chronic embolism and thrombosis of unspecified deep veins of lower extremity, bilateral; E11.22 Type 2 diabetes mellitus with diabetic chronic kidney disease; M32.14 Glomerular disease in systemic lupus erythematosus; I48.2 Chronic atrial fibrillation; K52.1 Toxic gastroenteritis and colitis; I13.0 Hypertensive heart and chronic kidney disease with heart failure and stage 1 through stage 4 chronic kidney disease, or unspecified chronic kidney disease; N18.3 Chronic kidney disease, stage 3 (moderate); I50.42 Chronic combined systolic (congestive) and diastolic (congestive) heart failure; Z68.41 Body mass index [BMI] 40.0-44.9, adult; Z79.01 Long term (current) use of anticoagulants; I25.10 Atherosclerotic heart disease of native coronary artery without angina pectoris; Z87.891 Personal history of nicotine dependence; E78.00 Pure hypercholesterolemia, unspecified; Z95.5 Presence of coronary angioplasty implant and graft; Z95.0 Presence of cardiac pacemaker; E78.5 Hyperlipidemia, unspecified; D64.9 Anemia, unspecified; Z88.5 Allergy status to narcotic agent; Y95 Nosocomial condition; F32.9 Major depressive disorder, single episode, unspecified; E66.9 Obesity, unspecified; T36.95XA Adverse effect of unspecified systemic antibiotic, initial encounter

== ENCOUNTER 2017-10-18 16:32 | Inpatient (IN) | payer OTHER ==
[2017-10-18] MEDS ORDERED: Glucagon Recombinant 1 mg Inj IM PRN (18:54)
[2017-10-18] MEDS ORDERED: Dextrose 50% SYRINGE Inj (50 ml) IV PRN (18:54)
[2017-10-18] MEDS: Calcium-Vit D 500 mg-200 Units Tab UD PO SCH (21:12)
[2017-10-18] MEDS: Piperacillin/Tazobact 3.375 GM in Sodium Chloride 0.9% 100 ML IVPB SCH (21:14)
[2017-10-18] MEDS: Insulin Lispro (humaLOG) 100 Units/ml Inj SC SCH (21:38)
[2017-10-19] MEDS: Piperacillin/Tazobact 3.375 GM in Sodium Chloride 0.9% 100 ML IVPB SCH ×4 (03:33→21:17)
[2017-10-19 06:42] LABS: PROTHROMBIN TIME 19.8 Seconds (9.8-13.1)
[2017-10-19 06:43] LABS: INR 1.8 (0.9-1.2)
--- NOTE | 2017-10-19 06:54 | CP.PCM.HP ---
<Gala Patrick - Last Filed: 10/19/17 20:45> History of Present Illness - History of Present Illness History of Present Illness: Pt with PMHx CAD, HTN, DM type 2, Pacemaker, Hyperlipidemia, Depression and SLE admitted to TCU after admission to telemetry floor. Pt was admitted to telemetry after he presented with cough and chills x2 days. CXR showed diffuse infiltrates, and pt had elevated WBC; pneumonia was suspected and he was started on emperic IV antibiotics. On review of chart on admission, pt had recent admission in Aug 2017, so HCAP was suspected and pt was started on appropriate antibiotic for HCAP. WBC trended down appropriately and findings on CXR appeared to improve. Surgical Tech Dr. Cuadra also consulted - because HCAP is possible, pt will require IV antibiotics. He had elevated troponins, which are chronic for him. Coordinator Hotels Dr. Hidalgo consulted, and on the case; states troponins are chronic for this pt, and pt is stable to transfer off tele floor. Overall he reports that he feels better; and is able to breathe better as well, still has occasional cough. PMD: Dr. Billings PMHx: CAD, HTN, DM2, pacemaker Surg hx: cardiac stent, pacemaker, appendectomy Social Hx: denies tobacco, etoh or drugs Allergies: morphine Present on Admission - Present on Admission Any Indicators Present on Admission: No Review of Systems - Review of Systems All systems: reviewed and no additional remarkable complaints except - Respiratory Respiratory: Cough Past Patient History - Infectious Disease Hx of Infectious Diseases: None - Past Medical History & Family History Past Medical History?: Yes - Past Social History Smoking Status: Never Smoked Alcohol: None Drugs: Denies - CARDIAC Hx Cardiac Disorders: Yes Hx Atrial Fibrillation: Yes Hx Congestive Heart Failure: Yes Hx Hypercholesterolemia: Yes Hx Hypertension: Yes Hx Pacemaker: Yes - PULMONARY Hx Respiratory Disorders: Yes Hx Pneumonia: Yes - NEUROLOGICAL Hx Neurological Disorder: No - HEENT Hx HEENT Problems: Yes Hx Epistaxis: Yes - RENAL Hx Chronic Kidney Disease: Yes - ENDOCRINE/METABOLIC Hx Endocrine Disorders: Yes Hx Diabetes Mellitus Type 2: Yes Hx Systemic Lupus Erythematosus: Yes - HEMATOLOGICAL/ONCOLOGICAL Hx Anemia: Yes - INTEGUMENTARY Hx Dermatological Problems: No - MUSCULOSKELETAL/RHEUMATOLOGICAL Hx Musculoskeletal Disorders: No - GASTROINTESTINAL Hx Gastrointestinal Disorders: No - GENITOURINARY/GYNECOLOGICAL Hx Genitourinary Disorders: No - PSYCHIATRIC Hx Substance Use: No - SURGICAL HISTORY Hx Surgeries: Yes Hx Appendectomy: Yes Hx Coronary Stent: Yes Hx Herniorrhaphy: Yes (ventral hernia repair) Other/Comment: pacemaker insertion - ANESTHESIA Hx Anesthesia: Yes Hx Anesthesia Reactions: No Hx Malignant Hyperthermia: No Meds Allergies/Adverse Reactions: Allergies Allergy/AdvReac Type Severity Reaction Status Date / Time morphine Allergy ANAPHYLAXIS Verified 10/18/17 17:24 Physical Exam - Constitutional Appears: Non-toxic - Head Exam Head Exam: NORMAL INSPECTION - Eye Exam Eye Exam: Normal appearance - ENT Exam ENT Exam: Mucous Membranes Moist - Respiratory Exam Respiratory Exam: Clear to Auscultation Bilateral, NORMAL BREATHING PATTERN - Cardiovascular Exam Cardiovascular Exam: REGULAR RHYTHM, +S1, +S2 - GI/Abdominal Exam GI & Abdominal Exam: Normal Bowel Sounds, Soft - Extremities Exam Extremities exam: Positive for: normal capillary refill, normal inspection, pedal edema (+1) - Back Exam Back exam: NORMAL INSPECTION - Neurological Exam Neurological exam: Alert - Psychiatric Exam Psychiatric exam: Normal Mood - Skin Skin Exam: Dry, Intact Results - Vital Signs Recent Vital Signs: Last Vital Signs Temp 98.1 F 10/18/17 20:56 Pulse 62 10/18/17 20:56 Resp 20 10/18/17 20:56 BP 124/64 10/18/17 20:56 Pulse Ox 93 L 10/18/17 20:56 - Labs Labs: Laboratory Results - last 24 hr 10/18/17 10/19/17 20:50 05:50 PT 19.8 H INR 1.8 H POC Glucose (mg/dL) 120 H Assessment & Plan - Assessment and Plan (Free Text) Assessment: 77 yo M with hx SLE, HTN, DM2, CAD, pacemaker admitted for possible hospital acquired pneumonia. Clinically improving Plan: # Hospital Aquired Pneumonia - Recent admission Aug 2017 - CXR Acute infiltrates- diffuse bilateral interstitial infiltrates - Repeat CXR - interval improvement in infiltrates/pulmonary congestion - WBC trending down, leukocytosis resolved. 10.4 yest. 15.4-->12.7-->11.5-->10.4 , - Zosyn IVPB Q6; day 4 - Pulmonology consult- Dr. Cuadra- legionella urine antigen NEG. Mycoplasma IgM neg, IgG pos; - Procalcitonin 0.24 - No SIRS criteria at the time of admission - CURB-65= 2(6.8 % 30 day mortality) - Cough and chills; influenza negative # CHF, chronic, mixed with valvulopathy - Last Echo 09/05/17 EF 25-30% with valvulopathy - Continue with home dose spirinolactone daily - Restart home med sofinopril 20 mg daily - formulary lisinopril equivalent - ProBNP - 2950 - Cardiology consulted Dr. Hidalgo - chronic elevated troponins, stable # CKD - GFR 45, stage 3 - BUN 29, Cr 1.5 - monitor on BMP in am # CAD - Chronic, hx of stents - Elevated troponins (chronic) - No acute changes on EKG - Cardiology consult, seen by Dr. Hidalgo, pt had cath last year which was good - Continue w/ Aspirin 81 mg daily # Type 2 DM - Chronic, controlled - HbA1c 6.7 on this admission; down from 6.9 in 12/2016 - Continue with home medications Januvia - Hold glipizide - Accuchecks - Insulin coverage scale and hypoglycemia protocol # Hx of A.fib/Pacemaker - Chronic, stable - Home dose coumadin 2.5mg HS - INR this am 1.8 - INR ordered for tomorrow am # Chronic normocitic anemia - Iron studies: iron 11 (L), TIBC 303 (wnl), % saturation 4 (L), ferritin 26.5 ( wnl) - VIt b12 581 wnl, folate > 20 # Hx of SLE - Continue with home meds plaquenil and prednisone - ESR- elevated at 23 # Prophylactic measures - DVT: pt on coumadin - Florastor <Prem Billings A - Last Filed: 10/21/17 07:03> Results - Vital Signs Recent Vital Signs: Last Vital Signs Temp 97.0 F L 10/20/17 21:21 Pulse 61 10/20/17 21:21 Resp 20 10/20/17 21:21 BP 137/68 10/20/17 21:21 Pulse Ox 94 L 10/20/17 21:21 - Labs Labs: Laboratory Results - last 24 hr 10/20/17 10/20/17 10/20/17 05:55 11:01 16:17 PT 19.3 H INR 1.7 H POC Glucose (mg/dL) 135 H 179 H 10/20/17 10/21/17 20:42 05:58 PT INR POC Glucose (mg/dL) 173 H 128 H Attending/Attestation - Attestation I have personally seen and examined this patient.: Yes I have fully participated in the care of the patient.: Yes I have reviewed all pertinent clinical information: Yes
[2017-10-19] MEDS: Insulin Lispro (humaLOG) 100 Units/ml Inj SC SCH ×5 (07:02→21:22)
[2017-10-19] MEDS: Pantoprazole 40 mg EC Tab PO SCH (08:19)
[2017-10-19] MEDS: Multivitamin With Minerals Tab PO SCH (08:19)
[2017-10-19] MEDS: Magnesium Oxide 400 mg Tab UD PO PRN (08:21)
[2017-10-19] MEDS: Saccharomyces Boulardi 250 mg Cap PO SCH ×2 (08:22→17:17)
--- NOTE | 2017-10-19 10:55 | CP.PCM.CON ---
History of Present Illness - History of Present Illness History of Present Illness: THE PATIENT IS A 77 YEAR OLD MALE WHO WAS RECENTLY ADMITTED TO [facility] FOR PNEUMONIA AND WAS DISCHARGED TO TCU TO FINISH HIS IV ANTIBIOTIC REGIMEN AND FOR PHYSICAL THERAPY DUE TO DECONDITIONING. CARDIOLOGY WAS ASKED TO FOLLOW HIM. HE HAS A HISTORY OF CAD WITH PRIOR STENT INSERTIONS, SICK SINUS SYNDROME WITH AN ATRIAL FIBRILLATION HISTORY AND A PACEMAKER, HYPERTENSION, HYPERLIPIDEMIA, DM AND SLE WITH LUPUS NEHPRITIS AND CKD WITH ELEVATED TROPONINS. HE IS CHEST PAIN FREE AND IS BREATHING WELL AT THE PRESENT TIME. HE IS FOLLOWED AN OUT PATIENT BY CARDIOLOGISTS IN [facility]. Past Patient History - Infectious Disease Hx of Infectious Diseases: None - Past Medical History & Family History Past Medical History?: Yes - Past Social History Smoking Status: Never Smoked - CARDIAC Hx Atrial Fibrillation: Yes Hx Congestive Heart Failure: Yes Hx Hypercholesterolemia: Yes Hx Hypertension: Yes Hx Pacemaker: Yes - PULMONARY Hx Pneumonia: Yes - NEUROLOGICAL Hx Neurological Disorder: No - HEENT Hx Epistaxis: Yes - RENAL Hx Chronic Kidney Disease: No - ENDOCRINE/METABOLIC Hx Diabetes Mellitus Type 2: Yes Hx Systemic Lupus Erythematosus: Yes - HEMATOLOGICAL/ONCOLOGICAL Hx Human Immunodeficiency Virus (HIV): No Other/Comment: DVT both lower extremities - INTEGUMENTARY Hx Dermatological Problems: Yes - MUSCULOSKELETAL/RHEUMATOLOGICAL Hx Falls: No - GASTROINTESTINAL Hx Gastrointestinal Disorders: No - GENITOURINARY/GYNECOLOGICAL Hx Genitourinary Disorders: No - PSYCHIATRIC Hx Substance Use: No - SURGICAL HISTORY Hx Appendectomy: Yes Hx Coronary Stent: Yes Hx Herniorrhaphy: Yes (ventral hernia repair) Other/Comment: pacemaker insertion - ANESTHESIA Hx Anesthesia: Yes Hx Anesthesia Reactions: No Hx Malignant Hyperthermia: No Meds Allergies/Adverse Reactions: Allergies Allergy/AdvReac Type Severity Reaction Status Date / Time morphine Allergy ANAPHYLAXIS Verified 10/18/17 17:24 - Medications Medications: Current Medications Aspirin (Ecotrin) 81 mg PO DAILY [facility] Last Admin: 10/19/17 08:19 Dose: 81 mg Atorvastatin Calcium (Lipitor) 20 mg PO HS [facility] Last Admin: 10/18/17 21:12 Dose: 20 mg Calcium/Vitamin D (Oyster Shell Calcium/Vitamin D 500 Mg-200 Iu) 1 tab PO HS [facility] Last Admin: 10/18/17 21:12 Dose: 1 tab Dextrose (Dextrose 50% Inj) 0 ml IV STAT PRN; Protocol PRN Reason: Hypoglycemia Protocol Dextrose (Glutose 15) 0 gm PO ONCE PRN; Protocol PRN Reason: Hypoglycemia Protocol Docusate Sodium (Colace) 100 mg PO BID PRN PRN Reason: Constipation Ferrous Sulfate (Feosol) 325 mg PO BID [facility] Last Admin: 10/19/17 08:21 Dose: 325 mg Gabapentin (Neurontin) 300 mg PO TID [facility] Last Admin: 10/19/17 08:19 Dose: 300 mg Glucagon (Glucagen Diagnostic Kit) 0 mg IM STAT PRN; Protocol PRN Reason: Hypoglycemia Protocol Hydroxychloroquine Sulfate (Plaquenil) 200 mg PO BID [facility] PRN Reason: Protocol Last Admin: 10/19/17 08:20 Dose: 200 mg Piperacillin Sod/Tazobactam (Sod 3.375 gm/ Sodium Chloride) 100 mls @ 100 mls/ hr IVPB Q6H [facility] PRN Reason: Protocol Last Admin: 10/19/17 08:27 Dose: 100 mls/hr Insulin Human Lispro (Humalog) 0 units SC ACHS [facility] PRN Reason: Protocol Last Admin: 10/19/17 07:02 Dose: Not Given Magnesium Oxide (Mag-Ox) 400 mg PO DAILY PRN PRN Reason: Other Last Admin: 10/19/17 08:21 Dose: 400 mg Multivitamins/Minerals (Therapeutic-M Tab) 1 tab PO DAILY [facility] Last Admin: 10/19/17 08:19 Dose: 1 tab Nitroglycerin (Nitrostat Sl Tab) 0.4 mg SL DAILY PRN PRN Reason: chest pain Pantoprazole Sodium (Protonix Ec Tab) 40 mg PO DAILY [facility] Last Admin: 10/19/17 08:19 Dose: 40 mg Prednisone (Prednisone Tab) 10 mg PO DAILY [facility] Last Admin: 10/19/17 08:21 Dose: 10 mg Risperidone (Risperdal Tab) 1 mg PO HS [facility] Last Admin: 10/18/17 21:12 Dose: 1 mg Saccharomyces Boulardii (Florastor) 250 mg PO BID [facility] Last Admin: 10/19/17 08:22 Dose: 250 mg Sertraline HCl (Zoloft) 50 mg PO DAILY [facility] Last Admin: 10/19/17 08:21 Dose: 50 mg Sitagliptin Phosphate (Januvia) 100 mg PO DAILY [facility] Last Admin: 10/19/17 08:21 Dose: 100 mg Spironolactone (Aldactone) 25 mg PO DAILY [facility] Last Admin: 10/19/17 08:20 Dose: 25 mg Warfarin Sodium (Coumadin) 2.5 mg PO HS [facility] PRN Reason: Protocol Stop: 10/19/17 17:01 Physical Exam - Respiratory Exam Respiratory Exam: Clear to Auscultation Bilateral - Cardiovascular Exam Cardiovascular Exam: REGULAR RHYTHM, +S1, +S2 Results - Vital Signs Recent Vital Signs: Last Vital Signs Temp 97.2 F L 10/19/17 09:25 Pulse 67 10/19/17 09:25 Resp 20 10/19/17 09:25 BP 145/69 10/19/17 09:25 Pulse Ox 90 L 10/19/17 09:25 - Labs Labs: Laboratory Results - last 24 hr 10/18/17 10/19/17 10/19/17 20:50 05:50 07:00 PT 19.8 H INR 1.8 H POC Glucose (mg/dL) 120 H 89 Assessment & Plan - Assessment and Plan (Free Text) Assessment: CAD-STABLE SSS WITH ATRIAL FIBRILLATION HISTORY AND PACEMAKER HYPERTENSION CKD HYPERLIPIDEMIA DM Plan: CONTINUE ALDACTONE, WARFARIN, ASPIRIN, ATORVASTATIN, JANUVIA AND ANTIBIOTICS CONTINUE SUBACUTE REHAB
[2017-10-19 15:35] VITALS: BMI 32.5
[2017-10-19] MEDS: Calcium-Vit D 500 mg-200 Units Tab UD PO SCH (21:16)
[2017-10-20] MEDS: Piperacillin/Tazobact 3.375 GM in Sodium Chloride 0.9% 100 ML IVPB SCH ×4 (02:01→20:23)
[2017-10-20] MEDS: Insulin Lispro (humaLOG) 100 Units/ml Inj SC SCH ×4 (06:30→21:36)
--- NOTE | 2017-10-20 06:35 | CP.PCM.PN ---
<Gala Patrick - Last Filed: 10/20/17 17:02> Subjective - Date & Time of Evaluation Date of Evaluation: 10/20/17 Time of Evaluation: 07:25 - Subjective Subjective: Pt seen and evaluated at bedside. No acute events overnight. Participating in PT. Receiving IV antibiotics. No complaints. Objective - Vital Signs/Intake and Output Vital Signs (last 24 hours): Temp Pulse Resp BP Pulse Ox 97.3 F L 62 20 145/68 97 10/19/17 19:50 10/19/17 19:50 10/19/17 19:50 10/19/17 19:50 10/19/17 19:50 - Medications Medications: Current Medications Aspirin (Ecotrin) 81 mg PO DAILY [facility] Last Admin: 10/19/17 08:19 Dose: 81 mg Atorvastatin Calcium (Lipitor) 20 mg PO HS [facility] Last Admin: 10/19/17 21:16 Dose: 20 mg Calcium/Vitamin D (Oyster Shell Calcium/Vitamin D 500 Mg-200 Iu) 1 tab PO [facility] Last Admin: 10/19/17 21:16 Dose: 1 tab Dextrose (Dextrose 50% Inj) 0 ml IV STAT PRN; Protocol PRN Reason: Hypoglycemia Protocol Dextrose (Glutose 15) 0 gm PO ONCE PRN; Protocol PRN Reason: Hypoglycemia Protocol Docusate Sodium (Colace) 100 mg PO BID PRN PRN Reason: Constipation Ferrous Sulfate (Feosol) 325 mg PO BID [facility] Last Admin: 10/19/17 17:18 Dose: 325 mg Gabapentin (Neurontin) 300 mg PO TID [facility] Last Admin: 10/19/17 17:18 Dose: 300 mg Glucagon (Glucagen Diagnostic Kit) 0 mg IM STAT PRN; Protocol PRN Reason: Hypoglycemia Protocol Hydroxychloroquine Sulfate (Plaquenil) 200 mg PO BID [facility] PRN Reason: Protocol Last Admin: 10/19/17 17:18 Dose: 200 mg Piperacillin Sod/Tazobactam (Sod 3.375 gm/ Sodium Chloride) 100 mls @ 100 mls/ hr IVPB Q6H [facility] PRN Reason: Protocol Last Admin: 10/20/17 02:01 Dose: 100 mls/hr Insulin Human Lispro (Humalog) 0 units SC ACHS [facility] PRN Reason: Protocol Last Admin: 10/20/17 06:30 Dose: Not Given Magnesium Oxide (Mag-Ox) 400 mg PO DAILY PRN PRN Reason: Other Last Admin: 10/19/17 08:21 Dose: 400 mg Multivitamins/Minerals (Therapeutic-M Tab) 1 tab PO DAILY [facility] Last Admin: 10/19/17 08:19 Dose: 1 tab Nitroglycerin (Nitrostat Sl Tab) 0.4 mg SL DAILY PRN PRN Reason: chest pain Pantoprazole Sodium (Protonix Ec Tab) 40 mg PO DAILY [facility] Last Admin: 10/19/17 08:19 Dose: 40 mg Prednisone (Prednisone Tab) 10 mg PO DAILY [facility] Last Admin: 10/19/17 08:21 Dose: 10 mg Risperidone (Risperdal Tab) 1 mg PO HS [facility] Last Admin: 10/19/17 21:16 Dose: 1 mg Saccharomyces Boulardii (Florastor) 250 mg PO BID [facility] Last Admin: 10/19/17 17:17 Dose: 250 mg Sertraline HCl (Zoloft) 50 mg PO DAILY [facility] Last Admin: 10/19/17 08:21 Dose: 50 mg Sitagliptin Phosphate (Januvia) 100 mg PO DAILY [facility] Last Admin: 10/19/17 08:21 Dose: 100 mg Spironolactone (Aldactone) 25 mg PO DAILY [facility] Last Admin: 10/19/17 08:20 Dose: 25 mg - Labs Labs: PT 19.8 Seconds (9.8-13.1) H 10/19/17 05:50 INR 1.8 (0.9-1.2) H 10/19/17 05:50 - Constitutional Appears: Non-toxic, No Acute Distress - Head Exam Head Exam: NORMAL INSPECTION - Eye Exam Eye Exam: EOMI, Normal appearance - ENT Exam ENT Exam: Mucous Membranes Moist - Respiratory Exam Respiratory Exam: Clear to Ausculation Bilateral, NORMAL BREATHING PATTERN. absent: Respiratory Distress - GI/Abdominal Exam GI & Abdominal Exam: Soft, Normal Bowel Sounds. absent: Distended, Tenderness - Extremities Exam Extremities Exam: Normal Capillary Refill Additional comments: +1 edema, chronic - Neurological Exam Neurological Exam: Alert, Awake - Psychiatric Exam Psychiatric exam: Normal Mood - Skin Skin Exam: Dry, Normal Color, Warm Assessment and Plan - Assessment and Plan (Free Text) Plan: # Hospital Aquired Pneumonia - Recent admission Aug 2017 - CXR Acute infiltrates- diffuse bilateral interstitial infiltrates - Repeat CXR - interval improvement in infiltrates/pulmonary congestion - Leukocytosis resolved - Zosyn IVPB Q6; day 5 - Pulmonology consult- Dr. Cuadra- legionella urine antigen NEG. Mycoplasma IgM neg, IgG pos - Procalcitonin 0.24 - No SIRS criteria at the time of admission - CURB-65= 2(6.8 % 30 day mortality) # CHF, chronic - Last Echo 09/05/17 EF 25-30% with valvulopathy - Continue with home dose spirinolactone daily - Restart home med sofinopril 20 mg daily - formulary lisinopril equivalent - ProBNP - 2950 - Cardiology consulted Dr. Hidalgo - chronic elevated troponins, stable # CKD - GFR 45, stage 3 - BUN 29, Cr 1.5 - monitor on BMP in am # CAD - Chronic, hx of stents - Elevated troponins (chronic) - No acute changes on EKG - Cardiology consult, seen by Dr. Hidalgo, pt had cath last year which was good - Continue w/ Aspirin 81 mg daily # Type 2 DM - Chronic, controlled - HbA1c 6.7 on this admission; down from 6.9 in 12/2016 - Continue with home medications Januvia - Hold glipizide - Accuchecks - Insulin coverage scale and hypoglycemia protocol # Hx of A.fib/Pacemaker - Chronic, stable - Home dose coumadin 2.5mg HS - INR this am 1.7 - 3mg Coumadin today - INR ordered for tomorrow am # Chronic normocitic anemia - Iron studies: iron 11 (L), TIBC 303 (wnl), % saturation 4 (L), ferritin 26.5 ( wnl) - VIt b12 581 wnl, folate > 20 # Hx of SLE - Continue with home meds plaquenil and prednisone - ESR- elevated at 23 # Prophylactic measures - DVT: pt on coumadin - Florastor <Prasanth Nye - Last Filed: 10/24/17 06:49> Objective - Vital Signs/Intake and Output Vital Signs (last 24 hours): Temp Pulse Resp BP Pulse Ox 97.0 F L 67 20 137/98 H 97 10/23/17 20:26 10/23/17 20:26 10/23/17 20:26 10/23/17 20:26 10/23/17 20:26 - Medications Medications: Current Medications Aspirin (Ecotrin) 81 mg PO DAILY [facility] Last Admin: 10/23/17 08:44 Dose: 81 mg Atorvastatin Calcium (Lipitor) 20 mg PO HS [facility] Last Admin: 10/23/17 21:14 Dose: 20 mg Calcium/Vitamin D (Oyster Shell Calcium/Vitamin D 500 Mg-200 Iu) 1 tab PO HS [facility] Last Admin: 10/23/17 21:14 Dose: 1 tab Dextrose (Dextrose 50% Inj) 0 ml IV STAT PRN; Protocol PRN Reason: Hypoglycemia Protocol Dextrose (Glutose 15) 0 gm PO ONCE PRN; Protocol PRN Reason: Hypoglycemia Protocol Docusate Sodium (Colace) 100 mg PO BID PRN PRN Reason: Constipation Last Admin: 10/22/17 08:56 Dose: 100 mg Ferrous Sulfate (Feosol) 325 mg PO BID [facility] Last Admin: 10/23/17 16:44 Dose: 325 mg Gabapentin (Neurontin) 300 mg PO TID [facility] Last Admin: 10/23/17 16:44 Dose: 300 mg Glucagon (Glucagen Diagnostic Kit) 0 mg IM STAT PRN; Protocol PRN Reason: Hypoglycemia Protocol Hydroxychloroquine Sulfate (Plaquenil) 200 mg PO BID [facility] PRN Reason: Protocol Last Admin: 10/23/17 16:44 Dose: 200 mg Piperacillin Sod/Tazobactam (Sod 3.375 gm/ Sodium Chloride) 100 mls @ 100 mls/ hr IVPB Q6H [facility] PRN Reason: Protocol Last Admin: 10/24/17 04:03 Dose: 100 mls/hr Insulin Human Lispro (Humalog) 0 units SC ACHS [facility] PRN Reason: Protocol Last Admin: 10/24/17 06:31 Dose: Not Given Magnesium Oxide (Mag-Ox) 400 mg PO DAILY PRN PRN Reason: Other Last Admin: 10/22/17 08:55 Dose: 400 mg Multivitamins/Minerals (Therapeutic-M Tab) 1 tab PO DAILY [facility] Last Admin: 10/23/17 08:44 Dose: 1 tab Nitroglycerin (Nitrostat Sl Tab) 0.4 mg SL DAILY PRN PRN Reason: chest pain Pantoprazole Sodium (Protonix Ec Tab) 40 mg PO DAILY [facility] Last Admin: 10/23/17 08:45 Dose: 40 mg Prednisone (Prednisone Tab) 10 mg PO DAILY [facility] Last Admin: 10/23/17 08:44 Dose: 10 mg Risperidone (Risperdal Tab) 1 mg PO HS [facility] Last Admin: 10/23/17 21:14 Dose: 1 mg Saccharomyces Boulardii (Florastor) 250 mg PO BID [facility] Last Admin: 10/23/17 16:44 Dose: 250 mg Sertraline HCl (Zoloft) 50 mg PO DAILY [facility] Last Admin: 10/23/17 08:45 Dose: 50 mg Sitagliptin Phosphate (Januvia) 100 mg PO DAILY [facility] Last Admin: 10/23/17 08:44 Dose: 100 mg Spironolactone (Aldactone) 25 mg PO DAILY [facility] Last Admin: 10/23/17 08:45 Dose: 25 mg - Labs Labs: 10/21/17 06:30 10/21/17 06:30 PT 20.6 Seconds (9.8-13.1) H 10/23/17 05:30 INR 1.8 (0.9-1.2) H 10/23/17 05:30 Attending/Attestation - Attestation I have personally seen and examined this patient.: Yes I have fully participated in the care of the patient.: Yes I have reviewed all pertinent clinical information, including history, physical exam and plan: Yes
[2017-10-20 07:31] LABS: INR 1.7 (0.9-1.2); PROTHROMBIN TIME 19.3 Seconds (9.8-13.1)
[2017-10-20] MEDS: Multivitamin With Minerals Tab PO SCH (08:53)
[2017-10-20] MEDS: Pantoprazole 40 mg EC Tab PO SCH (08:53)
[2017-10-20] MEDS: Saccharomyces Boulardi 250 mg Cap PO SCH ×2 (08:54→16:42)
--- NOTE | 2017-10-20 14:01 | CP.PCM.CON ---
History of Present Illness - History of Present Illness History of Present Illness: This 77 year old male was initially seen in the telemetry unit with pneumonia compounded by multiple comorbid conditions. He was started on antibiotic coverage with consideration for HCAP because of recent hospitalization. His condition improved smoothly and he was discharged to transitional care to continue parenteral antibiotics. He continues to take his maintenance medications as well as the antibiotics. He appears comfortable and does not complain of dhortness of breath. He does indicate he has some pain in the lower , lateral left chest wall. Past Patient History - Infectious Disease Hx of Infectious Diseases: None - Past Medical History & Family History Past Medical History?: Yes - Past Social History Smoking Status: Never Smoked Alcohol: None Drugs: Denies - CARDIAC Hx Cardiac Disorders: Yes Hx Atrial Fibrillation: Yes Hx Congestive Heart Failure: Yes Hx Hypercholesterolemia: Yes Hx Hypertension: Yes Hx Pacemaker: Yes - PULMONARY Hx Respiratory Disorders: Yes Hx Pneumonia: Yes - NEUROLOGICAL Hx Neurological Disorder: No - HEENT Hx HEENT Problems: Yes Hx Epistaxis: Yes - RENAL Hx Chronic Kidney Disease: Yes - ENDOCRINE/METABOLIC Hx Endocrine Disorders: Yes Hx Diabetes Mellitus Type 2: Yes Hx Systemic Lupus Erythematosus: Yes - HEMATOLOGICAL/ONCOLOGICAL Hx Anemia: Yes - INTEGUMENTARY Hx Dermatological Problems: No - MUSCULOSKELETAL/RHEUMATOLOGICAL Hx Musculoskeletal Disorders: No - GASTROINTESTINAL Hx Gastrointestinal Disorders: No - GENITOURINARY/GYNECOLOGICAL Hx Genitourinary Disorders: No - PSYCHIATRIC Hx Substance Use: No - SURGICAL HISTORY Hx Surgeries: Yes Hx Appendectomy: Yes Hx Coronary Stent: Yes Hx Herniorrhaphy: Yes (ventral hernia repair) Other/Comment: pacemaker insertion - ANESTHESIA Hx Anesthesia: Yes Hx Anesthesia Reactions: No Hx Malignant Hyperthermia: No Meds Allergies/Adverse Reactions: Allergies Allergy/AdvReac Type Severity Reaction Status Date / Time morphine Allergy ANAPHYLAXIS Verified 10/18/17 17:24 - Medications Medications: Current Medications Aspirin (Ecotrin) 81 mg PO DAILY [facility] Last Admin: 10/20/17 08:22 Dose: 81 mg Atorvastatin Calcium (Lipitor) 20 mg PO HS [facility] Last Admin: 10/19/17 21:16 Dose: 20 mg Calcium/Vitamin D (Oyster Shell Calcium/Vitamin D 500 Mg-200 Iu) 1 tab PO HS [facility] Last Admin: 10/19/17 21:16 Dose: 1 tab Dextrose (Dextrose 50% Inj) 0 ml IV STAT PRN; Protocol PRN Reason: Hypoglycemia Protocol Dextrose (Glutose 15) 0 gm PO ONCE PRN; Protocol PRN Reason: Hypoglycemia Protocol Docusate Sodium (Colace) 100 mg PO BID PRN PRN Reason: Constipation Ferrous Sulfate (Feosol) 325 mg PO BID [facility] Last Admin: 10/20/17 08:53 Dose: 325 mg Gabapentin (Neurontin) 300 mg PO TID [facility] Last Admin: 10/20/17 12:41 Dose: 300 mg Glucagon (Glucagen Diagnostic Kit) 0 mg IM STAT PRN; Protocol PRN Reason: Hypoglycemia Protocol Hydroxychloroquine Sulfate (Plaquenil) 200 mg PO BID [facility] PRN Reason: Protocol Last Admin: 10/20/17 08:53 Dose: 200 mg Piperacillin Sod/Tazobactam (Sod 3.375 gm/ Sodium Chloride) 100 mls @ 100 mls/ hr IVPB Q6H [facility] PRN Reason: Protocol Last Admin: 10/20/17 08:58 Dose: 100 mls/hr Insulin Human Lispro (Humalog) 0 units SC ACHS [facility] PRN Reason: Protocol Last Admin: 10/20/17 11:17 Dose: Not Given Magnesium Oxide (Mag-Ox) 400 mg PO DAILY PRN PRN Reason: Other Last Admin: 10/19/17 08:21 Dose: 400 mg Multivitamins/Minerals (Therapeutic-M Tab) 1 tab PO DAILY [facility] Last Admin: 10/20/17 08:53 Dose: 1 tab Nitroglycerin (Nitrostat Sl Tab) 0.4 mg SL DAILY PRN PRN Reason: chest pain Pantoprazole Sodium (Protonix Ec Tab) 40 mg PO DAILY [facility] Last Admin: 10/20/17 08:53 Dose: 40 mg Prednisone (Prednisone Tab) 10 mg PO DAILY [facility] Last Admin: 10/20/17 08:53 Dose: 10 mg Risperidone (Risperdal Tab) 1 mg PO HS [facility] Last Admin: 10/19/17 21:16 Dose: 1 mg Saccharomyces Boulardii (Florastor) 250 mg PO BID [facility] Last Admin: 10/20/17 08:54 Dose: 250 mg Sertraline HCl (Zoloft) 50 mg PO DAILY [facility] Last Admin: 10/20/17 08:53 Dose: 50 mg Sitagliptin Phosphate (Januvia) 100 mg PO DAILY [facility] Last Admin: 10/20/17 08:53 Dose: 100 mg Spironolactone (Aldactone) 25 mg PO DAILY [facility] Last Admin: 10/20/17 08:54 Dose: 25 mg Results - Vital Signs Recent Vital Signs: Last Vital Signs Temp 98.0 F 10/20/17 08:04 Pulse 62 10/20/17 08:04 Resp 20 10/20/17 08:04 BP 132/56 L 10/20/17 08:04 Pulse Ox 99 10/20/17 08:04 - Labs Labs: Laboratory Results - last 24 hr 10/19/17 10/19/17 10/20/17 16:04 20:36 05:55 PT 19.3 H INR 1.7 H POC Glucose (mg/dL) 183 H 158 H 10/20/17 10/20/17 06:06 11:01 PT INR POC Glucose (mg/dL) 103 135 H Assessment & Plan (1) HCAP (healthcare-associated pneumonia) Status: Acute Priority: High (2) Left-sided chest wall pain Status: Chronic Priority: Medium - Date & Time Date: 10/20/17 Time: 13:58
[2017-10-20] MEDS: Calcium-Vit D 500 mg-200 Units Tab UD PO SCH (21:08)
[2017-10-21] MEDS: Piperacillin/Tazobact 3.375 GM in Sodium Chloride 0.9% 100 ML IVPB SCH ×4 (03:02→21:16)
[2017-10-21] MEDS: Insulin Lispro (humaLOG) 100 Units/ml Inj SC SCH ×4 (06:31→21:29)
--- NOTE | 2017-10-21 06:51 | CP.PCM.PN ---
Subjective - Date & Time of Evaluation Date of Evaluation: 10/21/17 Time of Evaluation: 07:20 - Subjective Subjective: Patient seen and evaluated at bedside this am; sitting comfortably in bed eating breakfast, in good spirits. Mild cough, no fevers/chills. Objective - Vital Signs/Intake and Output Vital Signs (last 24 hours): Temp Pulse Resp BP Pulse Ox 97.0 F L 61 20 137/68 94 L 10/20/17 21:21 10/20/17 21:21 10/20/17 21:21 10/20/17 21:21 10/20/17 21:21 - Medications Medications: Current Medications Aspirin (Ecotrin) 81 mg PO DAILY [facility] Last Admin: 10/20/17 08:22 Dose: 81 mg Atorvastatin Calcium (Lipitor) 20 mg PO HS [facility] Last Admin: 10/20/17 21:07 Dose: 20 mg Calcium/Vitamin D (Oyster Shell Calcium/Vitamin D 500 Mg-200 Iu) 1 tab PO [facility] Last Admin: 10/20/17 21:08 Dose: 1 tab Dextrose (Dextrose 50% Inj) 0 ml IV STAT PRN; Protocol PRN Reason: Hypoglycemia Protocol Dextrose (Glutose 15) 0 gm PO ONCE PRN; Protocol PRN Reason: Hypoglycemia Protocol Docusate Sodium (Colace) 100 mg PO BID PRN PRN Reason: Constipation Ferrous Sulfate (Feosol) 325 mg PO BID [facility] Last Admin: 10/20/17 16:42 Dose: 325 mg Gabapentin (Neurontin) 300 mg PO TID [facility] Last Admin: 10/20/17 16:42 Dose: 300 mg Glucagon (Glucagen Diagnostic Kit) 0 mg IM STAT PRN; Protocol PRN Reason: Hypoglycemia Protocol Hydroxychloroquine Sulfate (Plaquenil) 200 mg PO BID [facility] PRN Reason: Protocol Last Admin: 10/20/17 16:43 Dose: 200 mg Piperacillin Sod/Tazobactam (Sod 3.375 gm/ Sodium Chloride) 100 mls @ 100 mls/ hr IVPB Q6H [facility] PRN Reason: Protocol Last Admin: 10/21/17 03:02 Dose: 100 mls/hr Insulin Human Lispro (Humalog) 0 units SC ACHS [facility] PRN Reason: Protocol Last Admin: 10/21/17 06:31 Dose: Not Given Magnesium Oxide (Mag-Ox) 400 mg PO DAILY PRN PRN Reason: Other Last Admin: 10/19/17 08:21 Dose: 400 mg Multivitamins/Minerals (Therapeutic-M Tab) 1 tab PO DAILY [facility] Last Admin: 10/20/17 08:53 Dose: 1 tab Nitroglycerin (Nitrostat Sl Tab) 0.4 mg SL DAILY PRN PRN Reason: chest pain Pantoprazole Sodium (Protonix Ec Tab) 40 mg PO DAILY [facility] Last Admin: 10/20/17 08:53 Dose: 40 mg Prednisone (Prednisone Tab) 10 mg PO DAILY [facility] Last Admin: 10/20/17 08:53 Dose: 10 mg Risperidone (Risperdal Tab) 1 mg PO HS [facility] Last Admin: 10/20/17 21:08 Dose: 1 mg Saccharomyces Boulardii (Florastor) 250 mg PO BID [facility] Last Admin: 10/20/17 16:42 Dose: 250 mg Sertraline HCl (Zoloft) 50 mg PO DAILY [facility] Last Admin: 10/20/17 08:53 Dose: 50 mg Sitagliptin Phosphate (Januvia) 100 mg PO DAILY [facility] Last Admin: 10/20/17 08:53 Dose: 100 mg Spironolactone (Aldactone) 25 mg PO DAILY [facility] Last Admin: 10/20/17 08:54 Dose: 25 mg - Labs Labs: PT 19.3 Seconds (9.8-13.1) H 10/20/17 05:55 INR 1.7 (0.9-1.2) H 10/20/17 05:55 - Constitutional Appears: Non-toxic, No Acute Distress - Head Exam Head Exam: NORMAL INSPECTION - ENT Exam ENT Exam: Mucous Membranes Moist - Respiratory Exam Respiratory Exam: Clear to Ausculation Bilateral, NORMAL BREATHING PATTERN. absent: Respiratory Distress - Cardiovascular Exam Cardiovascular Exam: REGULAR RHYTHM, +S1, +S2 - GI/Abdominal Exam GI & Abdominal Exam: Soft, Normal Bowel Sounds - Extremities Exam Extremities Exam: Pedal Edema (+1, chronic). absent: Calf Tenderness - Back Exam Back Exam: NORMAL INSPECTION - Neurological Exam Neurological Exam: Alert, Awake - Skin Skin Exam: Dry, Warm Assessment and Plan - Assessment and Plan (Free Text) Assessment: 77 yo M with hx SLE, HTN, DM2, CAD, pacemaker admitted to TCU for rehab and IV antibiotics for possible hospital acquired pneumonia. Clinically improving, participating on physical therapy. Plan: # Hospital Aquired Pneumonia - Recent admission Aug 2017 - Original CXR showed acute infiltrates, repeat showed improvement - Leukocytosis resolved - Zosyn IVPB Q6; day 6 - Pulmonology consult- Dr. Cuadra - Procalcitonin 0.24 - No SIRS criteria at the time of admission - CURB-65= 2(6.8 % 30 day mortality) # CHF, sytolic and diastolic - Last Echo 09/05/17 EF 25-30% with valvulopathy - Continue with home dose spirinolactone daily - Restart home med sofinopril 20 mg daily - formulary lisinopril equivalent - ProBNP - 2950 - Cardiology consulted Dr. Hidalgo - chronic elevated troponins, stable # CKD - GFR 53, stage 3 - BUN 27, Cr 1.3 - monitor on BMP in am # CAD - Chronic, hx of stents - Elevated troponins (chronic) - No acute changes on EKG - Cardiology consult, seen by Dr. Hidalgo, pt had cath last year which was good - Continue w/ Aspirin 81 mg daily # Type 2 DM - Chronic, controlled - HbA1c 6.7 on this admission; down from 6.9 in 12/2016 - Continue with home medications Januvia - Hold glipizide, several episodes hypoglycemia - Accuchecks - Insulin coverage scale and hypoglycemia protocol # Hx of A.fib/Pacemaker - Chronic, stable - Home dose coumadin 2.5mg HS - INR this am 1.7 - 3mg Coumadin today - INR ordered for tomorrow am # Chronic normocitic anemia - Iron studies: iron 11 (L), TIBC 303 (wnl), % saturation 4 (L), ferritin 26.5 ( wnl) - VIt b12 581 wnl, folate > 20 # Hx of SLE - Continue with home meds plaquenil and prednisone # Prophylactic measures - DVT: pt on coumadin - Florastor
[2017-10-21 07:34] LABS: HEMOGLOBIN 10.2 g/dL (12.0-18.0); MEAN CELL VOLUME 84.9 fl (80.0-94.0); MEAN CORPUSCULAR HEMOGLOBIN 28.6 pg (27.0-31.0); MEAN CORPUSCULAR HGB CONC 33.7 g/dL (33.0-37.0); RBC 3.56 Mil/uL (4.40-5.90); RED CELL DISTRIBUTION WIDTH 14.4 % (11.5-14.5); WHITE BLOOD COUNT 8.9 K/uL (4.8-10.8)
[2017-10-21 07:52] LABS: BLOOD UREA NITROGEN 27 mg/dl (9-20); GFR AFRICAN-AMERICAN > 60; GFR NON-AFRICAN AMERICAN 53
[2017-10-21 08:21] LABS: INR 1.7 (0.9-1.2); PROTHROMBIN TIME 18.7 Seconds (9.8-13.1)
[2017-10-21] MEDS: Multivitamin With Minerals Tab PO SCH (08:36)
[2017-10-21] MEDS: Saccharomyces Boulardi 250 mg Cap PO SCH ×2 (08:36→17:02)
[2017-10-21] MEDS: Pantoprazole 40 mg EC Tab PO SCH (08:38)
[2017-10-21] MEDS: Magnesium Oxide 400 mg Tab UD PO PRN (08:39)
--- NOTE | 2017-10-21 13:05 | CP.PCM.PN ---
Subjective - Date & Time of Evaluation Date of Evaluation: 10/21/17 Time of Evaluation: 12:15 - Subjective Subjective: NO CHEST PAIN OR SOB Objective - Vital Signs/Intake and Output Vital Signs (last 24 hours): Temp Pulse Resp BP Pulse Ox 97.7 F 66 20 148/70 95 10/21/17 09:02 10/21/17 09:02 10/21/17 09:02 10/21/17 09:02 10/21/17 09:02 - Medications Medications: Current Medications Aspirin (Ecotrin) 81 mg PO DAILY [facility] Last Admin: 10/21/17 08:39 Dose: 81 mg Atorvastatin Calcium (Lipitor) 20 mg PO HS [facility] Last Admin: 10/20/17 21:07 Dose: 20 mg Calcium/Vitamin D (Oyster Shell Calcium/Vitamin D 500 Mg-200 Iu) 1 tab PO HS [facility] Last Admin: 10/20/17 21:08 Dose: 1 tab Dextrose (Dextrose 50% Inj) 0 ml IV STAT PRN; Protocol PRN Reason: Hypoglycemia Protocol Dextrose (Glutose 15) 0 gm PO ONCE PRN; Protocol PRN Reason: Hypoglycemia Protocol Docusate Sodium (Colace) 100 mg PO BID PRN PRN Reason: Constipation Ferrous Sulfate (Feosol) 325 mg PO BID [facility] Last Admin: 10/21/17 08:36 Dose: 325 mg Gabapentin (Neurontin) 300 mg PO TID [facility] Last Admin: 10/21/17 08:36 Dose: 300 mg Glucagon (Glucagen Diagnostic Kit) 0 mg IM STAT PRN; Protocol PRN Reason: Hypoglycemia Protocol Hydroxychloroquine Sulfate (Plaquenil) 200 mg PO BID [facility] PRN Reason: Protocol Last Admin: 10/21/17 08:36 Dose: 200 mg Piperacillin Sod/Tazobactam (Sod 3.375 gm/ Sodium Chloride) 100 mls @ 100 mls/ hr IVPB Q6H [facility] PRN Reason: Protocol Last Admin: 10/21/17 08:40 Dose: 100 mls/hr Insulin Human Lispro (Humalog) 0 units SC ACHS [facility] PRN Reason: Protocol Last Admin: 10/21/17 11:50 Dose: 1 u Magnesium Oxide (Mag-Ox) 400 mg PO DAILY PRN PRN Reason: Other Last Admin: 10/19/17 08:21 Dose: 400 mg Multivitamins/Minerals (Therapeutic-M Tab) 1 tab PO DAILY [facility] Last Admin: 10/21/17 08:36 Dose: 1 tab Nitroglycerin (Nitrostat Sl Tab) 0.4 mg SL DAILY PRN PRN Reason: chest pain Pantoprazole Sodium (Protonix Ec Tab) 40 mg PO DAILY [facility] Last Admin: 10/21/17 08:38 Dose: 40 mg Prednisone (Prednisone Tab) 10 mg PO DAILY [facility] Last Admin: 10/21/17 08:38 Dose: 10 mg Risperidone (Risperdal Tab) 1 mg PO HS [facility] Last Admin: 10/20/17 21:08 Dose: 1 mg Saccharomyces Boulardii (Florastor) 250 mg PO BID [facility] Last Admin: 10/21/17 08:36 Dose: 250 mg Sertraline HCl (Zoloft) 50 mg PO DAILY [facility] Last Admin: 10/21/17 08:39 Dose: 50 mg Sitagliptin Phosphate (Januvia) 100 mg PO DAILY [facility] Last Admin: 10/21/17 08:38 Dose: 100 mg Spironolactone (Aldactone) 25 mg PO DAILY [facility] Last Admin: 10/21/17 08:38 Dose: 25 mg - Labs Labs: 10/21/17 06:30 10/21/17 06:30 PT 18.7 Seconds (9.8-13.1) H 10/21/17 06:30 INR 1.7 (0.9-1.2) H 10/21/17 06:30 - Respiratory Exam Respiratory Exam: Clear to Ausculation Bilateral - Cardiovascular Exam Cardiovascular Exam: REGULAR RHYTHM, +S1, +S2 Assessment and Plan - Assessment and Plan (Free Text) Assessment: CAD-ATABLE SSS HYPERTENSION HYPERLIPIDEMIA DM Plan: CONTINUE ALDACTONE, WARFARIN, ASPIRIN, ATORVASTATIN, JANUVIA CONTINUE SUBACUTE REHAB
--- NOTE | 2017-10-21 19:36 | CP.PCM.CON ---
History of Present Illness - History of Present Illness History of Present Illness: Dr De La Cruz PMR consultation on Heber Woodson, born 1940, who has been admitted to [facility] for YULIYA following an admission initially with pneumonia. Placed on IV ABX. Stable. Seen by pulm and cardiology as well No pain issues at this point Review of Systems - Constitutional Constitutional: absent: Chills - EENT Eyes: absent: Blind Spots Ears: absent: Decreased Hearing, Ear Pain - Cardiovascular Cardiovascular: absent: Chest Pain - Respiratory Respiratory: Dyspnea on Exertion. absent: Hemoptysis, Pain on Inspiration - Gastrointestinal Gastrointestinal: absent: Belching - Musculoskeletal Musculoskeletal: absent: Back Pain, Joint Swelling, Neck Pain - Neurological Neurological: absent: Abnormal Movements, Dizziness, Radicular Pain - Psychiatric Psychiatric: absent: Anxiety Past Patient History - Infectious Disease Hx of Infectious Diseases: None - Past Medical History & Family History Past Medical History?: Yes - Past Social History Smoking Status: Never Smoked Alcohol: None Drugs: Denies - CARDIAC Hx Cardiac Disorders: Yes Hx Atrial Fibrillation: Yes Hx Congestive Heart Failure: Yes Hx Hypercholesterolemia: Yes Hx Hypertension: Yes Hx Pacemaker: Yes - PULMONARY Hx Respiratory Disorders: Yes Hx Pneumonia: Yes - NEUROLOGICAL Hx Neurological Disorder: No - HEENT Hx HEENT Problems: Yes Hx Epistaxis: Yes - RENAL Hx Chronic Kidney Disease: Yes - ENDOCRINE/METABOLIC Hx Endocrine Disorders: Yes Hx Diabetes Mellitus Type 2: Yes Hx Systemic Lupus Erythematosus: Yes - HEMATOLOGICAL/ONCOLOGICAL Hx Anemia: Yes - INTEGUMENTARY Hx Dermatological Problems: No - MUSCULOSKELETAL/RHEUMATOLOGICAL Hx Musculoskeletal Disorders: No - GASTROINTESTINAL Hx Gastrointestinal Disorders: No - GENITOURINARY/GYNECOLOGICAL Hx Genitourinary Disorders: No - PSYCHIATRIC Hx Substance Use: No - SURGICAL HISTORY Hx Surgeries: Yes Hx Appendectomy: Yes Hx Coronary Stent: Yes Hx Herniorrhaphy: Yes (ventral hernia repair) Other/Comment: pacemaker insertion - ANESTHESIA Hx Anesthesia: Yes Hx Anesthesia Reactions: No Hx Malignant Hyperthermia: No Meds Allergies/Adverse Reactions: Allergies Allergy/AdvReac Type Severity Reaction Status Date / Time morphine Allergy ANAPHYLAXIS Verified 10/18/17 17:24 - Medications Medications: Current Medications Aspirin (Ecotrin) 81 mg PO DAILY [facility] Last Admin: 10/21/17 08:39 Dose: 81 mg Atorvastatin Calcium (Lipitor) 20 mg PO HS [facility] Last Admin: 03/15/18 21:07 Dose: 20 mg Calcium/Vitamin D (Oyster Shell Calcium/Vitamin D 500 Mg-200 Iu) 1 tab PO HS [facility] Last Admin: 10/20/17 21:08 Dose: 1 tab Dextrose (Dextrose 50% Inj) 0 ml IV STAT PRN; Protocol PRN Reason: Hypoglycemia Protocol Dextrose (Glutose 15) 0 gm PO ONCE PRN; Protocol PRN Reason: Hypoglycemia Protocol Docusate Sodium (Colace) 100 mg PO BID PRN PRN Reason: Constipation Ferrous Sulfate (Feosol) 325 mg PO BID [facility] Last Admin: 10/21/17 17:02 Dose: 325 mg Gabapentin (Neurontin) 300 mg PO TID [facility] Last Admin: 10/21/17 17:03 Dose: 300 mg Glucagon (Glucagen Diagnostic Kit) 0 mg IM STAT PRN; Protocol PRN Reason: Hypoglycemia Protocol Hydroxychloroquine Sulfate (Plaquenil) 200 mg PO BID [facility] PRN Reason: Protocol Last Admin: 10/21/17 17:03 Dose: 200 mg Piperacillin Sod/Tazobactam (Sod 3.375 gm/ Sodium Chloride) 100 mls @ 100 mls/ hr IVPB Q6H [facility] PRN Reason: Protocol Last Admin: 10/21/17 17:01 Dose: 100 mls/hr Insulin Human Lispro (Humalog) 0 units SC ACHS [facility] PRN Reason: Protocol Last Admin: 10/21/17 17:02 Dose: 1 u Magnesium Oxide (Mag-Ox) 400 mg PO DAILY PRN PRN Reason: Other Last Admin: 10/19/17 08:21 Dose: 400 mg Multivitamins/Minerals (Therapeutic-M Tab) 1 tab PO DAILY [facility] Last Admin: 10/21/17 08:36 Dose: 1 tab Nitroglycerin (Nitrostat Sl Tab) 0.4 mg SL DAILY PRN PRN Reason: chest pain Pantoprazole Sodium (Protonix Ec Tab) 40 mg PO DAILY [facility] Last Admin: 10/21/17 08:38 Dose: 40 mg Prednisone (Prednisone Tab) 10 mg PO DAILY [facility] Last Admin: 10/21/17 08:38 Dose: 10 mg Risperidone (Risperdal Tab) 1 mg PO HS [facility] Last Admin: 10/20/17 21:08 Dose: 1 mg Saccharomyces Boulardii (Florastor) 250 mg PO BID [facility] Last Admin: 10/21/17 17:02 Dose: 250 mg Sertraline HCl (Zoloft) 50 mg PO DAILY [facility] Last Admin: 10/21/17 08:39 Dose: 50 mg Sitagliptin Phosphate (Januvia) 100 mg PO DAILY [facility] Last Admin: 10/21/17 08:38 Dose: 100 mg Spironolactone (Aldactone) 25 mg PO DAILY [facility] Last Admin: 10/21/17 08:38 Dose: 25 mg Physical Exam - Constitutional Appears: Non-toxic, No Acute Distress, Other (obese) - Head Exam Head Exam: ATRAUMATIC, NORMAL INSPECTION, NORMOCEPHALIC - Eye Exam Eye Exam: EOMI - ENT Exam ENT Exam: Mucous Membranes Moist - Respiratory Exam Respiratory Exam: NORMAL BREATHING PATTERN - Cardiovascular Exam Cardiovascular Exam: REGULAR RHYTHM - GI/Abdominal Exam GI & Abdominal Exam: Distended. absent: Guarding - Extremities Exam Extremities exam: Negative for: calf tenderness (Sit to stand independently with no vasovagal reaction) - Neurological Exam Neurological exam: Alert, Oriented x3 - Psychiatric Exam Psychiatric exam: Normal Affect, Normal Mood - Skin Skin Exam: Dry Results - Vital Signs Recent Vital Signs: Last Vital Signs Temp 97.7 F 10/21/17 15:53 Pulse 77 10/21/17 15:53 Resp 20 10/21/17 15:53 BP 142/78 10/21/17 15:53 Pulse Ox 95 10/21/17 15:53 - Labs Result Diagrams: 10/21/17 06:30 10/21/17 06:30 Labs: Laboratory Results - last 24 hr 10/20/17 10/21/17 10/21/17 20:42 05:58 06:30 WBC RBC Hgb Hct MCV MCH MCHC RDW Plt Count PT 18.7 H INR 1.7 H Sodium Potassium Chloride Carbon Dioxide Anion Gap BUN Creatinine Est GFR ( Amer) Est GFR (Non-Af Amer) POC Glucose (mg/dL) 173 H 128 H Random Glucose Calcium 10/21/17 10/21/17 10/21/17 06:30 06:30 10:51 WBC 8.9 RBC 3.56 L Hgb 10.2 L Hct 30.3 L MCV 84.9 MCH 28.6 MCHC 33.7 RDW 14.4 Plt Count 195 PT INR Sodium 143 Potassium 4.1 Chloride 105 Carbon Dioxide 23 Anion Gap 19 BUN 27 H Creatinine 1.3 Est GFR ( Amer) > 60 Est GFR (Non-Af Amer) 53 POC Glucose (mg/dL) 197 H Random Glucose 125 H Calcium 9.0 10/21/17 16:07 WBC RBC Hgb Hct MCV MCH MCHC RDW Plt Count PT INR Sodium Potassium Chloride Carbon Dioxide Anion Gap BUN Creatinine Est GFR ( Amer) Est GFR (Non-Af Amer) POC Glucose (mg/dL) 159 H Random Glucose Calcium Assessment & Plan - Assessment and Plan (Free Text) Assessment: 77 year old male with pneumonia, on IV ABX and deconditioned no pain issues at this time ambulating 50' with a RW and expected improvements given lack of clear neuromuscular abnormalities, primarily deconditioned continue PT/OT discharge planning Thank you
[2017-10-21] MEDS: Calcium-Vit D 500 mg-200 Units Tab UD PO SCH (21:17)
[2017-10-22] MEDS: Piperacillin/Tazobact 3.375 GM in Sodium Chloride 0.9% 100 ML IVPB SCH ×4 (02:25→20:59)
[2017-10-22] MEDS: Insulin Lispro (humaLOG) 100 Units/ml Inj SC SCH ×4 (06:50→21:02)
[2017-10-22 07:38] LABS: INR 1.7 (0.9-1.2); PROTHROMBIN TIME 19.5 Seconds (9.8-13.1)
[2017-10-22] MEDS: Magnesium Oxide 400 mg Tab UD PO PRN (08:55)
[2017-10-22] MEDS: Multivitamin With Minerals Tab PO SCH (08:56)
[2017-10-22] MEDS: Pantoprazole 40 mg EC Tab PO SCH (08:58)
[2017-10-22] MEDS: Saccharomyces Boulardi 250 mg Cap PO SCH ×2 (08:58→17:00)
--- NOTE | 2017-10-22 17:16 | CP.PCM.PN ---
Subjective - Date & Time of Evaluation Date of Evaluation: 10/22/17 Time of Evaluation: 08:00 - Subjective Subjective: Seen and examined in the am. Found sleeping. Reports cough is improving. Denies CP, fever, chills. Tolerating diet. Objective - Vital Signs/Intake and Output Vital Signs (last 24 hours): Temp Pulse Resp BP Pulse Ox 97.0 F L 69 20 107/51 L 98 10/22/17 15:45 10/22/17 15:45 10/22/17 15:45 10/22/17 15:45 10/22/17 15:45 - Medications Medications: Current Medications Aspirin (Ecotrin) 81 mg PO DAILY [facility] Last Admin: 10/22/17 08:56 Dose: 81 mg Atorvastatin Calcium (Lipitor) 20 mg PO HS [facility] Last Admin: 10/21/17 21:17 Dose: 20 mg Calcium/Vitamin D (Oyster Shell Calcium/Vitamin D 500 Mg-200 Iu) 1 tab PO HS [facility] Last Admin: 10/21/17 21:17 Dose: 1 tab Dextrose (Dextrose 50% Inj) 0 ml IV STAT PRN; Protocol PRN Reason: Hypoglycemia Protocol Dextrose (Glutose 15) 0 gm PO ONCE PRN; Protocol PRN Reason: Hypoglycemia Protocol Docusate Sodium (Colace) 100 mg PO BID PRN PRN Reason: Constipation Last Admin: 10/22/17 08:56 Dose: 100 mg Ferrous Sulfate (Feosol) 325 mg PO BID [facility] Last Admin: 10/22/17 16:59 Dose: 325 mg Gabapentin (Neurontin) 300 mg PO TID [facility] Last Admin: 10/22/17 16:59 Dose: 300 mg Glucagon (Glucagen Diagnostic Kit) 0 mg IM STAT PRN; Protocol PRN Reason: Hypoglycemia Protocol Hydroxychloroquine Sulfate (Plaquenil) 200 mg PO BID [facility] PRN Reason: Protocol Last Admin: 10/22/17 17:00 Dose: 200 mg Piperacillin Sod/Tazobactam (Sod 3.375 gm/ Sodium Chloride) 100 mls @ 100 mls/ hr IVPB Q6H [facility] PRN Reason: Protocol Last Admin: 10/22/17 15:41 Dose: 100 mls/hr Insulin Human Lispro (Humalog) 0 units SC ACHS [facility] PRN Reason: Protocol Last Admin: 10/22/17 17:01 Dose: 1 u Magnesium Oxide (Mag-Ox) 400 mg PO DAILY PRN PRN Reason: Other Last Admin: 10/22/17 08:55 Dose: 400 mg Multivitamins/Minerals (Therapeutic-M Tab) 1 tab PO DAILY [facility] Last Admin: 10/22/17 08:56 Dose: 1 tab Nitroglycerin (Nitrostat Sl Tab) 0.4 mg SL DAILY PRN PRN Reason: chest pain Pantoprazole Sodium (Protonix Ec Tab) 40 mg PO DAILY [facility] Last Admin: 10/22/17 08:58 Dose: 40 mg Prednisone (Prednisone Tab) 10 mg PO DAILY [facility] Last Admin: 10/22/17 08:58 Dose: 10 mg Risperidone (Risperdal Tab) 1 mg PO HS [facility] Last Admin: 10/21/17 21:18 Dose: 1 mg Saccharomyces Boulardii (Florastor) 250 mg PO BID [facility] Last Admin: 10/22/17 17:00 Dose: 250 mg Sertraline HCl (Zoloft) 50 mg PO DAILY [facility] Last Admin: 10/22/17 08:57 Dose: 50 mg Sitagliptin Phosphate (Januvia) 100 mg PO DAILY [facility] Last Admin: 10/22/17 08:57 Dose: 100 mg Spironolactone (Aldactone) 25 mg PO DAILY [facility] Last Admin: 10/22/17 08:56 Dose: 25 mg Warfarin Sodium (Coumadin) 1 mg PO QD5 [facility] Last Admin: 10/22/17 16:59 Dose: 1 mg - Labs Labs: 10/21/17 06:30 10/21/17 06:30 PT 19.5 Seconds (9.8-13.1) H 10/22/17 05:30 INR 1.7 (0.9-1.2) H 10/22/17 05:30 - Constitutional Appears: Well, Non-toxic, No Acute Distress - Head Exam Head Exam: NORMAL INSPECTION - Eye Exam Eye Exam: Normal appearance - ENT Exam ENT Exam: Mucous Membranes Moist - Respiratory Exam Respiratory Exam: Clear to Ausculation Bilateral. absent: Rales, Wheezes - Cardiovascular Exam Cardiovascular Exam: REGULAR RHYTHM, +S1, +S2, Murmur - GI/Abdominal Exam GI & Abdominal Exam: Soft, Tenderness. absent: Distended - Extremities Exam Extremities Exam: absent: Pedal Edema - Neurological Exam Neurological Exam: Alert, Awake, Oriented x3 - Skin Skin Exam: Normal Color Assessment and Plan - Assessment and Plan (Free Text) Assessment: 77 yo M with hx SLE, HTN, DM2, CAD, pacemaker admitted to TCU for rehab and IV antibiotics for possible hospital acquired pneumonia. Clinically improving, participating on physical therapy. Started on Coumadin 1mg po Qd5, f/u am INR. Plan: # Hospital Aquired Pneumonia - Recent admission Aug 2017 - Original CXR showed acute infiltrates, repeat showed improvement - Leukocytosis resolved - Zosyn IVPB Q6; day 6 - Pulmonology consult- Dr. Cuadra - Procalcitonin 0.24 - No SIRS criteria at the time of admission - CURB-65= 2(6.8 % 30 day mortality) # CHF, sytolic and diastolic - Last Echo 09/05/17 EF 25-30% with valvulopathy - Continue with home dose spirinolactone daily - Restart home med sofinopril 20 mg daily - formulary lisinopril equivalent - ProBNP - 2950 - Cardiology consulted Dr. Hidalgo - chronic elevated troponins, stable # CKD - GFR 53, stage 3 - BUN 27, Cr 1.3 - monitor on BMP in am # CAD - Chronic, hx of stents - Elevated troponins (chronic) - No acute changes on EKG - Cardiology consult, seen by Dr. Hidalgo, pt had cath last year which was good - Continue w/ Aspirin 81 mg daily # Type 2 DM - Chronic, controlled - HbA1c 6.7 on this admission; down from 6.9 in 12/2016 - Continue with home medications Januvia - Hold glipizide, several episodes hypoglycemia - Accuchecks - Insulin coverage scale and hypoglycemia protocol # Hx of A.fib/Pacemaker - Chronic, stable - Home dose coumadin 2.5mg HS - INR this am 1.7 - 3mg Coumadin yesterday. Started on 1mg Coumadin today. - INR ordered for tomorrow am # Chronic normocitic anemia - Iron studies: iron 11 (L), TIBC 303 (wnl), % saturation 4 (L), ferritin 26.5 ( wnl) - VIt b12 581 wnl, folate > 20 # Hx of SLE - Continue with home meds plaquenil and prednisone # Prophylactic measures - DVT: pt on coumadin - Florastor
[2017-10-22] MEDS: Calcium-Vit D 500 mg-200 Units Tab UD PO SCH (21:04)
[2017-10-23] MEDS: Piperacillin/Tazobact 3.375 GM in Sodium Chloride 0.9% 100 ML IVPB SCH ×4 (03:01→21:13)
[2017-10-23] MEDS: Insulin Lispro (humaLOG) 100 Units/ml Inj SC SCH ×4 (06:41→21:14)
[2017-10-23 07:18] LABS: INR 1.8 (0.9-1.2); PROTHROMBIN TIME 20.6 Seconds (9.8-13.1)
[2017-10-23] MEDS: Saccharomyces Boulardi 250 mg Cap PO SCH ×2 (08:44→16:44)
[2017-10-23] MEDS: Multivitamin With Minerals Tab PO SCH (08:44)
[2017-10-23] MEDS: Pantoprazole 40 mg EC Tab PO SCH (08:45)
--- NOTE | 2017-10-23 09:57 | CP.PCM.PN ---
Subjective - Date & Time of Evaluation Date of Evaluation: 10/23/17 Time of Evaluation: 09:35 - Subjective Subjective: Patient seen and evaluated at bedside this am; resting comfortably in bed. Denied cough/shortness of breath. No new complaints/issues. Objective - Vital Signs/Intake and Output Vital Signs (last 24 hours): Temp Pulse Resp BP Pulse Ox 97.5 F L 60 20 138/64 95 10/23/17 08:04 10/23/17 08:04 10/23/17 08:04 10/23/17 08:04 10/23/17 08:04 - Medications Medications: Current Medications Aspirin (Ecotrin) 81 mg PO DAILY [facility] Last Admin: 10/23/17 08:44 Dose: 81 mg Atorvastatin Calcium (Lipitor) 20 mg PO [facility] Last Admin: 10/22/17 20:59 Dose: 20 mg Calcium/Vitamin D (Oyster Shell Calcium/Vitamin D 500 Mg-200 Iu) 1 tab PO [facility] Last Admin: 10/22/17 21:04 Dose: 1 tab Dextrose (Dextrose 50% Inj) 0 ml IV STAT PRN; Protocol PRN Reason: Hypoglycemia Protocol Dextrose (Glutose 15) 0 gm PO ONCE PRN; Protocol PRN Reason: Hypoglycemia Protocol Docusate Sodium (Colace) 100 mg PO BID PRN PRN Reason: Constipation Last Admin: 10/22/17 08:56 Dose: 100 mg Ferrous Sulfate (Feosol) 325 mg PO BID [facility] Last Admin: 10/23/17 08:44 Dose: 325 mg Gabapentin (Neurontin) 300 mg PO TID [facility] Last Admin: 10/23/17 08:44 Dose: 300 mg Glucagon (Glucagen Diagnostic Kit) 0 mg IM STAT PRN; Protocol PRN Reason: Hypoglycemia Protocol Hydroxychloroquine Sulfate (Plaquenil) 200 mg PO BID [facility] PRN Reason: Protocol Last Admin: 10/23/17 08:44 Dose: 200 mg Piperacillin Sod/Tazobactam (Sod 3.375 gm/ Sodium Chloride) 100 mls @ 100 mls/ hr IVPB Q6H [facility] PRN Reason: Protocol Last Admin: 10/23/17 08:49 Dose: 100 mls/hr Insulin Human Lispro (Humalog) 0 units SC ACHS [facility] PRN Reason: Protocol Last Admin: 10/23/17 06:41 Dose: Not Given Magnesium Oxide (Mag-Ox) 400 mg PO DAILY PRN PRN Reason: Other Last Admin: 10/22/17 08:55 Dose: 400 mg Multivitamins/Minerals (Therapeutic-M Tab) 1 tab PO DAILY [facility] Last Admin: 10/23/17 08:44 Dose: 1 tab Nitroglycerin (Nitrostat Sl Tab) 0.4 mg SL DAILY PRN PRN Reason: chest pain Pantoprazole Sodium (Protonix Ec Tab) 40 mg PO DAILY [facility] Last Admin: 10/23/17 08:45 Dose: 40 mg Prednisone (Prednisone Tab) 10 mg PO DAILY [facility] Last Admin: 10/23/17 08:44 Dose: 10 mg Risperidone (Risperdal Tab) 1 mg PO HS [facility] Last Admin: 10/22/17 21:01 Dose: 1 mg Saccharomyces Boulardii (Florastor) 250 mg PO BID [facility] Last Admin: 10/23/17 08:44 Dose: 250 mg Sertraline HCl (Zoloft) 50 mg PO DAILY [facility] Last Admin: 10/23/17 08:45 Dose: 50 mg Sitagliptin Phosphate (Januvia) 100 mg PO DAILY [facility] Last Admin: 10/23/17 08:44 Dose: 100 mg Spironolactone (Aldactone) 25 mg PO DAILY [facility] Last Admin: 10/23/17 08:45 Dose: 25 mg Warfarin Sodium (Coumadin) 1 mg PO QD5 [facility] Last Admin: 10/22/17 16:59 Dose: 1 mg - Labs Labs: 10/21/17 06:30 10/21/17 06:30 PT 20.6 Seconds (9.8-13.1) H 10/23/17 05:30 INR 1.8 (0.9-1.2) H 10/23/17 05:30 - Constitutional Appears: Non-toxic, No Acute Distress - Head Exam Head Exam: NORMAL INSPECTION - Eye Exam Eye Exam: Normal appearance - ENT Exam ENT Exam: Mucous Membranes Moist - Respiratory Exam Respiratory Exam: Clear to Ausculation Bilateral, NORMAL BREATHING PATTERN - Cardiovascular Exam Cardiovascular Exam: REGULAR RHYTHM, +S1, +S2 - GI/Abdominal Exam GI & Abdominal Exam: Soft, Normal Bowel Sounds - Extremities Exam Extremities Exam: Pedal Edema (+1 chronic). absent: Tenderness - Back Exam Back Exam: NORMAL INSPECTION - Neurological Exam Neurological Exam: Alert, Awake - Skin Skin Exam: Dry, Normal Color, Warm Assessment and Plan - Assessment and Plan (Free Text) Assessment: 77 yo M with hx SLE, HTN, DM2, CAD, pacemaker admitted to TCU for rehab and IV antibiotics for possible hospital acquired pneumonia. Clinically improving, participating on physical therapy. Plan: # Hospital Aquired Pneumonia - Recent admission Aug 2017 - Original CXR showed acute infiltrates, repeat showed improvement - Leukocytosis resolved - Zosyn IVPB Q6; completed today - Pulmonology consult- Dr. Cuadra # CHF, sytolic and diastolic - Last Echo 09/05/17 EF 25-30% with valvulopathy - Continue with home dose spirinolactone daily - Restart home med sofinopril 20 mg daily - formulary lisinopril equivalent - ProBNP - 2950 - Cardiology consulted Dr. Hidalgo - chronic elevated troponins, stable # CKD - GFR 53, stage 3 - BUN 27, Cr 1.3 # CAD - Chronic, hx of stents - Elevated troponins (chronic) - No acute changes on EKG - Cardiology consult, seen by Dr. Hidalgo, pt had cath last year which was good - Continue w/ Aspirin 81 mg daily # Type 2 DM - Chronic, controlled - HbA1c 6.7 on this admission; down from 6.9 in 12/2016 - Continue with home medications Januvia - Hold glipizide, several episodes hypoglycemia - Accuchecks - Insulin coverage scale and hypoglycemia protocol # Hx of A.fib/Pacemaker - Chronic, stable - Home dose coumadin 2.5mg HS - INR this am 1.8 after 3.5 mg coumadin yest - 3.5mg Coumadin today - INR ordered for tomorrow am # Chronic normocitic anemia - Iron studies: iron 11 (L), TIBC 303 (wnl), % saturation 4 (L), ferritin 26.5 ( wnl) - VIt b12 581 wnl, folate > 20 # Hx of SLE - Continue with home meds plaquenil and prednisone # Prophylactic measures - DVT: pt on coumadin - Florastor
[2017-10-23] MEDS: Calcium-Vit D 500 mg-200 Units Tab UD PO SCH (21:14)
[2017-10-24] MEDS: Piperacillin/Tazobact 3.375 GM in Sodium Chloride 0.9% 100 ML IVPB SCH ×3 (04:03→15:39)
[2017-10-24] MEDS: Insulin Lispro (humaLOG) 100 Units/ml Inj SC SCH ×4 (06:31→22:29)
[2017-10-24 07:37] LABS: INR 1.7 (0.9-1.2); PROTHROMBIN TIME 19.5 Seconds (9.8-13.1)
[2017-10-24] MEDS: Saccharomyces Boulardi 250 mg Cap PO SCH ×2 (08:22→16:52)
[2017-10-24] MEDS: Pantoprazole 40 mg EC Tab PO SCH (08:23)
[2017-10-24] MEDS: Multivitamin With Minerals Tab PO SCH (08:23)
--- NOTE | 2017-10-24 09:46 | CP.PCM.PN ---
Subjective - Date & Time of Evaluation Date of Evaluation: 10/24/17 Time of Evaluation: 09:30 - Subjective Subjective: NO CHEST PAIN BREATHING COMFORTABLY Objective - Vital Signs/Intake and Output Vital Signs (last 24 hours): Temp Pulse Resp BP Pulse Ox 97.9 F 63 20 148/67 100 10/24/17 07:48 10/24/17 07:48 10/24/17 07:48 10/24/17 07:48 10/24/17 07:48 - Medications Medications: Current Medications Aspirin (Ecotrin) 81 mg PO DAILY [facility] Last Admin: 10/24/17 08:23 Dose: 81 mg Atorvastatin Calcium (Lipitor) 20 mg PO [facility] Last Admin: 10/23/17 21:14 Dose: 20 mg Calcium/Vitamin D (Oyster Shell Calcium/Vitamin D 500 Mg-200 Iu) 1 tab PO [facility] Last Admin: 10/23/17 21:14 Dose: 1 tab Dextrose (Dextrose 50% Inj) 0 ml IV STAT PRN; Protocol PRN Reason: Hypoglycemia Protocol Dextrose (Glutose 15) 0 gm PO ONCE PRN; Protocol PRN Reason: Hypoglycemia Protocol Docusate Sodium (Colace) 100 mg PO BID PRN PRN Reason: Constipation Last Admin: 10/22/17 08:56 Dose: 100 mg Ferrous Sulfate (Feosol) 325 mg PO BID [facility] Last Admin: 10/24/17 08:23 Dose: 325 mg Gabapentin (Neurontin) 300 mg PO TID [facility] Last Admin: 10/24/17 08:23 Dose: 300 mg Glucagon (Glucagen Diagnostic Kit) 0 mg IM STAT PRN; Protocol PRN Reason: Hypoglycemia Protocol Hydroxychloroquine Sulfate (Plaquenil) 200 mg PO BID [facility] PRN Reason: Protocol Last Admin: 10/24/17 08:23 Dose: 200 mg Piperacillin Sod/Tazobactam (Sod 3.375 gm/ Sodium Chloride) 100 mls @ 100 mls/ hr IVPB Q6H [facility] PRN Reason: Protocol Last Admin: 10/24/17 08:23 Dose: 100 mls/hr Insulin Human Lispro (Humalog) 0 units SC ACHS [facility] PRN Reason: Protocol Last Admin: 10/24/17 06:31 Dose: Not Given Magnesium Oxide (Mag-Ox) 400 mg PO DAILY PRN PRN Reason: Other Last Admin: 03/17/18 08:55 Dose: 400 mg Multivitamins/Minerals (Therapeutic-M Tab) 1 tab PO DAILY [facility] Last Admin: 10/24/17 08:23 Dose: 1 tab Nitroglycerin (Nitrostat Sl Tab) 0.4 mg SL DAILY PRN PRN Reason: chest pain Pantoprazole Sodium (Protonix Ec Tab) 40 mg PO DAILY [facility] Last Admin: 10/24/17 08:23 Dose: 40 mg Prednisone (Prednisone Tab) 10 mg PO DAILY [facility] Last Admin: 10/24/17 08:23 Dose: 10 mg Risperidone (Risperdal Tab) 1 mg PO HS [facility] Last Admin: 10/23/17 21:14 Dose: 1 mg Saccharomyces Boulardii (Florastor) 250 mg PO BID [facility] Last Admin: 10/24/17 08:22 Dose: 250 mg Sertraline HCl (Zoloft) 50 mg PO DAILY [facility] Last Admin: 10/24/17 08:23 Dose: 50 mg Sitagliptin Phosphate (Januvia) 100 mg PO DAILY [facility] Last Admin: 10/24/17 08:23 Dose: 100 mg Spironolactone (Aldactone) 25 mg PO DAILY [facility] Last Admin: 10/24/17 08:23 Dose: 25 mg - Labs Labs: 10/21/17 06:30 10/21/17 06:30 PT 19.5 Seconds (9.8-13.1) H 10/24/17 06:00 INR 1.7 (0.9-1.2) H 10/24/17 06:00 - Respiratory Exam Respiratory Exam: Clear to Ausculation Bilateral - Cardiovascular Exam Cardiovascular Exam: REGULAR RHYTHM, +S1, +S2 Assessment and Plan - Assessment and Plan (Free Text) Assessment: CAD-STABLE SSS WITH ATRIAL FIBRILLATION HISTORY AND PACEMAKER HYPERTENSION HYPERLIPIDEMIA COPD TYPE 2 DM Plan: CONTINUE ALDACTONE, ASPIRIN, ATORVASTATIN, ANTIBIOTICS AND JANUVIA CONTINUE SUBACUTE REHAB
--- NOTE | 2017-10-24 11:15 | CP.PCM.PN ---
Subjective - Date & Time of Evaluation Date of Evaluation: 10/24/17 Time of Evaluation: 11:14 - Subjective Subjective: Seen in the gym this morning. Has done well on the current drug regimen. His VS remain stable, he continues to be afebrile. Offers no complaints of cough or shortness of breath. Breath sounds are diminished bilaterally with scattered dry rales in the lower lobes. No audible wheezing or bronchial breath sounds. Plan for discharge soon. Objective - Vital Signs/Intake and Output Vital Signs (last 24 hours): Temp Pulse Resp BP Pulse Ox 97.9 F 63 20 148/67 100 10/24/17 07:48 10/24/17 07:48 10/24/17 07:48 10/24/17 07:48 10/24/17 07:48 - Medications Medications: Current Medications Aspirin (Ecotrin) 81 mg PO DAILY [facility] Last Admin: 10/24/17 08:23 Dose: 81 mg Atorvastatin Calcium (Lipitor) 20 mg PO HS [facility] Last Admin: 10/23/17 21:14 Dose: 20 mg Calcium/Vitamin D (Oyster Shell Calcium/Vitamin D 500 Mg-200 Iu) 1 tab PO HS [facility] Last Admin: 10/23/17 21:14 Dose: 1 tab Dextrose (Dextrose 50% Inj) 0 ml IV STAT PRN; Protocol PRN Reason: Hypoglycemia Protocol Dextrose (Glutose 15) 0 gm PO ONCE PRN; Protocol PRN Reason: Hypoglycemia Protocol Docusate Sodium (Colace) 100 mg PO BID PRN PRN Reason: Constipation Last Admin: 10/22/17 08:56 Dose: 100 mg Ferrous Sulfate (Feosol) 325 mg PO BID [facility] Last Admin: 10/24/17 08:23 Dose: 325 mg Gabapentin (Neurontin) 300 mg PO TID [facility] Last Admin: 10/24/17 08:23 Dose: 300 mg Glucagon (Glucagen Diagnostic Kit) 0 mg IM STAT PRN; Protocol PRN Reason: Hypoglycemia Protocol Hydroxychloroquine Sulfate (Plaquenil) 200 mg PO BID [facility] PRN Reason: Protocol Last Admin: 10/24/17 08:23 Dose: 200 mg Piperacillin Sod/Tazobactam (Sod 3.375 gm/ Sodium Chloride) 100 mls @ 100 mls/ hr IVPB Q6H [facility] PRN Reason: Protocol Last Admin: 10/24/17 08:23 Dose: 100 mls/hr Insulin Human Lispro (Humalog) 0 units SC ACHS [facility] PRN Reason: Protocol Last Admin: 10/24/17 06:31 Dose: Not Given Magnesium Oxide (Mag-Ox) 400 mg PO DAILY PRN PRN Reason: Other Last Admin: 10/22/17 08:55 Dose: 400 mg Multivitamins/Minerals (Therapeutic-M Tab) 1 tab PO DAILY [facility] Last Admin: 10/24/17 08:23 Dose: 1 tab Nitroglycerin (Nitrostat Sl Tab) 0.4 mg SL DAILY PRN PRN Reason: chest pain Pantoprazole Sodium (Protonix Ec Tab) 40 mg PO DAILY [facility] Last Admin: 10/24/17 08:23 Dose: 40 mg Prednisone (Prednisone Tab) 10 mg PO DAILY [facility] Last Admin: 10/24/17 08:23 Dose: 10 mg Risperidone (Risperdal Tab) 1 mg PO HS [facility] Last Admin: 10/23/17 21:14 Dose: 1 mg Saccharomyces Boulardii (Florastor) 250 mg PO BID [facility] Last Admin: 10/24/17 08:22 Dose: 250 mg Sertraline HCl (Zoloft) 50 mg PO DAILY [facility] Last Admin: 10/24/17 08:23 Dose: 50 mg Sitagliptin Phosphate (Januvia) 100 mg PO DAILY [facility] Last Admin: 10/24/17 08:23 Dose: 100 mg Spironolactone (Aldactone) 25 mg PO DAILY [facility] Last Admin: 10/24/17 08:23 Dose: 25 mg - Labs Labs: 10/21/17 06:30 10/21/17 06:30 PT 19.5 Seconds (9.8-13.1) H 10/24/17 06:00 INR 1.7 (0.9-1.2) H 10/24/17 06:00 Assessment and Plan (1) HCAP (healthcare-associated pneumonia) Status: Acute (2) Left-sided chest wall pain Status: Chronic
--- NOTE | 2017-10-24 14:34 | CP.PCM.PN ---
Subjective - Date & Time of Evaluation Date of Evaluation: 10/24/17 Time of Evaluation: 07:00 - Subjective Subjective: Pt seen and examined this am at the bedside. Seen sitting up on chair comfortably. States he feels well and is ready to go home. Denies cough, fever, chills. Participating with PT. Objective - Vital Signs/Intake and Output Vital Signs (last 24 hours): Temp Pulse Resp BP Pulse Ox 97.9 F 63 20 148/67 100 10/24/17 07:48 10/24/17 07:48 10/24/17 07:48 10/24/17 07:48 10/24/17 07:48 - Medications Medications: Current Medications Aspirin (Ecotrin) 81 mg PO DAILY [facility] Last Admin: 10/24/17 08:23 Dose: 81 mg Atorvastatin Calcium (Lipitor) 20 mg PO HS [facility] Last Admin: 10/23/17 21:14 Dose: 20 mg Calcium/Vitamin D (Oyster Shell Calcium/Vitamin D 500 Mg-200 Iu) 1 tab PO HS [facility] Last Admin: 10/23/17 21:14 Dose: 1 tab Dextrose (Dextrose 50% Inj) 0 ml IV STAT PRN; Protocol PRN Reason: Hypoglycemia Protocol Dextrose (Glutose 15) 0 gm PO ONCE PRN; Protocol PRN Reason: Hypoglycemia Protocol Docusate Sodium (Colace) 100 mg PO BID PRN PRN Reason: Constipation Last Admin: 10/22/17 08:56 Dose: 100 mg Ferrous Sulfate (Feosol) 325 mg PO BID [facility] Last Admin: 10/24/17 08:23 Dose: 325 mg Gabapentin (Neurontin) 300 mg PO TID [facility] Last Admin: 10/24/17 12:19 Dose: 300 mg Glucagon (Glucagen Diagnostic Kit) 0 mg IM STAT PRN; Protocol PRN Reason: Hypoglycemia Protocol Hydroxychloroquine Sulfate (Plaquenil) 200 mg PO BID [facility] PRN Reason: Protocol Last Admin: 10/24/17 08:23 Dose: 200 mg Piperacillin Sod/Tazobactam (Sod 3.375 gm/ Sodium Chloride) 100 mls @ 100 mls/ hr IVPB Q6H [facility] PRN Reason: Protocol Last Admin: 10/24/17 08:23 Dose: 100 mls/hr Insulin Human Lispro (Humalog) 0 units SC ACHS [facility] PRN Reason: Protocol Last Admin: 10/24/17 11:33 Dose: 1 u Magnesium Oxide (Mag-Ox) 400 mg PO DAILY PRN PRN Reason: Other Last Admin: 10/22/17 08:55 Dose: 400 mg Multivitamins/Minerals (Therapeutic-M Tab) 1 tab PO DAILY [facility] Last Admin: 10/24/17 08:23 Dose: 1 tab Nitroglycerin (Nitrostat Sl Tab) 0.4 mg SL DAILY PRN PRN Reason: chest pain Pantoprazole Sodium (Protonix Ec Tab) 40 mg PO DAILY [facility] Last Admin: 10/24/17 08:23 Dose: 40 mg Prednisone (Prednisone Tab) 10 mg PO DAILY [facility] Last Admin: 10/24/17 08:23 Dose: 10 mg Risperidone (Risperdal Tab) 1 mg PO HS [facility] Last Admin: 10/23/17 21:14 Dose: 1 mg Saccharomyces Boulardii (Florastor) 250 mg PO BID [facility] Last Admin: 10/24/17 08:22 Dose: 250 mg Sertraline HCl (Zoloft) 50 mg PO DAILY [facility] Last Admin: 10/24/17 08:23 Dose: 50 mg Sitagliptin Phosphate (Januvia) 100 mg PO DAILY [facility] Last Admin: 10/24/17 08:23 Dose: 100 mg Spironolactone (Aldactone) 25 mg PO DAILY [facility] Last Admin: 10/24/17 08:23 Dose: 25 mg - Labs Labs: 10/21/17 06:30 10/21/17 06:30 PT 19.5 Seconds (9.8-13.1) H 10/24/17 06:00 INR 1.7 (0.9-1.2) H 10/24/17 06:00 - Constitutional Appears: Well, Non-toxic, No Acute Distress - Head Exam Head Exam: NORMAL INSPECTION - Eye Exam Eye Exam: Normal appearance - ENT Exam ENT Exam: Mucous Membranes Moist - Respiratory Exam Respiratory Exam: Clear to Ausculation Bilateral. absent: Rales, Wheezes - Cardiovascular Exam Cardiovascular Exam: REGULAR RHYTHM, +S1, +S2. absent: Murmur - GI/Abdominal Exam GI & Abdominal Exam: Soft. absent: Distended, Tenderness - Extremities Exam Extremities Exam: absent: Pedal Edema - Neurological Exam Neurological Exam: Alert, Awake, Oriented x3 - Psychiatric Exam Psychiatric exam: Normal Mood - Skin Skin Exam: Normal Color Assessment and Plan - Assessment and Plan (Free Text) Assessment: Assessment: 77 yo M with hx SLE, HTN, DM2, CAD, pacemaker admitted to TCU for rehab, completed course of IV ABX for HCAP. Clinically improving, participating on physical therapy. Plan: # Hospital Aquired Pneumonia - Recent admission Aug 2017 - Original CXR showed acute infiltrates, repeat showed improvement - Leukocytosis resolved - 8 days of Zosyn IVPB Q6 completed - Pulmonology consult- Dr. Cuadra # CHF, sytolic and diastolic - Last Echo 09/05/17 EF 25-30% with valvulopathy - Continue with home dose spirinolactone daily - Restart home med sofinopril 20 mg daily - formulary lisinopril equivalent - ProBNP - 2950 - Cardiology consulted Dr. Hidalgo - chronic elevated troponins, stable # CKD - GFR 53, stage 3 - BUN 27, Cr 1.3 # CAD - Chronic, hx of stents - Elevated troponins (chronic) - No acute changes on EKG - Cardiology consult, seen by Dr. Hidalgo, pt had cath last year which was good - Continue w/ Aspirin 81 mg daily # Type 2 DM - Chronic, controlled - HbA1c 6.7 on this admission; down from 6.9 in 12/2016 - Continue with home medications Januvia - Hold glipizide, several episodes hypoglycemia - Accuchecks - Insulin coverage scale and hypoglycemia protocol # Hx of A.fib/Pacemaker - Chronic, stable - Home dose coumadin 2.5mg HS - INR this am 1.7 after 3.5 mg coumadin yest - 5mgCoumadin today - INR ordered for tomorrow am # Chronic normocitic anemia - Iron studies: iron 11 (L), TIBC 303 (wnl), % saturation 4 (L), ferritin 26.5 ( wnl) - VIt b12 581 wnl, folate > 20 # Hx of SLE - Continue with home meds plaquenil and prednisone # Prophylactic measures - DVT: pt on coumadin - Florastor
[2017-10-24] MEDS: Calcium-Vit D 500 mg-200 Units Tab UD PO SCH (21:18)
[2017-10-25] MEDS: Insulin Lispro (humaLOG) 100 Units/ml Inj SC SCH ×4 (06:32→22:13)
[2017-10-25 07:00] LABS: INR 1.7 (0.9-1.2); PROTHROMBIN TIME 19.3 Seconds (9.8-13.1)
[2017-10-25] MEDS: Saccharomyces Boulardi 250 mg Cap PO SCH ×2 (08:25→16:47)
[2017-10-25] MEDS: Multivitamin With Minerals Tab PO SCH (08:25)
[2017-10-25] MEDS: Pantoprazole 40 mg EC Tab PO SCH (08:26)
[2017-10-25] MEDS: Magnesium Oxide 400 mg Tab UD PO PRN (08:27)
--- NOTE | 2017-10-25 14:39 | CP.PCM.PN ---
<Monet Rosenthal - Last Filed: 10/25/17 15:09> Subjective - Date & Time of Evaluation Date of Evaluation: 10/25/17 Time of Evaluation: 07:00 - Subjective Subjective: Pt seen in the am. Doing well. No complaints. Objective - Vital Signs/Intake and Output Vital Signs (last 24 hours): Temp Pulse Resp BP Pulse Ox 97.8 F 64 18 111/55 L 95 10/24/17 20:48 10/24/17 20:48 10/24/17 20:48 10/24/17 20:48 10/24/17 20:48 - Medications Medications: Current Medications Aspirin (Ecotrin) 81 mg PO DAILY [facility] Last Admin: 10/25/17 08:27 Dose: 81 mg Atorvastatin Calcium (Lipitor) 20 mg PO HS [facility] Last Admin: 10/24/17 21:18 Dose: 20 mg Calcium/Vitamin D (Oyster Shell Calcium/Vitamin D 500 Mg-200 Iu) 1 tab PO [facility] Last Admin: 10/24/17 21:18 Dose: 1 tab Dextrose (Dextrose 50% Inj) 0 ml IV STAT PRN; Protocol PRN Reason: Hypoglycemia Protocol Dextrose (Glutose 15) 0 gm PO ONCE PRN; Protocol PRN Reason: Hypoglycemia Protocol Docusate Sodium (Colace) 100 mg PO BID PRN PRN Reason: Constipation Last Admin: 10/25/17 08:27 Dose: 100 mg Ferrous Sulfate (Feosol) 325 mg PO BID [facility] Last Admin: 10/25/17 08:25 Dose: 325 mg Gabapentin (Neurontin) 300 mg PO TID [facility] Last Admin: 10/25/17 13:15 Dose: 300 mg Glucagon (Glucagen Diagnostic Kit) 0 mg IM STAT PRN; Protocol PRN Reason: Hypoglycemia Protocol Hydroxychloroquine Sulfate (Plaquenil) 200 mg PO BID [facility] PRN Reason: Protocol Last Admin: 10/25/17 08:25 Dose: 200 mg Insulin Human Lispro (Humalog) 0 units SC ACHS [facility] PRN Reason: Protocol Last Admin: 10/25/17 11:32 Dose: Not Given Magnesium Oxide (Mag-Ox) 400 mg PO DAILY PRN PRN Reason: Other Last Admin: 10/25/17 08:27 Dose: 400 mg Multivitamins/Minerals (Therapeutic-M Tab) 1 tab PO DAILY [facility] Last Admin: 10/25/17 08:25 Dose: 1 tab Nitroglycerin (Nitrostat Sl Tab) 0.4 mg SL DAILY PRN PRN Reason: chest pain Pantoprazole Sodium (Protonix Ec Tab) 40 mg PO DAILY [facility] Last Admin: 10/25/17 08:26 Dose: 40 mg Prednisone (Prednisone Tab) 10 mg PO DAILY [facility] Last Admin: 10/25/17 08:25 Dose: 10 mg Risperidone (Risperdal Tab) 1 mg PO HS [facility] Last Admin: 10/24/17 21:19 Dose: 1 mg Saccharomyces Boulardii (Florastor) 250 mg PO BID [facility] Last Admin: 10/25/17 08:25 Dose: 250 mg Sertraline HCl (Zoloft) 50 mg PO DAILY [facility] Last Admin: 10/25/17 08:28 Dose: 50 mg Sitagliptin Phosphate (Januvia) 100 mg PO DAILY [facility] Last Admin: 10/25/17 08:27 Dose: 100 mg Spironolactone (Aldactone) 25 mg PO DAILY [facility] Last Admin: 10/25/17 08:28 Dose: 25 mg - Labs Labs: 10/21/17 06:30 10/21/17 06:30 PT 19.3 Seconds (9.8-13.1) H 10/25/17 05:45 INR 1.7 (0.9-1.2) H 10/25/17 05:45 - Constitutional Appears: Well, Non-toxic, No Acute Distress - Head Exam Head Exam: NORMAL INSPECTION - Eye Exam Eye Exam: Normal appearance - ENT Exam ENT Exam: Mucous Membranes Moist - Respiratory Exam Respiratory Exam: Clear to Ausculation Bilateral. absent: Rales, Wheezes - Cardiovascular Exam Cardiovascular Exam: REGULAR RHYTHM, +S1, +S2. absent: Murmur - Extremities Exam Extremities Exam: Normal Inspection - Neurological Exam Neurological Exam: Alert, Awake, Oriented x3 - Psychiatric Exam Psychiatric exam: Normal Affect Assessment and Plan - Assessment and Plan (Free Text) Assessment: 77 yo M with hx SLE, HTN, DM2, CAD, pacemaker admitted to TCU for rehab, completed course of IV ABX for HCAP. Clinically improving, participating on physical therapy. Pt is cleared for discharge by Sheet Music Salesperson and Wagon Drill Operator. Anticipating discharge tomorrow. SW will be arranging for transport service. Plan: # Hospital Aquired Pneumonia - Recent admission Aug 2017 - Original CXR showed acute infiltrates, repeat showed improvement - Leukocytosis resolved - 8 days of Zosyn IVPB Q6 completed - Pulmonology consult- Dr. Cuadra # CHF, sytolic and diastolic - Last Echo 09/05/17 EF 25-30% with valvulopathy - Continue with home dose spirinolactone daily - Restart home med sofinopril 20 mg daily - formulary lisinopril equivalent - ProBNP - 2950 - Cardiology consulted Dr. Hidalgo - chronic elevated troponins, stable # CKD - GFR 53, stage 3 - BUN 27, Cr 1.3 # CAD - Chronic, hx of stents - Elevated troponins (chronic) - No acute changes on EKG - Cardiology consult, seen by Dr. Hidalgo, pt had cath last year which was good - Continue w/ Aspirin 81 mg daily # Type 2 DM - Chronic, controlled - HbA1c 6.7 on this admission; down from 6.9 in 12/2016 - Continue with home medications Januvia - Hold glipizide, several episodes hypoglycemia - Accuchecks - Insulin coverage scale and hypoglycemia protocol # Hx of A.fib/Pacemaker - Chronic, stable - Home dose coumadin 2.5mg HS - INR this am 1.7 after 3.5 mg coumadin yest - 5mgCoumadin today - INR ordered for tomorrow am # Chronic normocitic anemia - Iron studies: iron 11 (L), TIBC 303 (wnl), % saturation 4 (L), ferritin 26.5 ( wnl) - VIt b12 581 wnl, folate > 20 # Hx of SLE - Continue with home meds plaquenil and prednisone # Prophylactic measures - DVT: pt on coumadin - Florastavelina <Prasanth Nye - Last Filed: 10/27/17 06:52> Objective - Vital Signs/Intake and Output Vital Signs (last 24 hours): Temp Pulse Resp BP Pulse Ox 97.7 F 63 20 126/60 96 10/26/17 20:08 10/26/17 20:08 10/26/17 20:08 10/26/17 20:08 10/26/17 20:08 - Medications Medications: Current Medications Aspirin (Ecotrin) 81 mg PO DAILY [facility] Last Admin: 10/26/17 08:07 Dose: 81 mg Atorvastatin Calcium (Lipitor) 20 mg PO HS [facility] Last Admin: 10/26/17 21:32 Dose: 20 mg Calcium/Vitamin D (Oyster Shell Calcium/Vitamin D 500 Mg-200 Iu) 1 tab PO HS [facility] Last Admin: 10/26/17 21:28 Dose: 1 tab Dextrose (Dextrose 50% Inj) 0 ml IV STAT PRN; Protocol PRN Reason: Hypoglycemia Protocol Dextrose (Glutose 15) 0 gm PO ONCE PRN; Protocol PRN Reason: Hypoglycemia Protocol Docusate Sodium (Colace) 100 mg PO BID PRN PRN Reason: Constipation Last Admin: 10/26/17 17:10 Dose: 100 mg Ferrous Sulfate (Feosol) 325 mg PO BID [facility] Last Admin: 10/26/17 17:09 Dose: 325 mg Gabapentin (Neurontin) 300 mg PO TID [facility] Last Admin: 10/26/17 17:10 Dose: 300 mg Glucagon (Glucagen Diagnostic Kit) 0 mg IM STAT PRN; Protocol PRN Reason: Hypoglycemia Protocol Hydroxychloroquine Sulfate (Plaquenil) 200 mg PO BID [facility] PRN Reason: Protocol Last Admin: 10/26/17 17:10 Dose: 200 mg Insulin Human Lispro (Humalog) 0 units SC ACHS [facility] PRN Reason: Protocol Last Admin: 10/26/17 21:33 Dose: Not Given Magnesium Oxide (Mag-Ox) 400 mg PO DAILY PRN PRN Reason: Other Last Admin: 10/26/17 08:07 Dose: 400 mg Multivitamins/Minerals (Therapeutic-M Tab) 1 tab PO DAILY [facility] Last Admin: 10/26/17 08:03 Dose: 1 tab Nitroglycerin (Nitrostat Sl Tab) 0.4 mg SL DAILY PRN PRN Reason: chest pain Pantoprazole Sodium (Protonix Ec Tab) 40 mg PO DAILY [facility] Last Admin: 10/26/17 08:06 Dose: 40 mg Prednisone (Prednisone Tab) 10 mg PO DAILY [facility] Last Admin: 10/26/17 08:06 Dose: 10 mg Risperidone (Risperdal Tab) 1 mg PO [facility] Last Admin: 10/26/17 21:26 Dose: 1 mg Saccharomyces Boulardii (Florastor) 250 mg PO BID [facility] Last Admin: 10/26/17 17:10 Dose: 250 mg Sertraline HCl (Zoloft) 50 mg PO DAILY [facility] Last Admin: 10/26/17 08:05 Dose: 50 mg Sitagliptin Phosphate (Januvia) 100 mg PO DAILY [facility] Last Admin: 10/26/17 08:03 Dose: 100 mg Spironolactone (Aldactone) 25 mg PO DAILY [facility] Last Admin: 10/26/17 08:05 Dose: 25 mg - Labs Labs: 10/21/17 06:30 10/21/17 06:30 PT 21.9 Seconds (9.8-13.1) H 10/27/17 05:54 INR 2.0 (0.9-1.2) H 10/27/17 05:54 Attending/Attestation - Attestation I have personally seen and examined this patient.: Yes I have fully participated in the care of the patient.: Yes I have reviewed all pertinent clinical information, including history, physical exam and plan: Yes
[2017-10-25 16:07] VITALS: RESP 20
[2017-10-25] MEDS: Calcium-Vit D 500 mg-200 Units Tab UD PO SCH (21:10)
[2017-10-26] MEDS: Insulin Lispro (humaLOG) 100 Units/ml Inj SC SCH ×4 (06:31→21:33)
[2017-10-26 06:51] LABS: INR 1.8 (0.9-1.2); PROTHROMBIN TIME 20.6 Seconds (9.8-13.1)
[2017-10-26] MEDS: Multivitamin With Minerals Tab PO SCH (08:03)
[2017-10-26] MEDS: Saccharomyces Boulardi 250 mg Cap PO SCH ×2 (08:03→17:10)
[2017-10-26] MEDS: Pantoprazole 40 mg EC Tab PO SCH (08:06)
[2017-10-26] MEDS: Magnesium Oxide 400 mg Tab UD PO PRN (08:07)
--- NOTE | 2017-10-26 08:22 | CP.PCM.DIS ---
Provider - Provider Date of Admission: 10/18/17 17:56 Attending physician: Prem Billings MD Hospital Course - Lab Results Lab Results: Most Recent Lab Values WBC 8.9 K/uL (4.8-10.8) 10/21/17 06:30 RBC 3.56 Mil/uL (4.40-5.90) L 10/21/17 06:30 Hgb 10.2 g/dL (12.0-18.0) L 10/21/17 06:30 Hct 30.3 % (35.0-51.0) L 10/21/17 06:30 MCV 84.9 fl (80.0-94.0) 10/21/17 06:30 MCH 28.6 pg (27.0-31.0) 10/21/17 06:30 MCHC 33.7 g/dL (33.0-37.0) 10/21/17 06:30 RDW 14.4 % (11.5-14.5) 10/21/17 06:30 Plt Count 195 K/uL (130-400) 10/21/17 06:30 PT 20.6 Seconds (9.8-13.1) H 10/26/17 05:50 INR 1.8 (0.9-1.2) H 10/26/17 05:50 Sodium 143 mmol/l (132-148) 10/21/17 06:30 Potassium 4.1 MMOL/L (3.6-5.0) 10/21/17 06:30 Chloride 105 mmol/L (98-107) 10/21/17 06:30 Carbon Dioxide 23 mmol/L (22-30) 10/21/17 06:30 Anion Gap 19 (10-20) 10/21/17 06:30 BUN 27 mg/dl (9-20) H 10/21/17 06:30 Creatinine 1.3 mg/dl (0.8-1.5) 10/21/17 06:30 Est GFR ( Amer) > 60 10/21/17 06:30 Est GFR (Non-Af Amer) 53 10/21/17 06:30 POC Glucose (mg/dL) 150 mg/dL (65-110) H 10/26/17 05:27 Random Glucose 125 mg/dL (75-110) H 10/21/17 06:30 Calcium 9.0 mg/dL (8.4-10.2) 10/21/17 06:30 Discharge Exam - Head Exam Head Exam: NORMAL INSPECTION Discharge Plan - Follow Up Plan Condition: GOOD Disposition: HOME/ ROUTINE Instructions: Pneumonia in Adults, Heart Failure, Adult (DC)
--- NOTE | 2017-10-26 09:21 | CP.PCM.PN ---
Subjective - Date & Time of Evaluation Date of Evaluation: 10/26/17 Time of Evaluation: 08:00 - Subjective Subjective: NO CHEST PAIN BREATHING AND FEELING BETTER Objective - Vital Signs/Intake and Output Vital Signs (last 24 hours): Temp Pulse Resp BP Pulse Ox 97.9 F 64 20 134/68 96 10/26/17 08:46 10/26/17 08:46 10/26/17 08:46 10/26/17 08:46 10/26/17 08:46 - Medications Medications: Current Medications Aspirin (Ecotrin) 81 mg PO DAILY [facility] Last Admin: 10/26/17 08:07 Dose: 81 mg Atorvastatin Calcium (Lipitor) 20 mg PO [facility] Last Admin: 10/25/17 21:10 Dose: 20 mg Calcium/Vitamin D (Oyster Shell Calcium/Vitamin D 500 Mg-200 Iu) 1 tab PO [facility] Last Admin: 10/25/17 21:10 Dose: 1 tab Dextrose (Dextrose 50% Inj) 0 ml IV STAT PRN; Protocol PRN Reason: Hypoglycemia Protocol Dextrose (Glutose 15) 0 gm PO ONCE PRN; Protocol PRN Reason: Hypoglycemia Protocol Docusate Sodium (Colace) 100 mg PO BID PRN PRN Reason: Constipation Last Admin: 10/26/17 08:05 Dose: 100 mg Ferrous Sulfate (Feosol) 325 mg PO BID [facility] Last Admin: 10/26/17 08:05 Dose: 325 mg Gabapentin (Neurontin) 300 mg PO TID [facility] Last Admin: 10/26/17 08:04 Dose: 300 mg Glucagon (Glucagen Diagnostic Kit) 0 mg IM STAT PRN; Protocol PRN Reason: Hypoglycemia Protocol Hydroxychloroquine Sulfate (Plaquenil) 200 mg PO BID [facility] PRN Reason: Protocol Last Admin: 10/26/17 08:04 Dose: 200 mg Insulin Human Lispro (Humalog) 0 units SC ACHS [facility] PRN Reason: Protocol Last Admin: 10/26/17 06:31 Dose: Not Given Magnesium Oxide (Mag-Ox) 400 mg PO DAILY PRN PRN Reason: Other Last Admin: 10/26/17 08:07 Dose: 400 mg Multivitamins/Minerals (Therapeutic-M Tab) 1 tab PO DAILY [facility] Last Admin: 10/26/17 08:03 Dose: 1 tab Nitroglycerin (Nitrostat Sl Tab) 0.4 mg SL DAILY PRN PRN Reason: chest pain Pantoprazole Sodium (Protonix Ec Tab) 40 mg PO DAILY [facility] Last Admin: 10/26/17 08:06 Dose: 40 mg Prednisone (Prednisone Tab) 10 mg PO DAILY [facility] Last Admin: 10/26/17 08:06 Dose: 10 mg Risperidone (Risperdal Tab) 1 mg PO HS [facility] Last Admin: 10/25/17 21:10 Dose: 1 mg Saccharomyces Boulardii (Florastor) 250 mg PO BID [facility] Last Admin: 10/26/17 08:03 Dose: 250 mg Sertraline HCl (Zoloft) 50 mg PO DAILY [facility] Last Admin: 10/26/17 08:05 Dose: 50 mg Sitagliptin Phosphate (Januvia) 100 mg PO DAILY [facility] Last Admin: 10/26/17 08:03 Dose: 100 mg Spironolactone (Aldactone) 25 mg PO DAILY [facility] Last Admin: 10/26/17 08:05 Dose: 25 mg - Labs Labs: 10/21/17 06:30 10/21/17 06:30 PT 20.6 Seconds (9.8-13.1) H 10/26/17 05:50 INR 1.8 (0.9-1.2) H 10/26/17 05:50 - Respiratory Exam Respiratory Exam: Clear to Ausculation Bilateral - Cardiovascular Exam Cardiovascular Exam: REGULAR RHYTHM, +S1, +S2 Assessment and Plan - Assessment and Plan (Free Text) Assessment: PNEUMONIA-TREATED CAD HISTORY-STABLE SSS WITH ATRIAL FIBRILLATION AND PACEMAKER HYPERTENSION SLE Plan: CONTINUE ALDACTONE, WARFARIN, ASPIRIN AND ATORVASTATIN FOR DISCHARGE TODAY PATIENT TO FOLLOW UP WITH [facility] [employer]MIN[employer] AGENT
--- NOTE | 2017-10-26 12:12 | CP.PCM.PN ---
Subjective - Date & Time of Evaluation Date of Evaluation: 10/26/17 Time of Evaluation: 08:00 - Subjective Subjective: Pt seen and examined at the bedside this morning. Pt was dressed and ready for discharge. No complaints. Later I received a call from [facility] stating that his home transport was unsuccessful due to extreme weather conditions. Pt will remain until weather conditions improve. Objective - Vital Signs/Intake and Output Vital Signs (last 24 hours): Temp Pulse Resp BP Pulse Ox 97.9 F 64 20 134/68 96 10/26/17 08:46 10/26/17 08:46 10/26/17 08:46 10/26/17 08:46 10/26/17 08:46 - Medications Medications: Current Medications Aspirin (Ecotrin) 81 mg PO DAILY [facility] Last Admin: 10/26/17 08:07 Dose: 81 mg Atorvastatin Calcium (Lipitor) 20 mg PO HS [facility] Last Admin: 10/25/17 21:10 Dose: 20 mg Calcium/Vitamin D (Oyster Shell Calcium/Vitamin D 500 Mg-200 Iu) 1 tab PO [facility] Last Admin: 10/25/17 21:10 Dose: 1 tab Dextrose (Dextrose 50% Inj) 0 ml IV STAT PRN; Protocol PRN Reason: Hypoglycemia Protocol Dextrose (Glutose 15) 0 gm PO ONCE PRN; Protocol PRN Reason: Hypoglycemia Protocol Docusate Sodium (Colace) 100 mg PO BID PRN PRN Reason: Constipation Last Admin: 10/26/17 08:05 Dose: 100 mg Ferrous Sulfate (Feosol) 325 mg PO BID [facility] Last Admin: 10/26/17 08:05 Dose: 325 mg Gabapentin (Neurontin) 300 mg PO TID [facility] Last Admin: 10/26/17 08:04 Dose: 300 mg Glucagon (Glucagen Diagnostic Kit) 0 mg IM STAT PRN; Protocol PRN Reason: Hypoglycemia Protocol Hydroxychloroquine Sulfate (Plaquenil) 200 mg PO BID [facility] PRN Reason: Protocol Last Admin: 10/26/17 08:04 Dose: 200 mg Insulin Human Lispro (Humalog) 0 units SC ACHS [facility] PRN Reason: Protocol Last Admin: 10/26/17 12:07 Dose: Not Given Magnesium Oxide (Mag-Ox) 400 mg PO DAILY PRN PRN Reason: Other Last Admin: 10/26/17 08:07 Dose: 400 mg Multivitamins/Minerals (Therapeutic-M Tab) 1 tab PO DAILY [facility] Last Admin: 10/26/17 08:03 Dose: 1 tab Nitroglycerin (Nitrostat Sl Tab) 0.4 mg SL DAILY PRN PRN Reason: chest pain Pantoprazole Sodium (Protonix Ec Tab) 40 mg PO DAILY [facility] Last Admin: 10/26/17 08:06 Dose: 40 mg Prednisone (Prednisone Tab) 10 mg PO DAILY [facility] Last Admin: 10/26/17 08:06 Dose: 10 mg Risperidone (Risperdal Tab) 1 mg PO HS [facility] Last Admin: 10/25/17 21:10 Dose: 1 mg Saccharomyces Boulardii (Florastor) 250 mg PO BID [facility] Last Admin: 10/26/17 08:03 Dose: 250 mg Sertraline HCl (Zoloft) 50 mg PO DAILY [facility] Last Admin: 10/26/17 08:05 Dose: 50 mg Sitagliptin Phosphate (Januvia) 100 mg PO DAILY [facility] Last Admin: 10/26/17 08:03 Dose: 100 mg Spironolactone (Aldactone) 25 mg PO DAILY [facility] Last Admin: 10/26/17 08:05 Dose: 25 mg - Labs Labs: 10/21/17 06:30 10/21/17 06:30 PT 20.6 Seconds (9.8-13.1) H 10/26/17 05:50 INR 1.8 (0.9-1.2) H 10/26/17 05:50 - Constitutional Appears: Well, Non-toxic, No Acute Distress - Head Exam Head Exam: NORMAL INSPECTION - Eye Exam Eye Exam: Normal appearance - ENT Exam ENT Exam: Mucous Membranes Moist - Respiratory Exam Respiratory Exam: Clear to Ausculation Bilateral. absent: Rales, Wheezes - Cardiovascular Exam Cardiovascular Exam: REGULAR RHYTHM, +S1, +S2. absent: Murmur - GI/Abdominal Exam GI & Abdominal Exam: Soft, Normal Bowel Sounds. absent: Distended, Tenderness - Extremities Exam Extremities Exam: Normal Inspection - Neurological Exam Neurological Exam: Alert, Awake, Oriented x3 - Psychiatric Exam Psychiatric exam: Normal Mood - Skin Skin Exam: Normal Color Assessment and Plan - Assessment and Plan (Free Text) Assessment: 77 yo M with hx SLE, HTN, DM2, CAD, pacemaker admitted to TCU for rehab, completed course of IV ABX for HCAP. Clinically improving, participating on physical therapy. Pt is cleared for discharge by Yard Laborer and Select Banker. Anticipating discharge tomorrow pending safe weather conditions. Plan: # Hospital Aquired Pneumonia - Recent admission Aug 2017 - Original CXR showed acute infiltrates, repeat showed improvement - Leukocytosis resolved - 8 days of Zosyn IVPB Q6 completed - Pulmonology consult- Dr. Cuadra # CHF, sytolic and diastolic - Last Echo 09/05/17 EF 25-30% with valvulopathy - Continue with home dose spirinolactone daily - Restart home med sofinopril 20 mg daily - formulary lisinopril equivalent - ProBNP - 2950 - Cardiology consulted Dr. Hidalgo - chronic elevated troponins, stable # CKD - GFR 53, stage 3 - BUN 27, Cr 1.3 # CAD - Chronic, hx of stents - Elevated troponins (chronic) - No acute changes on EKG - Cardiology consult, seen by Dr. Hidalgo, pt had cath last year which was good - Continue w/ Aspirin 81 mg daily # Type 2 DM - Chronic, controlled - HbA1c 6.7 on this admission; down from 6.9 in 12/2016 - Continue with home medications Januvia - Hold glipizide, several episodes hypoglycemia - Accuchecks - Insulin coverage scale and hypoglycemia protocol # Hx of A.fib/Pacemaker - Chronic, stable - Home dose coumadin 2.5mg HS - INR this am 1.7 after 3.5 mg coumadin yest - 5mgCoumadin today - INR ordered for tomorrow am # Chronic normocitic anemia - Iron studies: iron 11 (L), TIBC 303 (wnl), % saturation 4 (L), ferritin 26.5 ( wnl) - VIt b12 581 wnl, folate > 20 # Hx of SLE - Continue with home meds plaquenil and prednisone # Prophylactic measures - DVT: pt on coumadin - Florastor
[2017-10-26] MEDS: Calcium-Vit D 500 mg-200 Units Tab UD PO SCH (21:28)
[2017-10-27 06:31] LABS: PROTHROMBIN TIME 21.9 Seconds (9.8-13.1)
[2017-10-27 07:50] VITALS: BP 132/63; PULSE 60; TEMP 98.2; O2SAT 98
[2017-10-27] MEDS: Multivitamin With Minerals Tab PO SCH (08:31)
[2017-10-27] MEDS: Insulin Lispro (humaLOG) 100 Units/ml Inj SC SCH ×2 (08:32→10:58)
[2017-10-27] MEDS: Saccharomyces Boulardi 250 mg Cap PO SCH (08:32)
[2017-10-27] MEDS: Pantoprazole 40 mg EC Tab PO SCH (08:33)
--- NOTE | 2017-10-27 15:10 | CP.PCM.PN ---
Subjective - Date & Time of Evaluation Date of Evaluation: 10/27/17 Time of Evaluation: 08:00 Objective - Vital Signs/Intake and Output Vital Signs (last 24 hours): Temp Pulse Resp BP Pulse Ox 98.2 F 60 20 132/63 98 10/27/17 07:49 10/27/17 07:49 10/27/17 07:49 10/27/17 07:49 10/27/17 07:49 - Labs Labs: 10/21/17 06:30 10/21/17 06:30 PT 21.9 Seconds (9.8-13.1) H 10/27/17 05:54 INR 2.0 (0.9-1.2) H 10/27/17 05:54
--- NOTE | 2017-10-27 15:17 | CP.PCM.DIS ---
Provider - Provider Date of Admission: 10/18/17 17:56 Attending physician: Prem Billings MD Time Spent in preparation of Discharge (in minutes): 55 Diagnosis - Discharge Diagnosis (1) HCAP (healthcare-associated pneumonia) Status: Acute Priority: High (2) Elevated troponin Status: Acute Hospital Course - Lab Results Lab Results: Most Recent Lab Values WBC 8.9 K/uL (4.8-10.8) 10/21/17 06:30 RBC 3.56 Mil/uL (4.40-5.90) L 10/21/17 06:30 Hgb 10.2 g/dL (12.0-18.0) L 10/21/17 06:30 Hct 30.3 % (35.0-51.0) L 10/21/17 06:30 MCV 84.9 fl (80.0-94.0) 10/21/17 06:30 MCH 28.6 pg (27.0-31.0) 10/21/17 06:30 MCHC 33.7 g/dL (33.0-37.0) 10/21/17 06:30 RDW 14.4 % (11.5-14.5) 10/21/17 06:30 Plt Count 195 K/uL (130-400) 10/21/17 06:30 PT 21.9 Seconds (9.8-13.1) H 10/27/17 05:54 INR 2.0 (0.9-1.2) H 10/27/17 05:54 Sodium 143 mmol/l (132-148) 10/21/17 06:30 Potassium 4.1 MMOL/L (3.6-5.0) 10/21/17 06:30 Chloride 105 mmol/L (98-107) 10/21/17 06:30 Carbon Dioxide 23 mmol/L (22-30) 10/21/17 06:30 Anion Gap 19 (10-20) 10/21/17 06:30 BUN 27 mg/dl (9-20) H 10/21/17 06:30 Creatinine 1.3 mg/dl (0.8-1.5) 10/21/17 06:30 Est GFR ( Amer) > 60 10/21/17 06:30 Est GFR (Non-Af Amer) 53 03/16/18 06:30 POC Glucose (mg/dL) 160 mg/dL (65-110) H 10/27/17 10:39 Random Glucose 125 mg/dL (75-110) H 10/21/17 06:30 Calcium 9.0 mg/dL (8.4-10.2) 10/21/17 06:30 - Hospital Course Hospital Course: Assessment: Consultants: ID (Derrell), Pulmonology (Khalif), Cardiology- cleared by D/C by all specialists Hospital Course: 77 yo M with hx SLE, HTN, DM2, CAD, pacemaker admitted to hospital for pneumonia and completed course of IV ABX for HCAP. He was later transferred to TCU for completion of IV abx and rehabilitation. Pt was also noted to have high troponin levels and was evaluated by cardiology who states that it is likely chronic due to CKD. Pt clinically improved and was cleared by all specialist and PT for discharge. Pt was stable on discharge. His transport was arranged via transport service. No changes were made to pt's current medication regimen. Discharge Exam - Head Exam Head Exam: NORMAL INSPECTION - Eye Exam Eye Exam: Normal appearance - ENT Exam ENT Exam: Mucous Membranes Moist - Respiratory Exam Respiratory Exam: absent: Rales, Wheezes - Cardiovascular Exam Cardiovascular Exam: REGULAR RHYTHM, +S1, +S2. absent: Systolic Murmur - GI/Abdominal Exam GI & Abdominal Exam: Normal Bowel Sounds, Soft. absent: Distended, Tenderness - Neurological Exam Neurological exam: Alert, Oriented x3 - Psychiatric Exam Psychiatric exam: Normal Affect - Skin Skin Exam: Normal Color Discharge Plan - Follow Up Plan Condition: GOOD Disposition: HOME/ ROUTINE Instructions: Pneumonia in Adults, Heart Failure, Adult (DC) Referrals: Prem Billings MD [Family Provider] -
== END 2017-10-27 12:45 | disposition home health service (06) | DRG 194 ==
LOC: H.TCU 17:56
PROVIDERS: ADMIT Family Medicine; ATTEND Family Medicine
PROC: F08Z1FZ Dressing Techniques Treatment using Assistive, Adaptive, Supportive or Protective Equipment (ICD-10-PCS; principal; 2017-10-18)
PROC: F07Z9FZ Gait Training/Functional Ambulation Treatment using Assistive, Adaptive, Supportive or Protective Equipment (ICD-10-PCS; 2017-10-18)
PROC: F07L6FZ Therapeutic Exercise Treatment of Musculoskeletal System - Lower Back / Lower Extremity using Assistive, Adaptive, Supportive or Protective Equipment (ICD-10-PCS; 2017-10-18)
PROC: F07K6FZ Therapeutic Exercise Treatment of Musculoskeletal System - Upper Back / Upper Extremity using Assistive, Adaptive, Supportive or Protective Equipment (ICD-10-PCS; 2017-10-18)
DX: J18.9 Pneumonia, unspecified organism (principal); I13.0 Hypertensive heart and chronic kidney disease with heart failure and stage 1 through stage 4 chronic kidney disease, or unspecified chronic kidney disease; E11.22 Type 2 diabetes mellitus with diabetic chronic kidney disease; I48.91 Unspecified atrial fibrillation; M32.14 Glomerular disease in systemic lupus erythematosus; N18.3 Chronic kidney disease, stage 3 (moderate); I50.42 Chronic combined systolic (congestive) and diastolic (congestive) heart failure; J44.0 Chronic obstructive pulmonary disease with (acute) lower respiratory infection; Y95 Nosocomial condition; E78.5 Hyperlipidemia, unspecified; E78.00 Pure hypercholesterolemia, unspecified; Z95.0 Presence of cardiac pacemaker; I25.10 Atherosclerotic heart disease of native coronary artery without angina pectoris; Z95.5 Presence of coronary angioplasty implant and graft; F32.9 Major depressive disorder, single episode, unspecified; Z88.5 Allergy status to narcotic agent; D64.9 Anemia, unspecified

== ENCOUNTER 2018-05-17 08:52 | Inpatient (IN) | payer MEDICARE, OTHER ==
[2018-05-17 08:52] VITALS: BMI 32.5
[2018-05-17 11:18] LABS: BASO % 0.3 % (0.0-2.0); EOS # 0.1 K/uL (0.0-0.7); EOS % 1.4 % (0.0-4.0); HEMOGLOBIN 10.5 g/dL (12.0-18.0); LYMPH # 0.7 K/uL (1.0-4.3); LYMPH % 7.8 % (20.0-40.0); MEAN CELL VOLUME 86.4 fl (80.0-94.0); MEAN CORPUSCULAR HEMOGLOBIN 28.5 pg (27.0-31.0); MEAN CORPUSCULAR HGB CONC 32.9 g/dL (33.0-37.0); MONO # 0.9 K/uL (0.0-0.8); MONO % 9.3 % (0.0-10.0); NEUT # 7.6 K/uL (1.8-7.0); NEUT % 81.2 % (50.0-75.0); PLATELET COUNT 152 K/uL (130-400); RBC 3.69 Mil/uL (4.40-5.90); RED CELL DISTRIBUTION WIDTH 15.6 % (11.5-14.5); WHITE BLOOD COUNT 9.4 K/uL (4.8-10.8)
[2018-05-17 11:26] LABS: PARTIAL THROMBOPLASTIN TIME 36.9 Seconds (25.6-37.1)
[2018-05-17 11:33] LABS: ALB/GLOB RATIO 1.1 (1.0-2.1); ALBUMIN 3.2 g/dL (3.5-5.0); CALCIUM 7.9 mg/dL (8.4-10.2)
[2018-05-17 11:37] LABS: INR 4.3
[2018-05-17 11:39] LABS: PROTHROMBIN TIME 48.6 Seconds (9.8-13.1)
[2018-05-17 11:45] LABS: TROPONIN I 0.219 ng/mL (0.00-0.120)
--- NOTE | 2018-05-17 11:52 | ED PDOC ---
HPI: SOB/CHF/COPD Time Seen by Provider: 05/17/18 09:00 Chief Complaint (Nursing): Shortness Of Breath Chief Complaint (Provider): Shortness Of Breath History Per: Patient, Mounter Smoking Pipe (Donya Riosn Mounter Smoking Pipe #[id number] S[place]) History/Exam Limitations: no limitations Onset/Duration Of Symptoms: Days Current Symptoms Are (Timing): Still Present Additional Complaint(s): 77 year old male, with a PMHx of anemia, arthritis, a-fib, CAD, cardia arrhythmia, CHF, depression, diabetes (type II), HTN, hypercholesterolemia, pneumonia, and chronic kidney disease, presenting for evaluation of shortness of breath x2 weeks. Patient denies any fevers, cough, chest pain, or abdominal pain. Of note, patient takes Coumadin for pafib. PMD: Dr. Falcon Past Medical History Reviewed: Historical Data, Nursing Documentation, Vital Signs Vital Signs: Last Vital Signs Temp 98.4 F 05/17/18 09:00 Pulse 70 05/17/18 09:00 Resp 18 05/17/18 09:06 BP Pulse Ox 98 05/17/18 09:00 - Medical History PMH: Anemia, Arthritis, Atrial Fibrillation, CAD, Cardia Arrhythmia, CHF, Depression, Diabetes (type II), HTN, Hypercholesterolemia, Pneumonia, Chronic Kidney Disease Denies: HIV - Surgical History Surgical History: Appendectomy, Coronary Stent, Hernia Repair (ventral), Pacemaker - Family History Family History: States: Unknown Family Hx - Social History Current smoker - smoking cessation education provided: No Alcohol: None Drugs: Denies - Home Medications Home Medications: Ambulatory Orders Medication Instructions Recorded RX: Aspirin [Ecotrin] 81 mg PO DAILY 09/05/17 RX: Calcium Carbonate/Vitamin D3 1 tab PO HS 09/05/17 [Calcium 600+D Softgel] RX: Multivitamin [Daily Lulu] 1 tab PO DAILY 09/05/17 RX: SITagliptin [Januvia] 100 mg PO DAILY 09/05/17 RX: Spironolactone [Aldactone] 25 mg PO DAILY 09/05/17 RX: glyBURIDE [Micronase] 2.5 mg PO DAILY 09/05/17 RX: Nitroglycerin [Nitrostat] 0.4 mg PO DAILY PRN 10/15/17 RX: Docusate [Colace] 100 mg PO BID PRN cap 10/18/17 RX: Ferrous Sulfate [Feosol] 325 mg PO BID tab 10/18/17 Omeprazole Magnesium [Prilosec Otc] 20 mg PO DAILY 05/17/18 - Allergies Allergies/Adverse Reactions: Allergies Allergy/AdvReac Type Severity Reaction Status Date / Time morphine Allergy ANAPHYLAXIS Verified 05/17/18 09:00 Curb-65 Severity Score - CURB-65 Severity Score Confusion: No Bun >19mg/dl (>7mmol/L): No Respiratory Rate greater than/equal to 30: No Systolic BP <90 or Diastolic BP less than/equal 60mmHg: No Age >64: Yes Curb-65 Score: 1 Percentage 30-day mortality: 2.7% Wells Criteria for PE - Wells Criteria for Pulmonary Embolism Clinical Signs and Symptoms of DVT: No P.E is #1 Diagnosis, or Equally Likely: No Heart Rate >100: No Immobilization at least 3 days;Surgery previous 4 weeks: No Previous, objectively diagnosed PE or DVT: No Hemoptysis: No Malignancy w/treatment within 6 months, or palliative: No Total Score: 0 Review of Systems ROS Statement: Except As Marked, All Systems Reviewed And Found Negative Constitutional: Negative for: Fever, Chills Cardiovascular: Negative for: Chest Pain Respiratory: Positive for: Shortness of Breath. Negative for: Cough Gastrointestinal: Negative for: Abdominal Pain Physical Exam - Reviewed Nursing Documentation Reviewed: Yes Vital Signs Reviewed: Yes - Physical Exam Appears: Positive for: Non-toxic, No Acute Distress Head Exam: Positive for: ATRAUMATIC, NORMAL INSPECTION, NORMOCEPHALIC Skin: Positive for: Normal Color, Warm, DRY Eye Exam: Positive for: EOMI, Normal appearance, PERRL ENT: Positive for: Normal ENT Inspection Neck: Positive for: Normal, Painless ROM, Supple Cardiovascular/Chest: Positive for: Regular Rate, Rhythm Respiratory: Positive for: Decreased Breath Sounds. Negative for: Wheezing, Respiratory Distress Gastrointestinal/Abdominal: Positive for: Normal Exam, Soft. Negative for: Tenderness Back: Positive for: Normal Inspection. Negative for: L CVA Tenderness, R CVA Tenderness, Vertebral Tenderness Extremity: Positive for: Normal ROM, Pedal Edema (1+ pitting edema), Capillary Refill (less than 2 sec), Other (bruising to left arm appears to be hemaoma, possibly from ?coumadin (pt denies trauma), discoloration to right anterior leg). Negative for: Tenderness, Calf Tenderness, Deformity Neurologic/Psych: Positive for: Alert, Oriented - Laboratory Results Result Diagrams: 05/18/18 05:19 05/18/18 05:19 - ECG Interpretation Of ECG: Paced at 74 BPM, normal QRS, (-) acute ST-T changes O2 Sat by Pulse Oximetry: 98 (RA) Pulse Ox Interpretation: Normal - Radiology X-Ray: Interpreted by Me, Viewed By Me Medical Decision Making Medical Decision Making: Plan: SBO, rule out pneumonia, chf exacerbation -Blood type and screen -EKG -BNP -CMP -Troponin -PTT/PT -CBC -pCXR -Tylenol 650mg PO -X-ray left forearm -X-ray left humerus -O2 via NC -Reevaluation Labs reviewed. Patient with elevated INR, will hold coumadin. Patient noted to have elevated BNP and Trop. pt has had elevated trop in the past. in the past around .2 1153 CXR FINDINGS: LUNGS: The lungs are well inflated. There is moderate pulmonary venous congestion and mild interstitial pulmonary edema. PLEURA: Small pleural effusions, larger on the left. No pneumothorax apparent. CARDIOVASCULAR: Persistent severe cardiomegaly. Stable position of left-sided permanent pacing device with OSSEOUS STRUCTURES: No significant abnormalities. VISUALIZED UPPER ABDOMEN: Normal. OTHER FINDINGS: None. IMPRESSION: Findings are consistent with congestive heart failure. 1230: Called Dr Falcon- no response Called Dr Munoz hospitalist who accepted the pt. 1252 X-RAY LEFT HUMERUS FINDINGS: BONES: No cortical fracture seen. A well corticated ossification, 1.5 cm, projects over the posterior soft tissues at the distal humeral level. Old osseous avulsion from the ulna or prior calcified hematoma are some considerations. No bulging of muscle planes are seen here to suggest more acute pathology. No comparison studies to ensure stability appreciated; chronicity however is favored. Clinical correlation with point tenderness is recommended. No left humeral shaft fracture noted. Left pacemaker battery pack noted. SOFT TISSUES: As above OTHER FINDINGS: Acromioclavicular and glenohumeral joint arthrosis. Elbow joint arthrosis. Ill definition/increased soft tissue density perceived over the left inferolateral hemithorax-left pleural effusion with or without pleural thickening needs to be considered. IMPRESSION: No left humeral shaft fracture. Ossification over posterior soft tissue at the distal humeral level. Calcified hematoma or old osseous avulsion from olecranon are favored considerations. Clinical correlation recommended. Other findings as above. 1254 X-RAY LEFT FOREARM FINDINGS: BONES: Well corticated ossification 1.5 cm projects over within the soft tissues posterior to the distal humerus. A remote/old calcified hematoma or a likely old osseous avulsion from the olecranon are some considerations. No bulging of the soft tissues are seen here to more strongly suggest acute pathology here. Tiny chip fracture involving the ossification cannot however be excluded given series 1710, image 3 appearance. Correlate with clinical point tenderness is recommended. JOINT SPACES: Arthrosis elbow and wrist levels OTHER FINDINGS: Nondisplaced old ulnar styloid fracture fragment. IMPRESSION: Ossification within the posterior soft tissues at the distal humeral level as detailed above. An acute fracture is not believed likely. Correlate clinically. Other findings as above. Dr Bernardo resident aware of the patient and at bedside [address] Martinez cardiology who states he sees pt in the hospital (noted note from him on prior admission). and he will see pt as well. he is aware. Scribe Attestation: Documented by Uzair Renteria, acting as a scribe for Jaime Matta MD. Provider Scribe Attestation: All medical record entries made by the Scribe were at my direction and personally dictated by me. I have reviewed the chart and agree that the record accurately reflects my personal performance of the history, physical exam, medical decision making, and the department course for this patient. I have also personally directed, reviewed, and agree with the discharge instructions and dis position. Disposition - Clinical Impression Clinical Impression: CHF (congestive heart failure) - Patient ED Disposition Is Patient to be Admitted: Yes - Disposition Disposition Time: 11:50 Condition: STABLE
--- NOTE | 2018-05-17 11:57 | RAD ---
Date of service: 05/17/2018 HISTORY: sob COMPARISON: 10/17/2017. FINDINGS: LUNGS: The lungs are well inflated. There is moderate pulmonary venous congestion and mild interstitial pulmonary edema. PLEURA: Small pleural effusions, larger on the left. No pneumothorax apparent. CARDIOVASCULAR: Persistent severe cardiomegaly. Stable position of left-sided permanent pacing device with OSSEOUS STRUCTURES: No significant abnormalities. VISUALIZED UPPER ABDOMEN: Normal. OTHER FINDINGS: None. IMPRESSION: Findings are consistent with congestive heart failure.
[2018-05-17 12:21] LABS: BASOPHIL 1 % (0-2); EOSINOPHIL 1 % (0-7); LYMPHOCYTE 9 % (20-50); MONOCYTE 8 % (0-10); NEUTROPHIL 81 % (42-75); PLATELET ESTIMATE NORMAL (NORMAL); TOTAL CELLS COUNTED 100
[2018-05-17 12:22] LABS: ANISOCYTOSIS SLIGHT; HYPOCHROMIC SLIGHT; OVALOCYTES SLIGHT; TEARDROP CELLS SLIGHT
--- NOTE | 2018-05-17 12:55 | RAD ---
PROCEDURE: Radiographs of the left humerus. HISTORY: bruise atraumatic on coumadin COMPARISON: None. FINDINGS: BONES: No cortical fracture seen. A well corticated ossification, 1.5 cm, projects over the posterior soft tissues at the distal humeral level. Old osseous avulsion from the ulna or prior calcified hematoma are some considerations. No bulging of muscle planes are seen here to suggest more acute pathology. No comparison studies to ensure stability appreciated; chronicity however is favored. Clinical correlation with point tenderness is recommended. No left humeral shaft fracture noted. Left pacemaker battery pack noted. SOFT TISSUES: As above OTHER FINDINGS: Acromioclavicular and glenohumeral joint arthrosis. Elbow joint arthrosis. Ill definition/increased soft tissue density perceived over the left inferolateral hemithorax-left pleural effusion with or without pleural thickening needs to be considered. IMPRESSION: No left humeral shaft fracture. Ossification over posterior soft tissue at the distal humeral level. Calcified hematoma or old osseous avulsion from olecranon are favored considerations. Clinical correlation recommended. Other findings as above.
--- NOTE | 2018-05-17 12:58 | RAD ---
Date of service: 05/17/2018 PROCEDURE: Radiographs of the Left Forearm HISTORY: pain COMPARISON: None available. TECHNIQUE: Frontal and lateral views obtained. FINDINGS: BONES: Well corticated ossification 1.5 cm projects over within the soft tissues posterior to the distal humerus. A remote/old calcified hematoma or a likely old osseous avulsion from the olecranon are some considerations. No bulging of the soft tissues are seen here to more strongly suggest acute pathology here. Tiny chip fracture involving the ossification cannot however be excluded given series 1710, image 3 appearance. Correlate with clinical point tenderness is recommended. JOINT SPACES: Arthrosis elbow and wrist levels OTHER FINDINGS: Nondisplaced old ulnar styloid fracture fragment. IMPRESSION: Ossification within the posterior soft tissues at the distal humeral level as detailed above. An acute fracture is not believed likely. Correlate clinically. Other findings as above.
--- NOTE | 2018-05-17 13:32 | CP.PCM.HP ---
<JuiceRickeyAddie - Last Filed: 05/17/18 17:43> History of Present Illness - History of Present Illness History of Present Illness: 77 yo M with a medical hx of CHF, HTN, DM2, CAD, arthritis, atrial fibrillation with a pacemaker, depression & CKD presented to the ED with complaints of short ness of breath for 1 week. As per patient, shortness of breath has gotten progressively worse, even occurring at night while laying in bed which has caused some difficulty sleeping. He reports only using one pillow to sleep, and possibly some weight gain, but he is unsure. Patient reports being compliant with his medication. He denied any fever, chills, cough or chest pain. PMD: Dr. Falcon PMH: CHF, HTN, DM2, CAD, arthritis, atrial fibrillation with a pacemaker, depression & CKD Meds: Spirinolactone 25mg 1 tab QD, Atorvastatin 20mg 1 tab QD, Amitiza 24 mcg QD, Aspirin 81 PO QD, Warfarin 3mg PO QD, Mobic 12mg QD (may 07), Zoloft 15 mg 1 tab BID, Januvia 100mg 1 tab QD, Glyburide 225mg 1 tab QD, hydroxychloroquine 200mg PO BID, Lasix QD PRN 20mg, Prilosec 20mg QD Allergies: Morphine- anaphylaxis Famhx: mother had hx of heart disease Sochx: Quit smoking 20 years ago; smoked 1 pack per day for 10 years; no EtOH use ROS: negative except as mentioned in HPI ED COURSE: Vitals: 98.4F, P-70bpm, RR- 18 BP: 147/98, Spo2-98 CBC- WBC: 9.4, H & H: 10.5/31.9, Plt: 152 CMP: Lipase-42, AST- 36, ALT-46, Alk Phos- 40 POC glucose-186 Given Lasix 40mg IVP once, kayexalate 15 mg PO once, CXR was performed: findings consistent with CHF with large mediastinum mass noted Chest CT: cystic mass in left upper abdomen Present on Admission - Present on Admission Any Indicators Present on Admission: No History of DVT/PE: No History of Uncontrolled Diabetes: No Urinary Catheter: No Decubitus Ulcer Present: No Past Patient History - Infectious Disease Hx of Infectious Diseases: None - Past Medical History & Family History Past Medical History?: Yes - Past Social History Alcohol: None Drugs: Denies - CARDIAC Hx Atrial Fibrillation: Yes Hx Cardia Arrhythmia: Yes Hx Congestive Heart Failure: Yes Hx Hypercholesterolemia: Yes Hx Hypertension: Yes Hx Pacemaker: Yes - PULMONARY Hx Pneumonia: Yes - NEUROLOGICAL Hx Neurological Disorder: No - HEENT Hx HEENT Problems: Yes Hx Epistaxis: Yes - RENAL Hx Chronic Kidney Disease: Yes - ENDOCRINE/METABOLIC Hx Endocrine Disorders: Yes Hx Diabetes Mellitus Type 2: Yes Hx Systemic Lupus Erythematosus: Yes - HEMATOLOGICAL/ONCOLOGICAL Hx Anemia: Yes Hx Human Immunodeficiency Virus (HIV): No - INTEGUMENTARY Hx Dermatological Problems: No - MUSCULOSKELETAL/RHEUMATOLOGICAL Hx Arthritis: Yes - GASTROINTESTINAL Hx Gastrointestinal Disorders: No - GENITOURINARY/GYNECOLOGICAL Hx Genitourinary Disorders: No - PSYCHIATRIC Hx Depression: Yes - SURGICAL HISTORY Hx Appendectomy: Yes Hx Coronary Stent: Yes - ANESTHESIA Hx Anesthesia: Yes Hx Anesthesia Reactions: No Hx Malignant Hyperthermia: No Meds Allergies/Adverse Reactions: Allergies Allergy/AdvReac Type Severity Reaction Status Date / Time morphine Allergy ANAPHYLAXIS Verified 05/17/18 09:00 Physical Exam - Constitutional Appears: No Acute Distress - Head Exam Head Exam: ATRAUMATIC - Neck Exam Neck exam: Positive for: Full Rom Additional comments: No JVD appreciated - Respiratory Exam Additional comments: Rales noted in bases on left posterior chest wall - Cardiovascular Exam Cardiovascular Exam: REGULAR RHYTHM, +S1, +S2 - GI/Abdominal Exam GI & Abdominal Exam: Normal Bowel Sounds, Soft. absent: Distended, Firm, Tenderness - Extremities Exam Additional comments: Ecchymosis noted on left arm, sensation & motor strength intact; no gross deformity - Neurological Exam Neurological exam: Alert, Oriented x3 - Psychiatric Exam Psychiatric exam: Normal Affect, Normal Mood - Skin Additional comments: Ecchymosis noted on right & left lower legs R>L Results - Vital Signs Recent Vital Signs: Last Vital Signs Temp 98.4 F 05/17/18 09:00 Pulse 74 05/17/18 13:00 Resp 19 05/17/18 13:00 BP 125/67 05/17/18 13:00 Pulse Ox 98 05/17/18 13:31 - Labs Result Diagrams: 05/17/18 11:04 05/17/18 11:04 Labs: Laboratory Results - last 24 hr 05/17/18 05/17/18 05/17/18 09:07 11:04 11:04 WBC 9.4 RBC 3.69 L Hgb 10.5 L Hct 31.9 L MCV 86.4 MCH 28.5 MCHC 32.9 L RDW 15.6 H Plt Count 152 MPV 9.0 Neut % (Auto) 81.2 H Lymph % (Auto) 7.8 L [place] % (Auto) 9.3 Eos % (Auto) 1.4 Baso % (Auto) 0.3 Neut # (Auto) 7.6 H Lymph # (Auto) 0.7 L [place] # (Auto) 0.9 H Eos # (Auto) 0.1 Baso # (Auto) 0.0 Neutrophils % (Manual) 81 H Lymphocytes % (Manual) 9 L Monocytes % (Manual) 8 Eosinophils % (Manual) 1 Basophils % (Manual) 1 Platelet Estimate Normal Hypochromasia (manual) Slight Anisocytosis (manual) Slight Tear Drop Cells Slight Ovalocytes Slight PT INR APTT Sodium 138 Potassium 5.1 H Chloride 105 Carbon Dioxide 24 Anion Gap 14 BUN 29 H Creatinine 1.5 Est GFR ( Amer) 55 Est GFR (Non-Af Amer) 45 POC Glucose (mg/dL) 186 H Random Glucose 176 H Calcium 7.9 L Total Bilirubin 0.7 AST 36 ALT 46 Alkaline Phosphatase 40 Troponin I 0.2190 H* NT-Pro-B Natriuret Pep 2130 H Total Protein 6.2 L Albumin 3.2 L Globulin 3.0 Albumin/Globulin Ratio 1.1 Blood Type Antibody Screen BBK History Checked 05/17/18 05/17/18 11:04 11:04 WBC RBC Hgb Hct MCV MCH MCHC RDW Plt Count MPV Neut % (Auto) Lymph % (Auto) [place] % (Auto) Eos % (Auto) Baso % (Auto) Neut # (Auto) Lymph # (Auto) [place] # (Auto) Eos # (Auto) Baso # (Auto) Neutrophils % (Manual) Lymphocytes % (Manual) Monocytes % (Manual) Eosinophils % (Manual) Basophils % (Manual) Platelet Estimate Hypochromasia (manual) Anisocytosis (manual) Tear Drop Cells Ovalocytes PT 48.6 H* INR 4.3 APTT 36.9 Sodium Potassium Chloride Carbon Dioxide Anion Gap BUN Creatinine Est GFR ( Amer) Est GFR (Non-Af Amer) POC Glucose (mg/dL) Random Glucose Calcium Total Bilirubin AST ALT Alkaline Phosphatase Troponin I NT-Pro-B Natriuret Pep Total Protein Albumin Globulin Albumin/Globulin Ratio Blood Type B POSITIVE Antibody Screen Negative BBK History Checked Patient has bt Assessment & Plan - Assessment and Plan (Free Text) Assessment: 77 yo M with a medical hx of CHF, HTN, DM2, CAD, arthritis, atrial fibrillation with a pacemaker, depression & CKD presented to the ED with complaints of shortness of breath for 1 week. 1. Acute on chronic systolic heart failure -Cardiology consulted. FU recommendations. -Echo performed 09/05/2017 showed 25-30%. -Lasix increased to 40mg BID IV. Was on lasix 20mg QD PRN. -FU AM BPM to monitor potassium, and creatinine. -Admited to telemetry. -Follow up troponins. First troponins-0.2190 -Pro BNP:2130, last level on 10/15/2017 was 2950. -Continue spironolactone 25mg 1 tab QD. -CXR was performed: findings consistent with CHF with large mediastinum mass noted 3. Cystic Mass -CXR was performed: findings consistent with CHF with large mediastinum mass noted Chest CT scan performed and demonstrated severe cardiomegaly, small right & tra ce left pleural effusion. It also showed mild cystic mass in left upper abdomen with recommendations of CT scan abdomen w & w/o contrast. (Also of note, mild dilatation of ascending aorta with mild interlobular septal thickening, bibasilar atelectasis, no focal consolidation) -FU CT abdomen w & w/o contrast. 2. Atrial fibrillation (Chronic, 100% paced with pacemaker) -Hold warfarin. FU INR in AM. -Not on beta carine or calcium channel because patient is 100% paced. -Admited to telemetry. 3. HTN (Chronic) 4. DM2 (Chronic, stable) -last A1C-6.7 on 10/15/2017) -Continue Januvia 100mg 1 tab QD -Continue Glyburide 225mg 1tab QD 5. hx of CAD -Continue Aspirin 81 PO QD -Continue Atorvastatin 20mg 1 tab QD 6. Depression (Chronic, stable) -Continue Zoloft 15mg 1 tab BID 7. Arthritis (Chronic) -Continue Hydrocloroquine 200mg BID 8. Chronic kidney disease (Chronic, stable) with hyperkalemia-5.1 -Kayexylate 15 mg PO given -FU AM BPM to monitor creatinine. -Creatinine today 1.5. 9. Constipation -Continue Amatiza 24 mcg PO QD 9. DVT prophylaxis -Patient is on warfarin with supratherapeutic levels of 4.3 <Avinash Munoz - Last Filed: 05/17/18 18:33> History of Present Illness - History of Present Illness History of Present Illness: cc: sob Results - Vital Signs Recent Vital Signs: Last Vital Signs Temp 97.5 F L 05/17/18 16:49 Pulse 61 05/17/18 16:49 Resp 20 05/17/18 16:49 BP 132/72 05/17/18 17:33 Pulse Ox 97 05/17/18 16:49 - Labs Result Diagrams: 05/17/18 11:04 05/17/18 11:04 Labs: Laboratory Results - last 24 hr 05/17/18 05/17/18 05/17/18 09:07 11:04 11:04 WBC 9.4 RBC 3.69 L Hgb 10.5 L Hct 31.9 L MCV 86.4 MCH 28.5 MCHC 32.9 L RDW 15.6 H Plt Count 152 MPV 9.0 Neut % (Auto) 81.2 H Lymph % (Auto) 7.8 L [place] % (Auto) 9.3 Eos % (Auto) 1.4 Baso % (Auto) 0.3 Neut # (Auto) 7.6 H Lymph # (Auto) 0.7 L [place] # (Auto) 0.9 H Eos # (Auto) 0.1 Baso # (Auto) 0.0 Neutrophils % (Manual) 81 H Lymphocytes % (Manual) 9 L Monocytes % (Manual) 8 Eosinophils % (Manual) 1 Basophils % (Manual) 1 Platelet Estimate Normal Hypochromasia (manual) Slight Anisocytosis (manual) Slight Tear Drop Cells Slight Ovalocytes Slight PT INR APTT Sodium 138 Potassium 5.1 H Chloride 105 Carbon Dioxide 24 Anion Gap 14 BUN 29 H Creatinine 1.5 Est GFR ( Amer) 55 Est GFR (Non-Af Amer) 45 POC Glucose (mg/dL) 186 H Random Glucose 176 H Calcium 7.9 L Total Bilirubin 0.7 AST 36 ALT 46 Alkaline Phosphatase 40 Troponin I 0.2190 H* NT-Pro-B Natriuret Pep 2130 H Total Protein 6.2 L Albumin 3.2 L Globulin 3.0 Albumin/Globulin Ratio 1.1 Blood Type Antibody Screen BBK History Checked 05/17/18 05/17/18 05/17/18 11:04 11:04 16:22 WBC RBC Hgb Hct MCV MCH MCHC RDW Plt Count MPV Neut % (Auto) Lymph % (Auto) [place] % (Auto) Eos % (Auto) Baso % (Auto) Neut # (Auto) Lymph # (Auto) [place] # (Auto) Eos # (Auto) Baso # (Auto) Neutrophils % (Manual) Lymphocytes % (Manual) Monocytes % (Manual) Eosinophils % (Manual) Basophils % (Manual) Platelet Estimate Hypochromasia (manual) Anisocytosis (manual) Tear Drop Cells Ovalocytes PT 48.6 H* INR 4.3 APTT 36.9 Sodium Potassium Chloride Carbon Dioxide Anion Gap BUN Creatinine Est GFR ( Amer) Est GFR (Non-Af Amer) POC Glucose (mg/dL) 150 H Random Glucose Calcium Total Bilirubin AST ALT Alkaline Phosphatase Troponin I NT-Pro-B Natriuret Pep Total Protein Albumin Globulin Albumin/Globulin Ratio Blood Type B POSITIVE Antibody Screen Negative BBK History Checked Patient has bt Assessment & Plan - Assessment and Plan (Free Text) Assessment: 1. Acute on chronic systolic heart failure -Cardiology consulted. FU recommendations. -Echo performed 09/05/2017 showed 25-30%. -Lasix increased to 40mg BID IV. Was on lasix 20mg QD PRN. -FU AM BPM to monitor potassium, and creatinine. -Admited to telemetry. -Follow up troponins. First troponins-0.2190 -Pro BNP:2130, last level on 10/15/2017 was 2950. -Continue spironolactone 25mg 1 tab QD. -CXR was performed: findings consistent with CHF with large mediastinum mass noted 2. Cystic Mass -CXR was performed: findings consistent with CHF with large mediastinum mass noted Chest CT scan performed and demonstrated severe cardiomegaly, small right & trace left pleural effusion. It also showed mild cystic mass in left upper abdomen with recommendations of CT scan abdomen w & w/o contrast. (Also of note, mild dilatation of ascending aorta with mild interlobular septal thickening, bibasilar atelectasis, no focal consolidation) -FU CT abdomen w & w/o contrast. 3. Atrial fibrillation (Chronic, 100% paced with pacemaker) -Hold warfarin. FU INR in AM. -Not on beta carine or calcium channel because patient is 100% paced. -Admited to telemetry. 4. HTN (Chronic) 5. DM2 (Chronic, stable) -last A1C-6.7 on 10/15/2017) -Continue Januvia 100mg 1 tab QD -Continue Glyburide 225mg 1tab QD 6. hx of CAD -Continue Aspirin 81 PO QD -Continue Atorvastatin 20mg 1 tab QD 7. Depression (Chronic, stable) -Continue Zoloft 15mg 1 tab BID 8. Arthritis (Chronic) -Continue Hydrocloroquine 200mg BID 9. Chronic kidney disease (Chronic, stable) with hyperkalemia-5.1 -Kayexylate 15 mg PO given and Lasix was given -FU AM BPM to monitor creatinine. -Creatinine today 1.5. 10. Constipation -Continue Amatiza 24 mcg PO QD 11. DVT prophylaxis -Patient is on warfarin with supratherapeutic levels of 4.3
--- NOTE | 2018-05-17 13:50 | CARD ---
APPROVED REPORT Date of service: 05/17/2018 EKG Measurement Heart [id number] CO 186P [id number] <Conclusion> AV dual-paced rhythm Biventricular pacemaker detected Abnormal ECG
[2018-05-17] MEDS ORDERED: Sod Polystyrene Sulf 15 gm/60 ml Susp PO ONE (14:50)
[2018-05-17] MEDS ORDERED: Sod Polystyrene Sulf 15 gm/60 ml Susp ONE (14:56)
[2018-05-17] MEDS ORDERED: Glucagon Recombinant 1 mg Inj IM PRN (15:15)
[2018-05-17] MEDS ORDERED: Dextrose 50% SYRINGE Inj (50 ml) IV PRN (15:15)
--- NOTE | 2018-05-17 16:25 | CT ---
Date of service: 05/17/2018 PROCEDURE: CT Chest without contrast HISTORY: SOB COMPARISON: Portable chest radiograph performed earlier the same day. CT abdomen from 09/07/2015. TECHNIQUE: Contiguous axial images were obtained through the chest without intravenous contrast enhancement. Sagittal and coronal reconstructions were performed. Radiation dose (DLP): 709.74 mGy-cm. This CT exam was performed using one or more of the following dose reduction techniques: Automated exposure control, adjustment of the mA and/or kV according to patient size, and/or use of iterative reconstruction technique. FINDINGS: LUNGS: There is mild interlobular septal thickening. There is bibasilar atelectasis. No focal consolidation. MEDIASTINUM: There is mild dilatation of the ascending aorta. Severe cardiomegaly. Main pulmonary artery unremarkable. No vascular congestion. No lymphadenopathy. PLEURA: Small right and trace left pleural effusions. No pneumothorax. BONES: No fracture. No destructive lesion. There is diffuse bone demineralization and multilevel degenerative changes in the spine. UPPER ABDOMEN: The adrenal glands are normal. Incompletely imaged and characterized is a large 12.7 x 10.7 cm cystic mass in the left upper abdomen OTHER FINDINGS: None. IMPRESSION: Severe cardiomegaly, small right and trace left pleural effusions. Mild interstitial pulmonary edema. Redemonstration of cystic mass in the left upper abdomen incompletely imaged on this examination. A dedicated CT scan of the abdomen without and with intravenous contrast would be helpful for further characterization.
--- NOTE | 2018-05-17 19:59 | CP.PCM.CON ---
History of Present Illness - History of Present Illness History of Present Illness: DTHE PATIENT IS A 77 YEAR OLD MALE WITH A HISTORY OF CAD WITH PRIOR STENT INSERTIONS, ATRIAL FIBRILLATION HISTORY, SSS WITH PERMENENT PACEMAKER, HYPERTENSION, CKD FROM LUPUS NEPHRITIS, HYPERLIPIDEMIA AND DM. HE NOW COMPLAINS OF INCREASING SOB MOLINA 2 WEEK AND CAME TO THE ER AND WAS FOUND TO BE IN CHF AND WAS ADMITTED. HE DENIES ANY CHEST PAIN. HE RECEIVED IV LASIX IN THE ER AND FEELS BETTER NOW. HIS REGULAR RADIOLOGY ORDERLY IS IN [facility] BUT HE LIVES LOCALLY AND COMES TO [facility] WHEN HE DOESN'T FEEL WELL AND I HAVE SEEN HIM ON PREVIOUS AD MISSIONS. HE HAS CHRONICALLY ELEVATED TROPONINS DUE TO HIS KIDNEY DISEASE. HE GETS REGULAR STRESS TEST BY HIS [facility] RADIOLOG[facility] ORDERLY THAT HAVE BEEN GOOD. Past Patient History - Infectious Disease Hx of Infectious Diseases: None - Past Medical History & Family History Past Medical History?: Yes - Past Social History Alcohol: None Drugs: Denies - CARDIAC Hx Atrial Fibrillation: Yes Hx Cardia Arrhythmia: Yes Hx Congestive Heart Failure: Yes Hx Hypercholesterolemia: Yes Hx Hypertension: Yes Hx Pacemaker: Yes - PULMONARY Hx Pneumonia: Yes - NEUROLOGICAL Hx Neurological Disorder: No - HEENT Hx HEENT Problems: Yes Hx Epistaxis: Yes - RENAL Hx Chronic Kidney Disease: Yes - ENDOCRINE/METABOLIC Hx Endocrine Disorders: Yes Hx Diabetes Mellitus Type 2: Yes Hx Systemic Lupus Erythematosus: Yes - HEMATOLOGICAL/ONCOLOGICAL Hx Anemia: Yes Hx Human Immunodeficiency Virus (HIV): No - INTEGUMENTARY Hx Dermatological Problems: No - MUSCULOSKELETAL/RHEUMATOLOGICAL Hx Arthritis: Yes - GASTROINTESTINAL Hx Gastrointestinal Disorders: No - GENITOURINARY/GYNECOLOGICAL Hx Genitourinary Disorders: No - PSYCHIATRIC Hx Depression: Yes - SURGICAL HISTORY Hx Appendectomy: Yes Hx Coronary Stent: Yes - ANESTHESIA Hx Anesthesia: Yes Hx Anesthesia Reactions: No Hx Malignant Hyperthermia: No Meds Allergies/Adverse Reactions: Allergies Allergy/AdvReac Type Severity Reaction Status Date / Time morphine Allergy ANAPHYLAXIS Verified 05/17/18 09:00 - Medications Medications: Current Medications Aspirin (Ecotrin) 81 mg PO DAILY [facility] Atorvastatin Calcium (Lipitor) 20 mg PO HS [facility] Dextrose (Dextrose 50% Inj) 0 ml IV STAT PRN; Protocol PRN Reason: Hypoglycemia Protocol Dextrose (Glutose 15) 0 gm PO ONCE PRN; Protocol PRN Reason: Hypoglycemia Protocol Ferrous Sulfate (Feosol) 325 mg PO BID [facility] Last Admin: 05/17/18 17:31 Dose: 325 mg Furosemide (Lasix) 40 mg IVP BID [facility] Last Admin: 05/17/18 17:33 Dose: 40 mg Glucagon (Glucagen Diagnostic Kit) 0 mg IM STAT PRN; Protocol PRN Reason: Hypoglycemia Protocol Glyburide (Micronase) 2.5 mg PO DAILYWM [facility] Nitroglycerin (Nitrostat Sl Tab) 0.4 mg SL Q5M PRN PRN Reason: chest pain Pantoprazole Sodium (Protonix Ec Tab) 40 mg PO DAILY [facility] Sertraline HCl (Zoloft) 50 mg PO HS [facility] Sitagliptin Phosphate (Januvia) 100 mg PO DAILY [facility] Spironolactone (Aldactone) 25 mg PO DAILY [facility] Physical Exam - Respiratory Exam Respiratory Exam: Clear to Auscultation Bilateral - Cardiovascular Exam Cardiovascular Exam: REGULAR RHYTHM (MILD LE EDEMA), +S1, +S2 - Extremities Exam Additional comments: MILD BILAT LE EDEMA - Additional Findings Additional findings: EKG PACED THYTHM TROPONIN 0.21 PBNP 2131 CXR READ CONGESTION BUT MOSTLY CHRONIC CHANGES IN MY OPINION, PACEMAKER ECHO AUG 2017 LVEF OF 25-30% Results - Vital Signs Recent Vital Signs: Last Vital Signs Temp 97.5 F L 05/17/18 16:49 Pulse 61 05/17/18 16:49 Resp 20 05/17/18 16:49 BP 132/72 05/17/18 17:33 Pulse Ox 97 05/17/18 16:49 - Labs Result Diagrams: 05/18/18 05:19 05/18/18 05:19 Labs: Laboratory Results - last 24 hr 05/17/18 05/17/18 05/17/18 09:07 11:04 11:04 WBC 9.4 RBC 3.69 L Hgb 10.5 L Hct 31.9 L MCV 86.4 MCH 28.5 MCHC 32.9 L RDW 15.6 H Plt Count 152 MPV 9.0 Neut % (Auto) 81.2 H Lymph % (Auto) 7.8 L Nolan % (Auto) 9.3 Eos % (Auto) 1.4 Baso % (Auto) 0.3 Neut # (Auto) 7.6 H Lymph # (Auto) 0.7 L Nolan # (Auto) 0.9 H Eos # (Auto) 0.1 Baso # (Auto) 0.0 Neutrophils % (Manual) 81 H Lymphocytes % (Manual) 9 L Monocytes % (Manual) 8 Eosinophils % (Manual) 1 Basophils % (Manual) 1 Platelet Estimate Normal Hypochromasia (manual) Slight Anisocytosis (manual) Slight Tear Drop Cells Slight Ovalocytes Slight PT INR APTT Sodium 138 Potassium 5.1 H Chloride 105 Carbon Dioxide 24 Anion Gap 14 BUN 29 H Creatinine 1.5 Est GFR ( Amer) 55 Est GFR (Non-Af Amer) 45 POC Glucose (mg/dL) 186 H Random Glucose 176 H Calcium 7.9 L Total Bilirubin 0.7 AST 36 ALT 46 Alkaline Phosphatase 40 Troponin I 0.2190 H* NT-Pro-B Natriuret Pep 2130 H Total Protein 6.2 L Albumin 3.2 L Globulin 3.0 Albumin/Globulin Ratio 1.1 Blood Type Antibody Screen BBK History Checked 05/17/18 05/17/18 05/17/18 11:04 11:04 16:22 WBC RBC Hgb Hct MCV MCH MCHC RDW Plt Count MPV Neut % (Auto) Lymph % (Auto) Nolan % (Auto) Eos % (Auto) Baso % (Auto) Neut # (Auto) Lymph # (Auto) Nolan # (Auto) Eos # (Auto) Baso # (Auto) Neutrophils % (Manual) Lymphocytes % (Manual) Monocytes % (Manual) Eosinophils % (Manual) Basophils % (Manual) Platelet Estimate Hypochromasia (manual) Anisocytosis (manual) Tear Drop Cells Ovalocytes PT 48.6 H* INR 4.3 APTT 36.9 Sodium Potassium Chloride Carbon Dioxide Anion Gap BUN Creatinine Est GFR ( Amer) Est GFR (Non-Af Amer) POC Glucose (mg/dL) 150 H Random Glucose Calcium Total Bilirubin AST ALT Alkaline Phosphatase Troponin I NT-Pro-B Natriuret Pep Total Protein Albumin Globulin Albumin/Globulin Ratio Blood Type B POSITIVE Antibody Screen Negative BBK History Checked Patient has bt Assessment & Plan - Assessment and Plan (Free Text) Assessment: CAD WITH STENTS MILD SYSTOLIC CHF WITH LVEF OF 25-30% AND PBNP OF 2131(NOT VERY HIGH FOR HIS AGE) SSS HYPERTENSION CHRONICALLY ELEVATED TROPONINS FROM CKD HYPERLIPIDEMIA Plan: PATIENT WAS ASDMIIED TO 4N ON TELEMETRY O2, ASA, IV FUROSEMIDE, SPIRONOLACTONE, ATORVASTATIN
[2018-05-17] MEDS ORDERED: Enoxaparin 40 mg Syringe SC SCH (22:00)
[2018-05-18 05:32] LABS: BASO % 0.3 % (0.0-2.0); EOS # 0.1 K/uL (0.0-0.7); EOS % 1.3 % (0.0-4.0); HEMOGLOBIN 11.3 g/dL (12.0-18.0); LYMPH # 1.7 K/uL (1.0-4.3); LYMPH % 17.1 % (20.0-40.0); MEAN CELL VOLUME 85.4 fl (80.0-94.0); MEAN CORPUSCULAR HEMOGLOBIN 28.8 pg (27.0-31.0); MEAN CORPUSCULAR HGB CONC 33.7 g/dL (33.0-37.0); MEAN PLATELET VOLUME 8.5 fl (7.2-11.7); MONO # 1.1 K/uL (0.0-0.8); MONO % 10.3 % (0.0-10.0); NEUT # 7.3 K/uL (1.8-7.0); NRBC % 0.1 % (0.0-0.0); RBC 3.91 Mil/uL (4.40-5.90); RED CELL DISTRIBUTION WIDTH 15.5 % (11.5-14.5); WHITE BLOOD COUNT 10.2 K/uL (4.8-10.8)
[2018-05-18 05:46] LABS: CALCIUM 8.4 mg/dL (8.4-10.2)
[2018-05-18 06:04] LABS: INR 3.8; PROTHROMBIN TIME 43.2 Seconds (9.8-13.1); TROPONIN I 0.193 ng/mL (0.00-0.120)
[2018-05-18] MEDS ORDERED: Iohexol 240 (50 ml) PO STA (08:34)
[2018-05-18] MEDS: Pantoprazole 40 mg EC Tab PO SCH (08:56)
--- NOTE | 2018-05-18 09:42 | CP.PCM.PN ---
Subjective - Date & Time of Evaluation Date of Evaluation: 05/18/18 Time of Evaluation: 08:00 - Subjective Subjective: NO CHEST PAIN BREATHING BETTER Objective - Vital Signs/Intake and Output Vital Signs (last 24 hours): Temp Pulse Resp BP Pulse Ox 97.6 F 61 20 112/70 95 05/18/18 08:11 05/18/18 08:11 05/18/18 08:11 05/18/18 08:39 05/18/18 08:11 - Medications Medications: Current Medications Aspirin (Ecotrin) 81 mg PO DAILY [facility] Last Admin: 05/18/18 08:53 Dose: 81 mg Atorvastatin Calcium (Lipitor) 20 mg PO HS [facility] Last Admin: 05/17/18 21:25 Dose: 20 mg Dextrose (Dextrose 50% Inj) 0 ml IV STAT PRN; Protocol PRN Reason: Hypoglycemia Protocol Dextrose (Glutose 15) 0 gm PO ONCE PRN; Protocol PRN Reason: Hypoglycemia Protocol Ferrous Sulfate (Feosol) 325 mg PO BID [facility] Last Admin: 05/18/18 08:53 Dose: 325 mg Furosemide (Lasix) 40 mg IVP DAILY [facility] Last Admin: 05/18/18 08:39 Dose: 40 mg Glucagon (Glucagen Diagnostic Kit) 0 mg IM STAT PRN; Protocol PRN Reason: Hypoglycemia Protocol Glyburide (Micronase) 2.5 mg PO DAILYWM [facility] Last Admin: 05/18/18 08:56 Dose: 2.5 mg Influenza Virus Vaccine (Fluzone Quad [id number]) 60 mcg IM .ONCE ONE Stop: 05/18/18 10:01 Nitroglycerin (Nitrostat Sl Tab) 0.4 mg SL Q5M PRN PRN Reason: chest pain Pantoprazole Sodium (Protonix Ec Tab) 40 mg PO DAILY [facility] Last Admin: 05/18/18 08:56 Dose: 40 mg Sertraline HCl (Zoloft) 50 mg PO HS [facility] Last Admin: 05/17/18 21:25 Dose: 50 mg Sitagliptin Phosphate (Januvia) 50 mg PO DAILY [facility] Spironolactone (Aldactone) 25 mg PO DAILY [facility] Last Admin: 05/18/18 08:53 Dose: 25 mg - Labs Labs: 05/18/18 05:19 05/18/18 05:19 PT 43.2 Seconds (9.8-13.1) H* D 05/18/18 05:19 INR 3.8 05/18/18 05:19 APTT 36.9 Seconds (25.6-37.1) 05/17/18 11:04 - Respiratory Exam Respiratory Exam: Clear to Ausculation Bilateral - Cardiovascular Exam Cardiovascular Exam: REGULAR RHYTHM, +S1, +S2 - Extremities Exam Additional comments: MILD LE EDEMA Assessment and Plan - Assessment and Plan (Free Text) Assessment: CAD MILD ACUTE SYSTOLIC CHF CLINICALLY SSS WITH PACEMAKER CRF WITH CHRONICALLY ELEVATED TROPONINS HYPERTENSION Plan: CONTINUE O2, ASPIRIN, ATORVASTATIN, FUROSEMIDE AND ALDACTONE LISINOPRIL NOT REORDERED NOW BP IS 112/70-WILL MONITOR BP
--- NOTE | 2018-05-18 09:54 | CARD ---
APPROVED REPORT Date of service: 05/17/2018 EKG Measurement Heart [id number] 170P [id number] <Conclusion> Atrial-paced rhythm Nonspecific intraventricular block Lateral infarct, age undetermined Abnormal ECG
[2018-05-18] MEDS ORDERED: Influenza Vaccine 60 MCG/0.5 ML SYR (3 yr & up) IM ONE (10:00)
--- NOTE | 2018-05-18 10:18 | CP.PCM.PN ---
Addendum entered by Yenny Melgar MD 05/18/18 18:40: Full Code Surrogate Decision maker - surekha Torres Original Note: <Addie Bose - Last Filed: 05/18/18 12:08> Subjective - Date & Time of Evaluation Date of Evaluation: 05/18/18 Time of Evaluation: 10:09 - Subjective Subjective: Patient was seen and examined this AM. He continues to complain of shortness of breath, and reports being unable to sleep as a result. He endorses voiding multiple times yesterday, but denies any fever or chills. Objective - Vital Signs/Intake and Output Vital Signs (last 24 hours): Temp Pulse Resp BP Pulse Ox 97.6 F 61 20 112/70 95 05/18/18 08:11 05/18/18 08:11 05/18/18 08:11 05/18/18 08:39 05/18/18 08:11 - Medications Medications: Current Medications Aspirin (Ecotrin) 81 mg PO DAILY [facility] Last Admin: 05/18/18 08:53 Dose: 81 mg Atorvastatin Calcium (Lipitor) 20 mg PO [facility] Last Admin: 05/17/18 21:25 Dose: 20 mg Dextrose (Dextrose 50% Inj) 0 ml IV STAT PRN; Protocol PRN Reason: Hypoglycemia Protocol Dextrose (Glutose 15) 0 gm PO ONCE PRN; Protocol PRN Reason: Hypoglycemia Protocol Ferrous Sulfate (Feosol) 325 mg PO BID [facility] Last Admin: 05/18/18 08:53 Dose: 325 mg Furosemide (Lasix) 40 mg IVP DAILY [facility] Last Admin: 05/18/18 08:39 Dose: 40 mg Glucagon (Glucagen Diagnostic Kit) 0 mg IM STAT PRN; Protocol PRN Reason: Hypoglycemia Protocol Glyburide (Micronase) 2.5 mg PO DAILYWM [facility] Last Admin: 05/18/18 08:56 Dose: 2.5 mg Nitroglycerin (Nitrostat Sl Tab) 0.4 mg SL Q5M PRN PRN Reason: chest pain Pantoprazole Sodium (Protonix Ec Tab) 40 mg PO DAILY [facility] Last Admin: 05/18/18 08:56 Dose: 40 mg Sertraline HCl (Zoloft) 50 mg PO HS [facility] Last Admin: 05/17/18 21:25 Dose: 50 mg Sitagliptin Phosphate (Januvia) 50 mg PO DAILY [facility] Spironolactone (Aldactone) 25 mg PO DAILY [facility] Last Admin: 05/18/18 08:53 Dose: 25 mg - Labs Labs: 05/18/18 05:19 05/18/18 05:19 PT 43.2 Seconds (9.8-13.1) H* D 05/18/18 05:19 INR 3.8 05/18/18 05:19 APTT 36.9 Seconds (25.6-37.1) 05/17/18 11:04 - Constitutional Appears: No Acute Distress - Head Exam Head Exam: ATRAUMATIC, NORMAL INSPECTION - Respiratory Exam Respiratory Exam: Rales. absent: Wheezes Additional comments: minimal rales in posterior base of thoracic wall - Cardiovascular Exam Cardiovascular Exam: +S1, +S2 - GI/Abdominal Exam Additional comments: soft, large pannus, no guarding or rigidity, no tenderness - Extremities Exam Additional comments: 1+ pitting edema - Neurological Exam Neurological Exam: Alert, Normal Gait Additional comments: strength intact b/l in upper extremities - Psychiatric Exam Psychiatric exam: Normal Affect, Normal Mood - Skin Additional comments: bruising on left arm resolving Assessment and Plan - Assessment and Plan (Free Text) Assessment: 77 yo M with a medical hx of CHF, HTN, DM2, CAD, arthritis, atrial fibrillation with a pacemaker, depression & CKD presented to the ED with complaints of shortness of breath for 1 week. 1. Acute on chronic systolic heart failure -Dr. Hidalgo recommendations have been appreciated. -Lasix changed to 40mg QD IVP. FU creatinine in AM. -Continue spironolactone 25mg 1 tab QD. -First troponins-0.2190, 0.1870, and levels this morning 0.1930 likely due to CHF & CKD. -Echo performed 09/05/2017 showed 25-30%. -Pro BNP:2130, last level on 10/15/2017 was 2950. 2. Atrial fibrillation (Chronic, 100% paced with pacemaker) -Continue to hold warfarin. INR 3.8 today, and was 4.3 yesterday. -Not on beta carine or calcium channel because patient is 100% paced. 3. Cystic Mass -Present on Abd CT performed 09/07/2015, and has not changed in size. -Follow up with Dr. Falcno for Abd CT as outpatient. -CXR was performed: findings consistent with CHF with large mediastinum mass noted 4. HTN (Chronic) -Continue to monitor BP. 112/70 this AM. 5. DM2 (Chronic, stable) -last A1C-6.7 on 10/15/2017) -Januvia 100mg 1 tab QD was decreased to 50mg because of AM glucose of 67. -Continue Glyburide 2.5mg 1tab QD 6. hx of CAD -Continue Aspirin 81 PO QD -Continue Atorvastatin 20mg 1 tab QD 7. Depression (Chronic, stable) -Continue Zoloft 15mg 1 tab BID 8. Arthritis (Chronic) -Continue Hydrocloroquine 200mg BID 9. Chronic kidney disease (Chronic, stable) with hyperkalemia 5.1 on admission & chronically elevated troponins -Creatinine today 1.7, increased from 1.5 yesterday. Lasix was decreased from 40mg BID to 40mg QD. -Kayexylate 15 mg PO given yesterday because K was 5.1 yesterday, and now 4.5 today. -Continue to monitor. -First troponins-0.2190, 0.1870, and levels this morning 0.1930 likely due to CHF & CKD. 10. Constipation -Continue Amatiza 24 mcg PO QD 11. DVT prophylaxis -Patient is on warfarin with supratherapeutic levels of 3.8 today & 4.3 yesterday. Continue to hold warfarin. <Yenny Melgar - Last Filed: 05/18/18 16:28> Objective - Vital Signs/Intake and Output Vital Signs (last 24 hours): Temp Pulse Resp BP Pulse Ox 97.7 F 74 18 150/67 96 05/18/18 12:58 05/18/18 12:58 05/18/18 12:58 05/18/18 12:58 05/18/18 12:58 - Medications Medications: Current Medications Aspirin (Ecotrin) 81 mg PO DAILY [facility] Last Admin: 05/18/18 08:53 Dose: 81 mg Atorvastatin Calcium (Lipitor) 20 mg PO HS [facility] Last Admin: 05/17/18 21:25 Dose: 20 mg Dextrose (Dextrose 50% Inj) 0 ml IV STAT PRN; Protocol PRN Reason: Hypoglycemia Protocol Dextrose (Glutose 15) 0 gm PO ONCE PRN; Protocol PRN Reason: Hypoglycemia Protocol Ferrous Sulfate (Feosol) 325 mg PO BID [facility] Last Admin: 05/18/18 08:53 Dose: 325 mg Furosemide (Lasix) 40 mg IVP DAILY [facility] Last Admin: 05/18/18 08:39 Dose: 40 mg Glucagon (Glucagen Diagnostic Kit) 0 mg IM STAT PRN; Protocol PRN Reason: Hypoglycemia Protocol Glyburide (Micronase) 2.5 mg PO DAILYWM [facility] Last Admin: 05/18/18 08:56 Dose: 2.5 mg Nitroglycerin (Nitrostat Sl Tab) 0.4 mg SL Q5M PRN PRN Reason: chest pain Pantoprazole Sodium (Protonix Ec Tab) 40 mg PO DAILY [facility] Last Admin: 05/18/18 08:56 Dose: 40 mg Sertraline HCl (Zoloft) 50 mg PO HS [facility] Last Admin: 05/17/18 21:25 Dose: 50 mg Sitagliptin Phosphate (Januvia) 50 mg PO DAILY [facility] Last Admin: 05/18/18 12:40 Dose: 50 mg Spironolactone (Aldactone) 25 mg PO DAILY [facility] Last Admin: 05/18/18 08:53 Dose: 25 mg - Labs Labs: 05/18/18 05:19 05/18/18 05:19 PT 43.2 Seconds (9.8-13.1) H* D 05/18/18 05:19 INR 3.8 05/18/18 05:19 APTT 36.9 Seconds (25.6-37.1) 05/17/18 11:04 Attending/Attestation - Attestation I have personally seen and examined this patient.: Yes I have fully participated in the care of the patient.: Yes I have reviewed all pertinent clinical information, including history, physical exam and plan: Yes Notes (Text): Acute exacerbation of Chronic CHF, systolic and diastolic dysfunction, EF 25% - Pt better but still with SOB , parth with exertion - will continue IV diuresis as inpatient - cont lasix and Aldactone - add low dose Hydralazine - no BB bec of bradycardia - no [place] bec of hyperkalemia, will see if we can add prior to discharge Cystic Mass , renal unchanged from 2016 - dedicated Abd CT can be done as outpt, will let Dr Falcon know. Acute Kidney Injury on CKD Stage III
--- NOTE | 2018-05-18 11:37 | RAD ---
Date of service: 05/18/2018 HISTORY: SOB COMPARISON: 05/17/2018 TECHNIQUE: Chest PA and lateral FINDINGS: LUNGS: No pulmonary infiltrate. PLEURA: Hazy opacity at left costophrenic angle as on prior examination of 05/17. However, CT examination of 05/17 demonstrated no evidence of left pleural effusion. The opacity is most likely due to excessive left epicardial fat deposit. No right pleural effusion. No pneumothorax. CARDIOVASCULAR: Cardiomegaly. AICD. No congestive change. OSSEOUS STRUCTURES: No significant abnormalities. VISUALIZED UPPER ABDOMEN: Normal. OTHER FINDINGS: None. IMPRESSION: No infiltrate/effusion. Cardiomegaly. AICD.
[2018-05-19 05:48] LABS: HEMOGLOBIN 11.8 g/dL (12.0-18.0); MEAN CELL VOLUME 85.4 fl (80.0-94.0); MEAN CORPUSCULAR HEMOGLOBIN 28.4 pg (27.0-31.0); MEAN CORPUSCULAR HGB CONC 33.2 g/dL (33.0-37.0); RBC 4.17 Mil/uL (4.40-5.90); RED CELL DISTRIBUTION WIDTH 15.6 % (11.5-14.5); WHITE BLOOD COUNT 11.1 K/uL (4.8-10.8)
[2018-05-19 06:03] LABS: CALCIUM 9.2 mg/dL (8.4-10.2)
[2018-05-19 06:45] LABS: INR 2.4; PROTHROMBIN TIME 27.1 Seconds (9.8-13.1)
[2018-05-19] MEDS: Pantoprazole 40 mg EC Tab PO SCH (08:40)
--- NOTE | 2018-05-19 08:52 | CP.PCM.PN ---
Subjective - Date & Time of Evaluation Date of Evaluation: 05/19/18 Time of Evaluation: 08:40 - Subjective Subjective: NO CHEST PAIN STILL WITH SOME SOB Objective - Vital Signs/Intake and Output Vital Signs (last 24 hours): Temp Pulse Resp BP Pulse Ox 97.2 F L 62 18 117/65 98 05/19/18 05:25 05/19/18 05:25 05/19/18 05:25 05/19/18 08:40 05/19/18 05:25 - Medications Medications: Current Medications Aspirin (Ecotrin) 81 mg PO DAILY [facility] Last Admin: 05/19/18 08:40 Dose: 81 mg Atorvastatin Calcium (Lipitor) 20 mg PO HS [facility] Last Admin: 05/18/18 21:44 Dose: 20 mg Dextrose (Dextrose 50% Inj) 0 ml IV STAT PRN; Protocol PRN Reason: Hypoglycemia Protocol Dextrose (Glutose 15) 0 gm PO ONCE PRN; Protocol PRN Reason: Hypoglycemia Protocol Ferrous Sulfate (Feosol) 325 mg PO BID [facility] Last Admin: 05/19/18 08:40 Dose: 325 mg Furosemide (Lasix) 40 mg IVP DAILY [facility] Last Admin: 05/19/18 08:40 Dose: 40 mg Glucagon (Glucagen Diagnostic Kit) 0 mg IM STAT PRN; Protocol PRN Reason: Hypoglycemia Protocol Glyburide (Micronase) 2.5 mg PO DAILYWM [facility] Last Admin: 05/19/18 08:40 Dose: 2.5 mg Nitroglycerin (Nitrostat Sl Tab) 0.4 mg SL Q5M PRN PRN Reason: chest pain Pantoprazole Sodium (Protonix Ec Tab) 40 mg PO DAILY [facility] Last Admin: 05/19/18 08:40 Dose: 40 mg Sertraline HCl (Zoloft) 50 mg PO HS [facility] Last Admin: 05/18/18 21:44 Dose: 50 mg Sitagliptin Phosphate (Januvia) 50 mg PO DAILY [facility] Last Admin: 05/19/18 08:40 Dose: 50 mg Spironolactone (Aldactone) 25 mg PO DAILY [facility] Last Admin: 05/19/18 08:41 Dose: 25 mg Warfarin Sodium (Coumadin) 2 mg PO DAILY [facility]; Protocol Stop: 05/19/18 09:01 - Labs Labs: 05/19/18 05:00 05/19/18 05:00 PT 27.1 Seconds (9.8-13.1) H D 05/19/18 05:00 INR 2.4 05/19/18 05:00 APTT 36.9 Seconds (25.6-37.1) 05/17/18 11:04 - Respiratory Exam Respiratory Exam: Clear to Ausculation Bilateral - Cardiovascular Exam Cardiovascular Exam: REGULAR RHYTHM, +S1, +S2 - Extremities Exam Additional comments: NO SIGNIFICANT LE EDEMA TODAY Assessment and Plan - Assessment and Plan (Free Text) Assessment: CAD SYSTOLIC CHF-MILD HYPERTENSION HYPERLIPIDEMIA LUPUS NEPHRITIS WITH CHRONICALLY ELEVATED TROPONINS DEPRESSION AND ANXIETY Plan: CONTINUE ALDACTONE, ASPIRIN, FUROSEMIDE, ATORVASTATIN AND ZOLOFT I SPOKE TO THE SON WHO BELIEVES THAT HIS FATHER HAS ANXIETY AND THIS MAY BE CAUSING THE SOB AND HE BELIEVES THAT HIS FATHER IS TAKING RISPERDAL AT HOME
[2018-05-19 09:23] LABS: ANISOCYTOSIS SLIGHT; BASOPHIL 1 % (0-2); EOSINOPHIL 2 % (0-7); LYMPHOCYTE 16 % (20-50); MONOCYTE 7 % (0-10); NEUTROPHIL 74 % (42-75); OVALOCYTES SLIGHT; PLATELET ESTIMATE NORMAL (NORMAL); TEARDROP CELLS SLIGHT; TOTAL CELLS COUNTED 100
--- NOTE | 2018-05-19 10:29 | CP.PCM.PN ---
Addendum entered by Yenny Melgar MD 05/19/18 16:55: Atrial Fibrillation, chronic Restart Warfarin today at lower dose 2 mg ( dose at home 2.5 alternating with 3 mg) Addendum entered and electronically signed by Addie Bose MD 05/19/18 14:10: Recommending subacute rehab for continued physical therapy. Original Note: <Addie Bose - Last Filed: 05/19/18 12:15> Subjective - Date & Time of Evaluation Date of Evaluation: 05/19/18 Time of Evaluation: 09:26 - Subjective Subjective: [facility] interpretation services-[id number] Patient's son called during examination Patient was seen and examined this AM. He reports being unable to sleep, and as per son he takes risperdal every night, which may contribute to his inability to speak. [facility] on [address] [facility] was called, and stated he last refilled medication. Patient otherwise stated is better, and denies any fever, chills, chest pain or shortness of breath. Objective - Vital Signs/Intake and Output Vital Signs (last 24 hours): Temp Pulse Resp BP Pulse Ox 97.9 F 64 20 117/65 97 05/19/18 09:35 05/19/18 09:35 05/19/18 09:35 05/19/18 09:35 05/19/18 09:35 - Medications Medications: Current Medications Aspirin (Ecotrin) 81 mg PO DAILY [facility] Last Admin: 05/19/18 08:40 Dose: 81 mg Atorvastatin Calcium (Lipitor) 20 mg PO HS [facility] Last Admin: 05/18/18 21:44 Dose: 20 mg Dextrose (Dextrose 50% Inj) 0 ml IV STAT PRN; Protocol PRN Reason: Hypoglycemia Protocol Dextrose (Glutose 15) 0 gm PO ONCE PRN; Protocol PRN Reason: Hypoglycemia Protocol Ferrous Sulfate (Feosol) 325 mg PO BID [facility] Last Admin: 05/19/18 08:40 Dose: 325 mg Furosemide (Lasix) 40 mg IVP DAILY [facility] Last Admin: 05/19/18 08:40 Dose: 40 mg Glucagon (Glucagen Diagnostic Kit) 0 mg IM STAT PRN; Protocol PRN Reason: Hypoglycemia Protocol Glyburide (Micronase) 2.5 mg PO DAILYWM [facility] Last Admin: 05/19/18 08:40 Dose: 2.5 mg Nitroglycerin (Nitrostat Sl Tab) 0.4 mg SL Q5M PRN PRN Reason: chest pain Pantoprazole Sodium (Protonix Ec Tab) 40 mg PO DAILY [facility] Last Admin: 05/19/18 08:40 Dose: 40 mg Sertraline HCl (Zoloft) 50 mg PO HS [facility] Last Admin: 05/18/18 21:44 Dose: 50 mg Sitagliptin Phosphate (Januvia) 50 mg PO DAILY [facility] Last Admin: 05/19/18 08:40 Dose: 50 mg Spironolactone (Aldactone) 25 mg PO DAILY [facility] Last Admin: 05/19/18 08:41 Dose: 25 mg Warfarin Sodium (Coumadin) 2 mg PO DAILY [facility]; Protocol Stop: 05/19/18 09:01 - Labs Labs: 05/19/18 05:00 05/19/18 05:00 PT 27.1 Seconds (9.8-13.1) H D 05/19/18 05:00 INR 2.4 05/19/18 05:00 APTT 36.9 Seconds (25.6-37.1) 05/17/18 11:04 - Constitutional Appears: No Acute Distress - Head Exam Head Exam: ATRAUMATIC, NORMAL INSPECTION - Respiratory Exam Additional comments: minimal rales noted which is improved from yesterday; no wheeze or rhonchi - Cardiovascular Exam Cardiovascular Exam: REGULAR RHYTHM, +S1, +S2 - GI/Abdominal Exam GI & Abdominal Exam: Soft, Normal Bowel Sounds. absent: Firm, Guarding, Rigid, Tenderness - Extremities Exam Additional comments: 1+ pitting edema - Neurological Exam Neurological Exam: Alert, Awake, Oriented x3 - Skin Skin Exam: Dry Additional comments: ecchymosis on left arm continues to show regression Assessment and Plan - Assessment and Plan (Free Text) Assessment: 77 yo M with a medical hx of CHF, HTN, DM2, CAD, arthritis, atrial fibrillation with a pacemaker, depression & CKD presented to the ED with complaints of shortness of breath for 1 week. 1. Acute on chronic systolic heart failure -Possible YULIYA tomorrow as recommended by physical therapy. -Dr. Hidalgo recommendations have been appreciated. -Weight on 05/18/2018 was 113.398kg. Today's weight is 108.012kg. -Continue diuresis with Lasix 40mg QD IVP. FU repeat BMP in AM. -Pro BNP:2130; repeat level this AM was 2900. -Continue spironolactone 25mg 1 tab QD. -Elevated troponins are likely due to CHF & CKD. -Echo performed 09/05/2017 showed 25-30%. 2. Atrial fibrillation (Chronic, 100% paced with pacemaker -Warfarin restarted this AM. INR 2.4 today. -FU AM INR levels. -Not on beta carine or calcium channel because patient is 100% paced. - As per son, patient was taking alternating doses of 2.5mg of warfarin on one day followed by 3mg. 3. Cystic Mass (chronic, asymptomatic) -Present on Abd CT performed 09/07/2015, and has not changed in size. - (Creatinine as been slowly increasing with levels up to 1.8 this AM, and given that there has been know acute changes in size & patient is asymptomatic, outpatient follow up with his PMD, Dr. Falcon is recommendationed). -CXR was performed: findings consistent with CHF with large mediastinum mass noted 4. HTN (Chronic) -Continue to monitor BP. 117/65 this AM. 5. DM2 (Chronic, stable) -last A1C-6.7 on 10/15/2017) -Januvia 100mg 1 tab QD was decreased to 50mg because of AM glucose of 67. -Continue Glyburide 2.5mg 1tab QD 6. hx of CAD -Continue Aspirin 81 PO QD -Continue Atorvastatin 20mg 1 tab QD 7. Depression (Chronic, stable) -Continue Zoloft 15mg 1 tab BID 8. Arthritis (Chronic) -Continue Hydrocloroquine 200mg BID 9. Chronic kidney disease (Chronic, stable) with hyperkalemia 5.1 on admission & chronically elevated troponins -Creatinine today 1.8. Given his fluid overload state, we will continue Lasix 40mg QD. -Potassium is 4.2 today. Continue to monitor. -First troponins-0.2190, 0.1870, and 0.1930 yesterday likely due to CHF & CKD. 10. Constipation -Continue Amatiza 24 mcg PO QD 11. DVT prophylaxis -Warfarin 2mg was restarted today. <Yenny Melgar - Last Filed: 05/19/18 16:53> Objective - Vital Signs/Intake and Output Vital Signs (last 24 hours): Temp Pulse Resp BP Pulse Ox 97.7 F 69 16 118/72 94 L 05/19/18 16:24 05/19/18 16:24 05/19/18 16:24 05/19/18 16:24 05/19/18 16:24 - Medications Medications: Current Medications Aspirin (Ecotrin) 81 mg PO DAILY [facility] Last Admin: 05/19/18 08:40 Dose: 81 mg Atorvastatin Calcium (Lipitor) 20 mg PO HS [facility] Last Admin: 05/18/18 21:44 Dose: 20 mg Dextrose (Dextrose 50% Inj) 0 ml IV STAT PRN; Protocol PRN Reason: Hypoglycemia Protocol Dextrose (Glutose 15) 0 gm PO ONCE PRN; Protocol PRN Reason: Hypoglycemia Protocol Ferrous Sulfate (Feosol) 325 mg PO BID [facility] Last Admin: 05/19/18 16:14 Dose: 325 mg Furosemide (Lasix) 40 mg IVP DAILY [facility] Last Admin: 05/19/18 08:40 Dose: 40 mg Glucagon (Glucagen Diagnostic Kit) 0 mg IM STAT PRN; Protocol PRN Reason: Hypoglycemia Protocol Glyburide (Micronase) 2.5 mg PO DAILYWM [facility] Last Admin: 05/19/18 08:40 Dose: 2.5 mg Nitroglycerin (Nitrostat Sl Tab) 0.4 mg SL Q5M PRN PRN Reason: chest pain Pantoprazole Sodium (Protonix Ec Tab) 40 mg PO DAILY [facility] Last Admin: 05/19/18 08:40 Dose: 40 mg Risperidone (Risperdal Tab) 2 mg PO HS [facility] Last Admin: 05/19/18 16:14 Dose: Not Given Sertraline HCl (Zoloft) 50 mg PO HS [facility] Last Admin: 05/18/18 21:44 Dose: 50 mg Sitagliptin Phosphate (Januvia) 50 mg PO DAILY [facility] Last Admin: 05/19/18 08:40 Dose: 50 mg Spironolactone (Aldactone) 25 mg PO DAILY [facility] Last Admin: 05/19/18 08:41 Dose: 25 mg Warfarin Sodium (Coumadin) 2 mg PO DAILY@1700 [facility]; Protocol Stop: 05/19/18 17:01 Last Admin: 05/19/18 16:13 Dose: 2 mg - Labs Labs: 05/19/18 05:00 05/19/18 05:00 PT 27.1 Seconds (9.8-13.1) H D 05/19/18 05:00 INR 2.4 05/19/18 05:00 APTT 36.9 Seconds (25.6-37.1) 05/17/18 11:04 Attending/Attestation - Attestation I have personally seen and examined this patient.: Yes I have fully participated in the care of the patient.: Yes I have reviewed all pertinent clinical information, including history, physical exam and plan: Yes Notes (Text): Acute exacerbation of Chronic CHF, systolic and diastolic dysfunction, EF 25% Cont IV Diuresis still with some SOB but better, edema improving If pt continues to improve , Plan to d/c pt to TCU in am Pt very deconditioned needs further PT
--- NOTE | 2018-05-19 10:41 | PQF ---
PROVIDER RESPONSE TEXT: Diagnosis is acute on chronic systolic heart failure. Thank you so much. REVIEWER QUERY TEXT: Conflicting Documentation Clarification Please also document if the condition is: -- Confirmed and current -- Confirmed, treated and resolved -- Ruled out -- Other, please specify The patient's Clinical Indicators include: Cardiology: Mild Acute Systolic CHF PN 05/18/18: Both acute on chronic systolic CHF and acute exacerbation of chronic CHF, systolic and d iastolic dysfunction Rx: Lasix IV, Aldactone Query created by: Yamel Barfield on 05/19/2018 9:22 AM Electronically signed by: Addie Bose 05/19/2018 10:38 AM
[2018-05-19 19:17] LABS: URINE BACTERIA RARE (<OCC); URINE BILIRUBIN NEGATIVE (NEGATIVE); URINE BLOOD NEGATIVE (NEGATIVE); URINE CLARITY CLEAR (Clear); URINE COLOR YELLOW (YELLOW); URINE GLUCOSE (UA) NEG (Normal); URINE HYALINE CAST 0-2 /hpf (0-2); URINE LEUKOCYTE ESTERASE NEG Leu/uL (Negative); URINE PROTEIN NEGATIVE (NEGATIVE); URINE UROBILINOGEN 0.2-1.0 mg/dL (0.2-1.0)
[2018-05-20 07:15] LABS: INR 1.8; PROTHROMBIN TIME 20.3 Seconds (9.8-13.1)
[2018-05-20 07:24] LABS: CALCIUM 8.9 mg/dL (8.4-10.2)
[2018-05-20 09:29] VITALS: BP 124/77
[2018-05-20] MEDS: Pantoprazole 40 mg EC Tab PO SCH (09:29)
--- NOTE | 2018-05-20 10:15 | CP.PCM.DIS ---
Addendum entered and electronically signed by Gogo Ruiz MD 05/20/18 15:35: Patient was seen and examined ,. All chart and clinical data reviewed . Case discussed with resident . Agree with assessment and discharge planning. 77 y/o male with PMH CHF, HTN, DM2, CAD, arthritis, atrial fibrillation, depression & CKD admitted for SOB for of Acute on chronic systolic heart failure. He was admitted in telemetry , started on diuretics IV and cardiology cosnulted Patient clinically improved . Will discharge patient to TCU for physical therapy Original Note: Provider - Provider Date of Admission: 05/17/18 12:42 Attending physician: Avinash Munoz MD Primary care physician: PMD: Dr. Falcon Consults: Cardio, Dr. Hidalgo Time Spent in preparation of Discharge (in minutes): 40 Hospital Course - Lab Results Lab Results: Most Recent Lab Values WBC 11.1 K/uL (4.8-10.8) H 05/19/18 05:00 RBC 4.17 Mil/uL (4.40-5.90) L 05/19/18 05:00 Hgb 11.8 g/dL (12.0-18.0) L 05/19/18 05:00 Hct 35.6 % (35.0-51.0) 05/19/18 05:00 MCV 85.4 fl (80.0-94.0) 05/19/18 05:00 MCH 28.4 pg (27.0-31.0) 05/19/18 05:00 MCHC 33.2 g/dL (33.0-37.0) 05/19/18 05:00 RDW 15.6 % (11.5-14.5) H 05/19/18 05:00 Plt Count 174 K/uL (130-400) 05/19/18 05:00 MPV 8.5 fl (7.2-11.7) 05/18/18 05:19 Neut % (Auto) 71.0 % (50.0-75.0) 05/18/18 05:19 Lymph % (Auto) 17.1 % (20.0-40.0) L 05/18/18 05:19 Charles % (Auto) 10.3 % (0.0-10.0) H 05/18/18 05:19 Eos % (Auto) 1.3 % (0.0-4.0) 05/18/18 05:19 Baso % (Auto) 0.3 % (0.0-2.0) 05/18/18 05:19 Neut # (Auto) 7.3 K/uL (1.8-7.0) H 05/18/18 05:19 Lymph # (Auto) 1.7 K/uL (1.0-4.3) 05/18/18 05:19 Charles # (Auto) 1.1 K/uL (0.0-0.8) H 05/18/18 05:19 Eos # (Auto) 0.1 K/uL (0.0-0.7) 05/18/18 05:19 Baso # (Auto) 0.0 K/uL (0.0-0.2) 05/18/18 05:19 Neutrophils % (Manual) 74 % (42-75) 05/19/18 05:00 Lymphocytes % (Manual) 16 % (20-50) L 05/19/18 05:00 Monocytes % (Manual) 7 % (0-10) 05/19/18 05:00 Eosinophils % (Manual) 2 % (0-7) 05/19/18 05:00 Basophils % (Manual) 1 % (0-2) 05/19/18 05:00 Platelet Estimate Normal (NORMAL) 05/19/18 05:00 Hypochromasia (manual) Slight 05/17/18 11:04 Anisocytosis (manual) Slight 05/19/18 05:00 Tear Drop Cells Slight 05/19/18 05:00 Ovalocytes Slight 05/19/18 05:00 PT 20.3 Seconds (9.8-13.1) H D 05/20/18 06:30 INR 1.8 05/20/18 06:30 APTT 36.9 Seconds (25.6-37.1) 05/17/18 11:04 Sodium 141 mmol/l (132-148) 05/20/18 06:30 Potassium 4.0 MMOL/L (3.6-5.0) 05/20/18 06:30 Chloride 103 mmol/L (98-107) 05/20/18 06:30 Carbon Dioxide 35 mmol/L (22-30) H 05/20/18 06:30 Anion Gap 7 (10-20) L 05/20/18 06:30 BUN 24 mg/dl (9-20) H 05/20/18 06:30 Creatinine 1.6 mg/dl (0.8-1.5) H 05/20/18 06:30 Est GFR ( Amer) 51 05/20/18 06:30 Est GFR (Non-Af Amer) 42 05/20/18 06:30 POC Glucose (mg/dL) 100 mg/dL (65-110) 05/20/18 06:52 Random Glucose 115 mg/dL (75-110) H 05/20/18 06:30 Calcium 8.9 mg/dL (8.4-10.2) 05/20/18 06:30 Total Bilirubin 0.7 mg/dl (0.2-1.3) 05/17/18 11:04 AST 36 U/L (17-59) 05/17/18 11:04 ALT 46 U/L (21-72) 05/17/18 11:04 Alkaline Phosphatase 40 U/L (38-126) 05/17/18 11:04 Troponin I 0.1930 ng/mL (0.00-0.120) H* 05/18/18 05:19 NT-Pro-B Natriuret Pep 2900 pg/ml (0-900) H 05/19/18 08:31 Total Protein 6.2 G/DL (6.3-8.2) L 05/17/18 11:04 Albumin 3.2 g/dL (3.5-5.0) L 05/17/18 11:04 Globulin 3.0 gm/dL (2.2-3.9) 05/17/18 11:04 Albumin/Globulin Ratio 1.1 (1.0-2.1) 05/17/18 11:04 Procalcitonin < 0.05 NG/ML (0.19-0.49) L 05/17/18 16:01 Urine Color Yellow (YELLOW) 05/19/18 18:55 Urine Clarity Clear (Clear) 05/19/18 18:55 Urine pH 6.0 (5.0-8.0) 05/19/18 18:55 Ur Specific [place] 1.006 (1.003-1.030) 05/19/18 18: Urine Protein Negative mg/dL (NEGATIVE) 05/19/18 18: Urine Glucose (UA) Neg mg/dL (Normal) 05/19/18 18: Urine Ketones Negative mg/dL (NEGATIVE) 05/19/18 18: Urine Blood Negative (NEGATIVE) 05/19/18 18: Urine Nitrate Negative (NEGATIVE) 05/19/18 18: Urine Bilirubin Negative (NEGATIVE) 05/19/18 18: Urine Urobilinogen 0.2-1.0 mg/dL (0.2-1.0) 05/19/18 18: Ur Leukocyte Esterase Neg [place]/uL (Negative) 05/19/18 18: Urine RBC (Auto) 1 /hpf (0-3) 05/19/18: Urine Microscopic WBC < 1 /hpf (0-5) 05/19/18 18: Urine Bacteria Rare (<OCC) 05/19/18 18: Hyaline Casts 0-2 /hpf (0-2) 05/19/18 18: Blood Type B POSITIVE 05/17/18 11:04 Antibody Screen Negative 05/17/18 11:04 BBK History Checked Patient has bt 05/17/18 11:04 - Hospital Course Hospital Course: This is 77 yo M with a medical hx of CHF, HTN, DM2, CAD, arthritis, atrial fibrillation with a pacemaker, depression & CKD admitted for SOB for one week and evaluation and treatment of Acute on chronic systolic heart failure. Cardiology consulted after the admission, patient was started on diuretics, Started on Warfarin 2mg due to superatherapeutic INR. Elevated troponins are likely due to CHF & CKD, Echo performed 09/05/2017 showed 25-30%. Patient's symptoms improved and transferred to TCU. 1. Acute on chronic systolic heart failure -Continue diuresis with Lasix -Continue spironolactone 25mg 1 tab QD. -Elevated troponins are likely due to CHF & CKD. -Echo performed 09/05/2017 showed 25-30%. 2. Atrial fibrillation (Chronic, 100% paced with pacemaker - C/w Warfarin, changes to 2mg 3. Cystic Mass (chronic, asymptomatic) -Present on Abd CT performed 09/07/2015, and has not changed in size. - (Creatinine as been slowly increasing with levels up to 1.8 this AM, and given that there has been know acute changes in size & patient is asymptomatic, outpatient follow up with his PMD, Dr. Falcon is recommendationed). -CXR was performed: findings consistent with CHF with large mediastinum mass noted 4. HTN (Chronic) -Controlled 5. DM2 (Chronic, stable) -last A1C-6.7 on 10/15/2017) -C/w Januvia 50mg -Continue Glyburide 2.5mg 1tab QD 6. hx of CAD -Continue Aspirin 81 PO QD -Continue Atorvastatin 20mg 1 tab QD 7. Depression (Chronic, stable) -Continue Zoloft 50mg PO HS, Risperidone 2mg PO HS 8. Arthritis (Chronic) -Continue Hydrocloroquine 200mg BID 9. Chronic kidney disease (Chronic, stable) with hyperkalemia 5.1 on admission & chronically elevated troponins -Creatinine improved. Given his fluid overload state, we will continue Lasix 40mg QD. -Potassium improved. -Troponins trend -0.2190, 0.1870, and 0.1930, likely due to CHF & CKD. 10. Constipation -Continue Amatiza 24 mcg PO QD 11. DVT prophylaxis -Warfarin 2mg was restarted today. Discharge Exam - Head Exam Head Exam: ATRAUMATIC, NORMAL INSPECTION - Eye Exam Eye Exam: Normal appearance - ENT Exam ENT Exam: Mucous Membranes Moist - Neck Exam Neck exam: Normal Inspection - Respiratory Exam Respiratory Exam: Rales (mild). absent: Accessory Muscle Use, Chest Wall Tenderness - Cardiovascular Exam Cardiovascular Exam: Irregular Rhythm, +S1, +S2 - GI/Abdominal Exam GI & Abdominal Exam: Normal Bowel Sounds, Soft. absent: Tenderness - Extremities Exam Additional comments: 1+ pitting edema - Neurological Exam Neurological exam: Alert, Oriented x3 - Skin Additional comments: ecchymosis on left arm continues to show regression Discharge Plan - Discharge Medications Prescriptions: Atorvastatin [Lipitor] 20 mg PO HS #30 tab Furosemide [Lasix] 40 mg PO DAILY #30 vial glyBURIDE [Micronase] 2.5 mg PO DAILY #30 tab Nitroglycerin [Nitrostat] 0.4 mg PO DAILY PRN #30 tab.subl PRN Reason: chest pain Omeprazole Magnesium [Prilosec Otc] 20 mg PO DAILY #30 tablet. Sertraline [Zoloft] 50 mg PO HS #30 tab SITagliptin [Januvia] 50 mg PO DAILY #30 tab Spironolactone [Aldactone] 25 mg PO DAILY #30 tab Warfarin [Coumadin] 2 mg PO HS #30 tab - Follow Up Plan Condition: STABLE Disposition: REHAB FACILITY/REHAB UNIT Patient education suggested?: Yes Instructions: Heart Failure, Adult Additional Instructions: -C/w home medications -C/w Lasix Clinical Quality Measures - CQM - Heart Failure Ejection Fraction: Less Than 40 % Left Ventricular Function to be assessed after discharge: No CLIFTON Inhibitor Prescribed: No Contraindication/Reason for not providing: Renal function Beta-Zoe Prescribed: None Contraindication/Reason for not providing: DMII Angiotensin II Receptor Zoe Prescribed: No Contraindication/Reason for not providing: Renal function AnticoagulationTherapy for Atrial Fibrillation/Atrialflutter: Yes Aldosterone Antagonist Prescribed: Yes Hydralazine Nitrate Prescribed: Yes Implantable Cardioverter Defibrillator Therapy: No Contraindication/Reason for not providing: atrial fibrillation with a pacemaker [facility]
--- NOTE | 2018-05-20 10:21 | CP.PCM.PN ---
Subjective - Date & Time of Evaluation Date of Evaluation: 05/20/18 Time of Evaluation: 10:00 - Subjective Subjective: NO CHEST PAIN BREATHING BETTER TODAY Objective - Vital Signs/Intake and Output Vital Signs (last 24 hours): Temp Pulse Resp BP Pulse Ox 97.3 F L 68 19 124/77 98 05/20/18 05:00 05/20/18 05:00 05/20/18 05:00 05/20/18 09:28 05/20/18 05:00 - Medications Medications: Current Medications Aspirin (Ecotrin) 81 mg PO DAILY [facility] Last Admin: 05/20/18 09:27 Dose: 81 mg Atorvastatin Calcium (Lipitor) 20 mg PO HS [facility] Last Admin: 05/19/18 21:33 Dose: 20 mg Dextrose (Dextrose 50% Inj) 0 ml IV STAT PRN; Protocol PRN Reason: Hypoglycemia Protocol Dextrose (Glutose 15) 0 gm PO ONCE PRN; Protocol PRN Reason: Hypoglycemia Protocol Ferrous Sulfate (Feosol) 325 mg PO BID [facility] Last Admin: 05/20/18 09:28 Dose: 325 mg Furosemide (Lasix) 40 mg IVP DAILY [facility] Last Admin: 05/20/18 09:28 Dose: 40 mg Glucagon (Glucagen Diagnostic Kit) 0 mg IM STAT PRN; Protocol PRN Reason: Hypoglycemia Protocol Glyburide (Micronase) 2.5 mg PO DAILYWM [facility] Last Admin: 05/20/18 09:29 Dose: 2.5 mg Nitroglycerin (Nitrostat Sl Tab) 0.4 mg SL Q5M PRN PRN Reason: chest pain Pantoprazole Sodium (Protonix Ec Tab) 40 mg PO DAILY [facility] Last Admin: 05/20/18 09:29 Dose: 40 mg Risperidone (Risperdal Tab) 2 mg PO HS [facility] Last Admin: 05/19/18 21:33 Dose: 2 mg Sertraline HCl (Zoloft) 50 mg PO HS [facility] Last Admin: 05/19/18 21:33 Dose: 50 mg Sitagliptin Phosphate (Januvia) 50 mg PO DAILY [facility] Last Admin: 05/20/18 09:28 Dose: 50 mg Spironolactone (Aldactone) 25 mg PO DAILY [facility] Last Admin: 05/20/18 09:26 Dose: 25 mg - Labs Labs: 05/19/18 05:00 05/20/18 06:30 PT 20.3 Seconds (9.8-13.1) H D 05/20/18 06:30 INR 1.8 05/20/18 06:30 APTT 36.9 Seconds (25.6-37.1) 05/17/18 11:04 - Respiratory Exam Respiratory Exam: Clear to Ausculation Bilateral - Cardiovascular Exam Cardiovascular Exam: REGULAR RHYTHM, +S1, +S2 - Extremities Exam Additional comments: NO SIGNIFICANT LE EDEMA Assessment and Plan - Assessment and Plan (Free Text) Assessment: CAD HYPERTENSION HYPERLIPIDEMIA LUPUS NEPHRITIS Plan: CONTINUE PRESENT TREATMENT FOR DISCHARGE TODAY
[2018-05-20 10:59] VITALS: PULSE 74; RESP 16; TEMP 98.6; O2SAT 96
== END 2018-05-20 12:01 | DRG 291 ==
LOC: H.ER 08:52 → H.ERHOLD 12:42 → H.TEL 15:45
PROVIDERS: ADMIT Internal Medicine; ATTEND Internal Medicine
DX: I13.0 Hypertensive heart and chronic kidney disease with heart failure and stage 1 through stage 4 chronic kidney disease, or unspecified chronic kidney disease (principal); I50.23 Acute on chronic systolic (congestive) heart failure; N17.9 Acute kidney failure, unspecified; J98.11 Atelectasis; I48.2 Chronic atrial fibrillation; M32.9 Systemic lupus erythematosus, unspecified; M32.14 Glomerular disease in systemic lupus erythematosus; E87.5 Hyperkalemia; R19.02 Left upper quadrant abdominal swelling, mass and lump; N18.3 Chronic kidney disease, stage 3 (moderate); N28.1 Cyst of kidney, acquired; E11.22 Type 2 diabetes mellitus with diabetic chronic kidney disease; E78.00 Pure hypercholesterolemia, unspecified; E78.5 Hyperlipidemia, unspecified; F32.9 Major depressive disorder, single episode, unspecified; F41.9 Anxiety disorder, unspecified; I25.10 Atherosclerotic heart disease of native coronary artery without angina pectoris; I77.810 Thoracic aortic ectasia; J44.9 Chronic obstructive pulmonary disease, unspecified; K59.00 Constipation, unspecified; M19.012 Primary osteoarthritis, left shoulder; Z79.84 Long term (current) use of oral hypoglycemic drugs; Z87.01 Personal history of pneumonia (recurrent); Z90.49 Acquired absence of other specified parts of digestive tract; Z95.0 Presence of cardiac pacemaker; Z95.5 Presence of coronary angioplasty implant and graft; Z23 Encounter for immunization

== ENCOUNTER 2018-05-20 11:26 | Inpatient (IN) | payer OTHER ==
[2018-05-20 12:10] VITALS: BMI 36.2
--- NOTE | 2018-05-21 13:15 | CP.PCM.HP ---
History of Present Illness - History of Present Illness History of Present Illness: 77 yo male with history of CHF, HTN, DM2, CAD, AFib, SLE and CKD admitted because of CHF exacerbation with progressive worsening of breathing. Patient was put on diuretics and improved. He was transferred to TCU for therapy because of deconditioning and continuation of further management Present on Admission - Present on Admission Any Indicators Present on Admission: No History of DVT/PE: No History of Uncontrolled Diabetes: No Urinary Catheter: No Decubitus Ulcer Present: No Review of Systems - Review of Systems All systems: reviewed and no additional remarkable complaints except (aside from those mentioned above, 12 point system review were negative by me) Past Patient History - Infectious Disease Hx of Infectious Diseases: None - Past Medical History & Family History Past Medical History?: Yes - Past Social History Smoking Status: Former Smoker Chewing Tobacco Use: No Cigar Use: No - CARDIAC Hx Atrial Fibrillation: Yes Hx Cardia Arrhythmia: Yes Hx Congestive Heart Failure: Yes Hx Hypercholesterolemia: Yes Hx Hypertension: Yes Hx Pacemaker: Yes - PULMONARY Hx Pneumonia: Yes - NEUROLOGICAL Hx Neurological Disorder: No - HEENT Hx HEENT Problems: Yes Hx Epistaxis: Yes - RENAL Hx Chronic Kidney Disease: Yes - ENDOCRINE/METABOLIC Hx Endocrine Disorders: Yes Hx Diabetes Mellitus Type 2: Yes Hx Systemic Lupus Erythematosus: Yes - HEMATOLOGICAL/ONCOLOGICAL Hx AIDS: No Hx Human Immunodeficiency Virus (HIV): No - INTEGUMENTARY Hx Dermatological Problems: No - MUSCULOSKELETAL/RHEUMATOLOGICAL Hx Falls: Yes - GASTROINTESTINAL Hx Gastrointestinal Disorders: No - GENITOURINARY/GYNECOLOGICAL Hx Genitourinary Disorders: No - PSYCHIATRIC Hx Substance Use: No - SURGICAL HISTORY Hx Appendectomy: Yes Hx Coronary Stent: Yes - ANESTHESIA Hx Anesthesia: Yes Hx Anesthesia Reactions: No Hx Malignant Hyperthermia: No Meds Allergies/Adverse Reactions: Allergies Allergy/AdvReac Type Severity Reaction Status Date / Time morphine Allergy ANAPHYLAXIS Verified 05/20/18 12:10 Physical Exam - Constitutional Appears: No Acute Distress - Head Exam Head Exam: ATRAUMATIC - Eye Exam Eye Exam: absent: Scleral icterus - ENT Exam ENT Exam: Mucous Membranes Moist - Neck Exam Neck exam: Negative for: Meningismus - Respiratory Exam Respiratory Exam: absent: Rales, Rhonchi, Wheezes, Respiratory Distress - Cardiovascular Exam Cardiovascular Exam: REGULAR RHYTHM, +S1, +S2 - GI/Abdominal Exam GI & Abdominal Exam: Soft. absent: Tenderness - Rectal Exam Rectal Exam: Deferred - Neurological Exam Neurological exam: Alert, Oriented x3 - Psychiatric Exam Psychiatric exam: Normal Affect - Skin Skin Exam: Dry, Intact Results - Vital Signs Recent Vital Signs: Last Vital Signs Temp 97.8 F 05/21/18 08:18 Pulse 67 05/21/18 08:18 Resp 20 05/21/18 08:18 BP 109/60 05/21/18 09:10 Pulse Ox 99 05/21/18 08:18 - Labs Labs: Laboratory Results - last 24 hr 05/20/18 05/20/18 05/21/18 16:08 21:24 06:35 POC Glucose (mg/dL) 164 H 171 H 109 05/21/18 10:54 POC Glucose (mg/dL) 193 H Assessment & Plan - Assessment and Plan (Free Text) Assessment: 77 yo male with history of CHF (Chronic Systolic Heart Failure), HTN, DM2, CAD, AFib with pacemaker, SLE, CKD and Depression admitted because of progressive worsening of SOB and was diagnosed with acute exacerbation of CHF. Patient was put on diuretics and improved. Hemodynamically stable he transferred to TCU because of deconditioning and further management. 1. Acute on chronic systolic heart failure continue Lasix and Spironolactone Elevated troponins are likely due to CHF & CKD. ECHO (09/05/2017) showed 25-30% EF 2. Atrial fibrillation Chronic, 100% paced with pacemaker continue Warfarin 2mg 3. Cystic Mass chronic, asymptomatic Present on Abd CT performed 09/07/2015, did not change in size. 4. HTN BP stable on diuretics 5. DM2 HgA1C: 6.7 on 10/15/2017 continue Januvia 50mg PO daily and Glyburide 2.5mg PO daily 6. CAD Continue Aspirin 81 and statin 7. Depression Continue Zoloft 50mg PO HS and Risperidone 2mg PO HS 8. SLE continue Prednisone 10mg PO daily and Plaquenil 200mg BID 9. Chronic kidney disease stable chronically elevated Troponins Creatinine has been stable, 1.6 yesterday
--- NOTE | 2018-05-21 13:54 | CP.PCM.CON ---
History of Present Illness - History of Present Illness History of Present Illness: THE PATIENT IS A 77 YEAR OLD MALE WITH A HISTORY OF CAD, HISTORY OF MILD SYSTOLIC CHF, SSS WITH ATRIAL FIBRILLATION HISTORY AND PACEMAKER, HYPERTENSION, HYPERLIPIDEMIA, LUPUS NEPHRITIS AND DEPRESSION. HE ALSO HAS CHRONICALLY ELEVATED TROPONINS FROM HIS CRF. HE WAS ADMITTED TO LAST WEEK FOR CHEST PAIN AND MILD SYSTOLIC CHF AND IS NOW TRANSFERRED TO TCU FOR PHYSICAL THERAPY. HE IS NOW CHEST PAIN FREE AND BREATHING COMFORTABLY. Past Patient History - Infectious Disease Hx of Infectious Diseases: None - Past Medical History & Family History Past Medical History?: Yes - Past Social History Smoking Status: Former Smoker Chewing Tobacco Use: No Cigar Use: No - CARDIAC Hx Atrial Fibrillation: Yes Hx Cardia Arrhythmia: Yes Hx Congestive Heart Failure: Yes Hx Hypercholesterolemia: Yes Hx Hypertension: Yes Hx Pacemaker: Yes - PULMONARY Hx Pneumonia: Yes - NEUROLOGICAL Hx Neurological Disorder: No - HEENT Hx HEENT Problems: Yes Hx Epistaxis: Yes - RENAL Hx Chronic Kidney Disease: Yes - ENDOCRINE/METABOLIC Hx Endocrine Disorders: Yes Hx Diabetes Mellitus Type 2: Yes Hx Systemic Lupus Erythematosus: Yes - HEMATOLOGICAL/ONCOLOGICAL Hx AIDS: No Hx Human Immunodeficiency Virus (HIV): No - INTEGUMENTARY Hx Dermatological Problems: No - MUSCULOSKELETAL/RHEUMATOLOGICAL Hx Falls: Yes - GASTROINTESTINAL Hx Gastrointestinal Disorders: No - GENITOURINARY/GYNECOLOGICAL Hx Genitourinary Disorders: No - PSYCHIATRIC Hx Substance Use: No - SURGICAL HISTORY Hx Appendectomy: Yes Hx Coronary Stent: Yes - ANESTHESIA Hx Anesthesia: Yes Hx Anesthesia Reactions: No Hx Malignant Hyperthermia: No Meds Allergies/Adverse Reactions: Allergies Allergy/AdvReac Type Severity Reaction Status Date / Time morphine Allergy ANAPHYLAXIS Verified 05/20/18 12:10 - Medications Medications: Current Medications Aspirin (Ecotrin) 81 mg PO DAILY [facility] Last Admin: 05/21/18 09:12 Dose: 81 mg Atorvastatin Calcium (Lipitor) 20 mg PO HS [facility] Last Admin: 05/20/18 21:48 Dose: 20 mg Docusate Sodium (Colace) 100 mg PO BID PRN PRN Reason: Constipation Last Admin: 05/21/18 09:09 Dose: 100 mg Ferrous Sulfate (Feosol) 325 mg PO BID [facility] Last Admin: 05/21/18 09:11 Dose: 325 mg Furosemide (Lasix) 40 mg IV DAILY [facility] Last Admin: 05/21/18 09:10 Dose: 40 mg Glyburide (Micronase) 2.5 mg PO DAILY [facility] Last Admin: 05/21/18 09:11 Dose: 2.5 mg Nitroglycerin (Nitrostat Sl Tab) 0.4 mg SL DAILY PRN PRN Reason: chest pain Risperidone (Risperdal Tab) 2 mg PO HS [facility] Last Admin: 05/20/18 21:46 Dose: 2 mg Saccharomyces Boulardii (Florastor) 250 mg PO BID [facility] Sertraline HCl (Zoloft) 50 mg PO HS [facility] Last Admin: 05/20/18 21:49 Dose: Not Given Sitagliptin Phosphate (Januvia) 50 mg PO DAILY [facility] Last Admin: 05/21/18 09:09 Dose: 50 mg Spironolactone (Aldactone) 25 mg PO DAILY [facility] Last Admin: 05/21/18 09:11 Dose: 25 mg Warfarin Sodium (Coumadin) 2 mg PO HS [facility]; Protocol Last Admin: 05/20/18 21:49 Dose: Not Given Physical Exam - Respiratory Exam Respiratory Exam: Clear to Auscultation Bilateral - Cardiovascular Exam Cardiovascular Exam: REGULAR RHYTHM, +S1, +S2 - Extremities Exam Additional comments: NO SIGNIFICANT LE EDEMA Results - Vital Signs Recent Vital Signs: Last Vital Signs Temp 97.8 F 05/21/18 08:18 Pulse 67 05/21/18 08:18 Resp 20 05/21/18 08:18 BP 109/60 05/21/18 09:10 Pulse Ox 99 05/21/18 08:18 - Labs Result Diagrams: 05/26/18 05:45 05/29/18 11:48 Labs: Laboratory Results - last 24 hr 05/20/18 05/20/18 05/21/18 16:08 21:24 06:35 POC Glucose (mg/dL) 164 H 171 H 109 05/21/18 10:54 POC Glucose (mg/dL) 193 H Assessment & Plan - Assessment and Plan (Free Text) Assessment: DECONDITIONING CAD SSS WITH PACEMAKER HYPERTENSION LUPUS NEPHRITIS WITH CHRONICALLY ELEVATED TROPONINS Plan: CONTINUE ALDACTONE, WARFARIN, ASPIRIN, FUROSEMIDE AND ATORVASTATIN
[2018-05-21] MEDS: Saccharomyces Boulardi 250 mg Cap PO SCH (17:59)
[2018-05-22 07:21] LABS: INR 1.5; PROTHROMBIN TIME 16.8 Seconds (9.8-13.1)
[2018-05-22] MEDS: Saccharomyces Boulardi 250 mg Cap PO SCH ×2 (09:30→17:16)
--- NOTE | 2018-05-22 10:17 | CP.PCM.PN ---
Subjective - Date & Time of Evaluation Date of Evaluation: 05/22/18 Time of Evaluation: 10:00 - Subjective Subjective: NO COMPLAINTS TODAY STATES HE FEELS WELL Objective - Vital Signs/Intake and Output Vital Signs (last 24 hours): Temp Pulse Resp BP Pulse Ox 97.7 F 61 20 123/70 97 05/22/18 07:57 05/22/18 07:57 05/22/18 07:57 05/22/18 09:55 05/22/18 07:57 - Medications Medications: Current Medications Aspirin (Ecotrin) 81 mg PO DAILY [facility] Last Admin: 05/22/18 09:34 Dose: 81 mg Atorvastatin Calcium (Lipitor) 20 mg PO HS [facility] Last Admin: 05/21/18 21:25 Dose: 20 mg Docusate Sodium (Colace) 100 mg PO BID PRN PRN Reason: Constipation Last Admin: 05/22/18 09:33 Dose: 100 mg Ferrous Sulfate (Feosol) 325 mg PO BID [facility] Last Admin: 05/22/18 09:33 Dose: 325 mg Furosemide (Lasix) 40 mg IV DAILY [facility] Last Admin: 05/22/18 09:55 Dose: 40 mg Gabapentin (Neurontin) 300 mg PO TID [facility] Last Admin: 05/22/18 09:33 Dose: 300 mg Glyburide (Micronase) 2.5 mg PO DAILY [facility] Last Admin: 05/22/18 09:33 Dose: 2.5 mg Hydroxychloroquine Sulfate (Plaquenil) 200 mg PO BID [facility]; Protocol Last Admin: 05/22/18 09:31 Dose: 200 mg Nitroglycerin (Nitrostat Sl Tab) 0.4 mg SL DAILY PRN PRN Reason: chest pain Prednisone (Prednisone Tab) 10 mg PO DAILY [facility] Last Admin: 05/22/18 09:30 Dose: 10 mg Risperidone (Risperdal Tab) 2 mg PO HS [facility] Last Admin: 05/21/18 21:25 Dose: 2 mg Saccharomyces Boulardii (Florastor) 250 mg PO BID [facility] Last Admin: 05/22/18 09:30 Dose: 250 mg Sertraline HCl (Zoloft) 50 mg PO DAILY [facility] Last Admin: 05/22/18 09:31 Dose: 50 mg Sitagliptin Phosphate (Januvia) 50 mg PO DAILY [facility] Last Admin: 05/22/18 09:30 Dose: 50 mg Spironolactone (Aldactone) 25 mg PO DAILY [facility] Last Admin: 05/22/18 09:31 Dose: 25 mg Warfarin Sodium (Coumadin) 2 mg PO HS [facility]; Protocol Last Admin: 05/21/18 22:38 Dose: Not Given Warfarin Sodium (Coumadin) 3 mg PO QD5 [facility]; Protocol Stop: 05/22/18 17:01 - Labs Labs: PT 16.8 Seconds (9.8-13.1) H 05/22/18 05:55 INR 1.5 05/22/18 05:55 - Respiratory Exam Respiratory Exam: Clear to Ausculation Bilateral - Cardiovascular Exam Cardiovascular Exam: REGULAR RHYTHM, +S1, +S2 - Extremities Exam Additional comments: NO LE EDEMA Assessment and Plan - Assessment and Plan (Free Text) Assessment: CAD HYPERTENSION HYPERLIPIDEMIA LUPUS NEPHRITIS Plan: CONTINUE WARFARIN, FUROSEMIDE, ALDACTONE, ASPIRIN, ATORVASTATIN CONTINUE [facility]
[2018-05-23 06:34] LABS: INR 1.5; PROTHROMBIN TIME 16.8 Seconds (9.8-13.1)
[2018-05-23] MEDS: Saccharomyces Boulardi 250 mg Cap PO SCH ×2 (08:28→17:03)
--- NOTE | 2018-05-23 10:48 | CP.PCM.PN ---
Subjective - Date & Time of Evaluation Date of Evaluation: 05/23/18 Time of Evaluation: 10:46 - Subjective Subjective: Patient lying in bed; no acute distress States he is "getting better" no active sob Objective - Vital Signs/Intake and Output Vital Signs (last 24 hours): Temp Pulse Resp BP Pulse Ox 97.3 F L 65 20 132/61 94 L 05/23/18 10:02 05/23/18 10:02 05/23/18 10:02 05/23/18 10:02 05/23/18 10:02 - Medications Medications: Current Medications Aspirin (Ecotrin) 81 mg PO DAILY [facility] Last Admin: 05/23/18 08:28 Dose: 81 mg Atorvastatin Calcium (Lipitor) 20 mg PO HS [facility] Last Admin: 05/22/18 22:22 Dose: 20 mg Docusate Sodium (Colace) 100 mg PO BID PRN PRN Reason: Constipation Last Admin: 05/22/18 09:33 Dose: 100 mg Ferrous Sulfate (Feosol) 325 mg PO BID [facility] Last Admin: 05/23/18 10:19 Dose: 325 mg Furosemide (Lasix) 40 mg IV DAILY [facility] Last Admin: 05/23/18 08:29 Dose: 40 mg Gabapentin (Neurontin) 300 mg PO TID [facility] Last Admin: 05/23/18 08:29 Dose: 300 mg Glyburide (Micronase) 2.5 mg PO DAILY [facility] Last Admin: 05/23/18 08:29 Dose: 2.5 mg Hydroxychloroquine Sulfate (Plaquenil) 200 mg PO BID [facility]; Protocol Last Admin: 05/23/18 08:29 Dose: 200 mg Nitroglycerin (Nitrostat Sl Tab) 0.4 mg SL DAILY PRN PRN Reason: chest pain Prednisone (Prednisone Tab) 10 mg PO DAILY [facility] Last Admin: 05/23/18 08:29 Dose: 10 mg Risperidone (Risperdal Tab) 2 mg PO HS [facility] Last Admin: 05/22/18 22:23 Dose: 2 mg Saccharomyces Boulardii (Florastor) 250 mg PO BID [facility] Last Admin: 05/23/18 08:28 Dose: 250 mg Sertraline HCl (Zoloft) 50 mg PO DAILY [facility] Last Admin: 05/23/18 08:30 Dose: 50 mg Sitagliptin Phosphate (Januvia) 50 mg PO DAILY [facility] Last Admin: 05/23/18 08:29 Dose: 50 mg Spironolactone (Aldactone) 25 mg PO DAILY [facility] Last Admin: 05/23/18 08:28 Dose: 25 mg - Labs Labs: PT 16.8 Seconds (9.8-13.1) H 05/23/18 05:50 INR 1.5 05/23/18 05:50 - Constitutional Appears: Well - Eye Exam Eye Exam: EOMI, PERRL - Respiratory Exam Respiratory Exam: NORMAL BREATHING PATTERN - Cardiovascular Exam Cardiovascular Exam: REGULAR RHYTHM, +S1, +S2 - GI/Abdominal Exam GI & Abdominal Exam: Soft, Normal Bowel Sounds - Neurological Exam Neurological Exam: Alert, Awake, CN II-XII Intact, Oriented x3 Assessment and Plan - Assessment and Plan (Free Text) Assessment: 77 yo male with history of CHF (Chronic Systolic Heart Failure), HTN, DM2, CAD, AFib with pacemaker, SLE, CKD and Depression admitted because of progressive worsening of SOB and was diagnosed with acute exacerbation of CHF. Patient was put on diuretics and improved. Hemodynamically stable he transferred to TCU because of deconditioning and further management. 1. Acute on chronic systolic heart failure continue IV Lasix and Spironolactone ECHO (09/05/2017) showed 25-30% EF symptoms improving 2. Atrial fibrillation Chronic, 100% paced with pacemaker OAC with Coumadin 3. Cystic Mass chronic, asymptomatic Present on Abd CT performed 09/07/2015, did not change in size. 4. HTN BP stable on diuretics 5. DM2 HgA1C: 6.7 on 10/15/2017 continue Januvia 50mg PO daily and Glyburide 2.5mg PO daily 6. CAD Continue Aspirin 81 and statin 7. Depression Continue Zoloft 50mg PO HS and Risperidone 2mg PO HS 8. SLE continue Prednisone 10mg PO daily and Plaquenil 200mg BID 9. Chronic kidney disease stable chronically elevated Troponins continue to monitor
[2018-05-24 07:03] LABS: INR 1.7; PROTHROMBIN TIME 18.6 Seconds (9.8-13.1)
[2018-05-24] MEDS: Saccharomyces Boulardi 250 mg Cap PO SCH ×2 (09:00→17:07)
[2018-05-24] MEDS ORDERED: Artificial Tears Opht Soln OU PRN (10:02)
[2018-05-24] MEDS ORDERED: Lubricant Eye Drops UD OU PRN ×2 (10:45→14:45)
--- NOTE | 2018-05-24 10:46 | CP.PCM.PN ---
Subjective - Date & Time of Evaluation Date of Evaluation: 05/24/18 Time of Evaluation: 09:45 - Subjective Subjective: NO CHEST PAIN OR SOB Objective - Vital Signs/Intake and Output Vital Signs (last 24 hours): Temp Pulse Resp BP Pulse Ox 97.8 F 61 20 141/68 100 05/24/18 08:19 05/24/18 08:19 05/24/18 08:19 05/24/18 08:59 05/24/18 08:19 - Medications Medications: Current Medications Artificial Tears (Refresh Opth Soln) 2 ml OU Q6 PRN PRN Reason: Dry eyes Aspirin (Ecotrin) 81 mg PO DAILY [facility] Last Admin: 05/24/18 08:59 Dose: 81 mg Atorvastatin Calcium (Lipitor) 20 mg PO HS [facility] Last Admin: 05/23/18 21:08 Dose: 20 mg Docusate Sodium (Colace) 100 mg PO BID PRN PRN Reason: Constipation Last Admin: 05/22/18 09:33 Dose: 100 mg Ferrous Sulfate (Feosol) 325 mg PO BID [facility] Last Admin: 05/24/18 08:59 Dose: 325 mg Furosemide (Lasix) 40 mg PO DAILY [facility] Gabapentin (Neurontin) 300 mg PO TID [facility] Last Admin: 05/24/18 08:59 Dose: 300 mg Glyburide (Micronase) 2.5 mg PO DAILY [facility] Last Admin: 05/24/18 09:00 Dose: 2.5 mg Hydroxychloroquine Sulfate (Plaquenil) 200 mg PO BID [facility]; Protocol Last Admin: 05/24/18 09:00 Dose: 200 mg Nitroglycerin (Nitrostat Sl Tab) 0.4 mg SL DAILY PRN PRN Reason: chest pain Prednisone (Prednisone Tab) 10 mg PO DAILY [facility] Last Admin: 05/24/18 09:00 Dose: 10 mg Risperidone (Risperdal Tab) 2 mg PO HS [facility] Last Admin: 05/23/18 21:08 Dose: 2 mg Saccharomyces Boulardii (Florastor) 250 mg PO BID [facility] Last Admin: 05/24/18 09:00 Dose: 250 mg Sertraline HCl (Zoloft) 50 mg PO DAILY [facility] Last Admin: 05/24/18 09:00 Dose: 50 mg Sitagliptin Phosphate (Januvia) 50 mg PO DAILY [facility] Last Admin: 05/24/18 08:59 Dose: 50 mg Spironolactone (Aldactone) 25 mg PO DAILY [facility] Last Admin: 05/24/18 09:00 Dose: 25 mg Warfarin Sodium (Coumadin) 4 mg PO QD5 [facility]; Protocol Stop: 05/24/18 17:01 - Labs Labs: PT 18.6 Seconds (9.8-13.1) H 05/24/18 06:20 INR 1.7 05/24/18 06:20 - Respiratory Exam Respiratory Exam: Clear to Ausculation Bilateral - Cardiovascular Exam Cardiovascular Exam: REGULAR RHYTHM, +S1, +S2 - Extremities Exam Additional comments: NO LE EDEMA Assessment and Plan - Assessment and Plan (Free Text) Assessment: DECONDITIONING CAD HYPERTENSION HYPERLIPIDEMIA LUPUS NEPHRITIS Plan: CONTINUE ALDACTONE, FUROSEMIDE, WARFARIN, ASPIRIN, ATORVASTATIN, DM MEDS AND LUPUS MEDS CONTINUE [facility]
[2018-05-25 07:21] LABS: INR 1.9; PROTHROMBIN TIME 21.6 Seconds (9.8-13.1)
[2018-05-25] MEDS: Saccharomyces Boulardi 250 mg Cap PO SCH ×2 (08:11→16:40)
--- NOTE | 2018-05-25 18:24 | CP.PCM.PN ---
Subjective - Date & Time of Evaluation Date of Evaluation: 05/25/18 Time of Evaluation: 14:00 - Subjective Subjective: Patient seen and examined. Claimed he is feeling better and did not have any complaint. Objective - Vital Signs/Intake and Output Vital Signs (last 24 hours): Temp Pulse Resp BP Pulse Ox 97.0 F L 60 20 124/60 93 L 05/25/18 17:31 05/25/18 17:31 05/25/18 17:31 05/25/18 17:31 05/25/18 17:31 - Medications Medications: Current Medications Artificial Tears (Refresh Opth Soln) 0.3 ml OU Q6 PRN PRN Reason: Dry eyes Last Admin: 05/25/18 12:42 Dose: 1 100 Aspirin (Ecotrin) 81 mg PO DAILY [facility] Last Admin: 05/25/18 08:10 Dose: 81 mg Atorvastatin Calcium (Lipitor) 20 mg PO HS [facility] Last Admin: 05/24/18 22:23 Dose: 20 mg Docusate Sodium (Colace) 100 mg PO BID PRN PRN Reason: Constipation Last Admin: 05/25/18 08:10 Dose: 100 mg Ferrous Sulfate (Feosol) 325 mg PO BID [facility] Last Admin: 05/25/18 16:40 Dose: 325 mg Furosemide (Lasix) 40 mg PO DAILY [facility] Last Admin: 05/25/18 08:12 Dose: 40 mg Gabapentin (Neurontin) 300 mg PO TID [facility] Last Admin: 05/25/18 16:40 Dose: 300 mg Glyburide (Micronase) 2.5 mg PO DAILY [facility] Last Admin: 05/25/18 08:11 Dose: 2.5 mg Hydroxychloroquine Sulfate (Plaquenil) 200 mg PO BID [facility]; Protocol Last Admin: 05/25/18 16:40 Dose: 200 mg Nitroglycerin (Nitrostat Sl Tab) 0.4 mg SL DAILY PRN PRN Reason: chest pain Prednisone (Prednisone Tab) 10 mg PO DAILY [facility] Last Admin: 05/25/18 08:11 Dose: 10 mg Risperidone (Risperdal Tab) 2 mg PO HS [facility] Last Admin: 05/24/18 22:23 Dose: 2 mg Saccharomyces Boulardii (Florastor) 250 mg PO BID [facility] Last Admin: 05/25/18 16:40 Dose: 250 mg Sertraline HCl (Zoloft) 50 mg PO DAILY [facility] Last Admin: 05/25/18 08:12 Dose: 50 mg Sitagliptin Phosphate (Januvia) 50 mg PO DAILY [facility] Last Admin: 05/25/18 08:10 Dose: 50 mg Spironolactone (Aldactone) 25 mg PO DAILY [facility] Last Admin: 05/25/18 08:10 Dose: 25 mg - Labs Labs: PT 21.6 Seconds (9.8-13.1) H 05/25/18 07:01 INR 1.9 05/25/18 07:01 - Constitutional Appears: No Acute Distress - Head Exam Head Exam: ATRAUMATIC - Eye Exam Eye Exam: absent: Scleral icterus - ENT Exam ENT Exam: Mucous Membranes Moist - Neck Exam Neck Exam: absent: Meningismus - Respiratory Exam Respiratory Exam: absent: Rales, Rhonchi, Wheezes, Respiratory Distress - Cardiovascular Exam Cardiovascular Exam: REGULAR RHYTHM, +S1, +S2 - GI/Abdominal Exam GI & Abdominal Exam: Soft. absent: Tenderness - Rectal Exam Rectal Exam: Deferred - Back Exam Back Exam: NORMAL INSPECTION - Neurological Exam Neurological Exam: Alert, Oriented x3 - Psychiatric Exam Psychiatric exam: Normal Affect - Skin Skin Exam: Dry, Intact Assessment and Plan - Assessment and Plan (Free Text) Assessment: 77 yo male with history of CHF (Chronic Systolic Heart Failure), HTN, DM2, CAD, AFib with pacemaker, SLE, CKD and Depression admitted because of progressive worsening of SOB and was diagnosed with acute exacerbation of CHF. Patient was put on diuretics and improved. Hemodynamically stable he was transferred to TCU for management of deconditioning and further management 1. Acute on chronic systolic heart failure continue Lasix and Spironolactone ECHO (09/05/2017) showed 25-30% EF repeat CBC and BMP in am 2. Atrial fibrillation Chronic, 100% paced with pacemaker INR: 1.9 continue Warfarin 4mg PO monitor PT/INR 3. Cystic Mass chronic, stable Present on Abd CT performed 09/07/2015, did not change in size. 4. HTN BP stable on diuretics 5. DM2 HgA1C: 6.7 on 10/15/2017 continue Januvia 50mg PO daily and Glyburide 2.5mg PO daily 6. CAD Continue Aspirin 81 and statin 7. Depression Continue Zoloft 50mg PO HS and Risperidone 2mg PO HS 8. SLE continue Prednisone 10mg PO daily and Plaquenil 200mg BID 9. Chronic kidney disease stable chronically elevated Troponins Creatinine has been stable, 1.6 yesterday
[2018-05-26 06:20] LABS: HEMOGLOBIN 11.9 g/dL (12.0-18.0); MEAN CELL VOLUME 85.4 fl (80.0-94.0); MEAN CORPUSCULAR HEMOGLOBIN 28.4 pg (27.0-31.0); MEAN CORPUSCULAR HGB CONC 33.2 g/dL (33.0-37.0); RBC 4.19 Mil/uL (4.40-5.90); RED CELL DISTRIBUTION WIDTH 15.1 % (11.5-14.5); WHITE BLOOD COUNT 10.4 K/uL (4.8-10.8)
[2018-05-26 06:25] LABS: INR 2.1; PROTHROMBIN TIME 23.9 Seconds (9.8-13.1)
[2018-05-26 06:39] LABS: CALCIUM 9.1 mg/dL (8.4-10.2)
[2018-05-26] MEDS: Saccharomyces Boulardi 250 mg Cap PO SCH ×2 (08:31→17:14)
--- NOTE | 2018-05-26 12:20 | CP.PCM.PN ---
Subjective - Date & Time of Evaluation Date of Evaluation: 05/26/18 Time of Evaluation: 12:00 - Subjective Subjective: NO CHEST PAIN OR SOB Objective - Vital Signs/Intake and Output Vital Signs (last 24 hours): Temp Pulse Resp BP Pulse Ox 97.1 F L 62 20 123/58 L 97 05/26/18 08:36 05/26/18 08:36 05/26/18 08:36 05/26/18 08:36 05/26/18 08:36 - Medications Medications: Current Medications Artificial Tears (Refresh Opth Soln) 0.3 ml OU Q6 PRN PRN Reason: Dry eyes Last Admin: 05/25/18 12:42 Dose: 1 100 Aspirin (Ecotrin) 81 mg PO DAILY [facility] Last Admin: 05/26/18 08:32 Dose: 81 mg Atorvastatin Calcium (Lipitor) 20 mg PO HS [facility] Last Admin: 05/25/18 23:11 Dose: 20 mg Docusate Sodium (Colace) 100 mg PO BID PRN PRN Reason: Constipation Last Admin: 05/25/18 08:10 Dose: 100 mg Ferrous Sulfate (Feosol) 325 mg PO BID [facility] Last Admin: 05/26/18 08:32 Dose: 325 mg Furosemide (Lasix) 40 mg PO DAILY [facility] Last Admin: 05/26/18 08:32 Dose: 40 mg Gabapentin (Neurontin) 300 mg PO TID [facility] Last Admin: 05/26/18 08:31 Dose: 300 mg Glyburide (Micronase) 2.5 mg PO DAILY [facility] Last Admin: 05/26/18 08:32 Dose: 2.5 mg Hydroxychloroquine Sulfate (Plaquenil) 200 mg PO BID [facility]; Protocol Last Admin: 05/26/18 08:34 Dose: 200 mg Nitroglycerin (Nitrostat Sl Tab) 0.4 mg SL DAILY PRN PRN Reason: chest pain Prednisone (Prednisone Tab) 10 mg PO DAILY [facility] Last Admin: 05/26/18 08:32 Dose: 10 mg Risperidone (Risperdal Tab) 2 mg PO HS [facility] Last Admin: 05/25/18 23:11 Dose: 2 mg Saccharomyces Boulardii (Florastor) 250 mg PO BID [facility] Last Admin: 05/26/18 08:31 Dose: 250 mg Sertraline HCl (Zoloft) 50 mg PO DAILY [facility] Last Admin: 05/26/18 08:32 Dose: 50 mg Sitagliptin Phosphate (Januvia) 50 mg PO DAILY [facility] Last Admin: 05/26/18 08:31 Dose: 50 mg Spironolactone (Aldactone) 25 mg PO DAILY [facility] Last Admin: 05/26/18 08:34 Dose: 25 mg - Labs Labs: 05/26/18 05:45 05/26/18 05:45 PT 23.9 Seconds (9.8-13.1) H 05/26/18 05:45 INR 2.1 05/26/18 05:45 - Respiratory Exam Respiratory Exam: Clear to Ausculation Bilateral - Cardiovascular Exam Cardiovascular Exam: REGULAR RHYTHM, +S1, +S2 - Extremities Exam Additional comments: NO SIGNIFICANT LE EDEMA Assessment and Plan - Assessment and Plan (Free Text) Assessment: CAD HYPERTENSION HYPERLIPIDEMIA Plan: CONTINUE ALDACTONE, FUROSEMIDE, AMLODIPINE, ASPIRIN AND ATORVASTATIN
[2018-05-27 07:08] LABS: INR 2.3; PROTHROMBIN TIME 26.3 Seconds (9.8-13.1)
[2018-05-27] MEDS: Saccharomyces Boulardi 250 mg Cap PO SCH ×2 (08:56→17:29)
[2018-05-28] MEDS: Saccharomyces Boulardi 250 mg Cap PO SCH ×2 (08:59→18:10)
[2018-05-28 10:53] LABS: INR 2.6; PROTHROMBIN TIME 29.2 Seconds (9.8-13.1)
--- NOTE | 2018-05-28 15:03 | CP.PCM.CON ---
History of Present Illness - History of Present Illness History of Present Illness: Podiatry Consult Note for Dr. Casey: 77 yo male patient, with PMHx of CHF, HTN, DM2, SLE and CKD, seen and evaluated for R foot pain. Patient was admitted due to CHF exacerbation with worsening of breathing. Patient reports pain to the medial aspect of right big toe which occurred over the past couple of days. Patient denies any other pedal complaints at this time. Denies N/V/F. PMHx: CHF, HTN, DM2, SLE and CKD ALL: Morphine Review of Systems - Review of Systems Review of Systems: As per HPI Past Patient History - Infectious Disease Hx of Infectious Diseases: None - Past Medical History & Family History Past Medical History?: Yes - Past Social History Smoking Status: Former Smoker Chewing Tobacco Use: No Cigar Use: No - CARDIAC Hx Atrial Fibrillation: Yes Hx Cardia Arrhythmia: Yes Hx Congestive Heart Failure: Yes Hx Hypercholesterolemia: Yes Hx Hypertension: Yes Hx Pacemaker: Yes - PULMONARY Hx Pneumonia: Yes - NEUROLOGICAL Hx Neurological Disorder: No - HEENT Hx HEENT Problems: Yes Hx Epistaxis: Yes - RENAL Hx Chronic Kidney Disease: Yes - ENDOCRINE/METABOLIC Hx Endocrine Disorders: Yes Hx Diabetes Mellitus Type 2: Yes Hx Systemic Lupus Erythematosus: Yes - HEMATOLOGICAL/ONCOLOGICAL Hx AIDS: No Hx Human Immunodeficiency Virus (HIV): No - INTEGUMENTARY Hx Dermatological Problems: No - MUSCULOSKELETAL/RHEUMATOLOGICAL Hx Falls: Yes - GASTROINTESTINAL Hx Gastrointestinal Disorders: No - GENITOURINARY/GYNECOLOGICAL Hx Genitourinary Disorders: No - PSYCHIATRIC Hx Substance Use: No - SURGICAL HISTORY Hx Appendectomy: Yes Hx Coronary Stent: Yes - ANESTHESIA Hx Anesthesia: Yes Hx Anesthesia Reactions: No Hx Malignant Hyperthermia: No Meds Allergies/Adverse Reactions: Allergies Allergy/AdvReac Type Severity Reaction Status Date / Time morphine Allergy ANAPHYLAXIS Verified 05/20/18 12:10 - Medications Medications: Current Medications Acetaminophen (Tylenol 325mg Tab) 650 mg PO Q6 PRN PRN Reason: Pain, moderate (4-7) Last Admin: 05/27/18 10:50 Dose: 650 mg Artificial Tears (Refresh Opth Soln) 0.3 ml OU Q6 PRN PRN Reason: Dry eyes Last Admin: 05/25/18 12:42 Dose: 1 100 Aspirin (Ecotrin) 81 mg PO DAILY [facility] Last Admin: 05/28/18 08:58 Dose: 81 mg Atorvastatin Calcium (Lipitor) 20 mg PO HS [facility] Last Admin: 05/27/18 21:06 Dose: 20 mg Docusate Sodium (Colace) 100 mg PO BID PRN PRN Reason: Constipation Last Admin: 05/27/18 08:57 Dose: 100 mg Ferrous Sulfate (Feosol) 325 mg PO BID [facility] Last Admin: 05/28/18 08:59 Dose: 325 mg Furosemide (Lasix) 40 mg PO DAILY [facility] Last Admin: 05/28/18 09:00 Dose: 40 mg Gabapentin (Neurontin) 300 mg PO TID [facility] Last Admin: 05/28/18 13:08 Dose: 300 mg Glyburide (Micronase) 2.5 mg PO DAILY [facility] Last Admin: 05/28/18 09:00 Dose: 2.5 mg Hydroxychloroquine Sulfate (Plaquenil) 200 mg PO BID [facility]; Protocol Last Admin: 05/28/18 09:00 Dose: 200 mg Nitroglycerin (Nitrostat Sl Tab) 0.4 mg SL DAILY PRN PRN Reason: chest pain Prednisone (Prednisone Tab) 10 mg PO DAILY [facility] Last Admin: 05/28/18 09:01 Dose: 10 mg Risperidone (Risperdal Tab) 2 mg PO HS [facility] Last Admin: 05/27/18 21:06 Dose: 2 mg Saccharomyces Boulardii (Florastor) 250 mg PO BID [facility] Last Admin: 05/28/18 08:59 Dose: 250 mg Sertraline HCl (Zoloft) 50 mg PO DAILY [facility] Last Admin: 05/28/18 09:01 Dose: 50 mg Sitagliptin Phosphate (Januvia) 50 mg PO DAILY [facility] Last Admin: 05/28/18 08:59 Dose: 50 mg Spironolactone (Aldactone) 25 mg PO DAILY [facility] Last Admin: 05/28/18 08:58 Dose: 25 mg Physical Exam - Constitutional Appears: Well, Non-toxic, No Acute Distress - Extremities Exam Additional comments: Vascular: DP/PT palpable, CFT < 3 seconds to all digits, TG warm to cool. Medial aspect of hallux warm to touch, pedal hair absent Ortho: Pain upon palpation to medial aspect of R metatarsal, unable to assess MMT Neuro: Gross sensation intact Derm: Erythema noted to the medial aspect of R metatarsal. No open lesions, no clinical signs of infection, friable skin noted to medial aspect of metatarsal head - Neurological Exam Neurological exam: Alert, Oriented x3 - Psychiatric Exam Psychiatric exam: Normal Affect, Normal Mood Results - Vital Signs Recent Vital Signs: Last Vital Signs Temp 96.4 F L 05/28/18 08:04 Pulse 60 05/28/18 08:04 Resp 20 05/28/18 08:04 BP 113/55 L 05/28/18 09:00 Pulse Ox 98 05/28/18 08:04 - Labs Result Diagrams: 05/26/18 05:45 05/26/18 05:45 Labs: Laboratory Results - last 24 hr 05/27/18 05/28/18 05/28/18 16:18 05:25 10:30 PT 29.2 H INR 2.6 POC Glucose (mg/dL) 254 H Uric Acid 11.6 H Assessment & Plan - Assessment and Plan (Free Text) Assessment: 77 yo male patient, with PMHx of CHF, HTN, DM2, SLE and CKD, seen and evaluated for R foot pain r/o gout. Plan: Patient seen and evaluated, Patient plan discussed with Dr. Casey Uric acid 11.6 -Recommend Allopurinol/cochicine for acute gout attack -Nephrology reccs appreciated due to patients history of CKD3 R foot x-rays ordered; No evidence of fracture Podiatry to sign off at this time, please reconsult as needed Thank you for the consult - Date & Time Date: 05/28/18 Time: 15:03
--- NOTE | 2018-05-28 17:01 | RAD ---
Date of service: 05/28/2018 PROCEDURE: Left Foot Radiographs. HISTORY: L foot pain COMPARISON: None. FINDINGS: BONES: Normal. No fracture.. There is small plantar surface calcaneal enthesophyte. The JOINTS: Questionable patient positioning versus hammertoe deformities 2nd 3rd and 4th digits.. Minimal degenerative changes 1st MTP joint SOFT TISSUES: Vascular calcifications are present. OTHER FINDINGS: None. IMPRESSION: No acute fractures. Small plantar surface calcaneal enthesophyte. Questionable patient positioning versus hammertoe deformity 2nd 3rd and 4th digits.
[2018-05-28 19:21] VITALS: RESP 20
[2018-05-28 19:48] LABS: URINE BILIRUBIN NEGATIVE (NEGATIVE); URINE BLOOD NEGATIVE (NEGATIVE); URINE CLARITY CLEAR (Clear); URINE COLOR YELLOW (YELLOW); URINE GLUCOSE (UA) NEG (Normal); URINE HYALINE CAST 0-2 /hpf (0-2); URINE LEUKOCYTE ESTERASE NEG Leu/uL (Negative); URINE PROTEIN NEGATIVE (NEGATIVE); URINE UROBILINOGEN 0.2-1.0 mg/dL (0.2-1.0)
[2018-05-29 06:41] LABS: INR 2.8; PROTHROMBIN TIME 31.5 Seconds (9.8-13.1)
[2018-05-29] MEDS: Saccharomyces Boulardi 250 mg Cap PO SCH ×2 (08:17→16:22)
--- NOTE | 2018-05-29 08:28 | CP.PCM.PN ---
Subjective - Date & Time of Evaluation Date of Evaluation: 05/29/18 Time of Evaluation: 08:10 - Subjective Subjective: NO CHEST PAIN OR SOB RIGHT TOE PAIN Objective - Vital Signs/Intake and Output Vital Signs (last 24 hours): Temp Pulse Resp BP Pulse Ox 96.8 F L 66 20 110/59 L 97 05/28/18 19:21 05/28/18 19:21 05/28/18 19:21 05/29/18 08:18 05/28/18 19:21 - Medications Medications: Current Medications Acetaminophen (Tylenol 325mg Tab) 650 mg PO Q6 PRN PRN Reason: Pain, moderate (4-7) Last Admin: 05/29/18 08:16 Dose: 650 mg Artificial Tears (Refresh Opth Soln) 0.3 ml OU Q6 PRN PRN Reason: Dry eyes Last Admin: 05/25/18 12:42 Dose: 1 100 Aspirin (Ecotrin) 81 mg PO DAILY [facility] Last Admin: 05/29/18 08:18 Dose: 81 mg Atorvastatin Calcium (Lipitor) 20 mg PO HS [facility] Last Admin: 05/28/18 21:02 Dose: 20 mg Docusate Sodium (Colace) 100 mg PO BID PRN PRN Reason: Constipation Last Admin: 05/29/18 08:17 Dose: 100 mg Ferrous Sulfate (Feosol) 325 mg PO BID [facility] Last Admin: 05/29/18 08:16 Dose: 325 mg Furosemide (Lasix) 40 mg PO DAILY [facility] Last Admin: 05/29/18 08:18 Dose: 40 mg Gabapentin (Neurontin) 300 mg PO TID [facility] Last Admin: 05/29/18 08:16 Dose: 300 mg Glyburide (Micronase) 2.5 mg PO DAILY [facility] Last Admin: 05/29/18 08:18 Dose: 2.5 mg Hydroxychloroquine Sulfate (Plaquenil) 200 mg PO BID [facility]; Protocol Last Admin: 05/29/18 08:17 Dose: 200 mg Nitroglycerin (Nitrostat Sl Tab) 0.4 mg SL DAILY PRN PRN Reason: chest pain Prednisone (Prednisone Tab) 10 mg PO DAILY [facility] Last Admin: 05/29/18 08:18 Dose: 10 mg Risperidone (Risperdal Tab) 2 mg PO HS [facility] Last Admin: 05/28/18 21:00 Dose: 2 mg Saccharomyces Boulardii (Florastor) 250 mg PO BID [facility] Last Admin: 05/29/18 08:17 Dose: 250 mg Sertraline HCl (Zoloft) 50 mg PO DAILY [facility] Last Admin: 05/29/18 08:19 Dose: 50 mg Sitagliptin Phosphate (Januvia) 50 mg PO DAILY [facility] Last Admin: 05/29/18 08:17 Dose: 50 mg Spironolactone (Aldactone) 25 mg PO DAILY [facility] Last Admin: 05/29/18 08:17 Dose: 25 mg - Labs Labs: 05/26/18 05:45 05/26/18 05:45 PT 31.5 Seconds (9.8-13.1) H 05/29/18 05:40 INR 2.8 05/29/18 05:40 - Respiratory Exam Respiratory Exam: Clear to Ausculation Bilateral - Cardiovascular Exam Cardiovascular Exam: REGULAR RHYTHM, +S1, +S2 - Extremities Exam Additional comments: NO SIGNIFICANT LE EDEMA - Additional Findings Additional findings: URIC ACID 11.6 Assessment and Plan - Assessment and Plan (Free Text) Assessment: CAD HYPERTENSION SSS WITH PACEMAKER GOUT Plan: CONTINUE ASPIRIN, ATORVASTATIN, ALDACTONE AND ATORVASTATIN
--- NOTE | 2018-05-29 09:56 | CP.PCM.CON ---
History of Present Illness - History of Present Illness History of Present Illness: 77 y/o male with Hxo JACKELIN, SSS & PPM, chronic Atrial fibrillation, CHF, DM 11, SLE & CRF was admitted to the hospirtal for decompensated CHF. Renal consult is requested to evaluated renal function Pt appears cmfortable at this time. C/o pain in Lt foot. Past Patient History - Infectious Disease Hx of Infectious Diseases: None - Past Medical History & Family History Past Medical History?: Yes - Past Social History Smoking Status: Former Smoker Chewing Tobacco Use: No Cigar Use: No - CARDIAC Hx Atrial Fibrillation: Yes Hx Cardia Arrhythmia: Yes Hx Congestive Heart Failure: Yes Hx Hypercholesterolemia: Yes Hx Hypertension: Yes Hx Pacemaker: Yes - PULMONARY Hx Pneumonia: Yes - NEUROLOGICAL Hx Neurological Disorder: No - HEENT Hx HEENT Problems: Yes Hx Epistaxis: Yes - RENAL Hx Chronic Kidney Disease: Yes - ENDOCRINE/METABOLIC Hx Endocrine Disorders: Yes Hx Diabetes Mellitus Type 2: Yes Hx Systemic Lupus Erythematosus: Yes - HEMATOLOGICAL/ONCOLOGICAL Hx AIDS: No Hx Human Immunodeficiency Virus (HIV): No - INTEGUMENTARY Hx Dermatological Problems: No - MUSCULOSKELETAL/RHEUMATOLOGICAL Hx Falls: Yes - GASTROINTESTINAL Hx Gastrointestinal Disorders: No - GENITOURINARY/GYNECOLOGICAL Hx Genitourinary Disorders: No - PSYCHIATRIC Hx Substance Use: No - SURGICAL HISTORY Hx Appendectomy: Yes Hx Coronary Stent: Yes - ANESTHESIA Hx Anesthesia: Yes Hx Anesthesia Reactions: No Hx Malignant Hyperthermia: No Meds Allergies/Adverse Reactions: Allergies Allergy/AdvReac Type Severity Reaction Status Date / Time morphine Allergy ANAPHYLAXIS Verified 05/20/18 12:10 - Medications Medications: Current Medications Acetaminophen (Tylenol 325mg Tab) 650 mg PO Q6 PRN PRN Reason: Pain, moderate (4-7) Last Admin: 05/29/18 08:16 Dose: 650 mg Artificial Tears (Refresh Opth Soln) 0.3 ml OU Q6 PRN PRN Reason: Dry eyes Last Admin: 05/25/18 12:42 Dose: 1 100 Aspirin (Ecotrin) 81 mg PO DAILY [facility] Last Admin: 05/29/18 08:18 Dose: 81 mg Atorvastatin Calcium (Lipitor) 20 mg PO HS [facility] Last Admin: 05/28/18 21:02 Dose: 20 mg Docusate Sodium (Colace) 100 mg PO BID PRN PRN Reason: Constipation Last Admin: 10/22/18 08:17 Dose: 100 mg Ferrous Sulfate (Feosol) 325 mg PO BID [facility] Last Admin: 05/29/18 08:16 Dose: 325 mg Furosemide (Lasix) 40 mg PO DAILY [facility] Last Admin: 05/29/18 08:18 Dose: 40 mg Gabapentin (Neurontin) 300 mg PO TID [facility] Last Admin: 05/29/18 08:16 Dose: 300 mg Glyburide (Micronase) 2.5 mg PO DAILY [facility] Last Admin: 05/29/18 08:18 Dose: 2.5 mg Hydroxychloroquine Sulfate (Plaquenil) 200 mg PO BID [facility]; Protocol Last Admin: 05/29/18 08:17 Dose: 200 mg Nitroglycerin (Nitrostat Sl Tab) 0.4 mg SL DAILY PRN PRN Reason: chest pain Prednisone (Prednisone Tab) 10 mg PO DAILY [facility] Last Admin: 05/29/18 08:18 Dose: 10 mg Risperidone (Risperdal Tab) 2 mg PO HS [facility] Last Admin: 05/28/18 21:00 Dose: 2 mg Saccharomyces Boulardii (Florastor) 250 mg PO BID [facility] Last Admin: 05/29/18 08:17 Dose: 250 mg Sertraline HCl (Zoloft) 50 mg PO DAILY [facility] Last Admin: 05/29/18 08:19 Dose: 50 mg Sitagliptin Phosphate (Januvia) 50 mg PO DAILY [facility] Last Admin: 05/29/18 08:17 Dose: 50 mg Spironolactone (Aldactone) 25 mg PO DAILY [facility] Last Admin: 05/29/18 08:17 Dose: 25 mg Physical Exam - Constitutional Appears: Non-toxic - Head Exam Head Exam: ATRAUMATIC, NORMOCEPHALIC - Eye Exam Additional comments: Sclera anicteric. Conjunctivae pale. - ENT Exam ENT Exam: Mucous Membranes Moist - Neck Exam Additional comments: JVD negative No - Respiratory Exam Respiratory Exam: NORMAL BREATHING PATTERN Additional comments: Lungs clear. No wheezes. - Cardiovascular Exam Cardiovascular Exam: Irregular Rhythm Additional comments: No S3. - GI/Abdominal Exam Additional comments: Abdomen is soft & nntender No CVA tenderness. - Rectal Exam Rectal Exam: Deferred - Exam Additional comments: Defered - Extremities Exam Additional comments: 1+ edema of Lt lower extremity.Lt foot slightly cold but no cyanosis Callus formation on Lt 1st MT joint No skin breaks. PP not palp. - Skin Skin Exam: Dry, Intact Results - Vital Signs Recent Vital Signs: Last Vital Signs Temp 97.1 F L 05/29/18 09:00 Pulse 60 05/29/18 09:00 Resp 20 05/29/18 09:00 BP 110/54 L 05/29/18 09:00 Pulse Ox 97 05/29/18 09:00 - Labs Result Diagrams: 05/26/18 05:45 05/26/18 05:45 Labs: Laboratory Results - last 24 hr 05/27/18 05/28/18 05/28/18 20:50 05:35 10:30 PT 29.2 H INR 2.6 POC Glucose (mg/dL) 193 H 96 Urine Color Urine Clarity Urine pH Ur Specific [place] Urine Protein Urine Glucose (UA) Urine Ketones Urine Blood Urine Nitrate Urine Bilirubin Urine Urobilinogen Ur Leukocyte Esterase Urine RBC (Auto) Urine Microscopic WBC Hyaline Casts 05/28/18 05/28/18 05/28/18 10:57 15:54 19:24 PT INR POC Glucose (mg/dL) 216 H 235 H Urine Color Yellow Urine Clarity Clear Urine pH 6.0 Ur Specific [place] 1.010 Urine Protein Negative Urine Glucose (UA) Neg Urine Ketones Negative Urine Blood Negative Urine Nitrate Negative Urine Bilirubin Negative Urine Urobilinogen 0.2-1.0 Ur Leukocyte Esterase Neg Urine RBC (Auto) 3 Urine Microscopic WBC < 1 Hyaline Casts 0-2 05/28/18 05/29/18 20:47 05:40 PT 31.5 H INR 2.8 POC Glucose (mg/dL) 176 H Urine Color Urine Clarity Urine pH Ur Specific [place] Urine Protein Urine Glucose (UA) Urine Ketones Urine Blood Urine Nitrate Urine Bilirubin Urine Urobilinogen Ur Leukocyte Esterase Urine RBC (Auto) Urine Microscopic WBC Hyaline Casts Assessment & Plan - Assessment and Plan (Free Text) Assessment: Pt appears to have stable CKD stage 3. 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 Current UA shows no proteinuria. Hyperuricemia r/o PAD Chronic A. fic, on coumadin anticoagulation Iron deficiency. Check FOB Plan: Renal US BMP. Phos, PTH Urine prot/Creat Pt can have low dose of Allopurinol 100 mg/d ) with close monitoring provided there is no Hx/o allergic reaction to allopurinol.
[2018-05-29 12:14] LABS: CALCIUM 9.1 mg/dL (8.4-10.2)
[2018-05-29 20:21] LABS: CREATININE, RANDOM URINE 45.9 mg/dL
[2018-05-30 06:54] LABS: PROTHROMBIN TIME 37.5 Seconds (9.8-13.1)
[2018-05-30 07:24] LABS: INR 3.3
[2018-05-30] MEDS: Saccharomyces Boulardi 250 mg Cap PO SCH ×2 (08:26→17:35)
--- NOTE | 2018-05-30 09:57 | CP.PCM.PN ---
Subjective - Date & Time of Evaluation Date of Evaluation: 05/30/18 Time of Evaluation: 11:00 - Subjective Subjective: Patient seen and examined bedside .Feeling better.Hemodynamically stable, afebrile. No acute issues overnight pain to LE improved INR 3.3 today Objective - Vital Signs/Intake and Output Vital Signs (last 24 hours): Temp Pulse Resp BP Pulse Ox 97.3 F L 60 20 109/58 L 96 05/29/18 20:33 05/30/18 09:49 05/30/18 09:49 05/30/18 09:49 05/30/18 09:49 - Medications Medications: Current Medications Acetaminophen (Tylenol 325mg Tab) 650 mg PO Q6 PRN PRN Reason: Pain, moderate (4-7) Last Admin: 05/29/18 08:16 Dose: 650 mg Allopurinol (Zyloprim) 100 mg PO DAILY [facility] Last Admin: 05/30/18 08:27 Dose: 100 mg Artificial Tears (Refresh Opth Soln) 0.3 ml OU Q6 PRN PRN Reason: Dry eyes Last Admin: 05/25/18 12:42 Dose: 1 100 Aspirin (Ecotrin) 81 mg PO DAILY [facility] Last Admin: 05/30/18 08:27 Dose: 81 mg Atorvastatin Calcium (Lipitor) 20 mg PO HS [facility] Last Admin: 05/29/18 22:04 Dose: 20 mg Docusate Sodium (Colace) 100 mg PO BID PRN PRN Reason: Constipation Last Admin: 05/29/18 08:17 Dose: 100 mg Ferrous Sulfate (Feosol) 325 mg PO BID [facility] Last Admin: 05/30/18 08:26 Dose: 325 mg Furosemide (Lasix) 40 mg PO DAILY [facility] Last Admin: 05/30/18 08:26 Dose: 40 mg Gabapentin (Neurontin) 300 mg PO TID [facility] Last Admin: 05/30/18 08:26 Dose: 300 mg Glyburide (Micronase) 2.5 mg PO DAILY [facility] Last Admin: 05/30/18 08:26 Dose: 2.5 mg Hydroxychloroquine Sulfate (Plaquenil) 200 mg PO BID [facility]; Protocol Last Admin: 05/30/18 08:27 Dose: 200 mg Nitroglycerin (Nitrostat Sl Tab) 0.4 mg SL DAILY PRN PRN Reason: chest pain Prednisone (Prednisone Tab) 10 mg PO DAILY [facility] Last Admin: 05/30/18 08:27 Dose: 10 mg Risperidone (Risperdal Tab) 2 mg PO HS [facility] Last Admin: 05/29/18 22:04 Dose: 2 mg Saccharomyces Boulardii (Florastor) 250 mg PO BID [facility] Last Admin: 05/30/18 08:26 Dose: 250 mg Sertraline HCl (Zoloft) 50 mg PO DAILY [facility] Last Admin: 05/30/18 08:27 Dose: 50 mg Sitagliptin Phosphate (Januvia) 50 mg PO DAILY [facility] Last Admin: 05/30/18 08:26 Dose: 50 mg Spironolactone (Aldactone) 25 mg PO DAILY [facility] Last Admin: 05/30/18 08:26 Dose: 25 mg - Labs Labs: 05/26/18 05:45 05/29/18 11:48 PT 37.5 Seconds (9.8-13.1) H D 05/30/18 05:50 INR 3.3 05/30/18 05:50 - Constitutional Appears: Non-toxic, No Acute Distress, Chronically Ill, Other (obese) - Head Exam Head Exam: ATRAUMATIC, NORMAL INSPECTION, NORMOCEPHALIC - Eye Exam Eye Exam: EOMI, Normal appearance, PERRL Pupil Exam: NORMAL ACCOMODATION - ENT Exam ENT Exam: Mucous Membranes Moist, Normal Exam - Neck Exam Neck Exam: Full ROM, Normal Inspection - Respiratory Exam Respiratory Exam: Clear to Ausculation Bilateral, Rales (bibasilar), NORMAL BREATHING PATTERN. absent: Wheezes, Respiratory Distress - Cardiovascular Exam Cardiovascular Exam: Irregular Rhythm, +S1, +S2. absent: JVD - GI/Abdominal Exam GI & Abdominal Exam: Soft, Normal Bowel Sounds. absent: Guarding, Tenderness, Rebound - Rectal Exam Rectal Exam: Deferred - Extremities Exam Extremities Exam: Full ROM, Normal Capillary Refill, Normal Inspection. absent: Pedal Edema - Back Exam Back Exam: NORMAL INSPECTION - Neurological Exam Neurological Exam: Alert, Awake, CN II-XII Intact, Oriented x3 - Psychiatric Exam Psychiatric exam: Normal Affect - Skin Skin Exam: Dry, Normal Color, Warm Assessment and Plan - Assessment and Plan (Free Text) Assessment: 77 yo male with history of CHF (Chronic Systolic Heart Failure), HTN, DM2, CAD, AFib with pacemaker, SLE, CKD and Depression admitted because of progressive worsening SOB and was diagnosed with acute exacerbation of CHF. Patient was put on diuretics and improved. Hemodynamically stable he was transferred to TCU for management of deconditioning and further management. At present doing well, participating with PT . Diagnosed with gout flare while in TCU 1. Deconditioning participating with PT 2. Gout flare uric acid 11.6 started allopurinol 100 mg PO QD 3. Acute on chronic systolic heart failure diuresed well , lost 10 lbs continue Lasix and Spironolactone ECHO (09/05/2017) showed 25-30% EF 4. Atrial fibrillation Chronic, 100% paced with pacemaker INR: 3.3 today Will hold Coumadin today. Repeta PT/INR in AM. Last dose of coumadin was 3 mg 5. Cystic Mass chronic, stable Present on Abd CT performed 09/07/2015, did not change in size. 6. HTN BP stable on diuretics 7. DM2 HgA1C: 6.7 on 10/15/2017 continue Januvia 50mg PO daily and Glyburide 2.5mg PO daily 8. CAD Continue Aspirin 81 and statin 9. Depression Continue Zoloft 50mg PO HS and Risperidone 2mg PO HS 10. SLE continue Prednisone 10mg PO daily and Plaquenil 200mg BID 11. Chronic kidney disease stable nephro consulted Creatinine has been stable
--- NOTE | 2018-05-30 13:25 | CP.PCM.PN ---
Subjective - Date & Time of Evaluation Date of Evaluation: 05/30/18 Time of Evaluation: 01:00 - Subjective Subjective: Pt appears comfortable. Eating lunch No c/o foot pain or sob Objective - Vital Signs/Intake and Output Vital Signs (last 24 hours): Temp Pulse Resp BP Pulse Ox 97.3 F L 60 20 109/58 L 96 05/29/18 20:33 05/30/18 09:49 05/30/18 09:49 05/30/18 09:49 05/30/18 09:49 - Medications Medications: Current Medications Acetaminophen (Tylenol 325mg Tab) 650 mg PO Q6 PRN PRN Reason: Pain, moderate (4-7) Last Admin: 05/29/18 08:16 Dose: 650 mg Allopurinol (Zyloprim) 100 mg PO DAILY [facility] Last Admin: 05/30/18 08:27 Dose: 100 mg Artificial Tears (Refresh Opth Soln) 0.3 ml OU Q6 PRN PRN Reason: Dry eyes Last Admin: 05/25/18 12:42 Dose: 1 100 Aspirin (Ecotrin) 81 mg PO DAILY [facility] Last Admin: 05/30/18 08:27 Dose: 81 mg Atorvastatin Calcium (Lipitor) 20 mg PO HS [facility] Last Admin: 05/29/18 22:04 Dose: 20 mg Docusate Sodium (Colace) 100 mg PO BID PRN PRN Reason: Constipation Last Admin: 05/29/18 08:17 Dose: 100 mg Ferrous Sulfate (Feosol) 325 mg PO BID [facility] Last Admin: 05/30/18 08:26 Dose: 325 mg Furosemide (Lasix) 40 mg PO DAILY [facility] Last Admin: 05/30/18 08:26 Dose: 40 mg Gabapentin (Neurontin) 300 mg PO TID [facility] Last Admin: 05/30/18 13:05 Dose: 300 mg Glyburide (Micronase) 2.5 mg PO DAILY [facility] Last Admin: 05/30/18 08:26 Dose: 2.5 mg Hydroxychloroquine Sulfate (Plaquenil) 200 mg PO BID [facility]; Protocol Last Admin: 05/30/18 08:27 Dose: 200 mg Nitroglycerin (Nitrostat Sl Tab) 0.4 mg SL DAILY PRN PRN Reason: chest pain Prednisone (Prednisone Tab) 10 mg PO DAILY [facility] Last Admin: 05/30/18 08:27 Dose: 10 mg Risperidone (Risperdal Tab) 2 mg PO HS [facility] Last Admin: 05/29/18 22:04 Dose: 2 mg Saccharomyces Boulardii (Florastor) 250 mg PO BID [facility] Last Admin: 05/30/18 08:26 Dose: 250 mg Sertraline HCl (Zoloft) 50 mg PO DAILY [facility] Last Admin: 05/30/18 08:27 Dose: 50 mg Sitagliptin Phosphate (Januvia) 50 mg PO DAILY [facility] Last Admin: 05/30/18 08:26 Dose: 50 mg Spironolactone (Aldactone) 25 mg PO DAILY [facility] Last Admin: 05/30/18 08:26 Dose: 25 mg - Labs Labs: 05/26/18 05:45 05/29/18 11:48 PT 37.5 Seconds (9.8-13.1) H D 05/30/18 05:50 INR 3.3 05/30/18 05:50 - Head Exam Head Exam: ATRAUMATIC, NORMOCEPHALIC - Eye Exam Eye Exam: Conjunctival injection Additional comments: No icterus - ENT Exam ENT Exam: Mucous Membranes Moist - Neck Exam Additional comments: JVD flat - Respiratory Exam Respiratory Exam: NORMAL BREATHING PATTERN Additional comments: Bibasilar crackles noted. - Cardiovascular Exam Additional comments: Irregular - GI/Abdominal Exam GI & Abdominal Exam: Soft Additional comments: No tenderness. - Extremities Exam Additional comments: Resolving edema . No erythema. Assessment and Plan - Assessment and Plan (Free Text) Assessment: Stage 3 kidney diis, Renal function remains stable Hx/o LN Urine is positive for protein in subnephrotic range. Hyperuricemia/Gout. Monitor uric acid, low protein diet. Chr A. fib, CHF,PPM Plan: Continue current Mx Labs ordered for am
[2018-05-31 07:07] LABS: INR 2.7; PROTHROMBIN TIME 30.4 Seconds (9.8-13.1)
[2018-05-31] MEDS: Saccharomyces Boulardi 250 mg Cap PO SCH (08:18)
--- NOTE | 2018-05-31 08:49 | CP.PCM.PN ---
Subjective - Date & Time of Evaluation Date of Evaluation: 05/31/18 Time of Evaluation: 08:40 - Subjective Subjective: NO CHEST PAIN OR SOB FEELS GOOD Objective - Vital Signs/Intake and Output Vital Signs (last 24 hours): Temp Pulse Resp BP Pulse Ox 98.6 F 61 20 131/78 99 05/31/18 08:27 05/31/18 08:27 05/31/18 08:27 05/31/18 08:27 05/31/18 08:27 - Medications Medications: Current Medications Acetaminophen (Tylenol 325mg Tab) 650 mg PO Q6 PRN PRN Reason: Pain, moderate (4-7) Last Admin: 05/29/18 08:16 Dose: 650 mg Allopurinol (Zyloprim) 100 mg PO DAILY [facility] Last Admin: 05/31/18 08:18 Dose: 100 mg Artificial Tears (Refresh Opth Soln) 0.3 ml OU Q6 PRN PRN Reason: Dry eyes Last Admin: 05/25/18 12:42 Dose: 1 100 Aspirin (Ecotrin) 81 mg PO DAILY [facility] Last Admin: 05/31/18 08:18 Dose: 81 mg Atorvastatin Calcium (Lipitor) 20 mg PO HS [facility] Last Admin: 05/30/18 21:52 Dose: 20 mg Docusate Sodium (Colace) 100 mg PO BID PRN PRN Reason: Constipation Last Admin: 05/29/18 08:17 Dose: 100 mg Ferrous Sulfate (Feosol) 325 mg PO BID [facility] Last Admin: 05/31/18 08:18 Dose: 325 mg Furosemide (Lasix) 40 mg PO DAILY [facility] Last Admin: 05/31/18 08:18 Dose: 40 mg Gabapentin (Neurontin) 300 mg PO TID [facility] Last Admin: 05/31/18 08:17 Dose: 300 mg Glyburide (Micronase) 2.5 mg PO DAILY [facility] Last Admin: 05/31/18 08:18 Dose: 2.5 mg Hydroxychloroquine Sulfate (Plaquenil) 200 mg PO BID [facility]; Protocol Last Admin: 05/31/18 08:18 Dose: 200 mg Nitroglycerin (Nitrostat Sl Tab) 0.4 mg SL DAILY PRN PRN Reason: chest pain Prednisone (Prednisone Tab) 10 mg PO DAILY [facility] Last Admin: 05/31/18 08:18 Dose: 10 mg Risperidone (Risperdal Tab) 2 mg PO HS [facility] Last Admin: 05/30/18 21:52 Dose: 2 mg Saccharomyces Boulardii (Florastor) 250 mg PO BID [facility] Last Admin: 05/31/18 08:18 Dose: 250 mg Sertraline HCl (Zoloft) 50 mg PO DAILY [facility] Last Admin: 05/31/18 08:18 Dose: 50 mg Sitagliptin Phosphate (Januvia) 50 mg PO DAILY [facility] Last Admin: 05/31/18 08:18 Dose: 50 mg Spironolactone (Aldactone) 25 mg PO DAILY [facility] Last Admin: 05/31/18 08:17 Dose: 25 mg - Labs Labs: 05/26/18 05:45 05/29/18 11:48 PT 30.4 Seconds (9.8-13.1) H D 05/31/18 06:36 INR 2.7 05/31/18 06:36 - Respiratory Exam Respiratory Exam: Clear to Ausculation Bilateral - Cardiovascular Exam Cardiovascular Exam: REGULAR RHYTHM, +S1, +S2 - Extremities Exam Additional comments: NO LE EDEMA Assessment and Plan - Assessment and Plan (Free Text) Assessment: DECONDITIONING-IMPROVED CAD SSS WITH ATRIAL FIBRILLATION HISTORY AND PACEMAKER HYPERTENSION HYPERLIPIDEMIA LUPUS NEPHRITIS Plan: CONTINUE WARFARIN, ASPIRIN, ATORVASTATIN, ALDACTONE AND FUROSEMIDE FOR DISCHARGE TO LONGER TERM SUBACUTE CARE
[2018-05-31 11:15] VITALS: BP 131/78
[2018-05-31 11:17] VITALS: PULSE 61; TEMP 98.6; O2SAT 99
--- NOTE | 2018-05-31 11:23 | CP.PCM.DIS ---
Provider - Provider Date of Admission: 05/20/18 12:22 Attending physician: Avinash Munoz MD Primary care physician: Dr. Falcon Consults: cardiology consult nephrology consult PT Time Spent in preparation of Discharge (in minutes): 15 Hospital Course - Lab Results Lab Results: Most Recent Lab Values WBC 10.4 K/uL (4.8-10.8) 05/26/18 05:45 RBC 4.19 Mil/uL (4.40-5.90) L 05/26/18 05:45 Hgb 11.9 g/dL (12.0-18.0) L 05/26/18 05:45 Hct 35.8 % (35.0-51.0) 05/26/18 05:45 MCV 85.4 fl (80.0-94.0) 05/26/18 05:45 MCH 28.4 pg (27.0-31.0) 05/26/18 05:45 MCHC 33.2 g/dL (33.0-37.0) 05/26/18 05:45 RDW 15.1 % (11.5-14.5) H 05/26/18 05:45 Plt Count 204 K/uL (130-400) 05/26/18 05:45 PT 30.4 Seconds (9.8-13.1) H D 05/31/18 06:36 INR 2.7 05/31/18 06:36 Sodium 140 mmol/l (132-148) 05/29/18 11:48 Potassium 4.1 MMOL/L (3.6-5.0) 05/29/18 11:48 Chloride 102 mmol/L (98-107) 05/29/18 11:48 Carbon Dioxide 34 mmol/L (22-30) H 05/29/18 11:48 Anion Gap 8 (10-20) L 05/29/18 11:48 BUN 63 mg/dl (9-20) H 05/29/18 11:48 Creatinine 1.6 mg/dl (0.8-1.5) H 05/29/18 11:48 Est GFR ( Amer) 51 05/29/18 11:48 Est GFR (Non-Af Amer) 42 05/29/18 11:48 POC Glucose (mg/dL) 196 mg/dL (65-110) H 05/31/18 10:49 Random Glucose 183 mg/dL (75-110) H 05/29/18 11:48 Uric Acid 11.6 mg/Dl (3.5-8.5) H 05/28/18 05:25 Calcium 9.1 mg/dL (8.4-10.2) 05/29/18 11:48 Phosphorus 4.1 mg/dl (2.5-4.5) 05/29/18 11:48 PTH Intact Whole Molec 37 pg/mL (14-64) 05/29/18 11:48 Urine Color Yellow (YELLOW) 05/28/18 19:24 Urine Clarity Clear (Clear) 05/28/18 19:24 Urine pH 6.0 (5.0-8.0) 05/28/18 19:24 Ur Specific [employer] 1.010 (1.003-1.030) 05/28/18 19:24 Urine Protein Negative mg/dL (NEGATIVE) 05/28/18 19:24 Urine Glucose (UA) Neg mg/dL (Normal) 05/28/18 19:24 Urine Ketones Negative mg/dL (NEGATIVE) 05/28/18 19:24 Urine Blood Negative (NEGATIVE) 05/28/18 19:24 Urine Nitrate Negative (NEGATIVE) 05/28/18 19:24 Urine Bilirubin Negative (NEGATIVE) 05/28/18 19:24 Urine Urobilinogen 0.2-1.0 mg/dL (0.2-1.0) 05/28/18 19:24 Ur Leukocyte Esterase Neg [place]/uL (Negative) 05/28/18 19:24 Urine RBC (Auto) 3 /hpf (0-3) 05/28/18 19:24 Urine Microscopic WBC < 1 /hpf (0-5) 05/28/18 19:24 Hyaline Casts 0-2 /hpf (0-2) 05/28/18 19:24 Ur Random Creatinine 45.9 mg/dL 05/29/18 19:58 U Random Total Protein 14.0 mg/dL (0.0-12.0) H 05/29/18 19:58 Double Strand DNA Ab 1 IU/mL 05/29/18 11:48 - Hospital Course Hospital Course: 77 yo male with history of CHF (Chronic Systolic Heart Failure), HTN, DM2, CAD, AFib with pacemaker, SLE, CKD and Depression admitted because of progressive worsening SOB and was diagnosed with acute exacerbation of CHF. Patient was put on diuretics and improved. Hemodynamically stable he was transferred to TCU for management of deconditioning and further management. At present doing well, participating with PT . Diagnosed with gout flare while in TCU a nd wsa strated on allopurinol. At present stable, improved . Will discharge to [facility] for continuation of PT 1. Deconditioning participating with PT will d/c to [facility] today 2. Gout flare uric acid 11.6 started allopurinol 100 mg PO QD 3. Acute on chronic systolic heart failure diuresed well , lost 10 lbs continue Lasix and Spironolactone ECHO (09/05/2017) showed 25-30% EF 4. Atrial fibrillation Chronic, 100% paced with pacemaker INR 2.7 today Will give 2 mg pO today Monitor PT/INR 5. Cystic Mass chronic, stable Present on Abd CT performed 09/07/2015, did not change in size. 6. HTN BP stable on diuretics 7. DM2 HgA1C: 6.7 on 10/15/2017 continue Januvia 50mg PO daily and Glyburide 2.5mg PO daily 8. CAD Continue Aspirin 81 and statin 9. Depression Continue Zoloft 50mg PO HS and Risperidone 2mg PO HS 10. SLE continue Prednisone 10mg PO daily and Plaquenil 200mg BID 11. Chronic kidney disease stable nephro consulted Creatinine has been stable Discharge Exam - Head Exam Head Exam: ATRAUMATIC, NORMOCEPHALIC - Eye Exam Eye Exam: EOMI, PERRL Pupil Exam: NORMAL ACCOMODATION - ENT Exam ENT Exam: Mucous Membranes Moist, Normal Exam - Neck Exam Neck exam: Full Rom, Normal Inspection - Respiratory Exam Respiratory Exam: Clear to PA & Lateral, Rales (bibasilar), NORMAL BREATHING PATTERN. absent: Rhonchi, Wheezes, Respiratory Distress - Cardiovascular Exam Cardiovascular Exam: Irregular Rhythm, +S1, +S2. absent: JVD - GI/Abdominal Exam GI & Abdominal Exam: Normal Bowel Sounds, Soft. absent: Distended, Guarding, Rebound, Tenderness - Rectal Exam Rectal Exam: Deferred - Extremities Exam Extremities exam: normal capillary refill, normal inspection, pedal pulses present - Back Exam Back exam: NORMAL INSPECTION - Neurological Exam Neurological exam: Alert, CN II-XII Intact, Oriented x3 - Psychiatric Exam Psychiatric exam: Normal Affect - Skin Skin Exam: Dry, Warm Discharge Plan - Follow Up Plan Condition: IMPROVED Disposition: TRANSF TO SNF Patient education suggested?: Yes Instructions: Heart Failure, Adult (DC), Vitamin K Diet, Preventing Falls, Warfarin Referrals: Dolores Crews MD [Staff Provider] - Howard Hidalgo MD [Staff Provider] - Jose Casey DPM [Staff Provider] -
--- NOTE | 2018-05-31 14:10 | CP.PCM.PN ---
Subjective - Date & Time of Evaluation Date of Evaluation: 05/31/18 Time of Evaluation: 01:50 - Subjective Subjective: Pt appears comfortable Denied feeling SOB & no c/o pain in Lt foot Objective - Vital Signs/Intake and Output Vital Signs (last 24 hours): Temp Pulse Resp BP Pulse Ox 98.6 F 61 20 131/78 99 05/31/18 08:27 05/31/18 08:27 05/31/18 08:27 05/31/18 08:27 05/31/18 08:27 - Medications Medications: Current Medications Acetaminophen (Tylenol 325mg Tab) 650 mg PO Q6 PRN PRN Reason: Pain, moderate (4-7) Last Admin: 05/29/18 08:16 Dose: 650 mg Allopurinol (Zyloprim) 100 mg PO DAILY [facility] Last Admin: 05/31/18 08:18 Dose: 100 mg Artificial Tears (Refresh Opth Soln) 0.3 ml OU Q6 PRN PRN Reason: Dry eyes Last Admin: 05/25/18 12:42 Dose: 1 100 Aspirin (Ecotrin) 81 mg PO DAILY [facility] Last Admin: 05/31/18 08:18 Dose: 81 mg Atorvastatin Calcium (Lipitor) 20 mg PO HS [facility] Last Admin: 05/30/18 21:52 Dose: 20 mg Docusate Sodium (Colace) 100 mg PO BID PRN PRN Reason: Constipation Last Admin: 05/29/18 08:17 Dose: 100 mg Ferrous Sulfate (Feosol) 325 mg PO BID [facility] Last Admin: 05/31/18 08:18 Dose: 325 mg Furosemide (Lasix) 40 mg PO DAILY [facility] Last Admin: 05/31/18 08:18 Dose: 40 mg Gabapentin (Neurontin) 300 mg PO TID [facility] Last Admin: 05/31/18 12:38 Dose: 300 mg Glyburide (Micronase) 2.5 mg PO DAILY [facility] Last Admin: 05/31/18 08:18 Dose: 2.5 mg Hydroxychloroquine Sulfate (Plaquenil) 200 mg PO BID [facility]; Protocol Last Admin: 05/31/18 08:18 Dose: 200 mg Nitroglycerin (Nitrostat Sl Tab) 0.4 mg SL DAILY PRN PRN Reason: chest pain Prednisone (Prednisone Tab) 10 mg PO DAILY [facility] Last Admin: 05/31/18 08:18 Dose: 10 mg Risperidone (Risperdal Tab) 2 mg PO HS [facility] Last Admin: 05/30/18 21:52 Dose: 2 mg Saccharomyces Boulardii (Florastor) 250 mg PO BID [facility] Last Admin: 05/31/18 08:18 Dose: 250 mg Sertraline HCl (Zoloft) 50 mg PO DAILY [facility] Last Admin: 05/31/18 08:18 Dose: 50 mg Sitagliptin Phosphate (Januvia) 50 mg PO DAILY [facility] Last Admin: 05/31/18 08:18 Dose: 50 mg Spironolactone (Aldactone) 25 mg PO DAILY [facility] Last Admin: 05/31/18 08:17 Dose: 25 mg Warfarin Sodium (Coumadin) 2 mg PO QD5 [facility]; Protocol Stop: 05/31/18 17:01 - Labs Labs: 05/26/18 05:45 05/29/18 11:48 PT 30.4 Seconds (9.8-13.1) H D 05/31/18 06:36 INR 2.7 05/31/18 06:36 - Head Exam Head Exam: ATRAUMATIC, NORMOCEPHALIC - Eye Exam Eye Exam: Normal appearance - ENT Exam ENT Exam: Mucous Membranes Moist - Neck Exam Neck Exam: Normal Inspection - Respiratory Exam Respiratory Exam: NORMAL BREATHING PATTERN Additional comments: Lugs clear - Cardiovascular Exam Cardiovascular Exam: Irregular Rhythm Additional comments: A.Fib - GI/Abdominal Exam GI & Abdominal Exam: Soft - Extremities Exam Additional comments: No edema Assessment and Plan - Assessment and Plan (Free Text) Assessment: Stable stage 3 kidney disease. Hyperurecemia on Allopurinol CHF, Chronic A..fib on coumadin anticoagulation Plan: Continue current Mx. Tolerating Allopurinol we. [place] to follow up uric acid level Avoid potentially nephrotoxic meds,
== END 2018-05-31 14:09 | DRG 291 ==
LOC: H.TCU 12:22
PROVIDERS: ADMIT Internal Medicine; ATTEND Internal Medicine
PROC: F07M6FZ Therapeutic Exercise Treatment of Musculoskeletal System - Whole Body using Assistive, Adaptive, Supportive or Protective Equipment (ICD-10-PCS; principal; 2018-05-20)
PROC: F08Z4FZ Home Management Treatment using Assistive, Adaptive, Supportive or Protective Equipment (ICD-10-PCS; 2018-05-20)
DX: I13.0 Hypertensive heart and chronic kidney disease with heart failure and stage 1 through stage 4 chronic kidney disease, or unspecified chronic kidney disease (principal); I50.23 Acute on chronic systolic (congestive) heart failure; I25.10 Atherosclerotic heart disease of native coronary artery without angina pectoris; I48.2 Chronic atrial fibrillation; M10.9 Gout, unspecified; M32.14 Glomerular disease in systemic lupus erythematosus; N18.3 Chronic kidney disease, stage 3 (moderate); Z79.01 Long term (current) use of anticoagulants; Z79.84 Long term (current) use of oral hypoglycemic drugs; Z87.01 Personal history of pneumonia (recurrent); Z87.891 Personal history of nicotine dependence; Z90.49 Acquired absence of other specified parts of digestive tract; Z95.0 Presence of cardiac pacemaker; Z95.5 Presence of coronary angioplasty implant and graft; R74.8 Abnormal levels of other serum enzymes; E11.22 Type 2 diabetes mellitus with diabetic chronic kidney disease; E78.00 Pure hypercholesterolemia, unspecified; E78.5 Hyperlipidemia, unspecified; F32.9 Major depressive disorder, single episode, unspecified; M79.674 Pain in right toe(s); M79.672 Pain in left foot